=== PATIENT | female | born 1945 | race Caucasian/White ===

== ENCOUNTER 2016-04-02 12:35 | Observation (INO) | payer MEDICARE, OTHER ==
--- NOTE | 2016-04-02 14:01 | XR ---
EXAMINATION TYPE: XR chest 2V DATE OF EXAM: 04/02/2016 1:56 PM COMPARISON: 08/23/15 HISTORY: Shortness of breath TECHNIQUE: Frontal and lateral views of the chest are obtained. FINDINGS: Scattered senescent parenchymal changes noted. Hyperinflation compatible with COPD. No evidence for infiltrate. No evidence for atelectasis. Heart size is stable. Mediastinal structures are stable and grossly unremarkable. No evidence for hilar prominence. Degenerative changes dorsal spine. IMPRESSION: 1. No evidence for acute pulmonary disease.
[2016-04-02] MEDS ORDERED: ASPIRIN 325 MG TAB PO STA (14:55)
[2016-04-02] MEDS ORDERED: SODIUM CHLORIDE 0.9% 500 ML IV STA (14:55)
[2016-04-02 15:30] LABS: Basophils % (A) 1 %; CH 33.2; CHCM 34.1; Eosinophils # (A) 0.1 k/uL (0-0.7); Eosinophils % (A) 2 %; HCT 40.3 % (34.0-46.0); HDW 2.41; HGB 13.3 gm/dL (11.4-16.0); Luc # (Auto) 0.12; Luc % (Auto) 3; Lymphocytes # (A) 2.2 k/uL (1.0-4.8); Lymphocytes % (A) 43 %; MCH 32.4 pg (25.0-35.0); MCHC 33.1 g/dL (31.0-37.0); MCV 97.7 fL (80.0-100.0); Mean Platelet Volume 8.1; Monocytes # (A) 0.6 k/uL (0-1.0); Monocytes % (A) 12 %; Neutrophils % (A) 39 %; RBC 4.12 m/uL (3.80-5.40); RDW 12.6 % (11.5-15.5); WBC (Perox) 5.28
[2016-04-02 15:41] LABS: Partial Thromboplastin Time 22.7 sec (22.0-30.0); Prothrombin Time 10.1 sec (9.0-12.0)
[2016-04-02 15:42] LABS: ALT 41 U/L (9-52); AST 32 U/L (14-36); Alkaline Phosphatase 89 U/L (38-126); Anion Gap 8 mmol/L; Blood Urea Nitrogen 12 mg/dL (7-17); Calcium 9.5 mg/dL (8.4-10.2); Carbon Dioxide 31 mmol/L (22-30); Chloride 102 mmol/L (98-107); Glucose 81 mg/dL (74-99); Non-African American GFR(MDRD) >60 (>60 ml/min/1.73 sqM); Potassium 4.9 mmol/L (3.5-5.1); Sodium 141 mmol/L (137-145); Total Bilirubin 0.2 mg/dL (0.2-1.3); Total Protein 6.3 g/dL (6.3-8.2)
[2016-04-02] MEDS ORDERED: FAMOTIDINE 20 MG/2 ML VIAL IV STA (16:53)
[2016-04-02] MEDS ORDERED: MAG HYDROX/AL HYDROX/SIMETH 30 ML, HYOSCYAMINE ELIXIR 10 ML, CIMETIDINE HCL 300 MG, LID... PO STA ×4 (16:53)
[2016-04-02] MEDS ORDERED: MORPHINE SULFATE 4 MG/ML SYRINGE IV PRN (17:22)
[2016-04-02] MEDS ORDERED: NALOXONE 0.4 MG/ML 1 ML VIAL IV PRN (17:22)
[2016-04-02] MEDS ORDERED: ALBUTEROL NEBULIZED 2.5 MG/3 ML INHALATION PRN (17:26)
[2016-04-02] MEDS ORDERED: SODIUM CHLORIDE 0.9% 1,000 ML IV SCH (17:30)
--- NOTE | 2016-04-02 19:49 | ED ---
General Adult HPI - General Chief complaint: Fall Stated complaint: chest pain Time Seen by Provider: 04/02/16 12:40 Source: patient Mode of arrival: wheelchair - History of Present Illness Initial comments: 70-year-old female presenting for evaluation of right rib pain for the last 6 days. She states that 9 days ago she fell while taking a walk landing on her chest. She did not initially have chest pain but 3 days later her symptoms began. She denies any contusion or gross ecchymosis to the chest wall but there is reproducible chest pain to the right lower 6 ribs. She further admits to URI symptoms with a nonproductive cough, rhinorrhea, and congestion. She states she feels as though she has congestion in her chest but it is not expectorating. There is also left-sided chest pain that is not reproducible to palpation like the right side. - Related Data Home Medications Medication Instructions Recorded Confirmed Albuterol Sulfate [Proair Hfa] 2 puff INHALATION RT-Q6H PRN 08/23/15 04/02/16 Atenolol 50 mg PO DAILY 08/23/15 04/02/16 Baclofen 5 mg PO BID 08/23/15 04/02/16 Divalproex Sodium 500 mg PO BID 08/23/15 04/02/16 Fluticasone Nasal [place] [Flonase 1 spray EA NOSTRIL DAILY 08/23/15 04/02/16 Nasal [place]] Levothyroxine Sodium 25 mcg PO DAILY 08/23/15 04/02/16 Multivitamins, Thera [Multivitamin] 1 tab PO DAILY 08/23/15 04/02/16 Nortriptyline HCl 25 mg PO DAILY 08/23/15 04/02/16 Omeprazole [PriLOSEC] 20 mg PO AC-BID 08/23/15 04/02/16 PARoxetine HCL [Paroxetine HCl] 20 mg PO DAILY 08/23/15 04/02/16 Simvastatin 40 mg PO HS 08/23/15 04/02/16 Aspirin [Adult Low Dose Aspirin EC] 81 mg PO HS 04/02/16 04/02/16 Allergies Allergy/AdvReac Type Severity Reaction Status Date / Time acetaminophen [From [place]] Allergy Nausea Verified 04/02/16 20:41 diclofenac sodium Allergy Unknown Verified 04/02/16 20:41 [From Arthrotec] hydrocodone bitartrate Allergy Unknown Verified 04/02/16 20:41 [From [place]] itraconazole [From Sporanox] Allergy Unknown Verified 04/02/16 20:41 misoprostol [From [employer]] Allergy Unknown Verified 04/02/16 20:41 naproxen [From Naprosyn] Allergy Unknown Verified 04/02/16 20:41 Review of Systems ROS Statement: Those systems with pertinent positive or pertinent negative responses have been documented in the HPI. General: Patient denies fever, chills,nausea, or vomiting. HEENT: No visual changes. No eye pain. No nasal symptoms. No dysphagia.No odynophagia. No ENT pain. Cardiac: Left chest pain nonreproducible and right chest pain reproducible. No palpitations. Pulmonary; No dyspnea. Positive cough that sounds wet but is unable to produce sputum. GI: No abdominal pain. No diarrhea. No constipation. No bowel habit changes. No melena. No hematochezia. See general. : No dysuria.No hematuria. No hesitancy. No urgency. No renal lithiasis history. Musculoskeletal: No musculoskeletal pain. Positive reproducible right chest pain. Orthopedic: Denies fracture history. Integumentary: Denies rash. Denies pruritis. Neurologic: Denies any lateralizing weakness. Denies numbness. Denies tingling. No seizure activity. Denies TIA or CVA. ROS Other: All systems not noted in ROS Statement are negative. Past Medical History Past Medical History: Chest Pain / Angina, COPD, Dementia, GERD/Reflux, Hyperlipidemia, Hypertension, Memory Impairment, Thyroid Disorder Additional Past Medical History / Comment(s): PALPITATIONS, PT STATES SHE THINKS SHE HAS BEGINNING STAGES OF DEMENTIA (STATES FALLS, CONFUSION, AND FORGETFULNESS AT TIMES. PATIENT'S MOTHER HAD DEMENTIA), GERD, CATARACT LT EYE History of Any Multi-Drug Resistant Organisms: None Reported Past Surgical History: Back Surgery, Breast Surgery, Hysterectomy Additional Past Surgical History / Comment(s): Breast reduction four years ago, NECK FUSION, Past Anesthesia/Blood Transfusion Reactions: Previous Problems w/ Anesthesia Additional Past Anesthesia/Blood Transfusion Reaction / Comment(s): TROUBLE WAKING UP FROM ANESTHESIA Past Psychological History: Anxiety, Depression, Panic Disorder Smoking Status: Former smoker Past Alcohol Use History: Occasional Past Drug Use History: None Reported - Past Family History Brother(s) Family Medical History: Myocardial Infarction ([place]) Additional Family Medical History / Comment(s): FROM [place] Father History Unknown: Yes Family Medical History: Coronary Artery Disease (CAD), Myocardial Infarction ([place] ) Additional Family Medical History / Comment(s): FATHER PASSED FROM [place] Mother Additional Family Medical History / Comment(s): kidney failure General Exam - General Exam Comments Initial Comments: General: The patient is awake and alert, in no distress, and does not appear acutely ill. Eye: Pupils are equal, round and reactive to light, extra-ocular movements are intact; there is normal conjunctiva bilaterally. No signs of icterus. Ears, nose, mouth and throat: There are moist mucous membranes and no oral lesions. Neck: The neck is supple, there is no tenderness or JVD. Cardiovascular: There is a regular rate and rhythm. No murmur, rub or gallop is appreciated. Respiratory: Lungs are clear to auscultation, respirations are non-labored, breath sounds are equal. No wheezes, stridor, rales, or rhonchi. Gastrointestinal: Soft, non-distended, non-tender abdomen without masses or organomegaly noted. There is no rebound or guarding present. No CVA tenderness. Bowel sounds are unremarkable. Back: There is no tenderness to palpation in the midline. There is no obvious deformity. No rashes noted. Musculoskeletal: Normal ROM, no tenderness, There is no pedal edema. There is no calf tenderness or swelling. Sensation intact. Pulses equal bilaterally 2+. Neurological: CN II-XII intact, There are no obvious motor or sensory deficits. Coordination appears grossly intact. Speech is normal. Skin: Skin is warm and dry and no rashes or lesions are noted. Psychiatric: Cooperative, appropriate mood & affect, normal judgment. Course Vital Signs 04/02/16 04/02/16 04/02/16 12:36 16:53 18:45 Temperature 99.2 F 97.8 F 97.8 F Pulse Rate 68 56 L 59 L Respiratory 18 16 16 Rate Blood Pressure 122/60 155/67 140/67 O2 Sat by Pulse 100 95 96 Oximetry 04/02/16 20:11 Temperature 97.8 F Pulse Rate 60 Respiratory 16 Rate Blood Pressure 141/70 O2 Sat by Pulse 97 Oximetry EKG Findings - EKG Comments: EKG Findings:: EKG shows normal sinus rhythm with occasional PVCs, rate of 70, LEO 198, QRS 94, QT/QTC 406/438. Medical Decision Making - Medical Decision Making 70-year-old female presented for evaluation of right-sided chest pain that occurred 6 days ago which is preceded 3 days earlier by a fall from standing onto her chest. She also states some left-sided chest pain that is nonreproducible and isn't present today. Patient has multiple risk factors for ACS including hypertension, hyperlipidemia, family history, and previous smoker. Physical examination revealed reproducible right chest wall pain in the lower 6 ribs on the right. The left-sided chest pain was nonreproducible. We'll obtain labs, EKG, chest x-ray, and provide IV fluid and aspirin. Patient reevaluated and continued to have minor chest pain worse on the right compared to the left but still present. Left revealed no significant abnormalities and chest x-ray showed no acute process. Due to continued chest pain the patient was informed that she would be admitted for further care. Dr. Fischer accepted the admission with request for cardiology consult. Admission order placed in bed request submitted. - Lab Data Result diagrams: 04/02/16 15:14 04/02/16 15:14 Lab Results 04/02/16 04/02/16 04/02/16 Range/Units 15:05 15:14 15:14 WBC 5.0 (3.8-10.6) k/uL RBC 4.12 (3.80-5.40) m/uL Hgb 13.3 (11.4-16.0) gm/dL Hct 40.3 (34.0-46.0) % MCV 97.7 (80.0-100.0) fL MCH 32.4 (25.0-35.0) pg MCHC 33.1 (31.0-37.0) g/dL RDW 12.6 (11.5-15.5) % Plt Count 162 (150-450) k/uL Neutrophils % 39 % Lymphocytes % 43 % Monocytes % 12 % Eosinophils % 2 % Basophils % 1 % Neutrophils # 2.0 (1.3-7.7) k/uL Lymphocytes # 2.2 (1.0-4.8) k/uL Monocytes # 0.6 (0-1.0) k/uL Eosinophils # 0.1 (0-0.7) k/uL Basophils # 0.0 (0-0.2) k/uL PT (9.0-12.0) sec INR (<1.1) APTT (22.0-30.0) sec Sodium 141 (137-145) mmol/L Potassium 4.9 (3.5-5.1) mmol/L Chloride 102 (98-107) mmol/L Carbon Dioxide 31 H (22-30) mmol/L Anion Gap 8 mmol/L BUN 12 (7-17) mg/dL Creatinine 0.70 (0.52-1.04) mg/dL Est GFR (MDRD) Af Amer >60 (>60 ml/min/1.73 sqM) Est GFR (MDRD) Non-Af >60 (>60 ml/min/1.73 sqM) Glucose 81 (74-99) mg/dL Calcium 9.5 (8.4-10.2) mg/dL Total Bilirubin 0.2 (0.2-1.3) mg/dL AST 32 (14-36) U/L ALT 41 (9-52) U/L Alkaline Phosphatase 89 (38-126) U/L Troponin I (0.000-0.034) ng/mL NT-Pro-B Natriuret Pep pg/mL Total Protein 6.3 (6.3-8.2) g/dL Albumin 4.0 (3.5-5.0) g/dL Lipase 63 (23-300) U/L Influenza Type A RNA Not Detected (Not Detectd) Influenza Type B (PCR) Not Detected (Not Detectd) 04/02/16 04/02/16 04/02/16 Range/Units 15:14 15:14 15:14 WBC (3.8-10.6) k/uL RBC (3.80-5.40) m/uL Hgb (11.4-16.0) gm/dL Hct (34.0-46.0) % MCV (80.0-100.0) fL MCH (25.0-35.0) pg MCHC (31.0-37.0) g/dL RDW (11.5-15.5) % Plt Count (150-450) k/uL Neutrophils % % Lymphocytes % % Monocytes % % Eosinophils % % Basophils % % Neutrophils # (1.3-7.7) k/uL Lymphocytes # (1.0-4.8) k/uL Monocytes # (0-1.0) k/uL Eosinophils # (0-0.7) k/uL Basophils # (0-0.2) k/uL PT 10.1 (9.0-12.0) sec INR 1.0 (<1.1) APTT 22.7 (22.0-30.0) sec Sodium (137-145) mmol/L Potassium (3.5-5.1) mmol/L Chloride (98-107) mmol/L Carbon Dioxide (22-30) mmol/L Anion Gap mmol/L BUN (7-17) mg/dL Creatinine (0.52-1.04) mg/dL Est GFR (MDRD) Af Amer (>60 ml/min/1.73 sqM) Est GFR (MDRD) Non-Af (>60 ml/min/1.73 sqM) Glucose (74-99) mg/dL Calcium (8.4-10.2) mg/dL Total Bilirubin (0.2-1.3) mg/dL AST (14-36) U/L ALT (9-52) U/L Alkaline Phosphatase (38-126) U/L Troponin I <0.012 (0.000-0.034) ng/mL NT-Pro-B Natriuret Pep 296 pg/mL Total Protein (6.3-8.2) g/dL Albumin (3.5-5.0) g/dL Lipase (23-300) U/L Influenza Type A RNA (Not Detectd) Influenza Type B (PCR) (Not Detectd) Disposition Clinical Impression: Chest pain Disposition: ADMITTED IP TO THIS HOSP Condition: Fair Time of Disposition: 22:23 Decision to Admit Reason: Admit from EC Decision Date: 04/02/16 Decision Time: 22:23
[2016-04-02] MEDS ORDERED: MORPHINE SULFATE 2 MG/ML SYRINGE IVP PRN (20:05)
[2016-04-02] MEDS ORDERED: ONDANSETRON 4 MG/2 ML VIAL IVP STA (20:10)
[2016-04-02 20:52] VITALS: BMI 27.0
[2016-04-02] MEDS ORDERED: ATORVASTATIN 20 MG TAB PO SCH (21:00)
[2016-04-02] MEDS: BACLOFEN 10 MG TAB PO SCH (21:21)
[2016-04-02] MEDS: FAMOTIDINE 20 MG TAB PO SCH (21:21)
[2016-04-02] MEDS: DIVALPROEX 500 MG TABLET.DR PO SCH (21:21)
[2016-04-03] MEDS ORDERED: LEVOTHYROXINE 25 MCG TAB PO SCH (06:30)
[2016-04-03 07:04] LABS: Basophils % (A) 1 %; CHCM 33.3; Eosinophils # (A) 0.2 k/uL (0-0.7); Eosinophils % (A) 4 %; HCT 40.7 % (34.0-46.0); HDW 2.37; Luc # (Auto) 0.12; Luc % (Auto) 3; Lymphocytes # (A) 2.2 k/uL (1.0-4.8); Lymphocytes % (A) 47 %; MCH 31.9 pg (25.0-35.0); MCV 99.6 fL (80.0-100.0); Mean Platelet Volume 8.1; Monocytes # (A) 0.4 k/uL (0-1.0); Monocytes % (A) 9 %; Neutrophils # (A) 1.7 k/uL (1.3-7.7); Neutrophils % (A) 37 %; RBC 4.08 m/uL (3.80-5.40); RDW 12.7 % (11.5-15.5); WBC 4.6 k/uL (3.8-10.6); WBC (Perox) 4.53
[2016-04-03 07:08] LABS: INR 1.1 (<1.1); Prothrombin Time 11.1 sec (9.0-12.0)
[2016-04-03 07:28] LABS: Anion Gap 7 mmol/L; Blood Urea Nitrogen 9 mg/dL (7-17); Calcium 9.5 mg/dL (8.4-10.2); Carbon Dioxide 32 mmol/L (22-30); Chloride 102 mmol/L (98-107); Glucose 81 mg/dL (74-99); Magnesium 1.9 mg/dL (1.6-2.3); Non-African American GFR(MDRD) >60 (>60 ml/min/1.73 sqM); Potassium 4.5 mmol/L (3.5-5.1); Sodium 141 mmol/L (137-145)
--- NOTE | 2016-04-03 07:50 | XR ---
EXAMINATION TYPE: XR chest 2V DATE OF EXAM: 04/03/2016 7:06 AM COMPARISON: 04/02/2016 HISTORY: 70-year-old female with chest pain TECHNIQUE: Frontal and lateral views FINDINGS: ACDF hardware. Heart is upper limits of normal in size. Mild elongation of the thoracic aorta. Some strandy atelecta sis at the left base. There is elevation of the left hemidiaphragm. No consolidation or pleural effus ion seen. IMPRESSION: Stable exam without acute cardiopulmonary process. We note persistent elevation of the left hemidiaph ragm which has a number of possible cause, one of which is hemidiaphragmatic paralysis. Clinically co rrelate with patient's symptoms.
[2016-04-03] MEDS ORDERED: NORTRIPTYLINE 25 MG CAP PO SCH (09:00)
[2016-04-03] MEDS ORDERED: PARoxetine 20 MG TAB PO SCH (09:00)
[2016-04-03] MEDS ORDERED: ASPIRIN 81 MG CHEW PO SCH (09:00)
[2016-04-03] MEDS ORDERED: ATENOLOL 50 MG TAB PO SCH (09:00)
[2016-04-03] MEDS ORDERED: FLUTICASONE 50MCG/SPRAY NASAL 16GM EA NOSTRIL SCH (09:00)
--- NOTE | 2016-04-03 09:04 | P.CRDCN ---
History of Present Illness Consult date: 04/03/16 Chief complaint: Chest pain History of present illness: This is a pleasant 70-year-old female patient who sees Dr. Dr. Tejada as an outpatient with a past medical history significant for hypertension who presented to the hospital complaining of chest discomfort. The patient felt by the mailbox at home and she fell on her knees and on the chest. Since then she started experiencing chest discomfort, as a sharp kind of discomfort, without any radiation and located in the right lower chest. She had a cardiac workup of EKG and enzymes and all came in to be unremarkable. On physical examination she has reproducible chest discomfort. I would obtain an echocardiogram was Doppler to assess for any pericardial effusion. If the echo came in to be unremarkable the patient can be discharged home. Past Medical History Past Medical History: Chest Pain / Angina, COPD, Dementia, GERD/Reflux, Hyperlipidemia, Hypertension, Memory Impairment, Thyroid Disorder Additional Past Medical History / Comment(s): PALPITATIONS, PT STATES SHE THINKS SHE HAS BEGINNING STAGES OF DEMENTIA (STATES FALLS, CONFUSION, AND FORGETFULNESS AT TIMES. PATIENT'S MOTHER HAD DEMENTIA), GERD, CATARACT LT EYE History of Any Multi-Drug Resistant Organisms: None Reported Past Surgical History: Back Surgery, Breast Surgery, Hysterectomy Additional Past Surgical History / Comment(s): Breast reduction four years ago, NECK FUSION, Past Anesthesia/Blood Transfusion Reactions: Previous Problems w/ Anesthesia Additional Past Anesthesia/Blood Transfusion Reaction / Comment(s): TROUBLE WAKING UP FROM ANESTHESIA Past Psychological History: Anxiety, Depression, Panic Disorder Smoking Status: Former smoker Past Alcohol Use History: Occasional Past Drug Use History: None Reported - Past Family History Brother(s) Family Medical History: Myocardial Infarction ([place]) Additional Family Medical History / Comment(s): FROM [place] Father History Unknown: Yes Family Medical History: Coronary Artery Disease (CAD), Myocardial Infarction ([place] ) Additional Family Medical History / Comment(s): FATHER PASSED FROM [place] Mother Additional Family Medical History / Comment(s): kidney failure Medications and Allergies Home Medications Medication Instructions Recorded Confirmed Type Albuterol Sulfate [Proair Hfa] 2 puff INHALATION RT-Q6H PRN 08/23/15 04/02/16 History Atenolol 50 mg PO DAILY 08/23/15 04/02/16 History Baclofen 5 mg PO BID 08/23/15 04/02/16 History Divalproex Sodium 500 mg PO BID 08/23/15 04/02/16 History Fluticasone Nasal [place] [Flonase 1 spray EA NOSTRIL DAILY 08/23/15 04/02/16 History Nasal [place]] Levothyroxine Sodium 25 mcg PO DAILY 08/23/15 04/02/16 History Multivitamins, Thera [Multivitamin] 1 tab PO DAILY 08/23/15 04/02/16 History Nortriptyline HCl 25 mg PO DAILY 08/23/15 04/02/16 History Omeprazole [PriLOSEC] 20 mg PO AC-BID 08/23/15 04/02/16 History PARoxetine HCL [Paroxetine HCl] 20 mg PO DAILY 08/23/15 04/02/16 History Simvastatin 40 mg PO HS 08/23/15 04/02/16 History Aspirin [Adult Low Dose Aspirin EC] 81 mg PO HS 04/02/16 04/02/16 History Allergies Allergy/AdvReac Type Severity Reaction Status Date / Time acetaminophen [From [place]] Allergy Nausea Verified 04/02/16 20:41 diclofenac sodium Allergy Unknown Verified 04/02/16 20:41 [From [employer]] hydrocodone bitartrate Allergy Unknown Verified 04/02/16 20:41 [From [place]] itraconazole [From Sporanox] Allergy Unknown Verified 04/02/16 20:41 misoprostol [From [employer]] Allergy Unknown Verified 04/02/16 20:41 naproxen [From Naprosyn] Allergy Unknown Verified 04/02/16 20:41 Physical Exam Vitals: Vital Signs Temp Pulse Pulse Resp BP BP Pulse Ox 04/03/16 04:00 98.4 F 59 L 18 126/58 97 04/03/16 00:00 18 04/02/16 23:26 65 18 109/64 93 L 04/02/16 21:32 98.8 F 72 16 151/80 97 04/02/16 20:11 97.8 F 60 16 141/70 97 04/02/16 18:45 97.8 F 59 L 16 140/67 96 Intake and Output 04/02/16 04/03/16 04/03/16 22:59 06:59 14:59 Other: # Voids 1 Weight 67.1 kg - Constitutional General appearance: no acute distress - Respiratory Respiratory: bilateral: CTA - Cardiovascular Rhythm: regular Results 04/03/16 06:33 04/03/16 06:33 Coagulation 04/03/16 Range/Units 06:33 PT 11.1 (9.0-12.0) sec CBC 04/03/16 Range/Units 06:33 WBC 4.6 (3.8-10.6) k/uL RBC 4.08 (3.80-5.40) m/uL Hgb 13.0 (11.4-16.0) gm/dL Hct 40.7 (34.0-46.0) % Plt Count 145 L (150-450) k/uL Comprehensive Metabolic Panel 04/03/16 Range/Units 06:33 Sodium 141 (137-145) mmol/L Potassium 4.5 (3.5-5.1) mmol/L Chloride 102 (98-107) mmol/L Carbon Dioxide 32 H (22-30) mmol/L BUN 9 (7-17) mg/dL Creatinine 0.83 (0.52-1.04) mg/dL Glucose 81 (74-99) mg/dL Calcium 9.5 (8.4-10.2) mg/dL Current Medications Generic Name Dose Route Start Last Admin Trade Name Freq PRN Reason Stop Dose Admin Albuterol Sulfate 2.5 mg 04/02/16 17:26 Ventolin Nebulized INHALATION RT-Q6H PRN Shortness Of Breath Aspirin 81 mg 04/03/16 09:00 Aspirin PO QAM ANTONIO Atenolol 50 mg 04/03/16 09:00 Tenormin PO DAILY [facility] Atorvastatin Calcium 20 mg 04/02/16 21:00 04/02/16 21:21 Lipitor PO 20 mg HS ANTONIO Administration Baclofen 5 mg 04/02/16 21:00 04/02/16 21:21 Lioresal PO 5 mg BID ANTONIO Administration Divalproex Sodium 500 mg 04/02/16 21:00 04/02/16 21:21 Depakote PO 500 mg BID ANTONIO Administration Famotidine 20 mg 04/02/16 21:00 04/02/16 21:21 Pepcid PO 20 mg BID ANTONIO Administration Fluticasone Propionate 1 spray 04/03/16 09:00 Flonase Nasal [place] EA NOSTRIL DAILY ANTONIO Sodium Chloride 1,000 mls @ 20 mls/hr 04/02/16 17:30 04/02/16 21:02 Saline 0.9% IV Not Given .Q24H ANTONIO Levothyroxine Sodium 25 mcg 04/03/16 06:30 04/03/16 06:19 Synthroid PO 25 mcg DAILY@0630 ANTONIO Administration Morphine Sulfate 4 mg 04/02/16 17:22 Morphine Sulfate (Inj) IV Q4HR PRN Severe Pain Morphine Sulfate 2 mg 04/02/16 20:05 04/02/16 20:06 Morphine Sulfate (Inj) IVP 2 mg ONCE PRN Administration Pain/Discomfort Naloxone HCl 0.2 mg 04/02/16 17:22 Narcan IV Q2M PRN Opioid Reversal Nortriptyline HCl 25 mg 04/03/16 09:00 Pamelor PO DAILY ANTONIO Paroxetine HCl 20 mg 04/03/16 09:00 Paxil PO DAILY ANTONIO Intake and Output 04/02/16 04/03/16 04/03/16 22:59 06:59 14:59 Other: # Voids 1 Weight 67.1 kg 04/03/16 06:33 04/03/16 06:33 Assessment and Plan Plan: Assessment #1 status post fall #2 atypical and reproducible chest discomfort Plan #1 obtain an echocardiogram was Doppler #2 if the echo is normal the patient can be discharged home
[2016-04-03 09:14] VITALS: RESP 16
[2016-04-03] MEDS ORDERED: NAPROXEN 250 MG TAB PO SCH (11:30)
[2016-04-03 12:59] VITALS: BP 104/61; PULSE 64; TEMP 98.9
--- NOTE | 2016-04-03 13:08 | HP ---
DATE OF ADMISSION: 04/02/2016 PRESENTING COMPLAINT: Right chest wall pain. HISTORY OF PRESENTING COMPLAINT: A pleasant 70-year-old patient of Dr. Cee whose chronic stable medical conditions include COPD, hypertension, depression, osteoarthritis. The patient about 6 to 7 days ago took a fall, falling on the right arm, right knee and subsequent to that 2 days later she developed right-sided chest wall pain much worse with movement, just behind the right breast on the lateral side and decided to come in as pain was not getting controlled. Denied any precordial pain. No shortness of breath associated with the pain or dizziness. No left-sided chest pain. REVIEW OF SYSTEMS: CONSTITUTIONAL: None. HEENT: None. RESPIRATORY: Baseline short of breath from COPD. CARDIOVASCULAR: No precordial pain. GASTROINTESTINAL: None. GENITOURINARY: None. MUSCULOSKELETAL: Aches and pains in different joints including the right chest wall pain. HEMATOLOGICAL: None. LYMPHATIC: None. PSYCHIATRY: History of depression. NEUROLOGICAL: None. Past history of COPD, hypertension, depression, osteoarthritis, dementia, hypothyroid, GERD. PAST SURGICAL HISTORY: Back surgery, breast surgery, hysterectomy, breast reduction 4 years ago. Past psych history of anxiety, depression. Ex-smoker, lives by herself. FAMILY HISTORY: Myocardial infarction. HOME MEDICATIONS: 1. Simvastatin 40 mg q.h.s. 2. Paxil 20 mg daily, 3. Prilosec 20 mg p.o. b.i.d. 4. Nortriptyline 25 mg p.o. daily. 5. Multivitamin 1 tablet p.o. daily. 6. Synthroid 25 mcg p.o. daily. 7. Flonase one spray each nostril daily. 8. Depakote 500 mg p.o. b.i.d. 9. Baclofen 5 mg p.o. b.i.d. 10. Atenolol 50 mg p.o. daily. 11. Aspirin 81 mg p.o. q.h.s. 12. ProAir 2 puffs q.6 p.r.n. Allergies to NORCO, ARTHROTEC, SPORANOX, NAPROXEN, ( ) true allergy. On examination, temperature 98.4, pulse 59, respirations 18, blood pressure 126/58, pulse ox 97% on room air. GENERAL APPEARANCE: Average built, lying in bed, not in distress. EYES: Pupils equal. Conjunctivae normal. HEENT: External appearance of nose and ears normal. Oral cavity normal. NECK: JVD not raised. Mass not palpable. RESPIRATORY: Effort normal. LUNGS: Slightly decreased breath sounds. CARDIOVASCULAR: First and second sounds normal. No edema. ABDOMEN: Soft, nontender. Liver and spleen not palpable. LYMPHATIC: No lymph node palpable in neck or axillae. PSYCHIATRY: Alert and oriented x3. Mood and affect normal. NEUROLOGICAL: Pupils equal. Cranial nerves grossly intact. Power and sensation grossly intact. MUSCULOSKELETAL: Evidence of osteoarthritis multiple joints. Right chest wall reproducible pain in the anterior axillary line at the level of the breast, reproducible. INVESTIGATIONS: White count 4.6, hemoglobin 13. Potassium 4.5. Chest x-ray unremarkable. ASSESSMENT: 1. Right chest wall pain subsequent to a fall reproducible, musculoskeletal in nature. ER was concerned about a cardiac cause, hence they admitted the patient to get a cardiology opinion which I doubt is the case. 2. Essential hypertension. 3. Depression, not otherwise specified. 4. Primary osteoarthritis of multiple joints, bilateral. 5. Hypothyroidism. PLAN: Home medications are resumed. Cardiology was consulted. Will check patient's allergies to anti-inflammatory and probably give a course of that along with heating pad.
[2016-04-03] MEDS: DIVALPROEX 500 MG TABLET.DR PO SCH (13:25)
[2016-04-03] MEDS: BACLOFEN 10 MG TAB PO SCH (13:25)
[2016-04-03] MEDS: FAMOTIDINE 20 MG TAB PO SCH (13:25)
--- NOTE | 2016-04-04 07:41 | DS ---
DATE OF ADMISSION: 04/02/2016 DATE OF DISCHARGE: 04/03/2016 FINAL DIAGNOSES: 1. Right chest wall pain, musculoskeletal secondary to fall, possibly causing bruising of the ribs. 2. Essential hypertension. 3. Depression, not otherwise specified. 4. Primary osteoarthritis of multiple joints, bilateral. 5. Hypothyroidism. HOSPITAL COURSE: This patient presented with right chest wall pain secondary to a fall. Pain is reproducible. Not felt to be cardiac. On examination, reproducible right chest wall pain. CONSULTATION: Dr. Castaneda. DISCHARGE MEDICATIONS: 1. ProAir 2 puffs q.6 p.r.n. 2. Atenolol 50 mg a day. 3. Baclofen 5 mg p.o. b.i.d. 4. Depakote 500 mg p.o. b.i.d. 5. Flonase as before. 6. Levothyroxine 25 mcg a day. 7. Multivitamin 1 tablet a day. 8. Nortriptyline 25 mg p.o. daily. 9. Prilosec 20 mg p.o. b.i.d. 10. Paxil 20 mg daily. 11. Simvastatin 40 mg q.h.s. 12. Aspirin 81 mg p.o. q.h.s. 13. Naproxen 250 mg p.o. b.i.d. for 10 tablets. Heating pad to be used. Follow with Dr. Castaneda in one week; follow up with Dr. Cee in one week.
== END 2016-04-03 13:49 | disposition home or self-care (01) ==
LOC: EC 12:35 → 3OBS 17:27
PROVIDERS: ADMIT Hospitalist; ATTEND Hospitalist
DX: R07.89 Other chest pain (principal); I10 Essential (primary) hypertension; F32.9 Major depressive disorder, single episode, unspecified; M19.91 Primary osteoarthritis, unspecified site; E03.9 Hypothyroidism, unspecified; J44.9 Chronic obstructive pulmonary disease, unspecified; K21.9 Gastro-esophageal reflux disease without esophagitis; E78.5 Hyperlipidemia, unspecified; F41.9 Anxiety disorder, unspecified; Z98.1 Arthrodesis status; Z87.891 Personal history of nicotine dependence; Z79.899 Other long term (current) drug therapy; Z79.51 Long term (current) use of inhaled steroids; Z79.82 Long term (current) use of aspirin; Z88.5 Allergy status to narcotic agent; Z88.8 Allergy status to other drugs, medicaments and biological substances; Z82.49 Family history of ischemic heart disease and other diseases of the circulatory system
CPT/HCPCS: 99285 ×2; 96374 ×2; 96375 ×3; 96361; 36415; 93005; 83880; 80053; 80048; 83690; 83735; 84484; 85025 ×2; 85610 ×2; 85730; 87502; 71020 ×2; G0378 ×2; J2405; J2270

== ENCOUNTER → 2016-07-13 | Outpatient (CLI) | payer MEDICARE, OTHER ==
--- NOTE | 2016-07-15 09:53 | MM ---
Reason for exam: screening (asymptomatic). Last mammogram was performed 1 year ago. History: Patient is postmenopausal. Reductions of both breasts, March 2012. Benign excisional biopsy of the left breast. Took progesterone for 1 month. Physical Findings: A clinical breast exam by your physician is recommended on an annual basis and results should be correlated with mammographic findings. MG 3D Screening Mammo W/Cad Bilateral CC and MLO view(s) were taken. Prior study comparison: July 04, 2015, bilateral MG screening mammo w CAD. July 23, 2014, bilateral MG screening mammo w CAD. There are scattered fibroglandular densities. Stable group of calcifications in the right upper outer quadrant, 3cm from nipple. No significant changes when compared with prior studies. ASSESSMENT: Benign, BI-RAD 2 RECOMMENDATION: Routine screening mammogram of both breasts in 1 year.
== END | disposition home or self-care (01) ==
LOC: RADMAMWWP 12:55
PROVIDERS: ATTEND Family Medicine
DX: Z12.31 Encounter for screening mammogram for malignant neoplasm of breast (principal)
CPT/HCPCS: 77063; G0202

== ENCOUNTER → 2016-07-13 | Outpatient (CLI) | payer MEDICARE, OTHER ==
--- NOTE | 2016-07-14 14:07 | XR ---
EXAMINATION TYPE: XR hand complete LT DATE OF EXAM: 07/13/2016 4:19 PM COMPARISON: NONE HISTORY: Pain in left middle finger TECHNIQUE: 3 view left hand FINDINGS: No acute fractures are evident. Soft tissues appear normal. No radiopaque foreign body is e vident. IMPRESSION: 1. No acute osseous abnormality.
== END | disposition home or self-care (01) ==
LOC: RADXRMAIN 16:03
PROVIDERS: ATTEND Family Medicine
DX: M79.645 Pain in left finger(s) (principal)

== ENCOUNTER → 2016-11-25 | Outpatient (CLI) | payer MEDICARE, OTHER ==
--- NOTE | 2016-11-25 13:37 | XR ---
EXAMINATION TYPE: XR Hip Complete LT DATE OF EXAM: 11/25/2016 CLINICAL HISTORY: pain TECHNIQUE: AP and frogleg views of the left hip are obtained. COMPARISON: None. FINDINGS: There is no acute fracture/dislocation evident. The joint space appears within normal li mits. Heterotopic ossification left supra-acetabular soft tissues. IMPRESSION: 1. There is no acute fracture or dislocation.ICD 10 NO FRACTURE, INITIAL EVALUATION
== END | disposition home or self-care (01) ==
LOC: RADXRMAIN 11:58
PROVIDERS: ATTEND Family Medicine
DX: M25.552 Pain in left hip (principal)
CPT/HCPCS: 73502

== ENCOUNTER → 2017-08-30 | Outpatient (CLI) | payer MEDICARE, OTHER ==
--- NOTE | 2017-08-31 10:16 | MM ---
Reason for exam: screening (asymptomatic). Last mammogram was performed 1 year and 2 months ago. History: Patient is postmenopausal. Reductions of both breasts, March 2012. Benign excisional biopsy of the left breast. Took progesterone for 1 month. Physical Findings: A clinical breast exam by your physician is recommended on an annual basis and results should be correlated with mammographic findings. MG 3D Screening Mammo W/Cad Bilateral CC and MLO view(s) were taken. Prior study comparison: July 13, 2016, bilateral MG 3d screening mammo w/cad. July 04, 2015, bilateral MG screening mammo w CAD. There are scattered fibroglandular densities. Benign appearing bilateral calcifications. No suspicious abnormality. No significant changes when compared with prior studies. ASSESSMENT: Benign, BI-RAD 2 RECOMMENDATION: Routine screening mammogram of both breasts in 1 year.
== END | disposition home or self-care (01) ==
LOC: RADMAMWWP 10:44
PROVIDERS: ATTEND Internal Medicine
DX: Z12.31 Encounter for screening mammogram for malignant neoplasm of breast (principal)
CPT/HCPCS: 77063; 77067

== ENCOUNTER → 2018-08-31 | Outpatient (CLI) | payer MEDICARE, OTHER ==
--- NOTE | 2018-09-04 09:17 | MM ---
Reason for exam: screening (asymptomatic). Last mammogram was performed 1 year ago. History: Patient is postmenopausal. Reductions of both breasts, March 2012. Benign excisional biopsy of the left breast. Took progesterone for 1 month. Physical Findings: A clinical breast exam by your physician is recommended on an annual basis and results should be correlated with mammographic findings. MG 3D Screening Mammo W/Cad Bilateral CC and MLO view(s) were taken. Prior study comparison: August 30, 2017, bilateral MG 3d screening mammo w/cad. July 13, 2016, bilateral MG 3d screening mammo w/cad. There are scattered fibroglandular densities. Bilateral mammoplasty changes. No significant changes when compared with prior studies. ASSESSMENT: Negative, BI-RAD 1 RECOMMENDATION: Routine screening mammogram of both breasts in 1 year.
== END | disposition home or self-care (01) ==
LOC: RADMAMWWP 11:38
PROVIDERS: ATTEND Internal Medicine
DX: Z12.31 Encounter for screening mammogram for malignant neoplasm of breast (principal)
CPT/HCPCS: 77063; 77067

== ENCOUNTER → 2019-05-29 | Outpatient (CLI) | payer MEDICARE, OTHER ==
--- NOTE | 2019-05-29 11:38 | MM ---
Reason for exam: clinical finding. Last mammogram was performed 9 months ago. History: Patient is postmenopausal. Reductions of both breasts, March 2012. Benign excisional biopsy of the left breast. Took progesterone for 1 month. Physical Findings: Nurse did not find any significant physical abnormalities on exam. MG 3D Diag Mammo W/Cad MARIA D Bilateral CC and MLO view(s) were taken. Prior study comparison: August 31, 2018, bilateral MG 3d screening mammo w/cad. August 30, 2017, bilateral MG 3d screening mammo w/cad. There are scattered fibroglandular densities. Finding: There are typically benign vascular, dystrophic, round, linear calcifications in both breasts. Asymmetric breast tissue left outer, stable. There is no discrete abnormality. These results were verbally communicated with the patient and result sheet given to the patient on 05/29/19. ASSESSMENT: Benign, BI-RAD 2 RECOMMENDATION: Routine screening mammogram of both breasts in 1 year. Manage on a clinical basis with regard to bilateral pain.
== END | disposition home or self-care (01) ==
LOC: RADMAMWWP 10:41
PROVIDERS: ATTEND Internal Medicine
DX: N64.4 Mastodynia (principal)
CPT/HCPCS: 77066; G0279; 77062

== ENCOUNTER 2019-07-11 11:08 | Emergency (ER) | payer MEDICARE, OTHER ==
[2019-07-11 11:15] VITALS: RESP 18
[2019-07-11] MEDS ORDERED: SODIUM CHLORIDE 0.9% 1,000 ML IV STA (11:28)
[2019-07-11] MEDS ORDERED: ONDANSETRON 4 MG/2 ML VIAL IVP STA (11:28)
[2019-07-11] MEDS ORDERED: MORPHINE SULFATE 2 MG/ML SYRINGE IVP ONE (11:49)
[2019-07-11 12:02] LABS: Basophils # (A) 0.1 k/uL (0-0.2); Basophils % (A) 1 %; Eosinophils # (A) 0.2 k/uL (0-0.7); Eosinophils % (A) 5 %; HCT 38.6 % (34.0-46.0); HGB 13.1 gm/dL (11.4-16.0); Lymphocytes # (A) 1.6 k/uL (1.0-4.8); Lymphocytes % (A) 42 %; MCH 31.9 pg (25.0-35.0); MCHC 33.9 g/dL (31.0-37.0); MCV 93.9 fL (80.0-100.0); Mean Platelet Volume 7.7; Monocytes # (A) 0.5 k/uL (0-1.0); Monocytes % (A) 12 %; Neutrophils # (A) 1.4 k/uL (1.3-7.7); Neutrophils % (A) 37 %; Platelet Count 182 k/uL (150-450); RBC 4.11 m/uL (3.80-5.40); RDW 12.5 % (11.5-15.5); WBC 3.9 k/uL (3.8-10.6)
--- NOTE | 2019-07-11 12:08 | ED ---
Abdominal Pain HPI - General Chief Complaint: Abdominal Pain Stated Complaint: abd pain/sent by pcp Time Seen by Provider: 07/11/19 11:17 Source: patient, RN notes reviewed Mode of arrival: wheelchair Limitations: no limitations, physical limitation - History of Present Illness Initial Comments: This a 73-year-old female presents emergency Department chief complaint of abdominal pain. She states this has been ongoing but states in the last couple days that she's had worsening severe diffuse abdominal pain. Patient called her PCP who recommended to come the emergency department. Patient's had prior hysterectomy and asthma that she's had some frequent urinary tract infections. Patient denies any diarrhea or constipation she does admit to some nausea. No chest pain or shortness of breath. Denies fevers or chills. No prior abdominal infections including colitis, diverticulitis. Patient states nothing really makes her pain feel better or worse or she states that she has chronic back pain and normally gets injections but states that she has not been getting around secondary to current pandemic. - Related Data Home Medications Medication Instructions Recorded Confirmed Baclofen 5 mg PO BID 08/23/15 07/11/19 Divalproex Sodium 500 mg PO BID 08/23/15 07/11/19 Levothyroxine Sodium 25 mcg PO DAILY 08/23/15 07/11/19 Multivitamins, Thera [Multivitamin 1 tab PO DAILY 08/23/15 07/11/19 (formulary)] Nortriptyline HCl 25 mg PO DAILY 08/23/15 07/11/19 PARoxetine HCL [Paroxetine HCl] 20 mg PO DAILY 08/23/15 07/11/19 Calcium Carbonate [Calcium] 600 mg PO DAILY 07/11/19 07/11/19 Dicyclomine [Bentyl] 20 mg PO BID 07/11/19 07/11/19 Meloxicam 7.5 mg PO BID 07/11/19 07/11/19 Metoprolol Tartrate [Lopressor] 50 mg PO BID 07/11/19 07/11/19 Mirabegron [Myrbetriq] 50 mg PO DAILY 07/11/19 07/11/19 Omeprazole [PriLOSEC] 40 mg PO DAILY 07/11/19 07/11/19 Previous Rx's Medication Instructions Recorded Phenazopyridine [Pyridium] 200 mg PO TID #6 tablet 07/11/19 Allergies Allergy/AdvReac Type Severity Reaction Status Date / Time diclofenac sodium Allergy Unknown Verified 07/11/19 12:28 [From Arthrotec] hydrocodone bitartrate Allergy Unknown Verified 07/11/19 12:28 [From [place]] itraconazole [From Sporanox] Allergy Unknown Verified 07/11/19 12:28 misoprostol [From [employer]] Allergy Unknown Verified 07/11/19 12:28 naproxen [From Naprosyn] Allergy Unknown Verified 07/11/19 12:28 Review of Systems ROS Statement: Those systems with pertinent positive or pertinent negative responses have been documented in the HPI. ROS Other: All systems not noted in ROS Statement are negative. Past Medical History Past Medical History: Chest Pain / Angina, COPD, Dementia, GERD/Reflux, Hyperl ipidemia, Hypertension, Memory Impairment, Thyroid Disorder Additional Past Medical History / Comment(s): PALPITATIONS, PT STATES SHE THINKS SHE HAS BEGINNING STAGES OF DEMENTIA (STATES FALLS, CONFUSION, AND FORGETFULNESS AT TIMES. PATIENT'S MOTHER HAD DEMENTIA), GERD, CATARACT LT EYE History of Any Multi-Drug Resistant Organisms: None Reported Past Surgical History: Back Surgery, Breast Surgery, Hysterectomy Additional Past Surgical History / Comment(s): Breast reduction four years ago, NECK FUSION, Past Anesthesia/Blood Transfusion Reactions: Previous Problems w/ Anesthesia Additional Past Anesthesia/Blood Transfusion Reaction / Comment(s): TROUBLE WAKING UP FROM ANESTHESIA Past Psychological History: Anxiety, Depression, Panic Disorder Smoking Status: Former smoker Past Alcohol Use History: Occasional Past Drug Use History: None Reported - Past Family History Brother(s) Family Medical History: Myocardial Infarction ([place]) Additional Family Medical History / Comment(s): FROM [place] Father History Unknown: Yes Family Medical History: Coronary Artery Disease (CAD), Myocardial Infarction ([place]) Additional Family Medical History / Comment(s): FATHER PASSED FROM [place] Mother Additional Family Medical History / Comment(s): kidney failure General Exam Limitations: no limitations General appearance: alert, in no apparent distress Head exam: Present: atraumatic, normocephalic, normal inspection Eye exam: Present: normal appearance, PERRL, EOMI. Absent: scleral icterus, conjunctival injection, periorbital swelling ENT exam: Present: normal exam, normal oropharynx, mucous membranes moist Neck exam: Present: normal inspection, full ROM. Absent: tenderness, meningismus, lymphadenopathy Respiratory exam: Present: normal lung sounds bilaterally. Absent: respiratory distress, wheezes, rales, rhonchi, stridor Cardiovascular Exam: Present: regular rate, normal rhythm, normal heart sounds. Absent: systolic murmur, diastolic murmur, rubs, gallop, clicks GI/Abdominal exam: Present: soft, tenderness (Mild to moderate diffuse), normal bowel sounds. Absent: distended, guarding, rebound, rigid Back exam: Absent: CVA tenderness (R), CVA tenderness (L) Neurological exam: Present: alert, oriented X3, CN II-XII intact, reflexes normal. Absent: motor sensory deficit Skin exam: Present: warm, dry, intact, normal color. Absent: rash Course Vital Signs 07/11/19 11:12 Temperature 99.1 F Pulse Rate 66 Respiratory 18 Rate Blood Pressure 180/75 O2 Sat by Pulse 98 Oximetry Medical Decision Making - Medical Decision Making 73-year-old female presented for lower abdominal pain which has been ongoing. She also has chronic back pain and worsening after not receiving her ejections. CT, labs are essentially unremarkable there are no significant acute findings. Patient was provided pain relief. She does feel improved. She does complain that she has burning sensation after she urinates she'll be provided Pyridium. Return parameters discussed. - Lab Data Result diagrams: 07/11/19 11:45 07/11/19 11:45 Lab Results 07/11/19 07/11/19 07/11/19 Range/Units 11:45 11:45 11:45 WBC 3.9 (3.8-10.6) k/uL RBC 4.11 (3.80-5.40) m/uL Hgb 13.1 (11.4-16.0) gm/dL Hct 38.6 (34.0-46.0) % MCV 93.9 (80.0-100.0) fL MCH 31.9 (25.0-35.0) pg MCHC 33.9 (31.0-37.0) g/dL RDW 12.5 (11.5-15.5) % Plt Count 182 (150-450) k/uL Neutrophils % 37 % Lymphocytes % 42 % Monocytes % 12 % Eosinophils % 5 % Basophils % 1 % Neutrophils # 1.4 (1.3-7.7) k/uL Lymphocytes # 1.6 (1.0-4.8) k/uL Monocytes # 0.5 (0-1.0) k/uL Eosinophils # 0.2 (0-0.7) k/uL Basophils # 0.1 (0-0.2) k/uL Sodium 136 L (137-145) mmol/L Potassium 4.4 (3.5-5.1) mmol/L Chloride 102 (98-107) mmol/L Carbon Dioxide 31 H (22-30) mmol/L Anion Gap 3 mmol/L BUN 15 (7-17) mg/dL Creatinine 0.61 (0.52-1.04) mg/dL Est GFR (CKD-EPI)AfAm >90 (>60 ml/min/1.73 sqM) Est GFR (CKD-EPI)NonAf >90 (>60 ml/min/1.73 sqM) Glucose 77 (74-99) mg/dL Plasma Lactic Acid Chris 0.8 (0.7-2.0) mmol/L Calcium 9.3 (8.4-10.2) mg/dL Total Bilirubin 0.3 (0.2-1.3) mg/dL AST 25 (14-36) U/L ALT 17 (4-34) U/L Alkaline Phosphatase 80 (38-126) U/L Total Protein 6.6 (6.3-8.2) g/dL Albumin 4.1 (3.5-5.0) g/dL Lipase 54 (23-300) U/L Urine Color Urine Appearance (Clear) Urine pH (5.0-8.0) Ur Specific [place] (1.001-1.035) Urine Protein (Negative) Urine Glucose (UA) (Negative) Urine Ketones (Negative) Urine Blood (Negative) Urine Nitrite (Negative) Urine Bilirubin (Negative) Urine Urobilinogen (<2.0) mg/dL Ur Leukocyte Esterase (Negative) 07/11/19 Range/Units 13:43 WBC (3.8-10.6) k/uL RBC (3.80-5.40) m/uL Hgb (11.4-16.0) gm/dL Hct (34.0-46.0) % MCV (80.0-100.0) fL MCH (25.0-35.0) pg MCHC (31.0-37.0) g/dL RDW (11.5-15.5) % Plt Count (150-450) k/uL Neutrophils % % Lymphocytes % % Monocytes % % Eosinophils % % Basophils % % Neutrophils # (1.3-7.7) k/uL Lymphocytes # (1.0-4.8) k/uL Monocytes # (0-1.0) k/uL Eosinophils # (0-0.7) k/uL Basophils # (0-0.2) k/uL Sodium (137-145) mmol/L Potassium (3.5-5.1) mmol/L Chloride (98-107) mmol/L Carbon Dioxide (22-30) mmol/L Anion Gap mmol/L BUN (7-17) mg/dL Creatinine (0.52-1.04) mg/dL Est GFR (CKD-EPI)AfAm (>60 ml/min/1.73 sqM) Est GFR (CKD-EPI)NonAf (>60 ml/min/1.73 sqM) Glucose (74-99) mg/dL Plasma Lactic Acid Chris (0.7-2.0) mmol/L Calcium (8.4-10.2) mg/dL Total Bilirubin (0.2-1.3) mg/dL AST (14-36) U/L ALT (4-34) U/L Alkaline Phosphatase (38-126) U/L Total Protein (6.3-8.2) g/dL Albumin (3.5-5.0) g/dL Lipase (23-300) U/L Urine Color Light Yellow Urine Appearance Clear (Clear) Urine pH 7.5 (5.0-8.0) Ur Specific [place] 1.031 (1.001-1.035) Urine Protein Negative (Negative) Urine Glucose (UA) Negative (Negative) Urine Ketones Negative (Negative) Urine Blood Negative (Negative) Urine Nitrite Negative (Negative) Urine Bilirubin Negative (Negative) Urine Urobilinogen <2.0 (<2.0) mg/dL Ur Leukocyte Esterase Negative (Negative) Disposition Clinical Impression: Abdominal pain, Spastic dysuria Disposition: HOME SELF-CARE Condition: Stable Instructions (If sedation given, give patient instructions): Abdominal Pain (ED) Additional Instructions: Please return to the Emergency Department if symptoms worsen or any other concerns. Prescriptions: Phenazopyridine [Pyridium] 200 mg PO TID #6 tablet Is patient prescribed a controlled substance at d/c from ED?: No Referrals: Víctor Poole MD [Primary Care Provider] - 1-2 days Time of Disposition: 14:04
[2019-07-11 12:20] LABS: ALT 17 U/L (4-34); AST 25 U/L (14-36); African American GFR (CKD) >90 (>60 ml/min/1.73 sqM); Albumin 4.1 g/dL (3.5-5.0); Alkaline Phosphatase 80 U/L (38-126); Anion Gap 3 mmol/L; Blood Urea Nitrogen 15 mg/dL (7-17); Calcium 9.3 mg/dL (8.4-10.2); Carbon Dioxide 31 mmol/L (22-30); Chloride 102 mmol/L (98-107); Glucose 77 mg/dL (74-99); Non-African American GFR(CKD) >90 (>60 ml/min/1.73 sqM); Potassium 4.4 mmol/L (3.5-5.1); Sodium 136 mmol/L (137-145); Total Bilirubin 0.3 mg/dL (0.2-1.3); Total Protein 6.6 g/dL (6.3-8.2)
--- NOTE | 2019-07-11 13:01 | CT ---
EXAMINATION TYPE: CT abdomen pelvis w con DATE OF EXAM: 07/11/2019 HISTORY: generalized acute onset generalized pain with nausea CT DLP: 763.5mGycm Automated Exposure Control for Dose Reduction was Utilized. CONTRAST: CT scan of the abdomen and pelvis is performed without oral but with IV Contrast, patient injected wi th 100 mL of Isovue 300. COMPARISON: None FINDINGS: LUNG BASES: Elevated left hemidiaphragm with left basilar linear scarring and/or atelectasis. LIVER/GB: Punctate calcification periphery right hepatic lobe axial image 373. PANCREAS: No significant abnormality is seen. SPLEEN: Multiple calcifications scattered throughout the spleen presumed product of old granulomatous disease. ADRENALS: No significant abnormality is seen. KIDNEYS: Symmetric cortical medullary uptake and excretion without hydronephrosis seen bilaterally. BOWEL: Suboptimal evaluation of bowel without enteric contrast. Stomach poorly distended and thus sub optimally evaluated. No suspicious small bowel dilatation. Low-lying cecum into the anterior lower pe lvis axial image 70 for reference. Appendix seen right pelvis coronal image 59 for reference is withi n normal limits. Some fecal prominence in the cecum. A few diverticula in the sigmoid colon without C T evidence for acute diverticulitis. Poor visualization of terminal ileum. UTERUS/ADNEXA: Uterus surgically absent or markedly atrophic. LYMPH NODES: No greater than 1cm abdominal or pelvic lymph nodes are appreciated. OSSEOUS STRUCTURES: Marked underlying levoconvex scoliosis centered at L3 level. Multilevel disc spac e narrowing along with spurring and endplate sclerosis greatest right L3-L4 and L4-L5 levels. Facet a rthropathy and spondylolisthesis contributes to most prominent spinal canal stenosis L4-L5 level axia l image 44. Moderate narrowing and mild spurring of both hip joints. OTHER: Fairly moderate calcified plaque of aorta extends into branch vessels including origin of both renal arteries, significant stenosis not excluded. IMPRESSION: No significant acute finding is seen to account for patient's clinical symptoms.
[2019-07-11 14:00] LABS: Appearance,Urine Clear (Clear); Bilirubin,Urine Negative (Negative); Blood,Urine Negative (Negative); Color,Urine Light Yellow; Glucose,Urine (UA) Negative (Negative); Ketones,Urine Negative (Negative); Leukocyte Esterase,Urine Negative (Negative); Nitrite,Urine Negative (Negative); PH, Urine 7.5 (5.0-8.0); Protein,Urine Negative (Negative); Specific Gravity,Urine 1.031 (1.001-1.035); Urobilinogen,Urine <2.0 mg/dL (<2.0)
[2019-07-11 15:10] VITALS: BP 156/72; PULSE 59; TEMP 98.1
== END 2019-07-11 14:25 | disposition home or self-care (01) ==
LOC: EC 11:08
DX: G89.29 Other chronic pain (principal); R10.30 Lower abdominal pain, unspecified; R30.0 Dysuria; I25.2 Old myocardial infarction; F41.9 Anxiety disorder, unspecified; F32.9 Major depressive disorder, single episode, unspecified; F41.0 Panic disorder [episodic paroxysmal anxiety]; I10 Essential (primary) hypertension; E07.9 Disorder of thyroid, unspecified; K21.9 Gastro-esophageal reflux disease without esophagitis; Z79.899 Other long term (current) drug therapy; Z79.1 Long term (current) use of non-steroidal anti-inflammatories (NSAID); Z87.891 Personal history of nicotine dependence; Z88.5 Allergy status to narcotic agent; Z88.6 Allergy status to analgesic agent; Z88.3 Allergy status to other anti-infective agents; Z88.8 Allergy status to other drugs, medicaments and biological substances; Z90.710 Acquired absence of both cervix and uterus
CPT/HCPCS: 36415; 80053; 83605; 83690; 85025; 81003; 74177; 96374; 96375; 96361; 99284; J2405; J2270; Q9967

== ENCOUNTER → 2020-06-23 | Outpatient (CLI) | payer MEDICARE, OTHER ==
[2020-06-23 11:51] LABS: African American GFR (CKD) >90 (>60 ml/min/1.73 sqM); Anion Gap 5 mmol/L; Blood Urea Nitrogen 11 mg/dL (7-17); Calcium 9.5 mg/dL (8.4-10.2); Carbon Dioxide 32 mmol/L (22-30); Chloride 101 mmol/L (98-107); Glucose 85 mg/dL (74-99); Non-African American GFR(CKD) 88 (>60 ml/min/1.73 sqM); Potassium 3.9 mmol/L (3.5-5.1); Sodium 138 mmol/L (137-145)
[2020-06-23 11:55] LABS: Basophils # (A) 0.1 k/uL (0-0.2); Basophils % (A) 1 %; Eosinophils # (A) 0.2 k/uL (0-0.7); Eosinophils % (A) 6 %; HCT 41.1 % (34.0-46.0); Lymphocytes # (A) 1.7 k/uL (1.0-4.8); Lymphocytes % (A) 39 %; MCH 31.8 pg (25.0-35.0); MCV 93.7 fL (80.0-100.0); Mean Platelet Volume 7.7; Monocytes # (A) 0.6 k/uL (0-1.0); Monocytes % (A) 13 %; Neutrophils # (A) 1.6 k/uL (1.3-7.7); Neutrophils % (A) 38 %; Platelet Count 186 k/uL (150-450); RBC 4.39 m/uL (3.80-5.40); RDW 12.4 % (11.5-15.5); WBC 4.3 k/uL (3.8-10.6)
[2020-06-23 11:58] LABS: Partial Thromboplastin Time 23.5 sec (22.0-30.0); Prothrombin Time 10.3 sec (9.0-12.0)
[2020-06-23 14:08] LABS: Appearance,Urine Clear (Clear); Bacteria,Urine Rare /hpf; Bilirubin,Urine Negative (Negative); Blood,Urine Negative (Negative); Color,Urine Yellow; Glucose,Urine (UA) Negative (Negative); Ketones,Urine Negative (Negative); Leukocyte Esterase,Urine Negative (Negative); Mucus,Urine Many /hpf; Nitrite,Urine Negative (Negative); PH, Urine 6.5 (5.0-8.0); Protein,Urine 1+ (Negative); RBC,Urine <1 /hpf (0-5); Specific Gravity,Urine 1.025 (1.001-1.035); Squamous Epithelial Cell,Urine 2 /hpf (0-4); WBC,Urine 1 /hpf (0-5)
== END | disposition home or self-care (01) ==
LOC: LABPAT 10:09
PROVIDERS: ATTEND Orthopaedic Surgery Orthopaedic Surgery of the Spine
DX: Z01.818 Encounter for other preprocedural examination (principal); M48.061 Spinal stenosis, lumbar region without neurogenic claudication; R00.1 Bradycardia, unspecified; Z79.01 Long term (current) use of anticoagulants
CPT/HCPCS: 36415; 80048; 81001; 85025; 85610; 85730

== ENCOUNTER → 2020-06-27 | Outpatient (CLI) | payer MEDICARE, OTHER ==
--- NOTE | 2020-06-27 17:00 | XR ---
EXAMINATION TYPE: XR chest 2V DATE OF EXAM: 06/27/2020 COMPARISON: 04/03/2016 HISTORY: 74-year-old female Z0 1.818, preop for back surgery. TECHNIQUE: PA and lateral views FINDINGS: ACDF hardware. S-shaped scoliosis of the thoracolumbar spine. Heart upper limits of normal in size. M ild hyperinflation. No consolidation or pleural effusion. IMPRESSION: ACDF hardware. S-shaped scoliosis. COPD. No acute process seen.
== END | disposition home or self-care (01) ==
LOC: LABPAT 14:40
PROVIDERS: ATTEND Orthopaedic Surgery Orthopaedic Surgery of the Spine
DX: Z01.818 Encounter for other preprocedural examination (principal); J44.9 Chronic obstructive pulmonary disease, unspecified; M41.87 Other forms of scoliosis, lumbosacral region
CPT/HCPCS: 71046

== ENCOUNTER → 2020-07-23 | Outpatient (CLI) | payer MEDICARE, OTHER ==
--- NOTE | 2020-07-24 12:31 | MM ---
Reason for exam: screening (asymptomatic). Last mammogram was performed 1 year and 2 months ago. History: Patient is postmenopausal. Reductions of both breasts, March 2012. Benign excisional biopsy of the left breast. Took progesterone for 1 month. Physical Findings: A clinical breast exam by your physician is recommended on an annual basis and results should be correlated with mammographic findings. MG 3D Screening Mammo W/Cad Bilateral CC and MLO view(s) were taken. Prior study comparison: May 29, 2019, bilateral MG 3d diag mammo w/cad MARIA D. August 31, 2018, bilateral MG 3d screening mammo w/cad. There are scattered fibroglandular densities. Stable benign calcifications. There is no discrete abnormality. No significant changes when compared with prior studies. ASSESSMENT: Benign, BI-RAD 2 RECOMMENDATION: Routine screening mammogram of both breasts in 1 year.
== END | disposition home or self-care (01) ==
LOC: RADMAMWWP 10:22
PROVIDERS: ATTEND Internal Medicine
DX: Z12.31 Encounter for screening mammogram for malignant neoplasm of breast (principal); Z78.0 Asymptomatic menopausal state
CPT/HCPCS: 77063; 77067

== ENCOUNTER → 2020-08-19 | Outpatient (CLI) | payer MEDICARE, OTHER ==
[2020-08-19 14:07] LABS: Appearance,Urine Clear (Clear); Bacteria,Urine Rare /hpf; Bilirubin,Urine Negative (Negative); Blood,Urine Negative (Negative); Color,Urine Yellow; Glucose,Urine (UA) Negative (Negative); Hyaline Casts,Urine 4 /lpf (0-2); Ketones,Urine Trace (Negative); Leukocyte Esterase,Urine Small (Negative); Mucus,Urine Many /hpf; Nitrite,Urine Negative (Negative); PH, Urine 5.5 (5.0-8.0); Protein,Urine 1+ (Negative); RBC,Urine 2 /hpf (0-5); Specific Gravity,Urine 1.038 (1.001-1.035); Squamous Epithelial Cell,Urine 1 /hpf (0-4); WBC,Urine 1 /hpf (0-5)
--- NOTE | 2020-08-19 14:43 | XR ---
EXAMINATION TYPE: XR chest 2V DATE OF EXAM: 08/19/2020 COMPARISON: 06/27/2020 HISTORY: 74-year-old preop spinal surgery TECHNIQUE: Frontal and lateral views of the chest are obtained. FINDINGS: Heart size is within normal limits. Atherosclerotic aortic knob. No focal consolidation, p neumothorax or pleural effusion. Mild asymmetric elevation of the left hemidiaphragm is stable. Mild hyperinflation of lungs with flattening of the diaphragms and increased retrosternal airspace suggest hortencia of COPD. Cervical spinal hardware. Degenerative changes of the thoracic spine. IMPRESSION: 1. No acute pulmonary disease. 2. COPD. 3. Atherosclerotic aortic knob. 4. Mild asymmetric elevation of the left hemidiaphragm is stable.
[2020-08-19 15:01] LABS: Prothrombin Time 10.3 sec (9.0-12.0)
[2020-08-19 21:40] LABS: Basophils # (A) 0.04 X 10*3/uL (0.00-0.10); Basophils % (A) 0.9 %; Eosinophils # (A) 0.09 X 10*3/uL (0.04-0.35); Eosinophils % (A) 2.1 %; HCT 42.3 % (37.2-46.3); HGB 13.6 g/dL (12.0-15.0); Lymphocytes # (A) 2.25 X 10*3/uL (0.90-5.00); Lymphocytes % (A) 52.2 %; MCH 31.3 pg (27.0-32.0); MCHC 32.2 g/dL (32.0-37.0); MCV 97.5 fL (80.0-97.0); Mean Platelet Volume 11.6 fL (9.5-12.2); Monocytes % (A) 16.2 %; Neutrophils # (A) 1.23 X 10*3/uL (1.80-7.70); Neutrophils % (A) 28.6 %; Platelet Count 182 X 10*3/uL (140-440); RBC 4.34 X 10*6/uL (4.10-5.20); RDW 12.7 % (11.5-14.5); WBC 4.31 X 10*3/uL (4.50-10.00)
[2020-08-19 22:20] LABS: African American GFR (CKD) 100.3 (60.0-200.0); Albumin 4.5 g/dL (3.80-4.90); Albumin/Globulin Ratio 2.14 (1.60-3.17); Anion Gap 6.4 mmol/L (4.00-12.00); BUN/Creat Ratio 15.71 Ratio (12.00-20.00); Calcium 9.7 mg/dL (8.7-10.3); Carbon Dioxide 31.6 mmol/L (21.6-31.8); Globulin 2.1 g/dL (1.6-3.3); Non-African American GFR(CKD) 86.6 (60.0-200.0); Potassium 4.2 mmol/L (3.5-5.5); Total Bilirubin 0.3 mg/dL (0.3-1.2); Total Protein 6.6 g/dL (6.2-8.2)
== END | disposition home or self-care (01) ==
LOC: LABWHC1 12:15
PROVIDERS: ATTEND Neurological Surgery
DX: Z01.818 Encounter for other preprocedural examination (principal); J44.9 Chronic obstructive pulmonary disease, unspecified; I70.0 Atherosclerosis of aorta; M43.16 Spondylolisthesis, lumbar region; M48.062 Spinal stenosis, lumbar region with neurogenic claudication; M53.3 Sacrococcygeal disorders, not elsewhere classified; M54.16 Radiculopathy, lumbar region
CPT/HCPCS: 36415; 71046; 80053; 81001; 85025; 85610; 85730; 87070

== ENCOUNTER → 2020-08-28 | Outpatient (CLI) | payer MEDICARE, OTHER | END | disposition home or self-care (01) | LOC: LABWHC1 15:23 | PROVIDERS: ATTEND Neurological Surgery | DX: Z20.822 Contact with and (suspected) exposure to COVID-19 (principal); M43.16 Spondylolisthesis, lumbar region; M48.062 Spinal stenosis, lumbar region with neurogenic claudication; M53.3 Sacrococcygeal disorders, not elsewhere classified; M54.16 Radiculopathy, lumbar region | CPT/HCPCS: U0003; C9803; U0005 ==

== ENCOUNTER 2021-02-10 13:00 | Emergency (ER) | payer MEDICARE, OTHER ==
[2021-02-10 13:08] VITALS: BP 143/73; PULSE 60; RESP 16; TEMP 98
--- NOTE | 2021-02-10 13:35 | XR ---
EXAMINATION TYPE: XR ankle complete RT DATE OF EXAM: 02/10/2021 COMPARISON: NONE HISTORY: Pain TECHNIQUE: Frontal, lateral and oblique images of the right ankle are obtained. COMPARISON: None. FINDINGS: There is a well-corticated ossific density about the tip of the lateral malleolus which almaz ears to reflect a remote avulsion fracture. There is soft tissue swelling about the ankle greatest la terally. No acute fracture is seen with certainty at this time. IMPRESSION: As above
[2021-02-10] MEDS ORDERED: ACETAMINOPHEN TAB 325 MG TAB PO STA (14:30)
--- NOTE | 2021-02-10 14:37 | ED ---
General Adult HPI - General Chief complaint: Extremity Injury, Lower Stated complaint: Fall/Rt Ankle Injury Time Seen by Provider: 02/10/21 14:18 Source: patient, RN notes reviewed Mode of arrival: wheelchair Limitations: no limitations - History of Present Illness Initial comments: 75-year-old female with a past medical history of COPD, dementia, hyper lipidemia, hypertension presents to the emergency room for a chief complaint of right ankle pain. Patient was walking down the stairs of her porch last night when she fell and twisted the right ankle. States it has been swollen. Patient states it is painful as well. Sprained it. Patient did not hit her head. She is not on blood thinners. No other injuries.Patient has no other complaints at this time including shortness of breath, chest pain, abdominal pain, nausea or vomiting, headache, or visual changes. - Related Data Home Medications Medication Instructions Recorded Confirmed Baclofen 10 mg PO BID 08/23/15 06/26/20 Divalproex Sodium 500 mg PO BID 08/23/15 06/26/20 Levothyroxine Sodium 25 mcg PO QAM 08/23/15 06/26/20 Nortriptyline HCl 25 mg PO DAILY PRN 08/23/15 06/26/20 PARoxetine HCL [Paroxetine HCl] 20 mg PO QAM 08/23/15 06/26/20 Dicyclomine [Bentyl] 20 mg PO BID 07/11/19 06/26/20 Meloxicam 7.5 mg PO BID 07/11/19 06/26/20 Metoprolol Tartrate [Lopressor] 50 mg PO BID 07/11/19 06/26/20 Mirabegron [Myrbetriq] 50 mg PO HS 07/11/19 06/26/20 Omeprazole [PriLOSEC] 20 mg PO AC-BID 06/26/20 06/26/20 traMADol HCL 50 mg PO BID 06/26/20 06/26/20 Allergies Allergy/AdvReac Type Severity Reaction Status Date / Time diclofenac sodium Allergy Unknown Verified 02/10/21 13:08 [From [employer]] hydrocodone bitartrate Allergy Unknown Verified 02/10/21 13:08 [From [place]] itraconazole [From Sporanox] Allergy Unknown Verified 02/10/21 13:08 misoprostol [From [employer]] Allergy Unknown Verified 02/10/21 13:08 naproxen [From Naprosyn] Allergy Unknown Verified 02/10/21 13:08 Review of Systems ROS Statement: Those systems with pertinent positive or pertinent negative responses have been documented in the HPI. ROS Other: All systems not noted in ROS Statement are negative. Past Medical History Past Medical History: Chest Pain / Angina, COPD, Dementia, GERD/Reflux, Hyperlipidemia, Hypertension, Memory Impairment, Thyroid Disorder Additional Past Medical History / Comment(s): PALPITATIONS, PT STATES SHE THINKS SHE HAS BEGINNING STAGES OF DEMENTIA (STATES FALLS, CONFUSION, AND FORGETFULNESS AT TIMES. PATIENT'S MOTHER HAD DEMENTIA), GERD, CATARACT LT EYE History of Any Multi-Drug Resistant Organisms: None Reported Past Surgical History: Back Surgery, Breast Surgery, Hysterectomy Additional Past Surgical History / Comment(s): Breast reduction four years ago, NECK FUSION, Past Anesthesia/Blood Transfusion Reactions: Previous Problems w/ Anesthesia Additional Past Anesthesia/Blood Transfusion Reaction / Comment(s): TROUBLE WAKING UP FROM ANESTHESIA Past Psychological History: Anxiety, Depression, Panic Disorder Smoking Status: Never smoker Past Alcohol Use History: Occasional Past Drug Use History: None Reported - Past Family History Brother(s) Family Medical History: Myocardial Infarction ([place]) Additional Family Medical History / Comment(s): FROM [place] Father History Unknown: Yes Family Medical History: Coronary Artery Disease (CAD), Myocardial Infarction ([place]) Additional Family Medical History / Comment(s): FATHER PASSED FROM [place] Mother Additional Family Medical History / Comment(s): kidney failure General Exam Limitations: no limitations General appearance: alert, in no apparent distress Head exam: Present: atraumatic Eye exam: Present: normal appearance, PERRL, EOMI. Absent: scleral icterus, conjunctival injection ENT exam: Present: normal exam, mucous membranes moist Neck exam: Present: normal inspection, full ROM. Absent: tenderness Respiratory exam: Present: normal lung sounds bilaterally. Absent: respiratory distress, wheezes Cardiovascular Exam: Present: regular rate, normal rhythm, normal heart sounds Extremities exam: Present: tenderness (Tenderness to the lateral malleolus of the right ankle.), normal capillary refill (Capillary refill less than 2 seconds, DP pulse 2+ right lower extremity), joint swelling (Mild edema of the lateral malleolus of the right ankle), other (No swelling or ecchymosis tenderness of the foot. No tenderness of the fifth metatarsal or navicular.). Absent: full ROM (Patient has some limited plantar and dorsi flexion secondary to pain), pedal edema Course Vital Signs 02/10/21 13:05 Temperature 98.0 F Pulse Rate 60 Respiratory 16 Rate Blood Pressure 143/73 O2 Sat by Pulse 98 Oximetry Procedures - Orthopedic Splinting/Casting Injury #1 Side: right Lower Extremity Injury Location: ankle Lower Extremity Immobilizer: AirCast Medical Decision Making - Medical Decision Making Vitals are stable. HPI and physical exam as documented. X-ray does not show any acute fractures. Patient was placed in an ankle air cast. Patient will fo llow-up with orthopedics or return here for any worsening symptoms. Disposition Clinical Impression: Ankle pain, right Disposition: HOME SELF-CARE Condition: Good Instructions (If sedation given, give patient instructions): Ankle Sprain (ED) Additional Instructions: Please take Tylenol or Motrin for pain. Rest ice and elevate the right ankle. Follow-up with orthopedics. Return to the emergency room for any worsening symptoms. Is patient prescribed a controlled substance at d/c from ED?: No Referrals: Bonny Parson MD [Primary Care Provider] - 1-2 days Addy Stout DO [Doctor of Osteopathic Medicine] - 1-2 days Time of Disposition: 14:34
== END 2021-02-10 14:56 | disposition home or self-care (01) ==
LOC: EC 13:00
DX: M25.571 Pain in right ankle and joints of right foot (principal); J44.9 Chronic obstructive pulmonary disease, unspecified; I10 Essential (primary) hypertension; E07.9 Disorder of thyroid, unspecified; K21.9 Gastro-esophageal reflux disease without esophagitis; Z88.5 Allergy status to narcotic agent; Z88.6 Allergy status to analgesic agent; Z79.899 Other long term (current) drug therapy; Z79.890 Hormone replacement therapy; Z88.8 Allergy status to other drugs, medicaments and biological substances; W10.8XXA Fall (on) (from) other stairs and steps, initial encounter
CPT/HCPCS: 99283

== ENCOUNTER 2021-06-03 10:23 | Day surgery (SDC) | payer MEDICARE, OTHER ==
[2021-06-02 14:56] VITALS: BMI 25.3
[~2021-06-03 10:23] MED LIST: LACTATED RINGERS 1,000 ML IV SCH; LIDOCAINE 1% (10MG/ML) FOR IV START INTRADERMA PRN
[2021-06-03 11:13] VITALS: RESP 16; TEMP 96.7
[2021-06-03] MEDS ORDERED: PROPOFOL 10 MG/ML 20 ML VIAL IV ONE (12:24)
[2021-06-03] MEDS ORDERED: LIDOCAINE 1% INJ 10MG/ML (20 ML MDV) ONE (12:24)
--- NOTE | 2021-06-03 12:39 | P.PCN ---
Date of Procedure: 06/03/21 Procedure(s) Performed: BRIEF HISTORY: Patient is a 75-year-old, pleasant, white female scheduled for an upper endoscopy as a part of evaluation of epigastric pain, black tarry stools for the last 2 months duration. She takes occasional NSAIDs.. No prior history of peptic ulcer disease PROCEDURE PERFORMED: Esophagogastroduodenoscopy with biopsy. PREOPERATIVE DIAGNOSIS: Intermittent epigastric pain and black tarry stools. IV sedation per anesthesia. PROCEDURE: After informed consent was obtained, the patient was brought into the endoscopy unit. IV sedation was administered by Anesthesia under continuous monitoring. Initially the Olympus GIF-140 video endoscope was inserted into the mouth. Esophagus intubated without any difficulty. It was gradually advanced into the stomach and duodenum and carefully examined. The bulb and the second part of the duodenum appeared normal. The scope at this time was withdrawn to the stomach, adequately insufflated with air, and upon careful examination, mucosa of the antrum had patchy areas of erythema with biopsy. The, body, cardia and the fundus appeared normal. The scope was then withdrawn into the esophagus. The GE junction was located at 39 cm from the incisors. There were 2 superficial erosions in the distal esophagus consistent with LA grade B reflux esophagitis. Rest of esophagus appeared normal and the patient tolerated the procedure well. IMPRESSION: 1. Mild antral gastritis. 2. 2 superficial erosions at the GE junction consistent with LA grade B reflux esophagitis. RECOMMENDATIONS: The findings of this examination were discussed with the patient as well as a family. She was advised to follow with the biopsy results, continue with Protonix 40 mg daily and follow reflux measures.
[2021-06-03 13:16] VITALS: BP 153/80; PULSE 57
== END 2021-06-03 13:20 | disposition home or self-care (01) ==
LOC: ORWHC2ENDO 10:23
PROVIDERS: ATTEND Internal Medicine Gastroenterology
DX: K29.50 Unspecified chronic gastritis without bleeding (principal); K22.10 Ulcer of esophagus without bleeding; I25.10 Atherosclerotic heart disease of native coronary artery without angina pectoris; I10 Essential (primary) hypertension; E78.5 Hyperlipidemia, unspecified; J44.9 Chronic obstructive pulmonary disease, unspecified; E07.9 Disorder of thyroid, unspecified; F41.9 Anxiety disorder, unspecified; F32.A Depression, unspecified; R41.3 Other amnesia; F03.90 Unspecified dementia, unspecified severity, without behavioral disturbance, psychotic disturbance, mood disturbance, and anxiety; Z98.1 Arthrodesis status; Z97.2 Presence of dental prosthetic device (complete) (partial); Z79.899 Other long term (current) drug therapy; Z79.890 Hormone replacement therapy; Z88.5 Allergy status to narcotic agent; Z88.7 Allergy status to serum and vaccine
CPT/HCPCS: 88305; 43239; J2001; J2704

== ENCOUNTER → 2021-08-14 | Outpatient (CLI) | payer MEDICARE, OTHER ==
--- NOTE | 2021-08-18 08:17 | MM ---
Reason for Exam: Screening (asymptomatic). Last screening mammogram was performed 12 month(s) ago. Patient History: Menarche at age 15. First Full-Term at age 18. Left ovary removed at age 53. Right ovary removed at age 53. Hysterectomy at age 53. Postmenopausal. Progesterone for 1 month. Benign Excisional Biopsy on the left side. 03/2012, Bilateral Reduction. Risk Values: [place] 5 year model risk: 1.5%. NCI Lifetime model risk: 3.7%. Film Views: Bilateral CC views were taken. Bilateral MLO views were taken. Prior Study Comparison: 08/31/2018 Bilateral Screening Mammogram, [facility]. 05/29/2019 Bilateral Diagnostic Mammogram, [facility]. 07/23/2020 Bilateral Screening Mammogram, [facility]. Tissue Density: There are scattered fibroglandular densities. Findings: Analyzed By CAD. Some Scattered benign-appearing round, linear, and vascular calcifications are redemonstrated throughout the bilateral breasts. There is no suspicious group of microcalcifications or new suspicious mass in either breast. Overall Assessment: Benign, BI-RAD 2 Management: Screening Mammogram of both breasts in 1 year. A clinical breast exam by your physician is recommended on an annual basis and results should be correlated with mammographic findings. Electronically signed and approved by: Salazar Mary M.D.
== END | disposition home or self-care (01) ==
LOC: RADMAMWWP 12:52
PROVIDERS: ATTEND Student in an Organized Health Care Education/Training Program
DX: Z12.31 Encounter for screening mammogram for malignant neoplasm of breast (principal)
CPT/HCPCS: 77063; 77067

== ENCOUNTER 2021-12-02 03:14 | Inpatient (IN) | payer MEDICARE, OTHER ==
[2021-12-02] MEDS ORDERED: SODIUM CHLORIDE 0.9% 500 ML 500 ML IV STA (03:32)
[2021-12-02] MEDS ORDERED: NITROGLYCERIN SL TABS 0.4 MG TAB SUBLINGUAL STA (03:32)
[2021-12-02 03:51] LABS: Basophils % (A) 0 %; Eosinophils # (A) 0.1 k/uL (0-0.7); Eosinophils % (A) 1 %; HCT 40.3 % (34.0-46.0); HGB 13.4 gm/dL (11.4-16.0); Lymphocytes # (A) 2.4 k/uL (1.0-4.8); Lymphocytes % (A) 26 %; MCH 31.7 pg (25.0-35.0); MCHC 33.3 g/dL (31.0-37.0); MCV 95.2 fL (80.0-100.0); Monocytes # (A) 0.9 k/uL (0-1.0); Monocytes % (A) 10 %; Neutrophils # (A) 5.8 k/uL (1.3-7.7); Neutrophils % (A) 62 %; Platelet Count 162 k/uL (150-450); RBC 4.24 m/uL (3.80-5.40); RDW 12.5 % (11.5-15.5); WBC 9.3 k/uL (3.8-10.6)
--- NOTE | 2021-12-02 03:59 | ED ---
General Adult HPI - General Chief complaint: Chest Pain Stated complaint: CVA/Stroke Time Seen by Provider: 12/02/21 03:23 Source: patient, EMS, RN notes reviewed, old records reviewed Mode of arrival: EMS Limitations: no limitations - History of Present Illness Initial comments: 76-year-old female presents for evaluation of chest discomfort. Patient d eveloped chest pain just prior to arrival. She has been dealing with elevated blood pressure and has been monitoring her blood pressure closely. It has been quite hard. She is on multiple antihypertensive medications. No dyspnea. No vomiting. She has had a lot of abdominal discomfort which she relates to IBS with intermittent constipation and diarrhea. No fever. - Related Data Home Medications Medication Instructions Recorded Confirmed Baclofen 5 mg PO BID PRN 08/23/15 06/03/21 Divalproex Sodium 500 mg PO BID 08/23/15 06/03/21 Levothyroxine Sodium 25 mcg PO QAM 08/23/15 06/03/21 PARoxetine HCL [Paroxetine HCl] 20 mg PO QAM 08/23/15 06/03/21 Dicyclomine [Bentyl] 20 mg PO BID 07/11/19 06/03/21 Metoprolol Tartrate [Lopressor] 50 mg PO BID 07/11/19 06/03/21 Mirabegron [Myrbetriq] 50 mg PO HS 07/11/19 06/03/21 Cholecalciferol [Vitamin D3 (25 50 mcg PO DAILY 06/02/21 06/03/21 Mcg = 1000 Iu)] Pantoprazole Sodium 40 mg PO DAILY 06/02/21 06/03/21 methocarbamoL [Robaxin-750] 750 mg PO DAILY PRN 06/02/21 06/03/21 Allergies Allergy/AdvReac Type Severity Reaction Status Date / Time diclofenac sodium Allergy Unknown Verified 06/03/21 11:15 [From Arthrotec] hydrocodone bitartrate Allergy Unknown Verified 06/03/21 11:15 [From [place]] itraconazole [From Sporanox] Allergy pt not Verified 06/03/21 11:15 sure of alg misoprostol [From Arthrotec] Allergy Unknown Verified 06/03/21 11:15 naproxen [From Naprosyn] Allergy Unknown Verified 06/03/21 11:15 Review of Systems ROS Statement: Those systems with pertinent positive or pertinent negative responses have been documented in the HPI. ROS Other: All systems not noted in ROS Statement are negative. Past Medical History Past Medical History: Chest Pain / Angina, COPD, Dementia, GERD/Reflux, Hyperlipidemia, Hypertension, Memory Impairment, Thyroid Disorder Additional Past Medical History / Comment(s): having severe abdominal pain intermittently, PALPITATIONS, PT STATES (STATES FALLS, CONFUSION, AND FORGETFULNESS AT TIMES-no devices),UTIs History of Any Multi-Drug Resistant Organisms: None Reported Past Surgical History: Back Surgery, Breast Surgery, Hysterectomy Additional Past Surgical History / Comment(s): Breast reduction, NECK FUSION, jer cataracts Past Anesthesia/Blood Transfusion Reactions: Previous Problems w/ Anesthesia Additional Past Anesthesia/Blood Transfusion Reaction / Comment(s): TROUBLE WAKING UP FROM ANESTHESIA Past Psychological History: Anxiety, Depression, Panic Disorder Smoking Status: Former smoker - Past Family History Brother(s) Family Medical History: Coronary Artery Disease (CAD), Myocardial Infarction ([place]) Additional Family Medical History / Comment(s): FROM [place] Father History Unknown: Yes Family Medical History: Coronary Artery Disease (CAD), Myocardial Infarction ([place]) Additional Family Medical History / Comment(s): FATHER PASSED FROM [place] Mother Family Medical History: Dementia Additional Family Medical History / Comment(s): kidney failure General Exam Limitations: no limitations General appearance: alert, in no apparent distress Head exam: Present: atraumatic, normocephalic Eye exam: Present: normal appearance, PERRL ENT exam: Present: normal exam Neck exam: Present: normal inspection. Absent: tenderness, meningismus Respiratory exam: Present: normal lung sounds bilaterally. Absent: respiratory distress, wheezes Cardiovascular Exam: Present: regular rate, normal rhythm GI/Abdominal exam: Present: soft. Absent: distended, tenderness, guarding Extremities exam: Present: normal inspection, normal capillary refill. Absent: pedal edema Neurological exam: Present: alert, oriented X3, CN II-XII intact. Absent: motor sensory deficit Skin exam: Present: warm, intact Course Vital Signs 12/02/21 12/02/21 12/02/21 03:16 03:23 03:26 Temperature 98.4 F Pulse Rate 101 H 100 Pulse Rate [ 102 H [employer] ] Respiratory 18 Rate Blood Pressure 235/119 219/114 O2 Sat by Pulse 97 Oximetry 12/02/21 12/02/2112/02/22 04:03 05:00 05:07 Temperature Pulse Rate 107 H 84 77 Pulse Rate [ [employer] ] Respiratory 18 17 17 Rate Blood Pressure 214/103 199/124 156/87 O2 Sat by Pulse 93 L 92 L 93 L Oximetry EKG Findings - EKG Comments: EKG Findings:: EKG: Sinus rhythm rate of 91, QRS duration 93, PA interval 160, QTC 416, ST segments depression inferiorly and in the lateral precordial leads, no ST segment elevation. Medical Decision Making - Medical Decision Making 76-year-old female presenting with elevated blood pressure and mild chest discomfort. Initial blood pressure is significantly elevated. Patient given nitroglycerin as well as labetalol. EKG is negative for ST segment elevation but does show some depression. Chest x-ray clear, laboratory testing is unremarkable including a negative initial troponin. Given her complaint of elevated blood pressure she will be For close monitoring, serial cardiac enzymes and cardiology consultation. Case discussed with [facility] - Lab Data Result diagrams: 12/02/21 03:32 12/02/21 03:32 Lab Results 12/02/21 12/02/21 12/02/21 Range/Units 03:32 03:32 03:32 WBC 9.3 (3.8-10.6) k/uL RBC 4.24 (3.80-5.40) m/uL Hgb 13.4 (11.4-16.0) gm/dL Hct 40.3 (34.0-46.0) % MCV 95.2 (80.0-100.0) fL MCH 31.7 (25.0-35.0) pg MCHC 33.3 (31.0-37.0) g/dL RDW 12.5 (11.5-15.5) % Plt Count 162 (150-450) k/uL MPV 9.0 Neutrophils % 62 % Lymphocytes % 26 % Monocytes % 10 % Eosinophils % 1 % Basophils % 0 % Neutrophils # 5.8 (1.3-7.7) k/uL Lymphocytes # 2.4 (1.0-4.8) k/uL Monocytes # 0.9 (0-1.0) k/uL Eosinophils # 0.1 (0-0.7) k/uL Basophils # 0.0 (0-0.2) k/uL PT 9.9 (9.0-12.0) sec INR 0.9 (<1.2) APTT 21.8 L (22.0-30.0) sec Sodium 136 L (137-145) mmol/L Potassium 4.4 (3.5-5.1) mmol/L Chloride 97 L (98-107) mmol/L Carbon Dioxide 27 (22-30) mmol/L Anion Gap 12 mmol/L BUN 11 (7-17) mg/dL Creatinine 0.56 (0.52-1.04) mg/dL Est GFR (CKD-EPI)AfAm >90 (>60 ml/min/1.73 sqM) Est GFR (CKD-EPI)NonAf >90 (>60 ml/min/1.73 sqM) Glucose 113 H (74-99) mg/dL Calcium 10.0 (8.4-10.2) mg/dL Magnesium 1.8 (1.6-2.3) mg/dL Total Bilirubin 0.6 (0.2-1.3) mg/dL AST 44 H (14-36) U/L ALT 19 (4-34) U/L Alkaline Phosphatase 96 (38-126) U/L Troponin I (0.000-0.034) ng/mL NT-Pro-B Natriuret Pep pg/mL Total Protein 7.3 (6.3-8.2) g/dL Albumin 4.6 (3.5-5.0) g/dL Lipase 63 (23-300) U/L 12/02/21 12/02/21 Range/Units 03:32 03:32 WBC (3.8-10.6) k/uL RBC (3.80-5.40) m/uL Hgb (11.4-16.0) gm/dL Hct (34.0-46.0) % MCV (80.0-100.0) fL MCH (25.0-35.0) pg MCHC (31.0-37.0) g/dL RDW (11.5-15.5) % Plt Count (150-450) k/uL MPV Neutrophils % % Lymphocytes % % Monocytes % % Eosinophils % % Basophils % % Neutrophils # (1.3-7.7) k/uL Lymphocytes # (1.0-4.8) k/uL Monocytes # (0-1.0) k/uL Eosinophils # (0-0.7) k/uL Basophils # (0-0.2) k/uL PT (9.0-12.0) sec INR (<1.2) APTT (22.0-30.0) sec Sodium (137-145) mmol/L Potassium (3.5-5.1) mmol/L Chloride (98-107) mmol/L Carbon Dioxide (22-30) mmol/L Anion Gap mmol/L BUN (7-17) mg/dL Creatinine (0.52-1.04) mg/dL Est GFR (CKD-EPI)AfAm (>60 ml/min/1.73 sqM) Est GFR (CKD-EPI)NonAf (>60 ml/min/1.73 sqM) Glucose (74-99) mg/dL Calcium (8.4-10.2) mg/dL Magnesium (1.6-2.3) mg/dL Total Bilirubin (0.2-1.3) mg/dL AST (14-36) U/L ALT (4-34) U/L Alkaline Phosphatase (38-126) U/L Troponin I <0.012 (0.000-0.034) ng/mL NT-Pro-B Natriuret Pep 259 pg/mL Total Protein (6.3-8.2) g/dL Albumin (3.5-5.0) g/dL Lipase (23-300) U/L Disposition Clinical Impression: Chest pain Disposition: ADMITTED IP TO THIS HOSP Condition: Stable Is patient prescribed a controlled substance at d/c from ED?: No Referrals: None,Stated [Primary Care Provider] - 1-2 days Time of Disposition: 05:15
[2021-12-02 04:01] LABS: ALT 19 U/L (4-34); AST 44 U/L (14-36); African American GFR (CKD) >90 (>60 ml/min/1.73 sqM); Albumin 4.6 g/dL (3.5-5.0); Alkaline Phosphatase 96 U/L (38-126); Anion Gap 12 mmol/L; Blood Urea Nitrogen 11 mg/dL (7-17); Carbon Dioxide 27 mmol/L (22-30); Chloride 97 mmol/L (98-107); Glucose 113 mg/dL (74-99); Lipase 63 U/L (23-300); Magnesium 1.8 mg/dL (1.6-2.3); Non-African American GFR(CKD) >90 (>60 ml/min/1.73 sqM); Potassium 4.4 mmol/L (3.5-5.1); Sodium 136 mmol/L (137-145); Total Bilirubin 0.6 mg/dL (0.2-1.3); Total Protein 7.3 g/dL (6.3-8.2)
[2021-12-02 04:06] LABS: INR 0.9 (<1.2); Prothrombin Time 9.9 sec (9.0-12.0)
[2021-12-02] MEDS ORDERED: LABETALOL 5 MG/ML VIAL MDV IVP STA (04:40)
[2021-12-02 04:41] LABS: Partial Thromboplastin Time 21.8 sec (22.0-30.0)
--- NOTE | 2021-12-02 05:08 | XR ---
EXAMINATION TYPE: XR chest 2V DATE OF EXAM: 12/02/2021 COMPARISON: 08/19/2020 HISTORY: Chest pain TECHNIQUE: 2 views FINDINGS: There is no heart failure nor confluent pneumonic infiltrate. Costophrenic angles are clear . There are chest leads. No pleural effusion. IMPRESSION: No active cardiopulmonary disease. Normal heart. No change.
[2021-12-02] MEDS ORDERED: NALOXONE 0.4 MG/ML 1 ML VIAL IV PRN (05:12)
--- NOTE | 2021-12-02 07:12 | CT ---
EXAMINATION TYPE: CT angio chest CT DLP: 259.5 mGycm, Automated exposure control for dose reduction was used. DATE OF EXAM: 12/02/2021 6:14 AM COMPARISON: Chest radiograph from same day. CLINICAL INDICATION:Female, 76 years old with history of CP/ISMAEL; CP/ISMAEL TECHNIQUE/CONTRAST: CTA scan of the thorax is performed with IV Contrast, patient injected with 100ml mL of Isovue 370, p ulmonary embolism protocol. MIP images are created and reviewed. FINDINGS: Pulmonary Artery: There is no evidence for a filling defect within the pulmonary vasculature to sugge st acute pulmonary embolism. The pulmonary artery is of normal size. Lungs/Pleura: No evidence of focal consolidation, pleural effusion or pneumothorax. Posterior depende nt, glass opacities with thickening of interlobular septa. Airway: Large airways are patent. Heart: The heart is mildly enlarged for size. There is moderate coronary artery atherosclerosis. Vasculature: No evidence of aortic aneurysm. Mediastinum: No gross evidence of adenopathy. Musculoskeletal: No acute osseous abnormalities, scoliosis changes with multilevel disc degeneration changes are seen throughout the spine. Soft Tissues: Unremarkable. Lower neck: No significant findings. Upper Abdomen: Scattered splenic calcified granulomas are present. Scattered hepatic calcified granul omas are present. IMPRESSION: 1. No evidence of pulmonary embolism. 2. Pulmonary vascular congestion with cardiomegaly correlate with serum BNP for congestive heart fail ure.
[2021-12-02] MEDS: METOPROLOL TARTRATE 50 MG TAB PO SCH ×2 (08:57→20:27)
[2021-12-02] MEDS: lisinopriL 10 MG TAB PO SCH (09:28)
[2021-12-02] MEDS ORDERED: HEPARIN SODIUM 1,000 UN/ML (10ML VL) IV ONE (09:42)
[2021-12-02] MEDS ORDERED: HEPARIN SODIUM 1,000 UN/ML (10ML VL) IV PRN (09:42)
[2021-12-02] MEDS ORDERED: HEPARIN SOD,PORK IN 0.45% NACL 25,000 UNIT in 0.45% NACL 1 250ML.BAG IV SCH (09:45)
[2021-12-02] MEDS ORDERED: CHLORTHALIDONE 25 MG TAB PO SCH (10:15)
[2021-12-02] MEDS ORDERED: ATORVASTATIN 40 MG TAB PO SCH (10:15)
--- NOTE | 2021-12-02 11:10 | P.CRDCN ---
History of Present Illness History of present illness: HISTORY OF PRESENTING ILLNESS This is a pleasant 76-year-old female past medical history significant for nonobstructive coronary artery disease, hypertension, dyslipidemia, SVT, hypothyroidism. She follows in the office with Dr. Tejada. We have been asked to see in consultation for chest pain. Patient presents emergency department with complaints of chest discomfort, shortness of breath, elevated blood pressure. She states last night she was not feeling well. This morning she woke up at 3AM, with symptoms of headache, she states she could not get comfortable. She checked her blood pressure and SBP 200s. She states she had some left sided chest pressure, bilateral jaw pain, and some shortness of breath. She called EMS. She denies any specific aggravating or alleviating facto rs. She does state the Nitro did help in the ER. She states her PCP recently increased her lisinopril medication. She denies any history of DE, Stroke, or diabetes. She does not watch her salt. She states that she is compliant with her medication. She endorses family history of CAD with father having an DE in his 60s and father having an DE in his 50s. She denies any tobacco use. On admission patient's blood pressure is 235/119. HR 101. She was given sublingual nitro and IV labetalol with improvement in her blood pressure. DIAGNOSTICS * EKG reveals sinus rhythm, HR 91, ST depression in inferior lateral leads. Prior EKG in 06/2021, has some similar changes. * Telemetry tracings indicate sinus rhythm * CT of the chest revealed no evidence of pulmonary embolism, pulmonary vascular congestion. Cardiomegaly. * Cardiac catheterization 2008 revealed mild nonobstructive coronary artery disease * Lexiscan stress test in the office 05/2020 revealed mild fixed defect in the mid anterior wall most probably secondary to soft tissue attenuation. No reversible ischemia. * Echocardiogram 05/2020 revealed EF 55%, mild mitral regurgitation, mild tricuspid regurgitation * Laboratory reviewed, CBC unremarkable, troponin negative, repeat 0.59, proBNP 259, sodium 136, potassium 4.4, BUN 11, serum creatinine 0.5 * Current home cardiac medications include lisinopril 10 mg daily, rosuvastatin 20 mg nightly REVIEW OF SYSTEMS At the time of my exam: CONSTITUTIONAL: Denies fever or chills. CARDIOVASCULAR: Denies chest pain, shortness of breath, orthopnea, PND or palpitations. RESPIRATORY: Denies cough. GASTROINTESTINAL: Denies abdominal pain, diarrhea, constipation, nausea or vomiting. MUSCULOSKELETAL: Denies myalgias. NEUROLOGIC: Denies numbness, tingling, headacbe or weakness. ENDOCRINE: Denies fatigue, weight change, polydipsia or polyurina. GENITOURINARY: Denies burning, hematuria or urgency with micturation. HEMATOLOGIC: Denies history of anemia or bleeding. PHYSICAL EXAMINATION Blood pressure 135/82, heart rate 75, afebrile, oxygen saturation 95% on 3 L nasal cannula CONSTITUTIONAL: No apparent distress. HEENT: Head is normocephalic. Pupils are equal, round. Sclerae anicteric. Mucous membranes of the mouth are moist. No JVD. No carotid bruit. CHEST EXAMINATION: Lungs are clear to auscultation. No chest wall tenderness is noted on palpation or with deep breathing. HEART EXAMINATION: Regular rate and rhythm. S1, S2 heard. No murmurs, gallops or rub. ABDOMEN: Soft, nontender. Positive bowel sounds. EXTREMITIES: 2+ peripheral pulses, no lower extremity edema and no calf t enderness. NEUROLOGIC EXAMINATION: Patient is awake, alert and oriented x3. ASSESSMENT Hypertension Emergency Elevated troponin, related to above or possible NSTEMI History of minimal nonobstructive coronary artery disease Hypertension Dyslipidemia History of SVT Hypothyroidism PLAN IV heparin Start chlorathalidone 25mg daily Aspirin, statin Continue lisinopril and metoprolol tartrate Obtain 2D echocardiogram and doppler study to assess cardiac structure and function. Consider IV Nitro drip if chest pain re-occurs Trend troponin Repeat EKG NPO after midnight for possible cardiac catheterization tomorrow Further recommendations based on clinical course Nurse practitioner note has been reviewed by physician. Signing provider agrees with the documented findings, assessment, and plan of care. Past Medical History Past Medical History: Chest Pain / Angina, COPD, Dementia, GERD/Reflux, Hyperlipidemia, Hypertension, Memory Impairment, Thyroid Disorder Additional Past Medical History / Comment(s): having severe abdominal pain intermittently, PALPITATIONS, PT STATES (STATES FALLS, CONFUSION, AND FORGETFULNESS AT TIMES-no devices),UTIs History of Any Multi-Drug Resistant Organisms: None Reported Past Surgical History: Back Surgery, Breast Surgery, Hysterectomy Additional Past Surgical History / Comment(s): Breast reduction, NECK FUSION, bi l cataracts Past Anesthesia/Blood Transfusion Reactions: Previous Problems w/ Anesthesia Additional Past Anesthesia/Blood Transfusion Reaction / Comment(s): TROUBLE WAKING UP FROM ANESTHESIA Past Psychological History: Anxiety, Depression, Panic Disorder Smoking Status: Former smoker - Past Family History Brother(s) Family Medical History: Coronary Artery Disease (CAD), Myocardial Infarction ([place]) Additional Family Medical History / Comment(s): FROM [place] Father History Unknown: Yes Family Medical History: Coronary Artery Disease (CAD), Myocardial Infarction ([place]) Additional Family Medical History / Comment(s): FATHER PASSED FROM [place] Mother Family Medical History: Dementia Additional Family Medical History / Comment(s): kidney failure Medications and Allergies Home Medications Medication Instructions Recorded Confirmed Type Baclofen 5 mg PO BID 08/23/15 12/02/21 History Divalproex Sodium 500 mg PO BID 08/23/15 12/02/21 History Levothyroxine Sodium 25 mcg PO AC-BRKFST 08/23/15 12/02/21 History PARoxetine HCL [Paroxetine HCl] 20 mg PO DAILY 08/23/15 12/02/21 History Dicyclomine [Bentyl] 20 mg PO TID 07/11/19 12/02/21 History Mirabegron [Myrbetriq] 50 mg PO HS 07/11/19 12/02/21 History Cholecalciferol [Vitamin D3 (25 50 mcg PO DAILY 06/02/21 12/02/21 History Mcg = 1000 Iu)] Pantoprazole Sodium 40 mg PO DAILY 06/02/21 12/02/21 History Rosuvastatin [Crestor] 20 mg PO HS 12/02/21 12/02/21 History lisinopriL [Zestril] 10 mg PO DAILY 12/02/21 12/02/21 History predniSONE [Deltasone] 40 mg PO DAILY 12/02/21 12/02/21 History Allergies Allergy/AdvReac Type Severity Reaction Status Date / Time diclofenac sodium Allergy Unknown Verified 12/02/21 09:17 [From Arthrotec] hydrocodone bitartrate Allergy Unknown Verified 12/02/21 09:17 [From [place]] itraconazole [From Sporanox] Allergy pt not Verified 12/02/21 09:17 sure of alg misoprostol [From Arthrotec] Allergy Unknown Verified 12/02/21 09:17 naproxen [From Naprosyn] Allergy Unknown Verified 12/02/21 09:17 Physical Exam Vitals: Vital Signs Temp Pulse Pulse Resp BP Pulse Ox 12/02/21 07:00 82 17 137/77 94 L 12/02/21 06:23 86 16 150/80 90 L 12/02/21 06:00 84 17 167/96 91 L 12/02/21 05:07 77 17 156/87 93 L 12/02/21 05:00 84 17 199/124 92 L 12/02/21 04:03 107 H 18 214/103 93 L 12/02/21 03:26 100 219/114 12/02/21 03:23 102 H 12/02/21 03:16 98.4 F 101 H 18 235/119 97 Intake and Output 12/01/21 12/02/21 12/02/21 22:59 06:59 14:59 Other: Weight 57.606 kg Results 12/02/21 03:32 12/02/21 03:32 Cardiac Enzymes 12/02/21 12/02/21 Range/Units 03:32 03:32 AST 44 H (14-36) U/L Troponin I <0.012 (0.000-0.034) ng/mL Coagulation 12/02/21 Range/Units 03:32 PT 9.9 (9.0-12.0) sec APTT 21.8 L (22.0-30.0) sec CBC 12/02/21 Range/Units 03:32 WBC 9.3 (3.8-10.6) k/uL RBC 4.24 (3.80-5.40) m/uL Hgb 13.4 (11.4-16.0) gm/dL Hct 40.3 (34.0-46.0) % Plt Count 162 (150-450) k/uL Comprehensive Metabolic Panel 12/02/21 Range/Units 03:32 Sodium 136 L (137-145) mmol/L Potassium 4.4 (3.5-5.1) mmol/L Chloride 97 L (98-107) mmol/L Carbon Dioxide 27 (22-30) mmol/L BUN 11 (7-17) mg/dL Creatinine 0.56 (0.52-1.04) mg/dL Glucose 113 H (74-99) mg/dL Calcium 10.0 (8.4-10.2) mg/dL AST 44 H (14-36) U/L ALT 19 (4-34) U/L Alkaline Phosphatase 96 (38-126) U/L Total Protein 7.3 (6.3-8.2) g/dL Albumin 4.6 (3.5-5.0) g/dL Current Medications Generic Name Dose Route Start Last Admin Trade Name Freq PRN Reason Stop Dose Admin Metoprolol Tartrate 50 mg 12/02/21 09:00 Metoprolol Tartrate 50 Mg Tab PO BID ANTONIO Naloxone HCl 0.2 mg 12/02/21 05:12 Naloxone 0.4 Mg/Ml 1 Ml Vial IV Q2M PRN Opioid Reversal Intake and Output 12/01/21 12/02/21 12/02/21 22:59 06:59 14:59 Other: Weight 57.606 kg 12/02/21 03:32 12/02/21 03:32
[2021-12-02] MEDS ORDERED: DICYCLOMINE 20 MG TAB PO PRN (11:59)
--- NOTE | 2021-12-02 12:14 | P.HPIM ---
History of Present Illness Patient is a pleasant 76-year-old female came in with complaints of a headache, congestion cough, postnasal drip and chest pain with some pleuritic competent the chest pain does radiate to the jaw because of which cardiology was consulted EKG showed ST depression in the inferior leads but note significant change compared to her previous EKG. Facet of troponin was negative and it went up to 0.688 because of which patient was started on IV heparin, and patient did receive nitro drip after which her chest pain did have improved as per the patient. Patient denied any previous history of coronary artery disease. Patient had a CT angios the chest whichRRR embolism but did show infiltrate in bilateral lower lung elaine consistent with pulmonary edema. Patient was started on chlorthalidone by pulmonary. Patient is slightly hyponatremic with serum sodium of 136. Patient blood pressure was high at 200s on admission. Etiology is planning and cardiac catheterization tomorrow COVID-19 influenza tests are being obtained. Stress test about any ago showed mild fixed defect in the mid anterior wall. Medical decision 2019 showed mild nonobstructive coronary artery disease echo about any ago showed normal ejection fraction BNP is 259. Patient also complaining of the mild hemoptysis which resolved at this time REVIEW OF SYSTEMS: CONSTITUTIONAL: No fever, no malaise, no fatigue. HEENT: No recent visual problems or hearing problems. Denied any sore throat. CARDIOVASCULAR: No orthopnea, PND, no palpitations, no syncope. PULMONARY: No shortness of breath. GASTROINTESTINAL: No diarrhea, no nausea, no vomiting, no abdominal pain. NEUROLOGICAL: No headaches, no weakness, no numbness. HEMATOLOGICAL: Denies any bleeding or petechiae. GENITOURINARY: Denies any burning micturition, frequency, or urgency. MUSCULOSKELETAL/RHEUMATOLOGICAL: Denies any joint pain, swelling, or any muscle pain. ENDOCRINE: Denies any polyuria or polydipsia. The rest of the 14-point review of systems is negative. PHYSICAL EXAMINATION: GENERAL: The patient is alert and oriented x3, not in any acute distress. Well developed, well nourished. HEENT: Pupils are round and equally reacting to light. EOMI. No scleral icterus. No conjunctival pallor. Normocephalic, atraumatic. No pharyngeal erythema. No thyromegaly. Patient does have sinus tenderness CARDIOVASCULAR: S1 and S2 present. No murmurs, rubs, or gallops. PULMONARY: Chest is clear to auscultation, no wheezing or crackles. ABDOMEN: Soft, nontender, nondistended, normoactive bowel sounds. No palpable organomegaly. MUSCULOSKELETAL: No joint swelling or deformity. EXTREMITIES: No cyanosis, clubbing, or pedal edema. NEUROLOGICAL: Gross neurological examination did not reveal any focal deficits. SKIN: No rashes. Assessment and plan -Possible non-ST elevation microinfarction: Patient is on IV heparin patient will undergo cardiac catheterization tomorrow cardiology is following the patient -Possible hypertensive emergency: Blood pressure improved now, patient was on IV nitro-Pulmonary edema on the computed tomography scan, echo is being obtained BNP is within normal limits pulmonary edema may be related to hypertension or acute pulmonary edema from non-ST elevation MA. -Headache nasal congestion: Secondary to sinusitis can be ALLERGIC or viral ob taining: With 19, influenza PCR's. -Hypothyroidism -Dyslipidemia -Hyperlipidemia Hypothyroidism DVT prophylaxis: On IV heparin Past Medical History Past Medical History: Chest Pain / Angina, COPD, Dementia, GERD/Reflux, Hyperlipidemia, Hypertension, Memory Impairment, Thyroid Disorder Additional Past Medical History / Comment(s): having severe abdominal pain intermittently, PALPITATIONS, PT STATES (STATES FALLS, CONFUSION, AND F ORGETFULNESS AT TIMES-no devices),UTIs History of Any Multi-Drug Resistant Organisms: None Reported Past Surgical History: Back Surgery, Breast Surgery, Hysterectomy Additional Past Surgical History / Comment(s): Breast reduction, NECK FUSION, jer cataracts Past Anesthesia/Blood Transfusion Reactions: Previous Problems w/ Anesthesia Additional Past Anesthesia/Blood Transfusion Reaction / Comment(s): TROUBLE WAKING UP FROM ANESTHESIA Past Psychological History: Anxiety, Depression, Panic Disorder Smoking Status: Former smoker - Past Family History Brother(s) Family Medical History: Coronary Artery Disease (CAD), Myocardial Infarction (MA) Additional Family Medical History / Comment(s): FROM [place] Father History Unknown: Yes Family Medical History: Coronary Artery Disease (CAD), Myocardial Infarction (MA) Additional Family Medical History / Comment(s): FATHER PASSED FROM [place] Mother Family Medical History: Dementia Additional Family Medical History / Comment(s): kidney failure Medications and Allergies Home Medications Medication Instructions Recorded Confirmed Type Baclofen 5 mg PO BID 08/23/15 12/02/21 History Divalproex Sodium 500 mg PO BID 08/23/15 12/02/21 History Levothyroxine Sodium 25 mcg PO AC-BRKFST 08/23/15 12/02/21 History PARoxetine HCL [Paroxetine HCl] 20 mg PO DAILY 08/23/15 12/02/21 History Dicyclomine [Bentyl] 20 mg PO TID 07/11/19 12/02/21 History Mirabegron [Myrbetriq] 50 mg PO HS 07/11/19 12/02/21 History Cholecalciferol [Vitamin D3 (25 50 mcg PO DAILY 06/02/21 12/02/21 History Mcg = 1000 Iu)] Pantoprazole Sodium 40 mg PO DAILY 06/02/21 12/02/21 History Rosuvastatin [Crestor] 20 mg PO HS 12/02/21 12/02/21 History lisinopriL [Zestril] 10 mg PO DAILY 12/02/21 12/02/21 History predniSONE [Deltasone] 40 mg PO DAILY 12/02/21 12/02/21 History Allergies Allergy/AdvReac Type Severity Reaction Status Date / Time diclofenac sodium Allergy Unknown Verified 12/02/21 09:17 [From [facility]] hydrocodone bitartrate Allergy Unknown Verified 12/02/21 09:17 [From [place]] itraconazole [From Sporanox] Allergy pt not Verified 12/02/21 09:17 sure of alg misoprostol [From Arthrotec] Allergy Unknown Verified 12/02/21 09:17 naproxen [From Naprosyn] Allergy Unknown Verified 12/02/21 09:17 Physical Exam Vitals: Vital Signs Temp Pulse Pulse Resp BP Pulse Ox 12/02/21 11:18 65 18 140/72 95 12/02/21 08:56 75 18 135/82 95 12/02/21 07:00 82 17 137/77 94 L 12/02/21 06:23 86 16 150/80 90 L 12/02/21 06:00 84 17 167/96 91 L 12/02/21 05:07 77 17 156/87 93 L 12/02/21 05:00 84 17 199/124 92 L 12/02/21 04:03 107 H 18 214/103 93 L 12/02/21 03:26 100 219/114 12/02/21 03:23 102 H 12/02/21 03:16 98.4 F 101 H 18 235/119 97 Intake and Output 12/01/21 12/02/21 12/02/21 22:59 06:59 14:59 Other: Weight 57.606 kg Results CBC & Chem 7: 12/02/21 03:32 12/02/21 03:32 Labs: Abnormal Lab Results - Last 24 Hours (Table) 12/02/21 12/02/21 12/02/21 Range/Units 03:32 03:32 07:25 APTT 21.8 L (22.0-30.0) sec Sodium 136 L (137-145) mmol/L Chloride 97 L (98-107) mmol/L Glucose 113 H (74-99) mg/dL AST 44 H (14-36) U/L Troponin I 0.597 H* (0.000-0.034) ng/mL 12/02/21 Range/Units 10:10 APTT (22.0-30.0) sec Sodium (137-145) mmol/L Chloride (98-107) mmol/L Glucose (74-99) mg/dL AST (14-36) U/L Troponin I 0.688 H* (0.000-0.034) ng/mL
--- NOTE | 2021-12-02 14:37 | CA ---
Transthoracic Echo Report Name: Beth Lerner Age: 76 Gender: F : 1945 Exam Date: 12/02/2021 10:19 Exam Location: [facility] Ht (in): 60 Wt (lb): 127 Ordering Physician: Diana Marie Attending/Referring Phys: Photo Editor Mayra Weller RDCS Procedure CPT: Indications: chest pain, hypertension urgency Cardiac Hx: Technical Quality: Good Contrast 1: N/A Total Dose (mL): Contrast 2: Total Dose (mL): MEASUREMENTS (Male / Female) Normal Values 2D ECHO LV Diastolic Diameter PLAX 4.0 cm 4.2 - 5.9 / 3.9 - 5.3 cm LV Systolic Diameter PLAX 2.9 cm IVS Diastolic Thickness 1.1 cm 0.6 - 1.0 / 0.6 - 0.9 cm LVPW Diastolic Thickness 1.4 cm 0.6 - 1.0 / 0.6 - 0.9 cm LV Relative Wall Thickness 0.6 RV Internal Dim ED PLAX 2.8 cm LA Systolic Diameter LX 3.7 cm 3.0 - 4.0 / 2.7 - 3.8 cm LA Volume 57.6 cm??? 18 - 58 / 22 - 52 cm??? M-MODE Aortic Root Diameter MM 2.3 cm LA Systolic Diameter MM 4.7 cm LA Ao Ratio MM 2.0 MV E Point Septal Separation 2.0 cm AV Cusp Separation MM 1.4 cm DOPPLER MV Area PHT 2.8 cm??? Mitral E Point Velocity 72.9 cm/s Mitral A Point Velocity 60.5 cm/s Mitral E to A Ratio 1.2 MV Deceleration Time 269.3 ms MV E' Velocity 5.3 cm/s Mitral E to MV E' Ratio 13.7 TR Peak Velocity 241.2 cm/s TR Peak Gradient 23.3 mmHg Right Ventricular Systolic Press 28.3 mmHg FINDINGS Left Ventricle Left ventricular ejection fraction is estimated at 45-50%. Apical Septal, [place] Hypokinesis Right Ventricle Normal right ventricular size and function. Right Atrium Normal right atrial size. Left Atrium Mildly increased left atrial volume. Mitral Valve Structurally normal mitral valve. Mild mitral regurgitation. Aortic Valve Trileaflet aortic valve. Tricuspid Valve Structurally normal tricuspid valve. Mild tricuspid regurgitation. Pulmonic Valve Structurally normal pulmonic valve. Trace pulmonic regurgitation. Pericardium Normal pericardium. Aorta Normal size aortic root and proximal ascending aorta. CONCLUSIONS Left ventricular ejection fraction of about 45-50% Anteroseptal akinesis Previewed by: Dr. Storm Martin MD (Electronically Signed) Final Date: 02 December 2021 12:12
[2021-12-02] MEDS: DIVALPROEX 500 MG TABLET.DR PO SCH (17:49)
[2021-12-02] MEDS: PATIENT'S OWN (Mirabegron [Myrbetriq] 50 MG Tab.Er.24h) PO SCH (20:27)
[2021-12-02] MEDS: ATORVASTATIN 40 MG TAB PO SCH (20:27)
[2021-12-02] MEDS: BACLOFEN 10 MG TAB PO PRN (20:40)
[2021-12-02 22:28] LABS: Appearance,Urine Clear (Clear); Bilirubin,Urine Negative (Negative); Blood,Urine Negative (Negative); Color,Urine Colorless; Glucose,Urine (UA) Negative (Negative); Ketones,Urine Negative (Negative); Leukocyte Esterase,Urine Negative (Negative); Nitrite,Urine Negative (Negative); PH, Urine 6.5 (5.0-8.0); Protein,Urine Negative (Negative); Specific Gravity,Urine 1.006 (1.001-1.035); Urobilinogen,Urine <2.0 mg/dL (<2.0)
[2021-12-03] MEDS: LEVOTHYROXINE 25 MCG TAB PO SCH (05:38)
[2021-12-03] MEDS ORDERED: HEPARIN SODIUM,PORCINE 10,000 UNIT in SODIUM CHLORIDE 0.9% 1,000 ML IRRIGATION PRN (07:00)
[2021-12-03] MEDS ORDERED: ALPRAZolam 0.5 MG TAB PO PRN (07:31)
[2021-12-03] MEDS ORDERED: ASPIRIN 325 MG TAB PO STA (07:31)
[2021-12-03] MEDS ORDERED: ALPRAZolam 0.25 MG TAB PO PRN (07:31)
[2021-12-03] MEDS ORDERED: HEPARIN SODIUM,PORCINE 2,500 UNIT in SODIUM CHLORIDE 0.9% 250 ML IRRIGATION PRN (07:40)
[2021-12-03] MEDS ORDERED: SODIUM CHLORIDE 0.9% 1,000 ML in EMPTY BAG 1 BAG IV SCH (07:45)
[2021-12-03] MEDS: METOPROLOL TARTRATE 50 MG TAB PO SCH ×2 (08:17→22:50)
[2021-12-03] MEDS: ATORVASTATIN 80 MG TAB PO STA ×2 (08:17→08:18)
[2021-12-03] MEDS: PARoxetine 20 MG TAB PO SCH (08:17)
[2021-12-03] MEDS: DIVALPROEX 500 MG TABLET.DR PO SCH ×2 (08:17→22:49)
[2021-12-03] MEDS: lisinopriL 10 MG TAB PO SCH (08:18)
[2021-12-03] MEDS ORDERED: PANTOPRAZOLE SODIUM 40 MG GRANULE PKT PO SCH (09:00)
[2021-12-03] MEDS ORDERED: lisinopriL 5 MG TAB PO SCH (09:00)
[2021-12-03] MEDS ORDERED: ASPIRIN 81 MG PO SCH (09:00)
[2021-12-03] MEDS ORDERED: CHLORTHALIDONE 25 MG TAB PO SCH (09:00)
[2021-12-03 09:03] LABS: Basophils % (A) 1 %; Eosinophils # (A) 0.1 k/uL (0-0.7); Eosinophils % (A) 1 %; HGB 13.4 gm/dL (11.4-16.0); Lymphocytes # (A) 3.2 k/uL (1.0-4.8); Lymphocytes % (A) 44 %; MCH 31.8 pg (25.0-35.0); MCHC 32.7 g/dL (31.0-37.0); MCV 97.4 fL (80.0-100.0); Mean Platelet Volume 9.2; Monocytes # (A) 0.8 k/uL (0-1.0); Monocytes % (A) 12 %; Neutrophils % (A) 41 %; Platelet Count 159 k/uL (150-450); RBC 4.21 m/uL (3.80-5.40); RDW 13.1 % (11.5-15.5); WBC 7.2 k/uL (3.8-10.6)
[2021-12-03 09:16] LABS: Partial Thromboplastin Time 45.2 sec (22.0-30.0); Prothrombin Time 10.8 sec (9.0-12.0)
[2021-12-03 09:30] LABS: African American GFR (CKD) >90 (>60 ml/min/1.73 sqM); Anion Gap 8 mmol/L; Blood Urea Nitrogen 7 mg/dL (7-17); Calcium 8.8 mg/dL (8.4-10.2); Carbon Dioxide 28 mmol/L (22-30); Chloride 102 mmol/L (98-107); Glucose 72 mg/dL (74-99); Non-African American GFR(CKD) 90 (>60 ml/min/1.73 sqM); Sodium 138 mmol/L (137-145)
--- NOTE | 2021-12-03 10:15 | P.PN ---
Subjective This is a pleasant 76-year-old female past medical history significant for nonobstructive coronary artery disease, hypertension, dyslipidemia, SVT, h ypothyroidism. She follows in the office with Dr. Tejada. We have been asked to see in consultation for chest pain. Patient presents emergency department with complaints of chest discomfort, shortness of breath, elevated blood pressure. She states last night she was not feeling well. This morning she woke up at 3AM, with symptoms of headache, she states she could not get comfortable. She checked her blood pressure and SBP 200s. She states she had some left sided chest pressure, bilateral jaw pain, and some shortness of breath. She called EMS. She denies any specific aggravating or alleviating factors. She does state the Nitro did help in the ER. She states her PCP recently increased her lisinopril medication. She denies any history of NJ, Stroke, or diabetes. She does not watch her salt. She states that she is compliant with her medication. She endorses family history of CAD with father having an NJ in his 60s and father having an NJ in his 50s. She denies any tobacco use. On admission patient's blood pressure is 235/119. HR 101. She was given sublingual nitro and IV labetalol with improvement in her blood pressure. 12/03/2021 Patient seen and examined at bedside, no acute distress. She denies any chest pain or shortness of breath. Blood pressure is improved 120/74 Echocardiogram revealed EF of 4550 % apical septal, apex hypokinesis Labs: Sodium 130, potassium 4.0, BUN 7, serum creatinine 0.6, repeat troponin 0.68, 0.58. Hemoglobin 13.4 PHYSICAL EXAMINATION Vitals reviewed. CONSTITUTIONAL: No apparent distress. HEENT: Neck Supple. No JVD. No carotid bruit. CHEST EXAMINATION: Lungs are clear to auscultation. No chest wall tenderness is noted on palpation or with deep breathing. HEART EXAMINATION: Regular rate and rhythm. S1, S2 heard. No murmurs, gallops or rub. ABDOMEN: Soft, nontender. Positive bowel sounds. EXTREMITIES: 2+ peripheral pulses, no lower extremity edema and no calf tenderness. NEUROLOGIC EXAMINATION: Patient is awake, alert and oriented x3. ASSESSMENT Hypertension Emergency, improved Elevated troponin, related to above or possible NSTEMI History of minimal nonobstructive coronary artery disease Hypertension Dyslipidemia History of SVT Hypothyroidism PLAN Plan for cardiac catheterization with Dr. Castaneda today I have discussed the risks, benefits and alternative therapies for the above- mentioned procedure and for both sedation/analgesia as well as necessary blood product administration, if indicated, as they pertain to this patient. The patient has indicated understanding and acceptance of the risks and procedures discussed. Questions have been answered appropriately and she is agreeable to move forward with the above-stated procedure. Continue chlorathalidone 25mg daily Continue Aspirin, statin Continue lisinopril and metoprolol tartrate Further recommendations based on clinical course Nurse practitioner note has been reviewed by physician. Signing provider agrees with the documented findings, assessment, and plan of care. Objective - Vital Signs Vital signs: Vital Signs Temp 98.9 F 12/03/21 04:00 Pulse 59 L 12/03/21 04:00 Resp 18 12/03/21 04:00 BP 120/74 12/03/21 04:00 Pulse Ox 94 L 12/03/21 04:00 FiO2 Intake & Output 12/02/21 12/03/21 12/03/21 18:59 06:59 18:59 Intake Total 360 Output Total 400 1150 Balance 360 -400 -1150 Weight 57.606 kg Intake: Oral 360 Output: Urine 400 1150 Other: Voiding Method Toilet # Voids 1 1 - Labs CBC & Chem 7: 12/03/21 07:43 12/03/21 07:43 Labs: Abnormal Lab Results - Last 24 Hours (Table) 12/02/21 12/02/21 12/02/21 Range/Units 10:10 16:00 16:00 APTT 46.0 H (22.0-30.0) sec Glucose (74-99) mg/dL Troponin I 0.688 H* 0.586 H* (0.000-0.034) ng/mL 12/03/21 12/03/21 Range/Units 07:43 07:43 APTT 45.2 H (22.0-30.0) sec Glucose 72 L (74-99) mg/dL Troponin I (0.000-0.034) ng/mL
[2021-12-03] MEDS ORDERED: HEPARIN SODIUM 1,000 UN/ML (10ML VL) ONE (10:32)
[2021-12-03] MEDS ORDERED: VERAPAMIL 2.5 MG/ML 2 ML AMP ONE (10:32)
[2021-12-03] MEDS: MIDAZOLAM 2 MG/2 ML VIAL IV ONE ×2 (11:07→11:10)
[2021-12-03] MEDS ORDERED: SODIUM CHLORIDE 0.9% 1,000 ML IV ONE (11:08)
[2021-12-03] MEDS ORDERED: LIDOCAINE 1% INJ 10MG/ML (30 ML VIAL-PF) SQ ONE (11:09)
[2021-12-03] MEDS ORDERED: fentaNYL (PF) 50 MCG/ML 2 ML AMP ONE (11:10)
[2021-12-03] MEDS ORDERED: fentaNYL (PF) 50 MCG/ML 2 ML AMP IV ONE (11:12)
[2021-12-03] MEDS ORDERED: LIDOCAINE 2% SYG (PF) 100 MG/5 ML IV ONE (11:20)
[2021-12-03] MEDS ORDERED: RX INFO: IV CONTRAST WAS GIVEN 1 EACH MISC MISCELLANE PRN (11:36)
--- NOTE | 2021-12-03 11:42 | P.PCN ---
Date of Procedure: 12/03/21 Operative Findings: CARDIAC CATHETERIZATION PERFORMING PHYSICIAN: Landon Castaneda MD, RPVI PROCEDURE PERFORMED: 1. Selective right and left coronary angiogram 2. Left heart catheterization 3. Right common femoral artery angiogram INDICATION: This is a 76-year-old female patient with hypertension and dyslipidemia who presented to the hospital with chest discomfort and ruled in for acute coronary event. She also was diagnosed with hypertension emergency. She underwent an echo which revealed mildly impaired LV function was EF around 45% with evidence of anterior/apical hypokinesia. In the light of that a heart catheterization was advised COMPLICATION: None APPROACH: Right common femoral artery LEVEL OF SEDATION: Moderate sedation length of 25 minutes PROCEDURE DESCRIPTION: After obtaining an informed consent, the patient was brought to cardiac lab engineer. Local anesthesia was performed using lidocaine subcutaneously. Initially I attempted accessed using the right radial artery but I was unable to. At that point I decided to go from the right groin. The right common femoral artery was cannulated using Seldinger technique, the guidewire passed easily, following that we advanced a 6 [place] sheath dilator assembly, the wire and dilator were removed and sheath was flushed. Selective right and left coronary angiogram using a 6-[place] JR4 and JL ca theters. Following that we did left heart catheterization using 6-[place] pigtail catheter. The procedure was completed there was no complication. SELECTIVE CORONARY ANGIOGRAM: The right coronary artery: Intermedius caliber vessel and nondominant vessel. It has mild disease only. The disease is in the midportion. Left main: Extremely calcified. It has an eccentric lesion appeared to be in the range of 95%. The left circumflex: Large caliber vessel and dominant vessel. The proximal LCx is angiographically normal and gives rises into the first OM branch which has mild disease only. The distal left circumflex is normal and bifurcates into PDA and PLV branches both appeared to be angiographically normal The left anterior descending artery: The proximal LAD appears to have mild disease only. The mid and distal LAD appears to be angiographically normal. LAD gives rises into a small diagonal branch. HEMODYNAMICS: The LVEDP was 24 mmHg was no significant gradient across aortic valve CONCLUSION: 1. Critical disease involving the left main coronary artery with extremely calcified and extremely eccentric plaque appears to be in the range of 95% 2. Dominant left coronary system 3. Elevated left-sided filling pressure POSTPROCEDURE MANAGEMENT: Giving the above anatomy I advised that the patient to be seen by cardiothoracic surgeon for the evaluation of coronary artery that was grafting.
[2021-12-03] MEDS ORDERED: SODIUM CHLORIDE 0.9% 1,000 ML IV SCH (11:45)
--- NOTE | 2021-12-03 13:44 | P.PN ---
Subjective Progress Note Date: 12/03/21 Patient is a pleasant 76-year-old female came in with complaints of a headache, congestion cough, postnasal drip and chest pain with some pleuritic competent the chest pain does radiate to the jaw because of which cardiology was consulted EKG showed ST depression in the inferior leads but note significant change compared to her previous EKG. Facet of troponin was negative and it went up to 0.688 because of which patient was started on IV heparin, and patient did receive nitro drip after which her chest pain did have improved as per the patient. Patient denied any previous history of coronary artery disease. Patient had a CT angios the chest whichRRR embolism but did show infiltrate in bilateral lower lung elaine consistent with pulmonary edema. Patient was started on chlorthalidone by pulmonary. Patient is slightly hyponatremic with serum sodium of 136. Patient blood pressure was high at 200s on admission. Etiology is planning and cardiac catheterization tomorrow COVID-19 influenza te sts are being obtained. Stress test about any ago showed mild fixed defect in the mid anterior wall. Medical decision 2019 showed mild nonobstructive coronary artery disease echo about any ago showed normal ejection fraction BNP is 259. Patient also complaining of the mild hemoptysis which resolved at this time 12/03/2021 Patient went down for right and left cardiac catheterization today which reveals a critical left main lesion. Echocardiogram shows an EF of 45 to 50% with apical septal and apex hypokinesis. Cardiothoracic team has been consulted for further evaluation of the critical lesion. She continues on chlorthalidone. Today her blood count is unremarkable, sodium 138, potassium 4.0, BUN 7, creatinine 0.71. Urinalysis negative. She is currently denying chest pain. Blood pressure 146/63, heart rate is sinus bradycardia. 93% room air. Review of Systems Constitutional: Denied any fatigue denied any fever. Cardio vascular: denied any chest pain, palpitations Gastrointestinal: denied any nausea, vomiting, diarrhea Pulmonary: Denied any shortness of breath cough Neurologic denied any new focal deficits All inpatient medications were reviewed and appropriate changes in these medications as dictated in the interval history and assessment and plan. PHYSICAL EXAMINATION: GENERAL: The patient is alert and oriented x3, not in any acute distress. Well developed, well nourished. HEENT: Pupils are round and equally reacting to light. EOMI. No scleral icterus. No conjunctival pallor. Normocephalic, atraumatic. No pharyngeal erythema. No thyromegaly. Patient does have sinus tenderness CARDIOVASCULAR: S1 and S2 present. No murmurs, rubs, or gallops. PULMONARY: Chest is clear to auscultation, no wheezing or crackles. ABDOMEN: Soft, nontender, nondistended, normoactive bowel sounds. No palpable organomegaly. MUSCULOSKELETAL: No joint swelling or deformity. EXTREMITIES: No cyanosis, clubbing, or pedal edema. NEUROLOGICAL: Gross neurological examination did not reveal any focal deficits. SKIN: No rashes. Assessment and plan -Possible non-ST elevation myocardial infarction: Cath reveals critical disease in the left main, cardiothoracic has been consulted -Possible hypertensive emergency: Blood pressure improved now, possible acute pulmonary edema from NSTEMI -Headache nasal congestion: Secondary to sinusitis most likely allergic -Hypothyroidism -Dyslipidemia -Hyperlipidemia GI prophylaxis: Protonix DVT prophylaxis: On IV heparin The impression and plan of care has been dictated by Edwige Cardona, Nurse Practitioner as directed. Dr. Ramesh MD I have performed a history and physical examination and medical decision making of this patient, discussed the same with the dictator, and agree with the dictators assessment and plan as written, documented as a scribe. Based on total visit time, I have performed more than 50% of this visit. Objective - Vital Signs Vital signs: Vital Signs Temp 98.2 F 12/03/21 08:00 Pulse 55 L 12/03/21 08:00 Resp 16 12/03/21 12:52 BP 136/60 12/03/21 12:52 Pulse Ox 93 L 12/03/21 12:52 FiO2 Intake & Output 12/02/21 12/03/21 12/03/21 18:59 06:59 18:59 Intake Total 360 Output Total 400 1150 Balance 360 -400 -1150 Weight 57.606 kg Intake: Oral 360 Output: Urine 400 1150 Other: Voiding Method Toilet Toilet # Voids 1 1 - Labs CBC & Chem 7: 12/03/21 07:43 12/03/21 07:43 Labs: Abnormal Lab Results - Last 24 Hours (Table) 12/02/21 12/02/21 12/03/21 Range/Units 16:00 16:00 07:43 APTT 46.0 H 45.2 H (22.0-30.0) sec Glucose (74-99) mg/dL Troponin I 0.586 H* (0.000-0.034) ng/mL 12/03/21 Range/Units 07:43 APTT (22.0-30.0) sec Glucose 72 L (74-99) mg/dL Troponin I (0.000-0.034) ng/mL Assessment and Plan Time with Patient: Less than 30
[2021-12-03] MEDS ORDERED: MD COMMUNICATION TO PHARMACY 1 EACH MISC PO ONE (13:59)
--- NOTE | 2021-12-03 14:35 | US ---
EXAMINATION TYPE: US carotid duplex BILAT DATE OF EXAM: 12/03/2021 COMPARISON: NONE CLINICAL HISTORY: preop cardiac surgery. Pre op cardiac surgery. Prior smoker. Hypertension, hyperlip idemia. TECHNIQUE: Carotid duplex ultrasound examination. Indirect Doppler criteria was utilized. FINDINGS: EXAM MEASUREMENTS: RIGHT: Peak Systolic Velocity (PSV) cm/sec ----- Right CCA: 69.9 ----- Right ICA: 122.1 ----- Right ECA: 84.9 ICA/CCA ratio: 1.7 RIGHT: End Diastole cm/sec ----- Right CCA: 14.9 ----- Right ICA: 26.8 ----- Right ECA: 0.0 LEFT: Peak Systolic Velocity (PSV) cm/sec ----- Left CCA: 71.3 ----- Left ICA: 90.8 ----- Left ECA: 61.6 ICA/CCA ratio: 1.3 LEFT: End Diastole cm/sec ----- Left CCA: 12.0 ----- Left ICA: 20.4 ----- Left ECA: 0.0 VERTEBRALS (direction of flow): Right Vertebral: Antegrade Left Vertebral: Antegrade Rhythm: Normal PUNCH [employer]ESS SETTER NOTES: No elevated velocities at this time. Plaque seen within bilateral carotid arteries , bilateral bulbs, and right ICA. Moderate peripheral plaque bilateral carotid bulb level on grayscale images. No elevated velocities. IMPRESSION: Moderate atherosclerotic changes bilaterally. No hemodynamically significant stenosis is seen in either internal carotid artery. Criteria for Assigning % of Stenosis / Diameter reduction (Estimation based on the indirect measurements of the internal carotid artery velocities (ICA PSV). 1. Normal (no stenosis)=ICA PSV < 125 cm/s: ratio < 2.0: ICA EDV<40 cm/s. 2. Less than 50% stenosis=ICA PSV < 125 cm/s: ratio < 2.0: ICA EDV<40 cm/s. 3. 50 to 69% stenosis=ICA PSV of 125 to 230 cm/s: ration 2.0 ? 4.0: ICA EDV 40-100 cm/s. 4. Greater than 70% stenosis to near occlusion= ICA PSV > 230 cm/s: ratio > 4.0: ICA EDV > 100 cm/s. 5. Near occlusion= ICA PSV velocities may be low or undetectable: variable ratio and ICA EDV. 6. Total occlusion=unable to detect flow.
--- NOTE | 2021-12-03 14:51 | P.GSCN ---
History of Present Illness Consult date: 12/03/21 Reason for Consult: Left main coronary artery disease Requesting physician: Landon Castaneda History of present illness: This is a 76-year-old active female who follows on an outpatient basis with Dr. Castle for primary care. She has a previous medical history of hypertension, hyperlipidemia, hypothyroid, previous tobacco dependence, IBS, and family history of premature coronary artery disease with Brother from myocardial infarction at 56 years old and father from myocardial infarction at 66 years old. She presented to [facility] emergency room yesterday with complaints of hypertension as well as chest pain radiating to her jaw, "feeling prickly all over", and short of breath. She relates that she has had chest pain on and off for the last 2 weeks, however yesterday it was much worse and she had associated symptoms. She does endorse the chest pain at rest. Upon presentation to the emergency room she was noted to be hypertensive with blood pressures in the 200s/100s range. EKG demonstrated ST depression in the inferior lateral leads. Troponins were elevated and she was ruled in for non- STEMI. Her blood pressure was treated accordingly, she was admitted for evaluation and treatment with cardiology consult. Transthoracic echocardiogram was completed yesterday demonstrating reduced systolic function with EF 45-50%, apical hypokinesis, mild mitral and tricuspid regurgitation. She was recommended to undergo heart catheterization which was completed today and which demonstrated 95% left main stenosis with a left dominant system. Due to these findings urgent consultation was placed to cardiothoracic surgery for surgical revascularization. Review of Systems Review of systems was completed it was negative except as noted - Cardiovascular Reports as per HPI, Reports chest pain, Reports high blood pressure, Reports shortness of breath Past Medical History Past Medical History: Coronary Artery Disease (CAD), Chest Pain / Angina, COPD, Dementia, GERD/Reflux, Hyperlipidemia, Hypertension, Memory Impairment, Thyroid Disorder Additional Past Medical History / Comment(s): having severe abdominal pain intermittently-IBS, PALPITATIONS, PT STATES (STATES FALLS, CONFUSION, AND FORGETFULNESS AT TIMES-no devices),UTIs History of Any Multi-Drug Resistant Organisms: None Reported Past Surgical History: Back Surgery, Breast Surgery, Hysterectomy Additional Past Surgical History / Comment(s): Breast reduction, NECK FUSION, jer cataracts Past Anesthesia/Blood Transfusion Reactions: Previous Problems w/ Anesthesia Additional Past Anesthesia/Blood Transfusion Reaction / Comm: TROUBLE WAKING UP FROM ANESTHESIA Past Psychological History: Anxiety, Depression, Panic Disorder Smoking Status: Former smoker Past Alcohol Use History: Occasional Additional Past Alcohol Use History / Comment(s): 1 drink per week when she goes to bingo Past Drug Use History: Marijuana Additional Drug Use History / Comment(s): Previous use marijuana, no current use Additional History: Quit smoking in 1991 - Past Family History Brother(s) Family Medical History: Coronary Artery Disease (CAD), Myocardial Infarction ([place]) Additional Family Medical History / Comment(s): FROM [place] at 56 years old Father History Unknown: Yes Family Medical History: Coronary Artery Disease (CAD), Myocardial Infarction ([place]) Additional Family Medical History / Comment(s): FATHER PASSED FROM [place] at 66 years old Mother Family Medical History: Dementia Additional Family Medical History / Comment(s): kidney failure; CAD with myocardial infarction in 2 maternal uncles Medications and Allergies Home Medications Medication Instructions Recorded Confirmed Type Baclofen 5 mg PO BID 08/23/15 12/02/21 History Divalproex Sodium 500 mg PO BID 08/23/15 12/02/21 History Levothyroxine Sodium 25 mcg PO AC-BRKFST 08/23/15 12/02/21 History PARoxetine HCL [Paroxetine HCl] 20 mg PO DAILY 08/23/15 12/02/21 History Dicyclomine [Bentyl] 20 mg PO TID 07/11/19 12/02/21 History Mirabegron [Myrbetriq] 50 mg PO HS 07/11/19 12/02/21 History Cholecalciferol [Vitamin D3 (25 50 mcg PO DAILY 06/02/21 12/02/21 History Mcg = 1000 Iu)] Pantoprazole Sodium 40 mg PO DAILY 06/02/21 12/02/21 History Rosuvastatin [Crestor] 20 mg PO HS 12/02/21 12/02/21 History lisinopriL [Zestril] 10 mg PO DAILY 12/02/21 12/02/21 History predniSONE [Deltasone] 40 mg PO DAILY 12/02/21 12/02/21 History Allergies Allergy/AdvReac Type Severity Reaction Status Date / Time diclofenac sodium Allergy Unknown Verified 12/02/21 09:17 [From Arthrotec] hydrocodone bitartrate Allergy Unknown Verified 12/02/21 09:17 [From [place]] itraconazole [From Sporanox] Allergy pt not Verified 12/02/21 09:17 sure of alg misoprostol [From Arthrotec] Allergy Unknown Verified 12/02/21 09:17 naproxen [From Naprosyn] Allergy Unknown Verified 12/02/21 09:17 Surgical - Exam Vital Signs Temp Pulse Resp BP Pulse Ox 98.4 F 101 H 18 235/119 97 12/02/21 03:16 12/02/21 03:16 12/02/21 03:16 12/02/21 03:16 12/02/21 03:16 CONSTITUTIONAL: Awake and alert, appears comfortable, cooperative, well- developed, well-nourished, no pain, no acute distress EYES: Pupils equal, round, reactive to light, normal ocular movement ENT: Moist mucous membranes without oral lesions present NECK: No masses, no bruits, trachea midline RESPIRATORY: Lungs sounds clear to auscultation bilaterally. Respirations even, nonlabored. Currently on room air with oxygen saturation 98%. Strong cough. No chest wall deformities. No clubbing or cyanosis present CARDIOVASCULAR: S1, S2 present. Regular rate and rhythm, sinus rhythm to sinus bradycardia on telemetry. Palpable peripheral pulses bilaterally. No edema present. No calf pain or tenderness noted. No significant lower extremity varicosities noted. GASTROINTESTINAL: Abdomen soft, nontender, nondistended without masses or organomegaly noted. There is no rebound or guarding present. Active bowel sounds present 4 quadrants. GENITOURINARY: Deferred INTEGUMENTARY: Skin is warm and dry with evidence of good perfusion. NEUROLOGIC: Cranial nerves II through XII intact, normal coordination, no obvious motor or sensory deficits, speech is normal MUSKULOSKELETAL: Able to move all extremities, strength equal bilaterally, normal posture PSYCHIATRIC: Alert and oriented to person place and time, appropriate affect, intact judgment and insight Results - Labs 12/03/21 07:43 12/03/21 07:43 Abnormal Lab Results - Last 24 Hours (Table) 12/02/21 12/02/21 12/03/21 Range/Units 16:00 16:00 07:43 APTT 46.0 H 45.2 H (22.0-30.0) sec Glucose (74-99) mg/dL Troponin I 0.586 H* (0.000-0.034) ng/mL 12/03/21 Range/Units 07:43 APTT (22.0-30.0) sec Glucose 72 L (74-99) mg/dL Troponin I (0.000-0.034) ng/mL Diabetes panel 12/03/21 Range/Units 07:43 Sodium 138 (137-145) mmol/L Potassium 4.0 (3.5-5.1) mmol/L Chloride 102 (98-107) mmol/L Carbon Dioxide 28 (22-30) mmol/L BUN 7 (7-17) mg/dL Creatinine 0.61 (0.52-1.04) mg/dL Glucose 72 L (74-99) mg/dL Calcium 8.8 (8.4-10.2) mg/dL Calcium panel 12/03/21 Range/Units 07:43 Calcium 8.8 (8.4-10.2) mg/dL Pituitary panel 12/03/21 Range/Units 07:43 Sodium 138 (137-145) mmol/L Potassium 4.0 (3.5-5.1) mmol/L Chloride 102 (98-107) mmol/L Carbon Dioxide 28 (22-30) mmol/L BUN 7 (7-17) mg/dL Creatinine 0.61 (0.52-1.04) mg/dL Glucose 72 L (74-99) mg/dL Calcium 8.8 (8.4-10.2) mg/dL Adrenal panel 12/03/21 Range/Units 07:43 Sodium 138 (137-145) mmol/L Potassium 4.0 (3.5-5.1) mmol/L Chloride 102 (98-107) mmol/L Carbon Dioxide 28 (22-30) mmol/L BUN 7 (7-17) mg/dL Creatinine 0.61 (0.52-1.04) mg/dL Glucose 72 L (74-99) mg/dL Calcium 8.8 (8.4-10.2) mg/dL - Imaging Chest x-ray: report reviewed, image reviewed CT scan - chest: report reviewed, image reviewed EKG: image reviewed Additional studies: Cardiac catheterization films reviewed with Dr. Welsh Assessment and Plan Assessment: 1. Left main coronary artery disease with left dominant system, non-STEMI this admission 2. History of hypertension with hypertensive urgency on admission 3. Reduced left ventricular systolic function with EF 45-50%, mild MR and TR per transthoracic echo 4. Hyperlipidemia, treated 5. Hypothyroid 6. Previous tobacco dependence 7. IBS 8. Family history of premature coronary artery disease Plan: The patient was seen and examined laying in bed on the cardiac stepdown unit in no acute distress. Chart/diagnostics were reviewed in detail with Dr. Welsh. The usual perioperative course of open heart surgery was discussed in detail with the patient as well as her daughter Yolie by phone, risks and benefits reviewed, all questions were answered. The patient does consent to surgery. Preoperative testing was initiated, once completed will calculate STS risk score and discuss with the patient. 5 m walk test to be completed in the morning prior to surgery as the patient remains on bed rest at this time. Continue aspirin, statin, beta gian therapy. Our plan is for myocardial revascularization with left internal mammary artery, endoscopic vein harvest, exclusion of the left atrial appendage with Dr. Welsh tomorrow morning. This was discussed with the patient and her daughter and they are in agreement. Dr. Castaneda was notified as well and he is in agreement. Medical management of other comorbidities per primary care service. More recommendations to follow. Thank you Dr. Castaneda for this consult. I have personally seen and examined the patient, performed the documentation and the assessment and plan as written. Number of minutes spent on the visit: 30. SERGO Avalos
--- NOTE | 2021-12-03 15:22 | P.CNPUL ---
History of Present Illness Consult date: 12/03/21 Requesting physician: Lottie Harris Reason for consult: chest pain Chief complaint: Coronary artery disease. History of present illness: Pulmonary consult dated 12/03/2021. 76-year-old female with a history of hypertension, hyperlipidemia, hypothyroidism, and irritable bowel syndrome. The patient apparently presented to the emergency department, on December 02 at 3:00 in the morning, complaining of chest pain. She apparently been having chest pain and chest pressure, as well as an elevated blood pressure. The patient was evaluated in the emergency room, and admitted to the hospital. I was asked by cardiothoracic surgery to see the patient, as apparently the patient underwent cardiac catheterization, and was found to have significant coronary disease. According to the operative report, the patient had critical disease involving the left main coronary artery with extremely calcified and extremely eccentric plaque in the range of 95%. The patient had a dominant left coronary system and elevated filling pressures. The patient has no known history of lung disease. She did smoke for about 25-30 years at 1 pack a day. She quit in 1991. Currently she is resting comfortably in room 352. The patient's getting saline at 75 mL an hour. She's not requiring any supplemental oxygen. White count 7.2, hemoglobin 13.4, hematocrit 41, and platelet count 259,000. PTT is 45.2. Sodium, potassium, chloride, CO2, BUN, and creatinine were normal. Troponin was 0.597, 0.688, and 0.586. EKG showed sinus rhythm, with nonspecific ST-T wave changes. Review of Systems REVIEW OF SYSTEMS: CONSTITUTIONAL: [Negative.] NEUROLOGIC: [ Negative.] HEENT: [ Negative.] CARDIAC: Chest pressure. PULMONARY: [Negative.] GI: [Negative.] : [Negative.] RHEUMATOLOGIC: [ Negative.] IMMUNOLOGIC: [ Negative.] ENDOCRINE: [Negative. ] DERMATOLOGIC: [Negative.] Past Medical History Past Medical History: Coronary Artery Disease (CAD), Chest Pain / Angina, COPD, Dementia, GERD/Reflux, Hyperlipidemia, Hypertension, Memory Impairment, Thyroid Disorder Additional Past Medical History / Comment(s): having severe abdominal pain intermittently-IBS, PALPITATIONS, PT STATES (STATES FALLS, CONFUSION, AND FORGETFULNESS AT TIMES-no devices),UTIs History of Any Multi-Drug Resistant Organisms: None Reported Past Surgical History: Back Surgery, Breast Surgery, Hysterectomy Additional Past Surgical History / Comment(s): Breast reduction, NECK FUSION, jer cataracts Past Anesthesia/Blood Transfusion Reactions: Previous Problems w/ Anesthesia Additional Past Anesthesia/Blood Transfusion Reaction / Comment(s): TROUBLE WAKING UP FROM ANESTHESIA Past Psychological History: Anxiety, Depression, Panic Disorder Smoking Status: Former smoker Past Alcohol Use History: Occasional Additional Past Alcohol Use History / Comment(s): 1 drink per week when she goes to bingo Past Drug Use History: Marijuana Additional Drug Use History / Comment(s): Previous use marijuana, no current use - Past Family History Brother(s) Family Medical History: Coronary Artery Disease (CAD), Myocardial Infarction ([place]) Additional Family Medical History / Comment(s): FROM [place] at 56 years old Father History Unknown: Yes Family Medical History: Coronary Artery Disease (CAD), Myocardial Infarction ([place]) Additional Family Medical History / Comment(s): FATHER PASSED FROM [place] at 66 ye ars old Mother Family Medical History: Dementia Additional Family Medical History / Comment(s): kidney failure; CAD with myocardial infarction in 2 maternal uncles Medications and Allergies Home Medications Medication Instructions Recorded Confirmed Type Baclofen 5 mg PO BID 08/23/15 12/02/21 History Divalproex Sodium 500 mg PO BID 08/23/15 12/02/21 History Levothyroxine Sodium 25 mcg PO AC-BRKFST 08/23/15 12/02/21 History PARoxetine HCL [Paroxetine HCl] 20 mg PO DAILY 08/23/15 12/02/21 History Dicyclomine [Bentyl] 20 mg PO TID 07/11/19 12/02/21 History Mirabegron [Myrbetriq] 50 mg PO HS 07/11/19 12/02/21 History Cholecalciferol [Vitamin D3 (25 50 mcg PO DAILY 06/02/21 12/02/21 History Mcg = 1000 Iu)] Pantoprazole Sodium 40 mg PO DAILY 06/02/21 12/02/21 History Rosuvastatin [Crestor] 20 mg PO HS 12/02/21 12/02/21 History lisinopriL [Zestril] 10 mg PO DAILY 12/02/21 12/02/21 History predniSONE [Deltasone] 40 mg PO DAILY 12/02/21 12/02/21 History Allergies Allergy/AdvReac Type Severity Reaction Status Date / Time diclofenac sodium Allergy Unknown Verified 12/02/21 09:17 [From Arthrotec] hydrocodone bitartrate Allergy Unknown Verified 12/02/21 09:17 [From [place]] itraconazole [From Sporanox] Allergy pt not Verified 12/02/21 09:17 sure of alg misoprostol [From Arthrotec] Allergy Unknown Verified 12/02/21 09:17 naproxen [From Naprosyn] Allergy Unknown Verified 12/02/21 09:17 Physical Exam Osteopathic Statement: *. No significant issues noted on an osteopathic structural exam other than those noted in the History and Physical/Consult. Vitals: Vital Signs Temp Pulse Pulse Pulse Resp BP Pulse Ox 12/03/21 14:22 97.7 F 52 L 18 131/61 95 12/03/21 13:22 51 L 16 146/63 93 L 12/03/21 12:52 52 L 16 136/60 93 L 12/03/21 12:22 46 L 18 124/65 92 L 12/03/21 12:07 53 L 16 144/73 94 L 12/03/21 11:52 45 L 16 138/56 97 12/03/21 08:00 98.2 F 55 L 55 L 18 131/70 96 12/03/21 04:00 98.9 F 59 L 18 120/74 94 L 12/03/21 02:00 18 12/03/21 00:00 99 F 59 L 18 121/66 95 12/02/21 20:00 98.5 F 65 16 133/77 95 12/02/21 16:00 98.4 F 69 16 153/64 94 L Intake and Output 12/03/21 12/03/21 12/03/21 06:59 14:59 22:59 Output Total 1150 Balance -1150 Output: Urine 1150 Other: Voiding Method Toilet Toilet # Voids 1 No acute distress, oriented 3. Not on any supplemental oxygen. HEENT examination is grossly unremarkable. Neck supple. Full range of motion. No adenopathy thyromegaly or neck vein distention. Cardiovascular examination reveals regular rhythm rate. S1-S2 normal. No S3 or S4. No discernible murmur noted. Heart rate 52 bpm. Lungs reveal clear breath sounds. Breath sounds are equal bilaterally. No adventitious lung sounds including wheezes rhonchi or crackles. Room air saturation is 95%. Abdomen soft bowel sounds are heard. No masses or tenderness. Extremities are intact. No cyanosis clubbing or edema. Skin is without rash or lesion. Neurologic examination is brief but nonfocal. Results - Laboratory Findings CBC and BMP: 12/03/21 07:43 12/03/21 07:43 PT/INR, D-dimer PT 10.8 sec (9.0-12.0) 12/03/21 07:43 INR 1.0 (<1.2) 12/03/21 07:43 Abnormal lab findings: Abnormal Labs 12/02/21 12/02/21 12/02/21 03:32 03:32 07:25 APTT 21.8 L Sodium 136 L Chloride 97 L Glucose 113 H AST 44 H Troponin I 0.597 H* 12/02/21 12/02/21 12/02/21 10:10 16:00 16:00 APTT 46.0 H Sodium Chloride Glucose AST Troponin I 0.688 H* 0.586 H* 12/03/21 12/03/21 07:43 07:43 APTT 45.2 H Sodium Chloride Glucose 72 L AST Troponin I - Diagnostic Findings Chest x-ray: image reviewed CT scan - chest: image reviewed Assessment and Plan Assessment: Non-ST segment elevation myocardial infarction, with significant left main c oronary disease, and a left dominant system. Hypertensive urgency, resolved. No evidence of significant chronic lung disease despite 25-30 years at tobacco use. Hyperlipidemia. Hypothyroidism. Hypertension. Irritable bowel syndrome. Family history of premature coronary disease. Plan: Plan dated 12/03/2021. I introduced myself to this patient. I interviewed her and examined her. The patient does not appear to have significant underlying chronic lung disease despite smoking a pack a day for 25-30 years. She quit back in 1991. A spirometry is not yet been done. Apparently the patient is going for bypass grafting tomorrow. Labs, x-rays, and medications are all reviewed. Additional recommendations and suggestions are forthcoming. I told the patient that my role is to first get her extubated from mechanical ventilation, and then second, to follow her during her hospital stay, and keep her lungs healthy, and to avoid, lung collapse, atelectasis, pneumonia, and pleural effusion. Time with Patient: Greater than 30
[2021-12-03] MEDS ORDERED: HEPARIN SOD,PORK IN 0.45% NACL 25,000 UNIT in 0.45% NACL 1 250ML.BAG IV SCH (16:00)
[2021-12-03 19:16] LABS: Chol/HDL Ratio 2.86 Ratio; LDL Cholesterol,Calculated 77.2 mg/dL (0.0-131.0); VLDL Calculation 19.66 mg/dL (5.00-40.00)
[2021-12-03 19:24] LABS: Hepatitis A Antibody IgM Nonreactive (Nonreactive); Hepatitis B Core IgM Nonreactive (Nonreactive); Hepatitis B Surface Antigen Nonreactive (Nonreactive); Hepatitis C IgG Antibody Nonreactive (Nonreactive)
[2021-12-03] MEDS ORDERED: MUPIROCIN 2% OINT 22 GM TUBE NASAL SCH (21:00)
[2021-12-03] MEDS: ATORVASTATIN 40 MG TAB PO SCH (22:49)
[2021-12-03] MEDS: PATIENT'S OWN (Mirabegron [Myrbetriq] 50 MG Tab.Er.24h) PO SCH (22:50)
[2021-12-03] MEDS: BACLOFEN 10 MG TAB PO PRN (22:54)
[2021-12-04] MEDS ORDERED: NOREPINEPHRINE 4 MG in SODIUM CHLORIDE 0.9% 250 ML IV SCH (05:00)
[2021-12-04] MEDS ORDERED: ceFAZolin 1,000 MG in SODIUM CHLORIDE 0.9% IRRIGATIO 1,000 ML IRRIGATION ONE (05:00)
[2021-12-04] MEDS ORDERED: ELECTROLYTE-A SOLUTION 1,000 ML with POTASSIUM CHLORIDE 100 MEQ, MAGNESIUM SULFATE 16 M... IV SCH ×5 (05:00)
[2021-12-04] MEDS ORDERED: MAGNESIUM SULFATE 16.24 MEQ in EMPTY SYRINGE 1 SYR IV ONE (05:00)
[2021-12-04] MEDS ORDERED: CHLORHEXIDINE GLUCONATE 15 ML CUP MUCOUS MEM ONE (05:00)
[2021-12-04] MEDS ORDERED: ALBUMIN HUMAN 25% 50 ML in EMPTY BAG 1 BAG IVPB ONE (05:00)
[2021-12-04] MEDS ORDERED: CALCIUM CHLORIDE 100 MG/ML 10 ML SYRINGE IVP ONE (05:00)
[2021-12-04] MEDS ORDERED: TRANEXAMIC ACID 2,000 MG in SODIUM CHLORIDE 0.9% 80 ML IV ONE (05:00)
[2021-12-04] MEDS ORDERED: PHENYLEPHRINE 10 MG/ML VIAL IV ONE (05:00)
[2021-12-04] MEDS ORDERED: METOPROLOL TARTRATE 12.5 MG TAB PO ONE (05:00)
[2021-12-04] MEDS ORDERED: HEPARIN SODIUM 1,000 UN/ML (10ML VL) IV ONE (05:00)
[2021-12-04] MEDS ORDERED: ELECTROLYTE-A SOLUTION 1,000 ML with POTASSIUM CHLORIDE 40 MEQ, MAGNESIUM SULFATE 16 ME... IV SCH ×5 (05:00)
[2021-12-04] MEDS ORDERED: NITROGLYCERIN-D5W PMX 25 MG/250 ML BTL IV ONE (05:00)
[2021-12-04] MEDS ORDERED: NITROGLYCERIN-D5W PMX 50 MG in DEXTROSE/WATER 1 250ML.BAG IV SCH ×2 (05:00→13:12)
[2021-12-04] MEDS ORDERED: LACTATED RINGERS 1,000 ML IV SCH (05:00)
[2021-12-04] MEDS ORDERED: PAPAVERINE 360 MG in SODIUM CHLORIDE 0.9% 90 ML IV ONE ×2 (05:00→09:43)
[2021-12-04] MEDS ORDERED: CLEVIDIPINE BUTYRATE 25 MG in EMPTY BAG 1 BAG IV SCH (05:00)
[2021-12-04] MEDS ORDERED: PROTAMINE SULFATE 250 MG in EMPTY BAG 1 BAG IV ONE (05:00)
[2021-12-04] MEDS ORDERED: INSULIN REGULAR 100 UNIT in SODIUM CHLORIDE 0.9% 100 ML IV SCH ×2 (05:00→14:00)
[2021-12-04] MEDS ORDERED: ATORVASTATIN 10 MG TAB PO ONE (05:00)
[2021-12-04] MEDS ORDERED: DILTIAZEM 125 MG in SODIUM CHLORIDE 0.9% 100 ML IV SCH (05:00)
[2021-12-04] MEDS ORDERED: SODIUM BICARB 8.4% 50 ML SYR (1 MEQ/ML) IV ONE (05:00)
[2021-12-04] MEDS ORDERED: HEPARIN SODIUM,PORCINE 5,000 UNIT in SODIUM CHLORIDE 0.9% 500 ML 500 ML IV ONE (05:00)
[2021-12-04] MEDS ORDERED: ALBUMIN HUMAN 5% 500 ML in EMPTY BAG 1 BAG IVPB ONE ×6 (05:00)
[2021-12-04] MEDS ORDERED: MANNITOL 25% 12.5 GM/50 ML VIAL IV ONE ×2 (05:00)
[2021-12-04] MEDS ORDERED: PROTAMINE SULFATE 10 MG/ML 25 ML VIAL IV ONE ×2 (05:00→07:35)
[2021-12-04] MEDS ORDERED: PHENYLEPHRINE 40 MG in SODIUM CHLORIDE 0.9% 250 ML IV ONE (05:00)
[2021-12-04] MEDS ORDERED: ASPIRIN 325 MG TAB PO ONE (05:00)
--- NOTE | 2021-12-04 06:12 | P.PN ---
Progress Note - Text Progress Note Date: 12/04/21 5 meter walk test completed without difficulty: #1 3.52 sec #2 2.98 sec #3 3.43 sec
[2021-12-04] MEDS ORDERED: LACTATED RINGERS 1,000 ML IV ONE (06:25)
[2021-12-04] MEDS ORDERED: LIDOCAINE 1% (10MG/ML) FOR IV START INTRADERMA ONE (06:45)
[2021-12-04] MEDS ORDERED: PROPOFOL 10 MG/ML 20 ML VIAL IV ONE (07:35)
[2021-12-04] MEDS ORDERED: fentaNYL (PF) 50 MCG/ML 50 ML VIAL ONE (07:35)
[2021-12-04] MEDS ORDERED: NITROGLYCERIN-D5W PMX 50 MG/250 ML BOTTLE IV ONE (07:35)
[2021-12-04] MEDS ORDERED: WATER FOR INJECTION, STERILE 10 ML VIAL IV ONE (07:35)
[2021-12-04] MEDS ORDERED: HEPARIN SODIUM,PORCINE 10,000 UNIT/ML 1 ML VIAL ONE (07:35)
[2021-12-04] MEDS ORDERED: TRANEXAMIC ACID IN NACL,ISO-OS 1,000 MG/100 ML BAG ONE (07:35)
[2021-12-04] MEDS ORDERED: LIDOCAINE 2% SYG (PF) 100 MG/5 ML ONE (07:35)
[2021-12-04] MEDS ORDERED: ALBUMIN HUMAN 5% (25gm) 500 ML VIAL IVPB ONE (07:35)
[2021-12-04] MEDS ORDERED: SODIUM CHLORIDE 0.9% IRRIG 1,000 ML BTL IRRIGATION ONE (07:35)
[2021-12-04] MEDS ORDERED: PHENYLEPHRINE-0.9% NACL SYG 1,000 MCG/10 ML SYRINGE ONE (07:35)
[2021-12-04] MEDS ORDERED: ceFAZolin 1,000 MG VIAL ONE (07:35)
[2021-12-04] MEDS ORDERED: ELECTROLYTE-R (PH 7.4) 1,000 ML IV.SOLN IV ONE (07:35)
[2021-12-04] MEDS ORDERED: SODIUM CHLORIDE 0.9% 100 ML BAG ONE (07:35)
[2021-12-04] MEDS ORDERED: VECURONIUM 10 MG VIAL IV ONE (07:35)
[2021-12-04] MEDS ORDERED: MIDAZOLAM HCL 10 MG/10 ML VIAL ONE (07:35)
[2021-12-04] MEDS ORDERED: MAGNESIUM SULFATE 4 MEQ/ML 10ML VIAL ONE (07:35)
--- NOTE | 2021-12-04 07:43 | P.ANPRN ---
Procedure Note - Anesthesia - Invasive Line Right Central Line Time Out Performed: Yes ([id number]) Date of Procedure: 12/04/21 Time of Procedure: 07:17 Location of Patient: Phase I Preparation: Sterile Prep, Sterile Dressing Arterial Line Location: Radial (placed by SU melgar) Ultrasound Used: Yes Purpose - Visualization and Identification of Vasculature: Yes Needle Guage: 18g angio Image Stored and Saved: Yes Narrative: Central line placement per sterile protocol utilized. right neck prepped and draped. sterile protocol. +local +angio +cvp +jwire +uneventful dilation and introduction right IJ cordis. Lumen bled and flushed. without anesthetic complication
[2021-12-04] MEDS ORDERED: ASPIRIN 81 MG PO SCH (09:00)
[2021-12-04] MEDS ORDERED: SODIUM CHLORIDE 0.9% 500 ML 500 ML with HEPARIN SODIUM,PORCINE 5,000 UNIT IV ONE ×2 (09:42)
[2021-12-04] MEDS ORDERED: ceFAZolin 1,000 MG in SODIUM CHLORIDE 0.9% 1,000 ML IRRIGATION ONE (09:44)
--- NOTE | 2021-12-04 10:16 | P.PN ---
Subjective Progress Note Date: 12/04/21 Principal diagnosis: Chest pain. Pulmonary consult dated 12/03/2021. 76-year-old female with a history of hypertension, hyperlipidemia, hypothyroidism, and irritable bowel syndrome. The patient apparently presented to the emergency department, on December 02 at 3:00 in the morning, complaining of chest pain. She apparently been having chest pain and chest pressure, as well as an elevated blood pressure. The patient was evaluated in the emergency room, and admitted to the hospital. I was asked by cardiothoracic surgery to see the patient, as apparently the patient underwent cardiac catheterization, and was found to have significant coronary disease. According to the operative report, the patient had critical disease involving the left main coronary artery with extremely calcified and extremely eccentric plaque in the range of 95%. The patient had a dominant left coronary system and elevated filling pressures. The patient has no known history of lung disease. She did smoke for about 25-30 years at 1 pack a day. She quit in 1991. Currently she is resting comfortably in room 352. The patient's getting saline at 75 mL an hour. She's not requiring any supplemental oxygen. White count 7.2, hemoglobin 13.4, hematocrit 41, and platelet count 259,000. PTT is 45.2. Sodium, potassium, chloride, CO2, BUN, and creatinine were normal. Troponin was 0.597, 0.688, and 0.586. EKG showed sinus rhythm, with nonspecific ST-T wave changes. Progress note dated 12/04/2021. Patient have open heart surgery today with Dr. Welsh. I saw the patient yesterday in consultation. She has a history of hypertension, hypothyroidism, and irritable bowel syndrome. She also suffers from hyperlipidemia. I don't believe she has any significant chronic lung disease. Labs from December 03 are reviewed. Also, all x-rays and procedure notes were reviewed. Objective - Vital Signs Vital signs: Vital Signs Temp 97.3 F L 12/04/21 06:27 Pulse 57 L 12/04/21 06:27 Resp 18 12/04/21 04:00 BP 144/68 12/04/21 06:27 Pulse Ox 98 12/04/21 06:27 FiO2 Intake & Output 12/03/21 12/04/21 12/04/21 18:59 06:59 18:59 Intake Total 118 68.727 3 Output Total 1420 Balance -1302 68.727 3 Weight 57.561 kg Intake: IV 3 Intake, IV Titration 68.727 Amount Heparin Sod,Pork in 0.45% 68.727 NaCl 25,000 unit In 0.45 % NaCl 1 250ml.bag @ 12 UNITS/KG/HR 6.913 mls/hr IV .Q24H ANTONIO Rx#: [id number] Oral 118 Output: Urine 1420 Other: Voiding Method Toilet Toilet # Voids 4 # Bowel Movements 1 3 - Exam No acute distress, oriented 3. Not on any supplemental oxygen. HEENT examination is grossly unremarkable. Neck supple. Full range of motion. No adenopathy thyromegaly or neck vein distention. Cardiovascular examination reveals regular rhythm rate. S1-S2 normal. No S3 or S4. No discernible murmur noted. Heart rate 58 bpm. Lungs reveal clear breath sounds. Breath sounds are equal bilaterally. No adv entitious lung sounds including wheezes rhonchi or crackles. Room air saturation is 98 %. Abdomen soft bowel sounds are heard. No masses or tenderness. Extremities are intact. No cyanosis clubbing or edema. Skin is without rash or lesion. Neurologic examination is brief but nonfocal. - Labs CBC & Chem 7: 12/03/21 07:43 12/03/21 07:43 Labs: Abnormal Lab Results - Last 24 Hours (Table) 12/03/21 12/03/21 Range/Units 14:52 23:48 APTT 36.5 H (22.0-30.0) sec Crossmatch See Detail Microbiology - Last 24 Hours (Table) 12/03/21 15:00 Nasal Screen MRSA/MSSA - Preliminary Nasal Swab Assessment and Plan Assessment: Non-ST segment elevation myocardial infarction, with significant left main coronary disease, and a left dominant system. Patient to have bypass grafting today, 12/04/2021. Hypertensive urgency, resolved. No evidence of significant chronic lung disease despite 25-30 years at tobacco use. Hyperlipidemia. Hypothyroidism. Hypertension. Irritable bowel syndrome. Family history of premature coronary disease. Plan: Plan dated 12/03/2021. I introduced myself to this patient. I interviewed her and examined her. The patient does not appear to have significant underlying chronic lung disease despite smoking a pack a day for 25-30 years. She quit back in 1991. A spirometry is not yet been done. Apparently the patient is going for bypass grafting tomorrow. Labs, x-rays, and medications are all reviewed. Additional recommendations and suggestions are forthcoming. I told the patient that my role is to first get her extubated from mechanical ventilation, and then second, to follow her during her hospital stay, and keep her lungs healthy, and to avoid, lung collapse, atelectasis, pneumonia, and pleural effusion. Plan dated 12/04/2021. The patient was seen in consultation yesterday. The patient spirometry with the family, and I did not have an opportunity the patient likely does not have any significant chronic lung disease. She quit cigarette smoking back in 1991. She does smoke about a pack a day for 25 years or so. She denies any chronic sh ortness of breath, cough, wheezing, or phlegm production. I did explain my role in patients undergoing bypass grafting. She had questions of which I answered. Time with Patient: Less than 30
[2021-12-04] MEDS ORDERED: ALBUMIN HUMAN 5% 250 ML IVPB ONE (13:11)
[2021-12-04] MEDS ORDERED: IPRATROPIUM-ALBUTEROL 3 ML NEB INHALATION PRN (13:12)
[2021-12-04] MEDS ORDERED: AMIODARONE 450 MG in DEXTROSE 5% IN WATER 250 ML IV PRN ×2 (13:12)
[2021-12-04] MEDS ORDERED: DEXTROSE 5% IN WATER 100 ML with AMIODARONE 150 MG IV PRN (13:12)
[2021-12-04] MEDS ORDERED: Magnesium Replacement Protocol 1 EACH MISC MISCELLANE PRN (13:12)
[2021-12-04] MEDS ORDERED: METOCLOPRAMIDE 5 MG/ML 2 ML VIAL IVP PRN (13:12)
[2021-12-04] MEDS ORDERED: CALCIUM GLUCONATE IN NACL 2 GM in SALINE 1 100ML.BAG IVPB PRN (13:12)
[2021-12-04] MEDS ORDERED: AMIODARONE 360 MG in DEXTROSE 5% IN WATER 200 ML IV PRN ×2 (13:12)
[2021-12-04] MEDS ORDERED: hydrALAZINE HCL 20 MG/ML 1 ML VIAL IVP PRN (13:12)
[2021-12-04] MEDS ORDERED: Potassium Replacement Protocol 1 EACH MISC MISCELLANE PRN ×2 (13:12→14:47)
[2021-12-04] MEDS ORDERED: ONDANSETRON 4 MG/2 ML VIAL IVP PRN (13:12)
[2021-12-04] MEDS ORDERED: DEXTROSE 50% SYRINGE 50 ML IVP PRN ×2 (13:12)
[2021-12-04] MEDS ORDERED: DEXMEDETOMIDINE/0.9% NACL(PMX) 400 MCG in EMPTY BAG 1 BAG IV SCH (13:12)
[2021-12-04 13:33] LABS: Glucose,Whole Blood 83 mg/dL (70-110)
[2021-12-04 13:58] LABS: ABG Base Excess -0.4 mmol/L; ABG HCO3 25 mmol/L (21-25); ABG Hematocrit 30 % (34.0-46.0); ABG Oxygen Saturation 99.3 % (94-97); ABG PCO2 43 mmHg (35-45); ABG PH 7.37 (7.35-7.45); ABG PO2 140 mmHg (83-108); ABG TCO2 26 mmol/L (19-24); Allen Test Performed? Yes
[2021-12-04 14:05] LABS: INR 1.2 (<1.2); Partial Thromboplastin Time 31.2 sec (22.0-30.0); Prothrombin Time 12.6 sec (9.0-12.0)
[2021-12-04 14:12] LABS: Basophils % (A) 0 %; Eosinophils # (A) 0.1 k/uL (0-0.7); Eosinophils % (A) 2 %; HCT 27.2 % (34.0-46.0); Lymphocytes # (A) 0.7 k/uL (1.0-4.8); Lymphocytes % (A) 17 %; MCH 32.9 pg (25.0-35.0); MCHC 34.2 g/dL (31.0-37.0); MCV 96.1 fL (80.0-100.0); Mean Platelet Volume 9.1; Monocytes # (A) 0.3 k/uL (0-1.0); Monocytes % (A) 6 %; Neutrophils # (A) 3.3 k/uL (1.3-7.7); Neutrophils % (A) 75 %; RBC 2.83 m/uL (3.80-5.40); WBC 4.4 k/uL (3.8-10.6)
--- NOTE | 2021-12-04 14:13 | XR ---
EXAMINATION TYPE: XR chest 1V portable DATE OF EXAM: 12/04/2021 COMPARISON: 12/02/2021 HISTORY: Postcardiac surgery TECHNIQUE: Single frontal view of the chest is obtained. FINDINGS: There is an ET tube 16 mm above the nicole. The NG tube within the stomach. [place] cath eter tip of which is in the pulmonary artery. There is a left chest tube and 2 mediastinal tubes. The re are median sternotomy wires. There is no pleural effusion or pneumothorax. The heart size is normal and the vasculature is not almaz ear congested. There is no airspace consolidation. IMPRESSION: 1. ET tube 16 mm above the nicole. 2. [place] catheter, left chest tube, NG tube and mediastinal tubes. 3. No pleural effusion, pneumothorax, pulmonary vascular congestion or airspace consolidation.
[2021-12-04] MEDS: LEVOTHYROXINE 25 MCG TAB PO SCH (14:14)
[2021-12-04] MEDS: DIVALPROEX 500 MG TABLET.DR PO SCH ×2 (14:15→20:30)
[2021-12-04] MEDS: PARoxetine 20 MG TAB PO SCH (14:16)
[2021-12-04 14:17] LABS: ALT 12 U/L (4-34); AST 49 U/L (14-36); African American GFR (CKD) >90 (>60 ml/min/1.73 sqM); Albumin 3.1 g/dL (3.5-5.0); Alkaline Phosphatase 40 U/L (38-126); Anion Gap 9 mmol/L; Blood Urea Nitrogen 8 mg/dL (7-17); Calcium 8.5 mg/dL (8.4-10.2); Carbon Dioxide 24 mmol/L (22-30); Chloride 103 mmol/L (98-107); Glucose 104 mg/dL (74-99); Magnesium 2.3 mg/dL (1.6-2.3); Non-African American GFR(CKD) >90 (>60 ml/min/1.73 sqM); Potassium 3.5 mmol/L (3.5-5.1); Sodium 136 mmol/L (137-145); Total Bilirubin 0.6 mg/dL (0.2-1.3); Total Protein 4.5 g/dL (6.3-8.2)
[2021-12-04] MEDS: LACTATED RINGERS 1,000 ML IV SCH (14:17)
[2021-12-04 14:18] LABS: HGB 9.3 gm/dL (11.4-16.0)
--- NOTE | 2021-12-04 14:44 | US ---
EXAMINATION TYPE: Pre-Operative Non-Invasive Evaluation of the hand for Potential Radial Artery Ester talamantes, Measurements only DATE OF EXAM: 12/03/2021 2:14 PM CLINICAL HISTORY: measurements only. Ordered for measurements of left only. SIDE PERFORMED: Left TECHNIQUE: Radial artery is measured utilizing real time linear array sonography. Dominant hand: Right Duplex Findings: Radial Artery: Color flow seen Measurements in mm, transverse view: Left Radial: Proximal: 2.1 x 1.7 mm Mid: 2.4 x 2.4 mm Distal: 2.1 x 1.6 mm Limited visibility of left radial origin due to IV. IMPRESSION: See above
--- NOTE | 2021-12-04 14:45 | US ---
EXAMINATION TYPE: US vein mapping BILAT DATE OF EXAM: 12/03/2021 6:22 PM COMPARISON: NONE CLINICAL HISTORY: preop cardiac surgery. preop cardiac surgery SIDE PERFORMED: Bilateral TECHNIQUE: Lower extremity saphenous vein is examined and measured utilizing real time linear array sonography. DUPLEX FINDINGS: Greater Saphenous: Color flow seen Lesser Saphenous: Color flow seen Measurements in mm: Right Greater Saphenous: Groin: 5.3 x 4.1 mm High Thigh: 4.6 x 3.4 mm Mid Thigh: 4.4 x 3.3 mm Above Knee: 3.9 x 3.1 mm Knee: 2.9 x 2.4 mm Below Knee: 2.9 x 2.1 mm Mid Calf: 1.7 x 1.6 mm At Ankle: 2.7 x 2.5 mm Left Greater Saphenous: Groin: 6.6 x 5.9 mm High Thigh: 3.2 x 2.7 mm Mid Thigh: 4.0 x 3.6 mm Above Knee: 3.8 x 3.6 mm Knee: 3.8 x 2.5 mm Below Knee: 2.4 x 1.7 mm Mid Calf: 2.0 x 1.7 mm At Ankle: 1.9 x 1.6 mm IMPRESSION: 1. Bilateral GSV measurements listed above. 2. Performing surgeon to determine viability as conduit.
[2021-12-04 14:46] LABS: Platelet Count 83 k/uL (150-450); RBC Morphology Normal
[2021-12-04 15:06] LABS: Glucose,Whole Blood 118 mg/dL (70-110)
[2021-12-04] MEDS: POTASSIUM CHLORIDE 20 MEQ in WATER FOR INJECTION 1 100ML.BAG IVPB SCH ×2 (15:12→17:58)
[2021-12-04] MEDS: MILRINONE-D5W PMX 20 MG in DEXTROSE/WATER 1 100ML.BAG IV SCH (15:20)
[2021-12-04] MEDS ORDERED: IPRATROPIUM-ALBUTEROL 3 ML NEB INHALATION SCH (16:00)
[2021-12-04 16:09] LABS: Glucose,Whole Blood 135 mg/dL (70-110)
[2021-12-04] MEDS: CLEVIDIPINE BUTYRATE 25 MG in EMPTY BAG 1 BAG IV SCH (16:09)
[2021-12-04] MEDS: HEPARIN SODIUM,PORCINE/PF 5,000 UNIT/0.5 ML SYRINGE SQ SCH ×2 (16:12→23:44)
[2021-12-04 16:22] LABS: HCT 28.3 % (34.0-46.0); HGB 9.7 gm/dL (11.4-16.0); MCH 32.9 pg (25.0-35.0); MCHC 34.1 g/dL (31.0-37.0); MCV 96.6 fL (80.0-100.0); Mean Platelet Volume 9.3; RBC 2.93 m/uL (3.80-5.40); RDW 13.1 % (11.5-15.5); WBC 6.1 k/uL (3.8-10.6)
[2021-12-04 16:26] LABS: Platelet Count 96 k/uL (150-450)
[2021-12-04 16:40] LABS: Eosinophils # (M) 0.06 k/uL (0-0.7); Lymphocytes # (M) 0.79 k/uL (1.0-4.8); Monocytes # (M) 0.49 k/uL (0-1.0); Neutrophils # (M) 4.76 k/uL (1.3-7.7); Neutrophils % (M) 78 %; Nucleated Red Blood Cells 0 /100 WBC (0-0); Total Cells Counted 100
[2021-12-04 17:04] LABS: Glucose,Whole Blood 155 mg/dL (70-110)
[2021-12-04] MEDS: ACETAMINOPHEN IV (For NPO) 1,000 MG in EMPTY BAG 1 BAG IVPB SCH ×2 (17:58→23:44)
[2021-12-04 18:04] LABS: Glucose,Whole Blood 87 mg/dL (70-110)
--- NOTE | 2021-12-04 18:19 | P.PN ---
Subjective Progress Note Date: 12/04/21 Patient is a pleasant 76-year-old female came in with complaints of a headache, congestion cough, postnasal drip and chest pain with some pleuritic competent the chest pain does radiate to the jaw because of which cardiology was consulted EKG showed ST depression in the inferior leads but note significant change compared to her previous EKG. Facet of troponin was negative and it went up to 0.688 because of which patient was started on IV heparin, and patient did receive nitro drip after which her chest pain did have improved as per the patient. Patient denied any previous history of coronary artery disease. Patient had a CT angios the chest whichRRR embolism but did show infiltrate in bilateral lower lung elaine consistent with pulmonary edema. Patient was started on chlorthalidone by pulmonary. Patient is slightly hyponatremic with serum sodium of 136. Patient blood pressure was high at 200s on admission. Etiology is planning and cardiac catheterization tomorrow COVID-19 influenza te sts are being obtained. Stress test about any ago showed mild fixed defect in the mid anterior wall. Medical decision 2019 showed mild nonobstructive coronary artery disease echo about any ago showed normal ejection fraction BNP is 259. Patient also complaining of the mild hemoptysis which resolved at this time 12/03/2021 Patient went down for right and left cardiac catheterization today which reveals a critical left main lesion. Echocardiogram shows an EF of 45 to 50% with apical septal and apex hypokinesis. Cardiothoracic team has been consulted for further evaluation of the critical lesion. She continues on chlorthalidone. Today her blood count is unremarkable, sodium 138, potassium 4.0, BUN 7, creatinine 0.71. Urinalysis negative. She is currently denying chest pain. Blood pressure 146/63, heart rate is sinus bradycardia. 93% room air. 12/04/2021 No acute events overnight. Patient is going for open heart surgery today with Dr Welsh, she will be monitored postoperatively in the intensive care unit. Patient had lipid panel completed, A1C 5.8. Hepatitis panel is negative. Current vitals, room air 98%, heart rate 57, blood pressure 144/68, temp 97.3. Review of Systems Constitutional: Denied any fatigue denied any fever. Cardio vascular: denied any chest pain, palpitations Gastrointestinal: denied any nausea, vomiting, diarrhea Pulmonary: Denied any shortness of breath cough Neurologic denied any new focal deficits All inpatient medications were reviewed and appropriate changes in these medications as dictated in the interval history and assessment and plan. PHYSICAL EXAMINATION: GENERAL: The patient is alert and oriented x3, not in any acute distress. Well d eveloped, well nourished. HEENT: Pupils are round and equally reacting to light. EOMI. No scleral icterus. No conjunctival pallor. Normocephalic, atraumatic. No pharyngeal erythema. No thyromegaly. Patient does have sinus tenderness CARDIOVASCULAR: S1 and S2 present. No murmurs, rubs, or gallops. PULMONARY: Chest is clear to auscultation, no wheezing or crackles. ABDOMEN: Soft, nontender, nondistended, normoactive bowel sounds. No palpable organomegaly. MUSCULOSKELETAL: No joint swelling or deformity. EXTREMITIES: No cyanosis, clubbing, or pedal edema. NEUROLOGICAL: Gross neurological examination did not reveal any focal deficits. SKIN: No rashes. Assessment and plan -Possible non-ST elevation myocardial infarction: Cath reveals critical disease in the left main, cardiothoracic has been consulted and patient will undergo open heart surgery -Possible hypertensive emergency: Blood pressure improved now, possible acute pulmonary edema from NSTEMI -Headache nasal congestion: Secondary to sinusitis most likely allergic -Hypothyroidism -Dyslipidemia -Hyperlipidemia GI prophylaxis: Protonix DVT prophylaxis: On IV heparin The impression and plan of care has been dictated by Edwige Cardona, Nurse Practitioner as directed. Dr. Ramesh MD I have performed a history and physical examination and medical decision making of this patient, discussed the same with the dictator, and agree with the dictators assessment and plan as written, documented as a scribe. Based on total visit time, I have performed more than 50% of this visit. Objective - Vital Signs Vital signs: Vital Signs Temp 97.3 F L 12/04/21 06:27 Pulse 57 L 12/04/21 06:27 Resp 18 12/04/21 04:00 BP 144/68 12/04/21 06:27 Pulse Ox 98 12/04/21 06:27 FiO2 100 12/04/21 13:20 Intake & Output 12/03/21 12/04/21 12/04/21 18:59 06:59 18:59 Intake Total 118 68.727 3 Output Total 1420 1000 Balance -1302 68.727 -997 Weight 57.561 kg Intake: IV 3 Intake, IV Titration 68.727 Amount Heparin Sod,Pork in 0.45% 68.727 NaCl 25,000 unit In 0.45 % NaCl 1 250ml.bag @ 12 UNITS/KG/HR 6.913 mls/hr IV .Q24H ANTONIO Rx#: [id number] Oral 118 Output: Urine 1420 1000 Other: Voiding Method Toilet Toilet # Voids 4 # Bowel Movements 1 3 - Labs CBC & Chem 7: 12/04/21 16:06 12/04/21 13:52 Labs: Abnormal Lab Results - Last 24 Hours (Table) 12/03/21 12/03/21 Range/Units 14:52 23:48 APTT 36.5 H (22.0-30.0) sec Crossmatch See Detail Microbiology - Last 24 Hours (Table) 12/03/21 15:00 Nasal Screen MRSA/MSSA - Preliminary Nasal Swab Assessment and Plan Time with Patient: Less than 30
[2021-12-04] MEDS: KETOROLAC 15 MG/ML 1 ML VIAL IVP SCH ×2 (18:21→23:44)
[2021-12-04 19:00] LABS: Glucose,Whole Blood 133 mg/dL (70-110)
[2021-12-04 19:09] LABS: Basophils % (A) 0 %; Eosinophils % (A) 1 %; HCT 28.3 % (34.0-46.0); HGB 9.3 gm/dL (11.4-16.0); Lymphocytes # (A) 0.6 k/uL (1.0-4.8); Lymphocytes % (A) 8 %; MCH 31.3 pg (25.0-35.0); MCHC 32.9 g/dL (31.0-37.0); MCV 95.2 fL (80.0-100.0); Mean Platelet Volume 10.3; Monocytes # (A) 0.9 k/uL (0-1.0); Monocytes % (A) 12 %; Neutrophils # (A) 6.4 k/uL (1.3-7.7); Neutrophils % (A) 79 %; RBC 2.97 m/uL (3.80-5.40); RDW 12.6 % (11.5-15.5); WBC 8.1 k/uL (3.8-10.6)
[2021-12-04 19:12] LABS: Platelet Count 95 k/uL (150-450)
[2021-12-04] MEDS: IPRATROPIUM-ALBUTEROL 3 ML NEB INHALATION SCH (19:24)
[2021-12-04 19:55] LABS: Glucose,Whole Blood 138 mg/dL (70-110)
[2021-12-04 20:02] LABS: ABG Base Excess -1.9 mmol/L; ABG HCO3 23 mmol/L (21-25); ABG Hematocrit 28 % (34.0-46.0); ABG Oxygen Saturation 98.5 % (94-97); ABG PCO2 41 mmHg (35-45); ABG PH 7.37 (7.35-7.45); ABG PO2 110 mmHg (83-108); ABG TCO2 25 mmol/L (19-24); Allen Test Performed? Yes
[2021-12-04] MEDS: PATIENT'S OWN (Mirabegron [Myrbetriq] 50 MG Tab.Er.24h) PO SCH (20:30)
--- NOTE | 2021-12-04 20:30 | OP ---
OPERATIVE REPORT PREOPERATIVE DIAGNOSIS: Coronary artery disease. POSTOPERATIVE DIAGNOSIS: Coronary artery disease. PROCEDURES PERFORMED: 1. Coronary artery bypass grafting x 2 vessels (left internal mammary artery to left anterior descending artery, saphenous vein graft to obtuse marginal artery). 2. Endoscopic harvest of right greater saphenous vein. 3. Ligation of left atrial appendage using 35-mm AtriClip. 4. Epiaortic ultrasound. 5. Transesophageal echocardiogram. ASSISTANTS: 1. Justin Henry MD. 2. FINESSE Brooks ANESTHESIA: General. SPECIMEN: None. COMPLICATION: None. INDICATION: The patient is a 76-year-old female with a past medical history significant for hypertension, hyperlipidemia, hypothyroidism, dementia, GERD, IBS, and remote history of tobacco use, who presented to the emergency department with chest pain. Workup revealed a [id number] myocardial infarction. Cardiac catheterization revealed a tight left main coronary artery lesion. An urgent coronary artery bypass was recommended. The risks, benefits, and alternatives of this procedure were discussed with the patient. All of her questions were answered. Consent was obtained. FINDINGS: The left internal mammary artery was small in diameter, but had brisk flow. The saphenous vein was a good conduit. The left anterior descending artery measured 1.5 mm. The obtuse marginal artery measured 1.5 mm. There was no target noted off the RCA as it was a nondominant vessel. DESCRIPTION OF PROCEDURE: The patient was taken to the operating room and placed supine on the operating table. After the induction of general anesthesia, she was prepped and draped in the usual sterile fashion. Preoperative transesophageal echocardiogram confirmed an ejection fraction of about 40% to 45% with hypokinesis involving the anterior/septal region. There was no significant valvular pathology. A median sternotomy was performed. The left internal mammary artery was harvested in the standard fashion taking care to clip all branches. Intravenous heparin was administered. The vessel was transected distally revealing brisk flow. Of note, this vessel was small in diameter, but had brisk flow. Simultaneously, greater saphenous vein was harvested from the right lower extremity using endoscopic technique. All branches were tied. Both the mammary artery and saphenous vein were good conduits. A pericardial cradle was created. The ascending aorta was palpated. Calcific plaque was noted within the arch as well as at the origin of the innominate artery and distal ascending aorta. This correlated to her preoperative CAT scan of the chest. Epiaortic ultrasound was then performed on the ascending aorta. Again, calcium was noted distally; however, the main body of the ascending aorta was free of disease. There was no significant posterior plaque either. An arterial cannula was then placed carefully in an area free of disease. A venous cannula was placed through the right atrial appendage and directed into the IVC. Both antegrade and retrograde catheters were placed as well. The patient was then placed on cardiopulmonary bypass with good decompression of the heart. The aortic cross-clamp was carefully applied in an area free of calcific disease. Cold blood potassium cardioplegia was delivered in both antegrade and retrograde fashion to achieve arrest of the heart. Of note, cardioplegia was delivered every 15 to 20 minutes while the patient remained under cross-clamp. I began by identifying the left atrial appendage. A 35-mm AtriClip was placed across its base to ensure ligation. Next, attention was turned to the inferior wall. The RCA was identified, but it did not appear to be a target suitable for bypass. There were no branches off the RCA amenable for bypass either. Attention was then turned to the lateral wall. The obtuse marginal artery was identified. It was dissected free. A small arteriotomy was created. This vessel accepted a 1.5-mm probe. Using saphenous vein in reverse fashion, an end-to-side anastomosis was created. This was performed using a running 7-0 Prolene suture. The graft was hemostatic and had a great flow. The distal branches of the circumflex artery, which theoretically supplied the inferior wall were identified but were not suitable for bypass. Finally, attention was turned to the anterior wall. The left anterior descending artery was identified. It was dissected free in its midportion. A small arteriotomy was created. This vessel accepted a 1.5-mm probe. Using the left internal mammary artery, an end-to-side anastomosis was created. This was performed using a running 8-0 Prolene suture. The graft was hemostatic. The mammary pedicle was then tacked down to the anterior surface of the heart. Attention was then turned to the proximal anastomosis. This was performed in an end-to- side fashion using running 6-0 Prolene suture. 1 L of warm blood was delivered in retrograde fashion. Both lidocaine and magnesium were administered as well. The aortic cross-clamp was removed. The vein graft was de-aired in the standard fashion. The distal anastomoses were inspected and appeared to be hemostatic. Temporary atrial and ventricular pacing wires were placed and brought through the skin. The patient was then weaned off cardiopulmonary bypass. She without difficulty. Followup transesophageal cardiogram confirmed improvement in left ventricular ejection fraction including the anterior septal wall. Protamine was administered. There were no adverse reactions. The remaining cannulas were then removed. The mediastinum was copiously irrigated with warm saline solution. Again, all surgical sites were inspected and appeared to be hemostatic. Soft tissues were reapproximated over the ascending aorta as well as over the apex of the heart. Chest tubes were placed in the left pleural space and mediastinum. A small defect was noted in the medial aspect of the left upper lobe, which was likely secondary to the chest retractor. I was concerned that this would result in a prolonged air leak. For this reason, using an endoscopic stapling device with multiple 35 mm loads, this defect in the left upper lobe was wedged out. The suture line was intact and hemostatic. Attention was then turned to closure of the sternum. [place] cables were placed in a [id number] fashion. At the completion of closure, the sternum was well aligned. The remainder of the wound was closed in layers. Sterile dressing was applied. The patient appeared to tolerate the procedure well. There were no immediate complications. She returned to the ICU in critical, but stable condition. She did not receive any intraoperative blood products. NIKUNJ / RYAN: [id number] / MTDD
[2021-12-04 20:52] LABS: Glucose,Whole Blood 131 mg/dL (70-110)
[2021-12-04] MEDS: MUPIROCIN 2% OINT 22 GM TUBE NASAL SCH (21:05)
[2021-12-04] MEDS: ALBUMIN HUMAN 5% 250 ML in EMPTY BAG 1 BAG IVPB PRN (21:06)
[2021-12-04 21:59] LABS: Glucose,Whole Blood 124 mg/dL (70-110)
[2021-12-04 22:57] LABS: Glucose,Whole Blood 125 mg/dL (70-110)
[2021-12-04 23:54] LABS: Glucose,Whole Blood 123 mg/dL (70-110)
[2021-12-05 00:53] LABS: Glucose,Whole Blood 127 mg/dL (70-110)
[2021-12-05 02:04] LABS: Glucose,Whole Blood 127 mg/dL (70-110)
[2021-12-05] MEDS: CLEVIDIPINE BUTYRATE 25 MG in EMPTY BAG 1 BAG IV SCH (02:32)
[2021-12-05 02:54] LABS: Glucose,Whole Blood 123 mg/dL (70-110)
[2021-12-05 03:54] LABS: Glucose,Whole Blood 114 mg/dL (70-110)
[2021-12-05 04:02] LABS: Basophils % (A) 0 %; Eosinophils % (A) 0 %; HCT 25.8 % (34.0-46.0); HGB 8.9 gm/dL (11.4-16.0); Lymphocytes # (A) 0.9 k/uL (1.0-4.8); Lymphocytes % (A) 9 %; MCH 32.8 pg (25.0-35.0); MCHC 34.4 g/dL (31.0-37.0); MCV 95.2 fL (80.0-100.0); Mean Platelet Volume 10.5; Monocytes # (A) 1.4 k/uL (0-1.0); Monocytes % (A) 14 %; Neutrophils # (A) 7.2 k/uL (1.3-7.7); Neutrophils % (A) 75 %; RBC 2.71 m/uL (3.80-5.40); RDW 12.7 % (11.5-15.5); WBC 9.5 k/uL (3.8-10.6)
[2021-12-05 04:35] LABS: Ionized Calcium 4.7 mg/dL (4.5-5.3)
[2021-12-05 04:37] LABS: Platelet Count 97 k/uL (150-450)
[2021-12-05 05:05] LABS: Glucose,Whole Blood 147 mg/dL (70-110)
[2021-12-05 05:06] LABS: ALT 12 U/L (4-34); AST 56 U/L (14-36); African American GFR (CKD) >90 (>60 ml/min/1.73 sqM); Albumin 3.6 g/dL (3.5-5.0); Alkaline Phosphatase 37 U/L (38-126); Anion Gap 13 mmol/L; Blood Urea Nitrogen 8 mg/dL (7-17); Calcium 8.6 mg/dL (8.4-10.2); Carbon Dioxide 24 mmol/L (22-30); Chloride 97 mmol/L (98-107); Glucose 116 mg/dL (74-99); Magnesium 1.8 mg/dL (1.6-2.3); Non-African American GFR(CKD) >90 (>60 ml/min/1.73 sqM); Potassium 3.9 mmol/L (3.5-5.1); Sodium 134 mmol/L (137-145); Total Bilirubin 0.3 mg/dL (0.2-1.3); Total Protein 5.1 g/dL (6.3-8.2)
[2021-12-05] MEDS: ALBUMIN HUMAN 5% 250 ML in EMPTY BAG 1 BAG IVPB PRN ×3 (05:08→12:24)
[2021-12-05] MEDS: LEVOTHYROXINE 25 MCG TAB PO SCH (05:33)
[2021-12-05 05:55] LABS: Glucose,Whole Blood 136 mg/dL (70-110)
[2021-12-05] MEDS: KETOROLAC 15 MG/ML 1 ML VIAL IVP SCH ×4 (05:59→23:47)
[2021-12-05] MEDS ORDERED: POTASSIUM BICARBONATE/CIT AC 20 MEQ TABLET.EFF NG-TUBE SCH (06:00)
[2021-12-05] MEDS: MAGNESIUM SULFATE-D5W PMX 1 GM in DEXTROSE/WATER 1 100ML.BAG IVPB SCH ×2 (06:00→07:36)
[2021-12-05] MEDS ORDERED: ALBUMIN HUMAN 5% 250 ML in EMPTY BAG 1 BAG IVPB STA (06:35)
[2021-12-05 06:52] LABS: Glucose,Whole Blood 153 mg/dL (70-110)
[2021-12-05] MEDS ORDERED: ACETAMINOPHEN TAB 325 MG TAB PO PRN (06:52)
[2021-12-05] MEDS: METOPROLOL TARTRATE 12.5 MG TAB PO SCH ×2 (07:12→20:29)
[2021-12-05] MEDS: traMADol 50 MG TAB PO PRN ×3 (07:32→22:32)
--- NOTE | 2021-12-05 07:32 | XR ---
EXAMINATION TYPE: XR chest 1V portable DATE OF EXAM: 12/05/2021 Comparison: 12/04/2021 Clinical History: 76-year-old female Post Operative Cardiac Surgery Findings: Interval extubation and removal of NG tube. ACDF hardware. Median sternotomy wires and post-CABG clip s in the mediastinum. Mediastinal drains, epicardial pacer leads, left-sided chest tube remain in esaton ce. No appreciable pneumothorax. Right IJ [place] catheter, tip at the main pulmonary outflow tract . Heart remains mildly enlarged. Some asymmetric elevation left hemidiaphragm may be positional. Atte ntion on follow-up. Mild interstitial density remains but shows improvement from prior. Some patchy d ensity at the right base is noted. Impression: 1. Similar mild cardiomegaly. Some mild interstitial density remains though there has been some impro vement from prior. 2. Asymmetric elevation left hemidiaphragm may be positional. Attention on follow-up. 3. Some increasing patchy right basilar atelectasis versus developing infiltrate. Attention on follow -up.
[2021-12-05] MEDS: IPRATROPIUM-ALBUTEROL 3 ML NEB INHALATION SCH ×4 (07:57→19:17)
--- NOTE | 2021-12-05 07:58 | P.PN ---
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 Previous medical history of hypertension, hyperlipidemia, hypothyroid, dementia, previous tobacco dependence with mild COPD, IBS, family history of premature coronary artery disease. Vaccinated and boosted against Covid. Preoperative nasal swab positive for MSSA POD #1 coronary artery bypass grafting 2 vessels, left internal mammary artery to the left anterior descending artery, reverse saphenous vein graft to the obtuse marginal artery, endoscopic harvesting of the right greater saphenous vein, ligation of the left atrial appendage using a 35 mm AtriClip, epi-aortic ultrasound, intraoperative transesophageal echocardiogram Postoperative acute blood loss anemia and thrombocytopenia, expected given hemodilution and cardiopulmonary bypass pump The patient was seen and examined this morning with Dr. Villagomez sitting up in a recliner in the ICU in no acute distress, appears a bit sleepy. She was successfully extubated last night at 20:22. Remains in sinus rhythm without pacing support, hemodynamically stable on IV Primacor. She was on Cleviprex last night for hypertension, has been off for the last couple of hours. Denies any chest pain, does complain of some back pain, denies shortness of breath. She had a relatively uneventful evening. Currently on 4 L nasal cannula with oxygen saturation in the high 90s. Urine output stable. Right internal jugular [place]/Cordis, right radial arterial line, mediastinal/left pleural chest tubes all remaining. No other new concerns. Objective - Vital Signs Vital signs: Vital Signs Temp 98.4 F 12/05/21 04:00 Pulse 76 12/05/21 06:00 Resp 11 L 12/05/21 06:00 BP 125/57 12/05/21 06:00 Pulse Ox 99 12/05/21 06:00 FiO2 60 12/04/21 20:15 Intake & Output 12/04/21 12/05/21 12/05/21 18:59 06:59 18:59 Intake Total 791.991 842.970 Output Total 2210 1249 Balance -1418.009 -406.030 Weight 59.7 kg Intake: IV 158 799 Lactated Ringers 1,000 ml 550 @ 50 mls/hr IV .Q20H [facility] Rx#:[id number] cardiac output 110 130 pressure bag 45 119 Intake, IV Titration 633.991 43.970 Amount Albumin Human 5% 250 ml @ 250 0 mls/hr IVPB .[facility] Rx#:[id number] Clevidipine Butyrate 25 4.8 35.200 mg In Empty Bag 1 bag @ 1 MG/HR 2 mls/hr IV .Q24H [facility] Rx#:[id number] Insulin Regular 100 unit 1.389 8.770 In Sodium Chloride 0.9% 100 ml @ Per Protocol IV .Q0M [facility] Rx#:[id number] Lactated Ringers 1,000 ml 100 @ 50 mls/hr IV .Q20H [facility] Rx#:[id number] Potassium Chloride 20 meq 200 In Water For Injection 1 100ml.bag @ 50 mls/hr IVPB Q2H [facility] Rx#: [id number] ceFAZolin 2 gm In Sodium 50 Chloride 0.9% 50 ml @ 100 mls/hr IVPB Q8HR [facility] Rx# :[id number] propofoL 1,000 mg In 27.802 Empty Bag 1 bag @ Titrate IV .Q0M [facility] Rx#: [id number] Output: Chest Tube Drainage 160 274 left pleural 30 63 mediastinalx2 130 211 Urine 2050 975 Other: Voiding Method Indwelling Catheter Indwelling Catheter ABP, PAP, CO, CI - Last Documented Arterial Blood Pressure 154/46 Pulmonary Artery Pressure 19/3 Cardiac Output 3.9 Cardiac Index 2.5 - Exam CONSTITUTIONAL: Appears comfortable, cooperative, no acute distress RESPIRATORY: Lungs sounds diminished bilaterally. Respirations even, nonlabored. Currently on 4 L nasal cannula with oxygen saturation 98%. Able to achieve 1000 mL on incentive spirometry. Weak cough. CARDIOVASCULAR: S1, S2 present. Regular rate and rhythm, sinus rhythm on telemetry. Sternum stable. Palpable peripheral pulses bilaterally. Trace generalized edema present. No calf pain or tenderness noted. Heart hugger in place with patient demonstrating appropriate use. Antiembolism stockings, SCDs present. GASTROINTESTINAL: Abdomen soft, nontender, nondistended. Hypoactive bowel sounds present 4 quadrants. Tolerating minimal clear liquids. Denies flatus GENITOURINARY: Jose present draining clear, yellow urine. Output overnight 45-100 mL per hour INTEGUMENTARY: Skin is warm and dry with evidence of good perfusion. Anterior chest incision well approximated and covered with dry intact dressing. Right lower extremity EVH site well approximated without redness or drainage. NEUROLOGIC: Cranial nerves II through XII intact MUSKULOSKELETAL: Able to move all extremities, strength equal bilaterally PSYCHIATRIC: Sleepy but does arouse to voice, oriented to person place and time, appropriate affect, intact judgment and insight INVASIVE LINES AND TUBES: Mediastinal/left pleural chest tubes present and connected to wall suction, occasional tiny air leak and mediastinal tube. Me diastinal tube with 140 mL serosanguineous drainage overnight, 400 mL since surgery. Left pleural chest tube with 42 mL serosanguineous drainage overnight, 95 mL since surgery. A/V epicardial pacemaker wires present, round. Right internal jugular [place]/Cordis, right radial arterial line present. Last CO/CI 3.9/2.5, PA 23/6, CVP 13. - Allied health notes Allied health notes reviewed: nursing - Labs CBC & Chem 7: 12/05/21 03:55 12/05/21 03:55 Labs: Abnormal Lab Results - Last 24 Hours (Table) 12/03/21 12/04/21 12/04/21 Range/Units 14:52 13:52 13:52 RBC 2.83 L (3.80-5.40) m/uL Hgb 9.3 L D (11.4-16.0) gm/dL Hct 27.2 L (34.0-46.0) % Plt Count 83 L (150-450) k/uL Lymphocytes # 0.7 L (1.0-4.8) k/uL Lymphocytes # (Manual) (1.0-4.8) k/uL Monocytes # (0-1.0) k/uL PT 12.6 H (9.0-12.0) sec INR 1.2 H (<1.2) APTT 31.2 H (22.0-30.0) sec ABG pO2 (83-108) mmHg ABG Total CO2 (19-24) mmol/L ABG O2 Saturation (94-97) % ABG Hematocrit (34.0-46.0) % Hemoglobin (11.4-16.0) gm/dL Sodium (137-145) mmol/L Chloride (98-107) mmol/L Glucose (74-99) mg/dL POC Glucose (mg/dL) (70-110) mg/dL AST (14-36) U/L Alkaline Phosphatase (38-126) U/L Total Protein (6.3-8.2) g/dL Albumin (3.5-5.0) g/dL Crossmatch See Detail 12/04/21 12/04/21 12/04/21 Range/Units 13:52 13:57 15:04 RBC (3.80-5.40) m/uL Hgb (11.4-16.0) gm/dL Hct (34.0-46.0) % Plt Count (150-450) k/uL Lymphocytes # (1.0-4.8) k/uL Lymphocytes # (Manual) (1.0-4.8) k/uL Monocytes # (0-1.0) k/uL PT (9.0-12.0) sec INR (<1.2) APTT (22.0-30.0) sec ABG pO2 140 H (83-108) mmHg ABG Total CO2 26 H (19-24) mmol/L ABG O2 Saturation 99.3 H (94-97) % ABG Hematocrit 30 L (34.0-46.0) % Hemoglobin 9.7 L (11.4-16.0) gm/dL Sodium 136 L (137-145) mmol/L Chloride (98-107) mmol/L Glucose 104 H (74-99) mg/dL POC Glucose (mg/dL) 118 H (70-110) mg/dL AST 49 H (14-36) U/L Alkaline Phosphatase (38-126) U/L Total Protein 4.5 L (6.3-8.2) g/dL Albumin 3.1 L (3.5-5.0) g/dL Crossmatch 12/04/21 12/04/21 12/04/21 Range/Units 16:06 16:08 17:02 RBC 2.93 L (3.80-5.40) m/uL Hgb 9.7 L (11.4-16.0) gm/dL Hct 28.3 L (34.0-46.0) % Plt Count 96 L (150-450) k/uL Lymphocytes # (1.0-4.8) k/uL Lymphocytes # (Manual) 0.79 L (1.0-4.8) k/uL Monocytes # (0-1.0) k/uL PT (9.0-12.0) sec INR (<1.2) APTT (22.0-30.0) sec ABG pO2 (83-108) mmHg ABG Total CO2 (19-24) mmol/L ABG O2 Saturation (94-97) % ABG Hematocrit (34.0-46.0) % Hemoglobin (11.4-16.0) gm/dL Sodium (137-145) mmol/L Chloride (98-107) mmol/L Glucose (74-99) mg/dL POC Glucose (mg/dL) 135 H 155 H (70-110) mg/dL AST (14-36) U/L Alkaline Phosphatase (38-126) U/L Total Protein (6.3-8.2) g/dL Albumin (3.5-5.0) g/dL Crossmatch 12/04/21 12/04/21 12/04/21 Range/Units 18:59 19:03 19:53 RBC 2.97 L (3.80-5.40) m/uL Hgb 9.3 L (11.4-16.0) gm/dL Hct 28.3 L (34.0-46.0) % Plt Count 95 L (150-450) k/uL Lymphocytes # 0.6 L (1.0-4.8) k/uL Lymphocytes # (Manual) (1.0-4.8) k/uL Monocytes # (0-1.0) k/uL PT (9.0-12.0) sec INR (<1.2) APTT (22.0-30.0) sec ABG pO2 (83-108) mmHg ABG Total CO2 (19-24) mmol/L ABG O2 Saturation (94-97) % ABG Hematocrit (34.0-46.0) % Hemoglobin (11.4-16.0) gm/dL Sodium (137-145) mmol/L Chloride (98-107) mmol/L Glucose (74-99) mg/dL POC Glucose (mg/dL) 133 H 138 H (70-110) mg/dL AST (14-36) U/L Alkaline Phosphatase (38-126) U/L Total Protein (6.3-8.2) g/dL Albumin (3.5-5.0) g/dL Crossmatch 12/04/21 12/04/21 12/04/21 Range/Units 20:00 20:50 21:57 RBC (3.80-5.40) m/uL Hgb (11.4-16.0) gm/dL Hct (34.0-46.0) % Plt Count (150-450) k/uL Lymphocytes # (1.0-4.8) k/uL Lymphocytes # (Manual) (1.0-4.8) k/uL Monocytes # (0-1.0) k/uL PT (9.0-12.0) sec INR (<1.2) APTT (22.0-30.0) sec ABG pO2 110 H (83-108) mmHg ABG Total CO2 25 H (19-24) mmol/L ABG O2 Saturation 98.5 H (94-97) % ABG Hematocrit 28 L (34.0-46.0) % Hemoglobin 9.1 L (11.4-16.0) gm/dL Sodium (137-145) mmol/L Chloride (98-107) mmol/L Glucose (74-99) mg/dL POC Glucose (mg/dL) 131 H 124 H (70-110) mg/dL AST (14-36) U/L Alkaline Phosphatase (38-126) U/L Total Protein (6.3-8.2) g/dL Albumin (3.5-5.0) g/dL Crossmatch 12/04/21 12/04/21 12/05/21 Range/Units 22:56 23:53 00:52 RBC (3.80-5.40) m/uL Hgb (11.4-16.0) gm/dL Hct (34.0-46.0) % Plt Count (150-450) k/uL Lymphocytes # (1.0-4.8) k/uL Lymphocytes # (Manual) (1.0-4.8) k/uL Monocytes # (0-1.0) k/uL PT (9.0-12.0) sec INR (<1.2) APTT (22.0-30.0) sec ABG pO2 (83-108) mmHg ABG Total CO2 (19-24) mmol/L ABG O2 Saturation (94-97) % ABG Hematocrit (34.0-46.0) % Hemoglobin (11.4-16.0) gm/dL Sodium (137-145) mmol/L Chloride (98-107) mmol/L Glucose (74-99) mg/dL POC Glucose (mg/dL) 125 H 123 H 127 H (70-110) mg/dL AST (14-36) U/L Alkaline Phosphatase (38-126) U/L Total Protein (6.3-8.2) g/dL Albumin (3.5-5.0) g/dL Crossmatch 12/05/21 12/05/21 12/05/21 Range/Units 02:03 02:52 03:52 RBC (3.80-5.40) m/uL Hgb (11.4-16.0) gm/dL Hct (34.0-46.0) % Plt Count (150-450) k/uL Lymphocytes # (1.0-4.8) k/uL Lymphocytes # (Manual) (1.0-4.8) k/uL Monocytes # (0-1.0) k/uL PT (9.0-12.0) sec INR (<1.2) APTT (22.0-30.0) sec ABG pO2 (83-108) mmHg ABG Total CO2 (19-24) mmol/L ABG O2 Saturation (94-97) % ABG Hematocrit (34.0-46.0) % Hemoglobin (11.4-16.0) gm/dL Sodium (137-145) mmol/L Chloride (98-107) mmol/L Glucose (74-99) mg/dL POC Glucose (mg/dL) 127 H 123 H 114 H (70-110) mg/dL AST (14-36) U/L Alkaline Phosphatase (38-126) U/L Total Protein (6.3-8.2) g/dL Albumin (3.5-5.0) g/dL Crossmatch 12/05/21 12/05/21 12/05/21 Range/Units 03:55 03:55 05:04 RBC 2.71 L (3.80-5.40) m/uL Hgb 8.9 L (11.4-16.0) gm/dL Hct 25.8 L (34.0-46.0) % Plt Count 97 L (150-450) k/uL Lymphocytes # 0.9 L (1.0-4.8) k/uL Lymphocytes # (Manual) (1.0-4.8) k/uL Monocytes # 1.4 H (0-1.0) k/uL PT (9.0-12.0) sec INR (<1.2) APTT (22.0-30.0) sec ABG pO2 (83-108) mmHg ABG Total CO2 (19-24) mmol/L ABG O2 Saturation (94-97) % ABG Hematocrit (34.0-46.0) % Hemoglobin (11.4-16.0) gm/dL Sodium 134 L (137-145) mmol/L Chloride 97 L (98-107) mmol/L Glucose 116 H (74-99) mg/dL POC Glucose (mg/dL) 147 H (70-110) mg/dL AST 56 H (14-36) U/L Alkaline Phosphatase 37 L (38-126) U/L Total Protein 5.1 L (6.3-8.2) g/dL Albumin (3.5-5.0) g/dL Crossmatch 12/05/21 12/05/21 Range/Units 05:54 06:51 RBC (3.80-5.40) m/uL Hgb (11.4-16.0) gm/dL Hct (34.0-46.0) % Plt Count (150-450) k/uL Lymphocytes # (1.0-4.8) k/uL Lymphocytes # (Manual) (1.0-4.8) k/uL Monocytes # (0-1.0) k/uL PT (9.0-12.0) sec INR (<1.2) APTT (22.0-30.0) sec ABG pO2 (83-108) mmHg ABG Total CO2 (19-24) mmol/L ABG O2 Saturation (94-97) % ABG Hematocrit (34.0-46.0) % Hemoglobin (11.4-16.0) gm/dL Sodium (137-145) mmol/L Chloride (98-107) mmol/L Glucose (74-99) mg/dL POC Glucose (mg/dL) 136 H 153 H (70-110) mg/dL AST (14-36) U/L Alkaline Phosphatase (38-126) U/L Total Protein (6.3-8.2) g/dL Albumin (3.5-5.0) g/dL Crossmatch Microbiology - Last 24 Hours (Table) 12/03/21 15:00 Nasal Screen MRSA/MSSA - Final Nasal Swab Staphylococcus aureus,Not MRSA - Imaging and Cardiology Chest x-ray: report reviewed, image reviewed Assessment and Plan Assessment: 1. Left main coronary artery disease with left dominant system, non-STEMI this admission, status post 2 vessel CABG 2. History of hypertension with hypertensive urgency on admission 3. Reduced left ventricular systolic function with EF 45-50%, mild MR and TR per transthoracic echo 4. Hyperlipidemia, treated, cholesterol 149, LDL 77 5. Hypothyroid, TSH 1.17 6. Previous tobacco dependence with mild COPD, FEV1 61% of predicted 7. IBS 8. Family history of premature coronary artery disease 9. Vaccinated and boosted against Covid 10. Preoperative nasal swab positive for MSSA, treated 11. Postoperative acute blood loss anemia and thrombocytopenia, expected Plan: 1. Continue to maximize medical therapy with aspirin, statin, Plavix, beta gian therapy. Will increase beta gian as tolerated. Discontinue IV nitro 2. Will wean Primacor as tolerated 3. Wean O2 as tolerated. Encourage incentive spirometry use 10 times every hour while awake. Bronchodilators per pulmonology 4. Increase activity, ambulate as tolerated. PT/OT/cardiac rehab consulted 5. GI/DVT prophylaxis 6. Pain control is current medication regimen. Limit narcotics as much as possible 7. Insulin management per internal medicine. Patient is not diabetic, preoperative hemoglobin A1c 5.7% 8. Continue [place]/Cordis, mediastinal/left pleural chest tubes, arterial line for another 24 hours 9. Continue Jose catheter for another 24 hours for strict accurate intake and output. Daily weights 10. More recommendations to follow
[2021-12-05] MEDS: DIVALPROEX 500 MG TABLET.DR PO SCH ×2 (08:18→20:29)
[2021-12-05] MEDS: CLOPIDOGREL 75 MG TAB PO SCH (08:18)
[2021-12-05] MEDS: ATORVASTATIN 40 MG TAB PO SCH (08:18)
[2021-12-05] MEDS: HEPARIN SODIUM,PORCINE/PF 5,000 UNIT/0.5 ML SYRINGE SQ SCH ×3 (08:18→23:47)
[2021-12-05] MEDS: ASPIRIN 325 MG TAB PO SCH (08:18)
[2021-12-05] MEDS: PARoxetine 20 MG TAB PO SCH (08:18)
--- NOTE | 2021-12-05 08:19 | P.PN ---
Subjective Progress Note Date: 12/05/21 Principal diagnosis: Acute coronary syndrome This is a 76-year-old female patient with hypertension and dyslipidemia who presented to the hospital with a chest discomfort and also hypertension emergency. She ruled in for acute coronary event. She underwent a heart catheterization and that revealed critical disease involving the left main. She underwent CABG [address] LAD and SVG to LCx Syncopal 2021 The patient was seen this morning. Overall she seems to be stable from a cardiovascular standpoint overview. Her urine output is marginal. Her SVR is slightly elevated. I would advise start the patient on some blood pressure medications like an TOM inhibitor or ARB. The chest x-ray was reviewed. Overall and from a cardiovascular standpoint of view, she seems to be stable. We will continue monitor the hemoglobin and continue monitor the kidney functi on. She is on aspirin and also she is an intermediate intensity statin. Objective - Vital Signs Vital signs: Vital Signs Temp 98.4 F 12/05/21 04:00 Pulse 75 12/05/21 07:00 Resp 7 L 12/05/21 07:00 BP 116/59 12/05/21 07:00 Pulse Ox 97 12/05/21 07:00 FiO2 60 12/04/21 20:15 Intake & Output 12/04/21 12/05/21 12/05/21 18:59 06:59 18:59 Intake Total 791.991 842.970 59 Output Total 2210 1249 36 Balance -1418.009 -406.030 23 Weight 59.7 kg Intake: IV 158 799 59 Lactated Ringers 1,000 ml 550 50 @ 50 mls/hr IV .Q20H [facility] Rx#:[id number] cardiac output 110 130 pressure bag 45 119 9 Intake, IV Titration 633.991 43.970 Amount Albumin Human 5% 250 ml @ 250 0 mls/hr IVPB [facility] Rx#:[id number] Clevidipine Butyrate 25 4.8 35.200 mg In Empty Bag 1 bag @ 1 MG/HR 2 mls/hr IV .Q24H [facility] Rx#:[id number] Insulin Regular 100 unit 1.389 8.770 In Sodium Chloride 0.9% 100 ml @ Per Protocol IV .Q0M [facility] Rx#:[id number] Lactated Ringers 1,000 ml 100 @ 50 mls/hr IV .Q20H [facility] Rx#:[id number] Potassium Chloride 20 meq 200 In Water For Injection 1 100ml.bag @ 50 mls/hr IVPB Q2H [facility] Rx#: [id number] ceFAZolin 2 gm In Sodium 50 Chloride 0.9% 50 ml @ 100 mls/hr IVPB Q8HR [facility] Rx# :[id number] propofoL 1,000 mg In 27.802 Empty Bag 1 bag @ Titrate IV .Q0M [facility] Rx#: [id number] Output: Chest Tube Drainage 160 274 6 left pleural 30 63 6 mediastinalx2 130 211 0 Urine 2050 975 30 Other: Voiding Method Indwelling Catheter Indwelling Catheter ABP, PAP, CO, CI - Last Documented Arterial Blood Pressure 155/45 Pulmonary Artery Pressure 26/9 Cardiac Output 3.9 Cardiac Index 2.5 - Constitutional General appearance: Present: no acute distress - Respiratory Respiratory: bilateral: diminished - Cardiovascular Rhythm: regular - Labs CBC & Chem 7: 12/05/21 03:55 12/05/21 03:55 Labs: Abnormal Lab Results - Last 24 Hours (Table) 12/03/21 12/04/21 12/04/21 Range/Units 14:52 13:52 13:52 RBC 2.83 L (3.80-5.40) m/uL Hgb 9.3 L D (11.4-16.0) gm/dL Hct 27.2 L (34.0-46.0) % Plt Count 83 L (150-450) k/uL Lymphocytes # 0.7 L (1.0-4.8) k/uL Lymphocytes # (Manual) (1.0-4.8) k/uL Monocytes # (0-1.0) k/uL PT 12.6 H (9.0-12.0) sec INR 1.2 H (<1.2) APTT 31.2 H (22.0-30.0) sec ABG pO2 (83-108) mmHg ABG Total CO2 (19-24) mmol/L ABG O2 Saturation (94-97) % ABG Hematocrit (34.0-46.0) % Hemoglobin (11.4-16.0) gm/dL Sodium (137-145) mmol/L Chloride (98-107) mmol/L Glucose (74-99) mg/dL POC Glucose (mg/dL) (70-110) mg/dL AST (14-36) U/L Alkaline Phosphatase (38-126) U/L Total Protein (6.3-8.2) g/dL Albumin (3.5-5.0) g/dL Crossmatch See Detail 12/04/21 12/04/21 12/04/21 Range/Units 13:52 13:57 15:04 RBC (3.80-5.40) m/uL Hgb (11.4-16.0) gm/dL Hct (34.0-46.0) % Plt Count (150-450) k/uL Lymphocytes # (1.0-4.8) k/uL Lymphocytes # (Manual) (1.0-4.8) k/uL Monocytes # (0-1.0) k/uL PT (9.0-12.0) sec INR (<1.2) APTT (22.0-30.0) sec ABG pO2 140 H (83-108) mmHg ABG Total CO2 26 H (19-24) mmol/L ABG O2 Saturation 99.3 H (94-97) % ABG Hematocrit 30 L (34.0-46.0) % Hemoglobin 9.7 L (11.4-16.0) gm/dL Sodium 136 L (137-145) mmol/L Chloride (98-107) mmol/L Glucose 104 H (74-99) mg/dL POC Glucose (mg/dL) 118 H (70-110) mg/dL AST 49 H (14-36) U/L Alkaline Phosphatase (38-126) U/L Total Protein 4.5 L (6.3-8.2) g/dL Albumin 3.1 L (3.5-5.0) g/dL Crossmatch 12/04/21 12/04/21 12/04/21 Range/Units 16:06 16:08 17:02 RBC 2.93 L (3.80-5.40) m/uL Hgb 9.7 L (11.4-16.0) gm/dL Hct 28.3 L (34.0-46.0) % Plt Count 96 L (150-450) k/uL Lymphocytes # (1.0-4.8) k/uL Lymphocytes # (Manual) 0.79 L (1.0-4.8) k/uL Monocytes # (0-1.0) k/uL PT (9.0-12.0) sec INR (<1.2) APTT (22.0-30.0) sec ABG pO2 (83-108) mmHg ABG Total CO2 (19-24) mmol/L ABG O2 Saturation (94-97) % ABG Hematocrit (34.0-46.0) % Hemoglobin (11.4-16.0) gm/dL Sodium (137-145) mmol/L Chloride (98-107) mmol/L Glucose (74-99) mg/dL POC Glucose (mg/dL) 135 H 155 H (70-110) mg/dL AST (14-36) U/L Alkaline Phosphatase (38-126) U/L Total Protein (6.3-8.2) g/dL Albumin (3.5-5.0) g/dL Crossmatch 12/04/21 12/04/21 12/04/21 Range/Units 18:59 19:03 19:53 RBC 2.97 L (3.80-5.40) m/uL Hgb 9.3 L (11.4-16.0) gm/dL Hct 28.3 L (34.0-46.0) % Plt Count 95 L (150-450) k/uL Lymphocytes # 0.6 L (1.0-4.8) k/uL Lymphocytes # (Manual) (1.0-4.8) k/uL Monocytes # (0-1.0) k/uL PT (9.0-12.0) sec INR (<1.2) APTT (22.0-30.0) sec ABG pO2 (83-108) mmHg ABG Total CO2 (19-24) mmol/L ABG O2 Saturation (94-97) % ABG Hematocrit (34.0-46.0) % Hemoglobin (11.4-16.0) gm/dL Sodium (137-145) mmol/L Chloride (98-107) mmol/L Glucose (74-99) mg/dL POC Glucose (mg/dL) 133 H 138 H (70-110) mg/dL AST (14-36) U/L Alkaline Phosphatase (38-126) U/L Total Protein (6.3-8.2) g/dL Albumin (3.5-5.0) g/dL Crossmatch 12/04/21 12/04/21 12/04/21 Range/Units 20:00 20:50 21:57 RBC (3.80-5.40) m/uL Hgb (11.4-16.0) gm/dL Hct (34.0-46.0) % Plt Count (150-450) k/uL Lymphocytes # (1.0-4.8) k/uL Lymphocytes # (Manual) (1.0-4.8) k/uL Monocytes # (0-1.0) k/uL PT (9.0-12.0) sec INR (<1.2) APTT (22.0-30.0) sec ABG pO2 110 H (83-108) mmHg ABG Total CO2 25 H (19-24) mmol/L ABG O2 Saturation 98.5 H (94-97) % ABG Hematocrit 28 L (34.0-46.0) % Hemoglobin 9.1 L (11.4-16.0) gm/dL Sodium (137-145) mmol/L Chloride (98-107) mmol/L Glucose (74-99) mg/dL POC Glucose (mg/dL) 131 H 124 H (70-110) mg/dL AST (14-36) U/L Alkaline Phosphatase (38-126) U/L Total Protein (6.3-8.2) g/dL Albumin (3.5-5.0) g/dL Crossmatch 12/04/21 12/04/21 12/05/21 Range/Units 22:56 23:53 00:52 RBC (3.80-5.40) m/uL Hgb (11.4-16.0) gm/dL Hct (34.0-46.0) % Plt Count (150-450) k/uL Lymphocytes # (1.0-4.8) k/uL Lymphocytes # (Manual) (1.0-4.8) k/uL Monocytes # (0-1.0) k/uL PT (9.0-12.0) sec INR (<1.2) APTT (22.0-30.0) sec ABG pO2 (83-108) mmHg ABG Total CO2 (19-24) mmol/L ABG O2 Saturation (94-97) % ABG Hematocrit (34.0-46.0) % Hemoglobin (11.4-16.0) gm/dL Sodium (137-145) mmol/L Chloride (98-107) mmol/L Glucose (74-99) mg/dL POC Glucose (mg/dL) 125 H 123 H 127 H (70-110) mg/dL AST (14-36) U/L Alkaline Phosphatase (38-126) U/L Total Protein (6.3-8.2) g/dL Albumin (3.5-5.0) g/dL Crossmatch 12/05/21 12/05/21 12/05/21 Range/Units 02:03 02:52 03:52 RBC (3.80-5.40) m/uL Hgb (11.4-16.0) gm/dL Hct (34.0-46.0) % Plt Count (150-450) k/uL Lymphocytes # (1.0-4.8) k/uL Lymphocytes # (Manual) (1.0-4.8) k/uL Monocytes # (0-1.0) k/uL PT (9.0-12.0) sec INR (<1.2) APTT (22.0-30.0) sec ABG pO2 (83-108) mmHg ABG Total CO2 (19-24) mmol/L ABG O2 Saturation (94-97) % ABG Hematocrit (34.0-46.0) % Hemoglobin (11.4-16.0) gm/dL Sodium (137-145) mmol/L Chloride (98-107) mmol/L Glucose (74-99) mg/dL POC Glucose (mg/dL) 127 H 123 H 114 H (70-110) mg/dL AST (14-36) U/L Alkaline Phosphatase (38-126) U/L Total Protein (6.3-8.2) g/dL Albumin (3.5-5.0) g/dL Crossmatch 12/05/21 12/05/21 12/05/21 Range/Units 03:55 03:55 05:04 RBC 2.71 L (3.80-5.40) m/uL Hgb 8.9 L (11.4-16.0) gm/dL Hct 25.8 L (34.0-46.0) % Plt Count 97 L (150-450) k/uL Lymphocytes # 0.9 L (1.0-4.8) k/uL Lymphocytes # (Manual) (1.0-4.8) k/uL Monocytes # 1.4 H (0-1.0) k/uL PT (9.0-12.0) sec INR (<1.2) APTT (22.0-30.0) sec ABG pO2 (83-108) mmHg ABG Total CO2 (19-24) mmol/L ABG O2 Saturation (94-97) % ABG Hematocrit (34.0-46.0) % Hemoglobin (11.4-16.0) gm/dL Sodium 134 L (137-145) mmol/L Chloride 97 L (98-107) mmol/L Glucose 116 H (74-99) mg/dL POC Glucose (mg/dL) 147 H (70-110) mg/dL AST 56 H (14-36) U/L Alkaline Phosphatase 37 L (38-126) U/L Total Protein 5.1 L (6.3-8.2) g/dL Albumin (3.5-5.0) g/dL Crossmatch 12/05/21 12/05/21 Range/Units 05:54 06:51 RBC (3.80-5.40) m/uL Hgb (11.4-16.0) gm/dL Hct (34.0-46.0) % Plt Count (150-450) k/uL Lymphocytes # (1.0-4.8) k/uL Lymphocytes # (Manual) (1.0-4.8) k/uL Monocytes # (0-1.0) k/uL PT (9.0-12.0) sec INR (<1.2) APTT (22.0-30.0) sec ABG pO2 (83-108) mmHg ABG Total CO2 (19-24) mmol/L ABG O2 Saturation (94-97) % ABG Hematocrit (34.0-46.0) % Hemoglobin (11.4-16.0) gm/dL Sodium (137-145) mmol/L Chloride (98-107) mmol/L Glucose (74-99) mg/dL POC Glucose (mg/dL) 136 H 153 H (70-110) mg/dL AST (14-36) U/L Alkaline Phosphatase (38-126) U/L Total Protein (6.3-8.2) g/dL Albumin (3.5-5.0) g/dL Crossmatch Microbiology - Last 24 Hours (Table) 12/03/21 15:00 Nasal Screen MRSA/MSSA - Final Nasal Swab Staphylococcus aureus,Not MRSA Assessment and Plan Assessment: Assessment #1 acute coronary syndrome #2 status post CABG 2 as described above #3 hypertension #4 dyslipidemia Plan #1 continue aspirin and statin #2 consider increasing the dose of statin into high intensity statin #3 consider starting the patient on blood pressure medication like ACEI or ARB #4 follow-up with the patient
[2021-12-05] MEDS: MUPIROCIN 2% OINT 22 GM TUBE NASAL SCH ×2 (08:22→20:29)
[2021-12-05 08:32] LABS: Glucose,Whole Blood 163 mg/dL (70-110)
[2021-12-05] MEDS: MILRINONE-D5W PMX 20 MG in DEXTROSE/WATER 1 100ML.BAG IV SCH ×2 (08:43→14:43)
[2021-12-05] MEDS ORDERED: PANTOPRAZOLE 40 MG/10 ML VIAL IVP SCH (09:00)
[2021-12-05] MEDS ORDERED: bisacodyL 10 MG SUPP RECTAL PRN (09:00)
[2021-12-05] MEDS ORDERED: MAGNESIUM HYDROXIDE 2,400 MG/10 ML CUP PO PRN (09:00)
[2021-12-05] MEDS: LACTATED RINGERS 1,000 ML IV SCH (09:37)
[2021-12-05 09:45] LABS: Glucose,Whole Blood 120 mg/dL (70-110)
--- NOTE | 2021-12-05 10:53 | P.PN ---
Subjective Progress Note Date: 12/05/21 Patient is a pleasant 76-year-old female came in with complaints of a headache, congestion cough, postnasal drip and chest pain with some pleuritic competent the chest pain does radiate to the jaw because of which cardiology was consulted EKG showed ST depression in the inferior leads but note significant change compared to her previous EKG. Facet of troponin was negative and it went up to 0.688 because of which patient was started on IV heparin, and patient did receive nitro drip after which her chest pain did have improved as per the patient. Patient denied any previous history of coronary artery disease. Patient had a CT angios the chest whichRRR embolism but did show infiltrate in bilateral lower lung elaine consistent with pulmonary edema. Patient was started on chlorthalidone by pulmonary. Patient is slightly hyponatremic with serum sodium of 136. Patient blood pressure was high at 200s on admission. Etiology is planning and cardiac catheterization tomorrow COVID-19 influenza te sts are being obtained. Stress test about any ago showed mild fixed defect in the mid anterior wall. Medical decision 2019 showed mild nonobstructive coronary artery disease echo about any ago showed normal ejection fraction BNP is 259. Patient also complaining of the mild hemoptysis which resolved at this time 12/03/2021 Patient went down for right and left cardiac catheterization today which reveals a critical left main lesion. Echocardiogram shows an EF of 45 to 50% with apical septal and apex hypokinesis. Cardiothoracic team has been consulted for further evaluation of the critical lesion. She continues on chlorthalidone. Today her blood count is unremarkable, sodium 138, potassium 4.0, BUN 7, creatinine 0.71. Urinalysis negative. She is currently denying chest pain. Blood pressure 146/63, heart rate is sinus bradycardia. 93% room air. 12/04/2021 No acute events overnight. Patient is going for open heart surgery today with Dr Welsh, she will be monitored postoperatively in the intensive care unit. Patient had lipid panel completed, A1C 5.8. Hepatitis panel is negative. Current vitals, room air 98%, heart rate 57, blood pressure 144/68, temp 97.3. 12/05/2021 Patient is evaluated sitting up in chair in intensive care unit. She is postoperative day #1 coronary artery bypass grafting x 2 vessels. She reports pain mostly to her left chest tube site. She is having clear liquids for breakfast. Indwelling catheter in place. Continues with Right IJ swan/cordis, right art line, and mediastinal and left chest tubes in place. She required cleviprex gtt last night for elevated BP which is off currently and blood pressure today 117/66. Continues on primacor gtt. Received a dose of albumin this morning. Plan today is to increase activity level. Labs today showing white count 9.5, hgb 8.9, sodium 134, potassium 3.9, chloride 97, BUN 8, creatinine 0.55. Blood glucose in the 120s range. Magnesium 1.8 today. Continues on nasal cannula, encouraged patient to use incentive spirometer. Review of Systems Constitutional: Denied any fatigue denied any fever. Cardio vascular: denied any chest pain, palpitations, reports incisional pain Gastrointestinal: denied any nausea, vomiting, diarrhea Pulmonary: Denied any shortness of breath cough Neurologic denied any new focal deficits All inpatient medications were reviewed and appropriate changes in these medications as dictated in the interval history and assessment and plan. PHYSICAL EXAMINATION: GENERAL: The patient is alert and oriented x3, not in any acute distress. Well developed, well nourished. HEENT: Pupils are round and equally reacting to light. EOMI. No scleral icterus. No conjunctival pallor. Normocephalic, atraumatic. No pharyngeal erythema. No thyromegaly. Patient does have sinus tenderness CARDIOVASCULAR: S1 and S2 present. No murmurs, rubs, or gallops. PULMONARY: Chest is clear to auscultation, no wheezing or crackles. ABDOMEN: Soft, nontender, nondistended, normoactive bowel sounds. No palpable organomegaly. Left and mediastinal chest tubes present. MUSCULOSKELETAL: No joint swelling or deformity. EXTREMITIES: No cyanosis, clubbing, or pedal edema. NEUROLOGICAL: Gross neurological examination did not reveal any focal deficits. SKIN: No rashes. Post surgical dressing in tact Assessment and plan -Possible non-ST elevation myocardial infarction: Cath reveals critical disease in the left main -Postoperative day #1 coronary artery bypass grafting x 2 vessel -Possible hypertensive emergency: Blood pressure improved now, possible acute pulmonary edema from NSTEMI -Headache nasal congestion: Secondary to sinusitis most likely allergic -Hypothyroidism -Dyslipidemia -Hyperlipidemia GI prophylaxis: Protonix DVT prophylaxis: On IV heparin Full Code Plan Patient will continue to be monitored in intensive care unit. Blood sugars 120s today, will monitor closely as patient increases diet. Encouraged to use incentive spirometer. Patient continues on primacor gtt. Further recommendations from cardiothoracic team. The impression and plan of care has been dictated by Edwige Cardona, Nurse Practitioner as directed. Dr. Ramesh MD I have performed a history and physical examination and medical decision making of this patient, discussed the same with the dictator, and agree with the dictators assessment and plan as written, documented as a scribe. Based on total visit time, I have performed more than 50% of this visit. Objective - Vital Signs Vital signs: Vital Signs Temp 98.4 F 12/05/21 08:00 Pulse 67 12/05/21 10:00 Resp 14 12/05/21 10:00 BP 117/66 12/05/21 09:00 Pulse Ox 98 12/05/21 10:00 FiO2 60 12/04/21 20:15 Intake & Output 12/04/21 12/05/21 12/05/21 18:59 06:59 18:59 Intake Total 791.991 842.970 930.743 Output Total 2210 1249 246 Balance -1418.009 -406.030 684.743 Weight 59.7 kg Intake: IV 158 799 196 Lactated Ringers 1,000 ml 550 140 @ 20 mls/hr IV .Q24H [facility] Rx#:[id number] cardiac output 110 130 20 pressure bag 45 119 36 Intake, IV Titration 633.991 43.970 494.743 Amount Albumin Human 5% 250 ml @ 250 0 mls/hr IVPB .STK-MED ONE Rx#:[id number] Albumin Human 5% 250 ml 250 In Empty Bag 1 bag @ 250 mls/hr IVPB ONCE STA Rx#: [id number] Clevidipine Butyrate 25 4.8 35.200 mg In Empty Bag 1 bag @ 1 MG/HR 2 mls/hr IV .Q24H [facility] Rx#:[id number] Insulin Regular 100 unit 1.389 8.770 4.68 In Sodium Chloride 0.9% 100 ml @ Per Protocol IV .Q0M [facility] Rx#:[id number] Lactated Ringers 1,000 ml 100 @ 20 mls/hr IV .Q24H [facility] Rx#:[id number] Magnesium Sulfate-D5w Pmx 100 1 gm In Dextrose/Water 1 100ml.bag @ 100 mls/hr IVPB Q1H [facility] Rx#: [id number] Milrinone-D5w Pmx 20 mg 90.063 In Dextrose/Water 1 100ml .bag @ 0.1 MCG/KG/MIN 1. 727 mls/hr IV .Q24H [facility] Rx#:[id number] Potassium Chloride 20 meq 200 In Water For Injection 1 100ml.bag @ 50 mls/hr IVPB Q2H [facility] Rx#: [id number] ceFAZolin 2 gm In Sodium 50 50 Chloride 0.9% 50 ml @ 100 mls/hr IVPB Q8HR [facility] Rx# :[id number] propofoL 1,000 mg In 27.802 Empty Bag 1 bag @ Titrate IV .Q0M [facility] Rx#: [id number] Oral 240 Output: Chest Tube Drainage 160 274 171 left pleural 30 63 11 mediastinalx2 130 211 160 Urine 2050 975 75 Other: Voiding Method Indwelling Catheter Indwelling Catheter Indwelling Catheter ABP, PAP, CO, CI - Last Documented Arterial Blood Pressure 114/38 Pulmonary Artery Pressure 28/10 Cardiac Output 4.1 Cardiac Index 2.6 - Labs CBC & Chem 7: 12/05/21 03:55 12/05/21 03:55 Labs: Abnormal Lab Results - Last 24 Hours (Table) 12/03/21 12/04/21 12/04/21 Range/Units 14:52 13:52 13:52 RBC 2.83 L (3.80-5.40) m/uL Hgb 9.3 L D (11.4-16.0) gm/dL Hct 27.2 L (34.0-46.0) % Plt Count 83 L (150-450) k/uL Lymphocytes # 0.7 L (1.0-4.8) k/uL Lymphocytes # (Manual) (1.0-4.8) k/uL Monocytes # (0-1.0) k/uL PT 12.6 H (9.0-12.0) sec INR 1.2 H (<1.2) APTT 31.2 H (22.0-30.0) sec ABG pO2 (83-108) mmHg ABG Total CO2 (19-24) mmol/L ABG O2 Saturation (94-97) % ABG Hematocrit (34.0-46.0) % Hemoglobin (11.4-16.0) gm/dL Sodium (137-145) mmol/L Chloride (98-107) mmol/L Glucose (74-99) mg/dL POC Glucose (mg/dL) (70-110) mg/dL AST (14-36) U/L Alkaline Phosphatase (38-126) U/L Total Protein (6.3-8.2) g/dL Albumin (3.5-5.0) g/dL Crossmatch See Detail 12/04/21 12/04/21 12/04/21 Range/Units 13:52 13:57 15:04 RBC (3.80-5.40) m/uL Hgb (11.4-16.0) gm/dL Hct (34.0-46.0) % Plt Count (150-450) k/uL Lymphocytes # (1.0-4.8) k/uL Lymphocytes # (Manual) (1.0-4.8) k/uL Monocytes # (0-1.0) k/uL PT (9.0-12.0) sec INR (<1.2) APTT (22.0-30.0) sec ABG pO2 140 H (83-108) mmHg ABG Total CO2 26 H (19-24) mmol/L ABG O2 Saturation 99.3 H (94-97) % ABG Hematocrit 30 L (34.0-46.0) % Hemoglobin 9.7 L (11.4-16.0) gm/dL Sodium 136 L (137-145) mmol/L Chloride (98-107) mmol/L Glucose 104 H (74-99) mg/dL POC Glucose (mg/dL) 118 H (70-110) mg/dL AST 49 H (14-36) U/L Alkaline Phosphatase (38-126) U/L Total Protein 4.5 L (6.3-8.2) g/dL Albumin 3.1 L (3.5-5.0) g/dL Crossmatch 12/04/21 12/04/21 12/04/21 Range/Units 16:06 16:08 17:02 RBC 2.93 L (3.80-5.40) m/uL Hgb 9.7 L (11.4-16.0) gm/dL Hct 28.3 L (34.0-46.0) % Plt Count 96 L (150-450) k/uL Lymphocytes # (1.0-4.8) k/uL Lymphocytes # (Manual) 0.79 L (1.0-4.8) k/uL Monocytes # (0-1.0) k/uL PT (9.0-12.0) sec INR (<1.2) APTT (22.0-30.0) sec ABG pO2 (83-108) mmHg ABG Total CO2 (19-24) mmol/L ABG O2 Saturation (94-97) % ABG Hematocrit (34.0-46.0) % Hemoglobin (11.4-16.0) gm/dL Sodium (137-145) mmol/L Chloride (98-107) mmol/L Glucose (74-99) mg/dL POC Glucose (mg/dL) 135 H 155 H (70-110) mg/dL AST (14-36) U/L Alkaline Phosphatase (38-126) U/L Total Protein (6.3-8.2) g/dL Albumin (3.5-5.0) g/dL Crossmatch 12/04/21 12/04/21 12/04/21 Range/Units 18:59 19:03 19:53 RBC 2.97 L (3.80-5.40) m/uL Hgb 9.3 L (11.4-16.0) gm/dL Hct 28.3 L (34.0-46.0) % Plt Count 95 L (150-450) k/uL Lymphocytes # 0.6 L (1.0-4.8) k/uL Lymphocytes # (Manual) (1.0-4.8) k/uL Monocytes # (0-1.0) k/uL PT (9.0-12.0) sec INR (<1.2) APTT (22.0-30.0) sec ABG pO2 (83-108) mmHg ABG Total CO2 (19-24) mmol/L ABG O2 Saturation (94-97) % ABG Hematocrit (34.0-46.0) % Hemoglobin (11.4-16.0) gm/dL Sodium (137-145) mmol/L Chloride (98-107) mmol/L Glucose (74-99) mg/dL POC Glucose (mg/dL) 133 H 138 H (70-110) mg/dL AST (14-36) U/L Alkaline Phosphatase (38-126) U/L Total Protein (6.3-8.2) g/dL Albumin (3.5-5.0) g/dL Crossmatch 12/04/21 12/04/21 12/04/21 Range/Units 20:00 20:50 21:57 RBC (3.80-5.40) m/uL Hgb (11.4-16.0) gm/dL Hct (34.0-46.0) % Plt Count (150-450) k/uL Lymphocytes # (1.0-4.8) k/uL Lymphocytes # (Manual) (1.0-4.8) k/uL Monocytes # (0-1.0) k/uL PT (9.0-12.0) sec INR (<1.2) APTT (22.0-30.0) sec ABG pO2 110 H (83-108) mmHg ABG Total CO2 25 H (19-24) mmol/L ABG O2 Saturation 98.5 H (94-97) % ABG Hematocrit 28 L (34.0-46.0) % Hemoglobin 9.1 L (11.4-16.0) gm/dL Sodium (137-145) mmol/L Chloride (98-107) mmol/L Glucose (74-99) mg/dL POC Glucose (mg/dL) 131 H 124 H (70-110) mg/dL AST (14-36) U/L Alkaline Phosphatase (38-126) U/L Total Protein (6.3-8.2) g/dL Albumin (3.5-5.0) g/dL Crossmatch 12/04/21 12/04/21 12/05/21 Range/Units 22:56 23:53 00:52 RBC (3.80-5.40) m/uL Hgb (11.4-16.0) gm/dL Hct (34.0-46.0) % Plt Count (150-450) k/uL Lymphocytes # (1.0-4.8) k/uL Lymphocytes # (Manual) (1.0-4.8) k/uL Monocytes # (0-1.0) k/uL PT (9.0-12.0) sec INR (<1.2) APTT (22.0-30.0) sec ABG pO2 (83-108) mmHg ABG Total CO2 (19-24) mmol/L ABG O2 Saturation (94-97) % ABG Hematocrit (34.0-46.0) % Hemoglobin (11.4-16.0) gm/dL Sodium (137-145) mmol/L Chloride (98-107) mmol/L Glucose (74-99) mg/dL POC Glucose (mg/dL) 125 H 123 H 127 H (70-110) mg/dL AST (14-36) U/L Alkaline Phosphatase (38-126) U/L Total Protein (6.3-8.2) g/dL Albumin (3.5-5.0) g/dL Crossmatch 12/05/21 12/05/21 12/05/21 Range/Units 02:03 02:52 03:52 RBC (3.80-5.40) m/uL Hgb (11.4-16.0) gm/dL Hct (34.0-46.0) % Plt Count (150-450) k/uL Lymphocytes # (1.0-4.8) k/uL Lymphocytes # (Manual) (1.0-4.8) k/uL Monocytes # (0-1.0) k/uL PT (9.0-12.0) sec INR (<1.2) APTT (22.0-30.0) sec ABG pO2 (83-108) mmHg ABG Total CO2 (19-24) mmol/L ABG O2 Saturation (94-97) % ABG Hematocrit (34.0-46.0) % Hemoglobin (11.4-16.0) gm/dL Sodium (137-145) mmol/L Chloride (98-107) mmol/L Glucose (74-99) mg/dL POC Glucose (mg/dL) 127 H 123 H 114 H (70-110) mg/dL AST (14-36) U/L Alkaline Phosphatase (38-126) U/L Total Protein (6.3-8.2) g/dL Albumin (3.5-5.0) g/dL Crossmatch 12/05/21 12/05/21 12/05/21 Range/Units 03:55 03:55 05:04 RBC 2.71 L (3.80-5.40) m/uL Hgb 8.9 L (11.4-16.0) gm/dL Hct 25.8 L (34.0-46.0) % Plt Count 97 L (150-450) k/uL Lymphocytes # 0.9 L (1.0-4.8) k/uL Lymphocytes # (Manual) (1.0-4.8) k/uL Monocytes # 1.4 H (0-1.0) k/uL PT (9.0-12.0) sec INR (<1.2) APTT (22.0-30.0) sec ABG pO2 (83-108) mmHg ABG Total CO2 (19-24) mmol/L ABG O2 Saturation (94-97) % ABG Hematocrit (34.0-46.0) % Hemoglobin (11.4-16.0) gm/dL Sodium 134 L (137-145) mmol/L Chloride 97 L (98-107) mmol/L Glucose 116 H (74-99) mg/dL POC Glucose (mg/dL) 147 H (70-110) mg/dL AST 56 H (14-36) U/L Alkaline Phosphatase 37 L (38-126) U/L Total Protein 5.1 L (6.3-8.2) g/dL Albumin (3.5-5.0) g/dL Crossmatch 12/05/21 12/05/21 12/05/21 Range/Units 05:54 06:51 08:31 RBC (3.80-5.40) m/uL Hgb (11.4-16.0) gm/dL Hct (34.0-46.0) % Plt Count (150-450) k/uL Lymphocytes # (1.0-4.8) k/uL Lymphocytes # (Manual) (1.0-4.8) k/uL Monocytes # (0-1.0) k/uL PT (9.0-12.0) sec INR (<1.2) APTT (22.0-30.0) sec ABG pO2 (83-108) mmHg ABG Total CO2 (19-24) mmol/L ABG O2 Saturation (94-97) % ABG Hematocrit (34.0-46.0) % Hemoglobin (11.4-16.0) gm/dL Sodium (137-145) mmol/L Chloride (98-107) mmol/L Glucose (74-99) mg/dL POC Glucose (mg/dL) 136 H 153 H 163 H (70-110) mg/dL AST (14-36) U/L Alkaline Phosphatase (38-126) U/L Total Protein (6.3-8.2) g/dL Albumin (3.5-5.0) g/dL Crossmatch 12/05/21 Range/Units 09:43 RBC (3.80-5.40) m/uL Hgb (11.4-16.0) gm/dL Hct (34.0-46.0) % Plt Count (150-450) k/uL Lymphocytes # (1.0-4.8) k/uL Lymphocytes # (Manual) (1.0-4.8) k/uL Monocytes # (0-1.0) k/uL PT (9.0-12.0) sec INR (<1.2) APTT (22.0-30.0) sec ABG pO2 (83-108) mmHg ABG Total CO2 (19-24) mmol/L ABG O2 Saturation (94-97) % ABG Hematocrit (34.0-46.0) % Hemoglobin (11.4-16.0) gm/dL Sodium (137-145) mmol/L Chloride (98-107) mmol/L Glucose (74-99) mg/dL POC Glucose (mg/dL) 120 H (70-110) mg/dL AST (14-36) U/L Alkaline Phosphatase (38-126) U/L Total Protein (6.3-8.2) g/dL Albumin (3.5-5.0) g/dL Crossmatch Microbiology - Last 24 Hours (Table) 12/03/21 15:00 Nasal Screen MRSA/MSSA - Final Nasal Swab Staphylococcus aureus,Not MRSA Assessment and Plan Time with Patient: Less than 30
[2021-12-05 11:08] LABS: Glucose,Whole Blood 139 mg/dL (70-110)
[2021-12-05 11:31] VITALS: BMI 24.8
[2021-12-05 11:53] LABS: Glucose,Whole Blood 145 mg/dL (70-110)
--- NOTE | 2021-12-05 11:57 | P.PN ---
Subjective Progress Note Date: 12/05/21 Principal diagnosis: Chest pain. Pulmonary consult dated 12/03/2021. 76-year-old female with a history of hypertension, hyperlipidemia, hypothyroidism, and irritable bowel syndrome. The patient apparently presented to the emergency department, on December 02 at 3:00 in the morning, complaining of chest pain. She apparently been having chest pain and chest pressure, as well as an elevated blood pressure. The patient was evaluated in the emergency room, and admitted to the hospital. I was asked by cardiothoracic surgery to see the patient, as apparently the patient underwent cardiac catheterization, and was found to have significant coronary disease. According to the operative report, the patient had critical disease involving the left main coronary artery with extremely calcified and extremely eccentric plaque in the range of 95%. The patient had a dominant left coronary system and elevated filling pressures. The patient has no known history of lung disease. She did smoke for about 25-30 years at 1 pack a day. She quit in 1991. Currently she is resting comfortably in room 352. The patient's getting saline at 75 mL an hour. She's not requiring any supplemental oxygen. White count 7.2, hemoglobin 13.4, hematocrit 41, and platelet count 259,000. PTT is 45.2. Sodium, potassium, chloride, CO2, BUN, and creatinine were normal. Troponin was 0.597, 0.688, and 0.586. EKG showed sinus rhythm, with nonspecific ST-T wave changes. Progress note dated 12/04/2021. Patient have open heart surgery today with Dr. Welsh. I saw the patient yesterday in consultation. She has a history of hypertension, hypothyroidism, and irritable bowel syndrome. She also suffers from hyperlipidemia. I don't believe she has any significant chronic lung disease. Labs from December 03 are reviewed. Also, all x-rays and procedure notes were reviewed. Progress note dated 12/05/2021. This is a 76-year-old female seen in consultation 2 days ago. The patient is postop day #1, status post 2 vessel bypass grafting. The surgery was done by Dr. Welsh. The patient was extubated in a timely fashion. The patient is currently on 3 L of oxygen, lactated Ringer's at 20 mL an hour, insulin at 2.5 units per hour, and Primacor at 0.1 mcg/kg/m. The patient is a bit sleepy this morning. She is getting about 750 on her incentive spirometer. Today's labs include a white count of 9.5, hemoglobin 8.9, hematocrit 25.8, platelet count 97,000. Sodium 134, potassium 3.9, chlorides 97, CO2 24, BUN 8, creatinine 0.55. AST is 56. Urine is negative. Pro-calcitonin level is 0.03. Chest x- ray shows cardiomegaly, and left hemidiaphragm elevation. There is also some bibasilar atelectasis. Objective - Vital Signs Vital signs: Vital Signs Temp 98.4 F 12/05/21 08:00 Pulse 70 12/05/21 11:00 Resp 16 12/05/21 11:00 BP 117/66 12/05/21 09:00 Pulse Ox 97 12/05/21 11:00 FiO2 60 12/04/21 20:15 Intake & Output 12/04/21 12/05/21 12/05/21 18:59 06:59 18:59 Intake Total 791.991 842.970 982.449 Output Total 2210 1249 311 Balance -1418.009 -406.030 671.449 Weight 59.7 kg 59.7 kg Intake: IV 158 799 245 Lactated Ringers 1,000 ml 550 160 @ 20 mls/hr IV .Q24H [facility] Rx#:[id number] cardiac output 110 130 40 pressure bag 45 119 45 Intake, IV Titration 633.991 43.970 497.449 Amount Albumin Human 5% 250 ml @ 250 0 mls/hr IVPB .[facility] Rx#:[id number] Albumin Human 5% 250 ml 250 In Empty Bag 1 bag @ 250 mls/hr IVPB ONCE [facility] Rx#: [id number] Clevidipine Butyrate 25 4.8 35.200 mg In Empty Bag 1 bag @ 1 MG/HR 2 mls/hr IV .Q24H [facility] Rx#:[id number] Insulin Regular 100 unit 1.389 8.770 4.68 In Sodium Chloride 0.9% 100 ml @ Per Protocol IV .Q0M [facility] Rx#:[id number] Lactated Ringers 1,000 ml 100 @ 20 mls/hr IV .Q24H [facility] Rx#:[id number] Magnesium Sulfate-D5w Pmx 100 1 gm In Dextrose/Water 1 100ml.bag @ 100 mls/hr IVPB Q1H [facility] Rx#: [id number] Milrinone-D5w Pmx 20 mg 92.769 In Dextrose/Water 1 100ml .bag @ 0.1 MCG/KG/MIN 1. 727 mls/hr IV .Q24H [facility] Rx#:[id number] Potassium Chloride 20 meq 200 In Water For Injection 1 100ml.bag @ 50 mls/hr IVPB Q2H [facility] Rx#: [id number] ceFAZolin 2 gm In Sodium 50 50 Chloride 0.9% 50 ml @ 100 mls/hr IVPB Q8HR [facility] Rx# :[id number] propofoL 1,000 mg In 27.802 Empty Bag 1 bag @ Titrate IV .Q0M [facility] Rx#: [id number] Oral 240 Output: Chest Tube Drainage 160 274 211 left pleural 30 63 21 mediastinalx2 130 211 190 Urine 2050 975 100 Other: Voiding Method Indwelling Catheter Indwelling Catheter Indwelling Catheter ABP, PAP, CO, CI - Last Documented Arterial Blood Pressure 110/41 Pulmonary Artery Pressure 31/10 Cardiac Output 4.2 Cardiac Index 2.7 - Exam No acute distress, oriented 3. Currently on 3 L nasal cannula. No respiratory distress, or conversational dyspnea. HEENT examination is grossly unremarkable. Neck supple. Full range of motion. No adenopathy thyromegaly or neck vein distention. Cardiovascular examination reveals regular rhythm rate. S1-S2 normal. No S3 or S4. No discernible murmur noted. Heart rate 70 bpm. Lungs reveal clear breath sounds. Breath sounds are equal bilaterally. No adventitious lung sounds including wheezes rhonchi or crackles. 3 L saturation is 97%. Abdomen soft bowel sounds are heard. No masses or tenderness. Extremities are intact. No cyanosis clubbing or edema. Skin is without rash or lesion. Neurologic examination is brief but nonfocal. - Labs CBC & Chem 7: 12/05/21 03:55 12/05/21 03:55 Labs: Abnormal Lab Results - Last 24 Hours (Table) 12/03/21 12/04/21 12/04/21 Range/Units 14:52 13:52 13:52 RBC 2.83 L (3.80-5.40) m/uL Hgb 9.3 L D (11.4-16.0) gm/dL Hct 27.2 L (34.0-46.0) % Plt Count 83 L (150-450) k/uL Lymphocytes # 0.7 L (1.0-4.8) k/uL Lymphocytes # (Manual) (1.0-4.8) k/uL Monocytes # (0-1.0) k/uL PT 12.6 H (9.0-12.0) sec INR 1.2 H (<1.2) APTT 31.2 H (22.0-30.0) sec ABG pO2 (83-108) mmHg ABG Total CO2 (19-24) mmol/L ABG O2 Saturation (94-97) % ABG Hematocrit (34.0-46.0) % Hemoglobin (11.4-16.0) gm/dL Sodium (137-145) mmol/L Chloride (98-107) mmol/L Glucose (74-99) mg/dL POC Glucose (mg/dL) (70-110) mg/dL AST (14-36) U/L Alkaline Phosphatase (38-126) U/L Total Protein (6.3-8.2) g/dL Albumin (3.5-5.0) g/dL Crossmatch See Detail 12/04/21 12/04/21 12/04/21 Range/Units 13:52 13:57 15:04 RBC (3.80-5.40) m/uL Hgb (11.4-16.0) gm/dL Hct (34.0-46.0) % Plt Count (150-450) k/uL Lymphocytes # (1.0-4.8) k/uL Lymphocytes # (Manual) (1.0-4.8) k/uL Monocytes # (0-1.0) k/uL PT (9.0-12.0) sec INR (<1.2) APTT (22.0-30.0) sec ABG pO2 140 H (83-108) mmHg ABG Total CO2 26 H (19-24) mmol/L ABG O2 Saturation 99.3 H (94-97) % ABG Hematocrit 30 L (34.0-46.0) % Hemoglobin 9.7 L (11.4-16.0) gm/dL Sodium 136 L (137-145) mmol/L Chloride (98-107) mmol/L Glucose 104 H (74-99) mg/dL POC Glucose (mg/dL) 118 H (70-110) mg/dL AST 49 H (14-36) U/L Alkaline Phosphatase (38-126) U/L Total Protein 4.5 L (6.3-8.2) g/dL Albumin 3.1 L (3.5-5.0) g/dL Crossmatch 12/04/21 12/04/21 12/04/21 Range/Units 16:06 16:08 17:02 RBC 2.93 L (3.80-5.40) m/uL Hgb 9.7 L (11.4-16.0) gm/dL Hct 28.3 L (34.0-46.0) % Plt Count 96 L (150-450) k/uL Lymphocytes # (1.0-4.8) k/uL Lymphocytes # (Manual) 0.79 L (1.0-4.8) k/uL Monocytes # (0-1.0) k/uL PT (9.0-12.0) sec INR (<1.2) APTT (22.0-30.0) sec ABG pO2 (83-108) mmHg ABG Total CO2 (19-24) mmol/L ABG O2 Saturation (94-97) % ABG Hematocrit (34.0-46.0) % Hemoglobin (11.4-16.0) gm/dL Sodium (137-145) mmol/L Chloride (98-107) mmol/L Glucose (74-99) mg/dL POC Glucose (mg/dL) 135 H 155 H (70-110) mg/dL AST (14-36) U/L Alkaline Phosphatase (38-126) U/L Total Protein (6.3-8.2) g/dL Albumin (3.5-5.0) g/dL Crossmatch 12/04/21 12/04/21 12/04/21 Range/Units 18:59 19:03 19:53 RBC 2.97 L (3.80-5.40) m/uL Hgb 9.3 L (11.4-16.0) gm/dL Hct 28.3 L (34.0-46.0) % Plt Count 95 L (150-450) k/uL Lymphocytes # 0.6 L (1.0-4.8) k/uL Lymphocytes # (Manual) (1.0-4.8) k/uL Monocytes # (0-1.0) k/uL PT (9.0-12.0) sec INR (<1.2) APTT (22.0-30.0) sec ABG pO2 (83-108) mmHg ABG Total CO2 (19-24) mmol/L ABG O2 Saturation (94-97) % ABG Hematocrit (34.0-46.0) % Hemoglobin (11.4-16.0) gm/dL Sodium (137-145) mmol/L Chloride (98-107) mmol/L Glucose (74-99) mg/dL POC Glucose (mg/dL) 133 H 138 H (70-110) mg/dL AST (14-36) U/L Alkaline Phosphatase (38-126) U/L Total Protein (6.3-8.2) g/dL Albumin (3.5-5.0) g/dL Crossmatch 12/04/21 12/04/21 12/04/21 Range/Units 20:00 20:50 21:57 RBC (3.80-5.40) m/uL Hgb (11.4-16.0) gm/dL Hct (34.0-46.0) % Plt Count (150-450) k/uL Lymphocytes # (1.0-4.8) k/uL Lymphocytes # (Manual) (1.0-4.8) k/uL Monocytes # (0-1.0) k/uL PT (9.0-12.0) sec INR (<1.2) APTT (22.0-30.0) sec ABG pO2 110 H (83-108) mmHg ABG Total CO2 25 H (19-24) mmol/L ABG O2 Saturation 98.5 H (94-97) % ABG Hematocrit 28 L (34.0-46.0) % Hemoglobin 9.1 L (11.4-16.0) gm/dL Sodium (137-145) mmol/L Chloride (98-107) mmol/L Glucose (74-99) mg/dL POC Glucose (mg/dL) 131 H 124 H (70-110) mg/dL AST (14-36) U/L Alkaline Phosphatase (38-126) U/L Total Protein (6.3-8.2) g/dL Albumin (3.5-5.0) g/dL Crossmatch 12/04/21 12/04/21 12/05/21 Range/Units 22:56 23:53 00:52 RBC (3.80-5.40) m/uL Hgb (11.4-16.0) gm/dL Hct (34.0-46.0) % Plt Count (150-450) k/uL Lymphocytes # (1.0-4.8) k/uL Lymphocytes # (Manual) (1.0-4.8) k/uL Monocytes # (0-1.0) k/uL PT (9.0-12.0) sec INR (<1.2) APTT (22.0-30.0) sec ABG pO2 (83-108) mmHg ABG Total CO2 (19-24) mmol/L ABG O2 Saturation (94-97) % ABG Hematocrit (34.0-46.0) % Hemoglobin (11.4-16.0) gm/dL Sodium (137-145) mmol/L Chloride (98-107) mmol/L Glucose (74-99) mg/dL POC Glucose (mg/dL) 125 H 123 H 127 H (70-110) mg/dL AST (14-36) U/L Alkaline Phosphatase (38-126) U/L Total Protein (6.3-8.2) g/dL Albumin (3.5-5.0) g/dL Crossmatch 12/05/21 12/05/21 12/05/21 Range/Units 02:03 02:52 03:52 RBC (3.80-5.40) m/uL Hgb (11.4-16.0) gm/dL Hct (34.0-46.0) % Plt Count (150-450) k/uL Lymphocytes # (1.0-4.8) k/uL Lymphocytes # (Manual) (1.0-4.8) k/uL Monocytes # (0-1.0) k/uL PT (9.0-12.0) sec INR (<1.2) APTT (22.0-30.0) sec ABG pO2 (83-108) mmHg ABG Total CO2 (19-24) mmol/L ABG O2 Saturation (94-97) % ABG Hematocrit (34.0-46.0) % Hemoglobin (11.4-16.0) gm/dL Sodium (137-145) mmol/L Chloride (98-107) mmol/L Glucose (74-99) mg/dL POC Glucose (mg/dL) 127 H 123 H 114 H (70-110) mg/dL AST (14-36) U/L Alkaline Phosphatase (38-126) U/L Total Protein (6.3-8.2) g/dL Albumin (3.5-5.0) g/dL Crossmatch 12/05/21 12/05/21 12/05/21 Range/Units 03:55 03:55 05:04 RBC 2.71 L (3.80-5.40) m/uL Hgb 8.9 L (11.4-16.0) gm/dL Hct 25.8 L (34.0-46.0) % Plt Count 97 L (150-450) k/uL Lymphocytes # 0.9 L (1.0-4.8) k/uL Lymphocytes # (Manual) (1.0-4.8) k/uL Monocytes # 1.4 H (0-1.0) k/uL PT (9.0-12.0) sec INR (<1.2) APTT (22.0-30.0) sec ABG pO2 (83-108) mmHg ABG Total CO2 (19-24) mmol/L ABG O2 Saturation (94-97) % ABG Hematocrit (34.0-46.0) % Hemoglobin (11.4-16.0) gm/dL Sodium 134 L (137-145) mmol/L Chloride 97 L (98-107) mmol/L Glucose 116 H (74-99) mg/dL POC Glucose (mg/dL) 147 H (70-110) mg/dL AST 56 H (14-36) U/L Alkaline Phosphatase 37 L (38-126) U/L Total Protein 5.1 L (6.3-8.2) g/dL Albumin (3.5-5.0) g/dL Crossmatch 12/05/21 12/05/21 12/05/21 Range/Units 05:54 06:51 08:31 RBC (3.80-5.40) m/uL Hgb (11.4-16.0) gm/dL Hct (34.0-46.0) % Plt Count (150-450) k/uL Lymphocytes # (1.0-4.8) k/uL Lymphocytes # (Manual) (1.0-4.8) k/uL Monocytes # (0-1.0) k/uL PT (9.0-12.0) sec INR (<1.2) APTT (22.0-30.0) sec ABG pO2 (83-108) mmHg ABG Total CO2 (19-24) mmol/L ABG O2 Saturation (94-97) % ABG Hematocrit (34.0-46.0) % Hemoglobin (11.4-16.0) gm/dL Sodium (137-145) mmol/L Chloride (98-107) mmol/L Glucose (74-99) mg/dL POC Glucose (mg/dL) 136 H 153 H 163 H (70-110) mg/dL AST (14-36) U/L Alkaline Phosphatase (38-126) U/L Total Protein (6.3-8.2) g/dL Albumin (3.5-5.0) g/dL Crossmatch 12/05/21 12/05/21 Range/Units 09:43 11:03 RBC (3.80-5.40) m/uL Hgb (11.4-16.0) gm/dL Hct (34.0-46.0) % Plt Count (150-450) k/uL Lymphocytes # (1.0-4.8) k/uL Lymphocytes # (Manual) (1.0-4.8) k/uL Monocytes # (0-1.0) k/uL PT (9.0-12.0) sec INR (<1.2) APTT (22.0-30.0) sec ABG pO2 (83-108) mmHg ABG Total CO2 (19-24) mmol/L ABG O2 Saturation (94-97) % ABG Hematocrit (34.0-46.0) % Hemoglobin (11.4-16.0) gm/dL Sodium (137-145) mmol/L Chloride (98-107) mmol/L Glucose (74-99) mg/dL POC Glucose (mg/dL) 120 H 139 H (70-110) mg/dL AST (14-36) U/L Alkaline Phosphatase (38-126) U/L Total Protein (6.3-8.2) g/dL Albumin (3.5-5.0) g/dL Crossmatch Microbiology - Last 24 Hours (Table) 12/03/21 15:00 Nasal Screen MRSA/MSSA - Final Nasal Swab Staphylococcus aureus,Not MRSA Assessment and Plan Assessment: Status post two-vessel bypass grafting, ligation of left atrial appendage, and transesophageal echocardiogram for coronary artery disease, postop day #1. Routine postoperative ventilator management, with timely extubation. Non-ST segment elevation myocardial infarction, with significant left main coronary disease, and a left dominant system. Patient to have bypass grafting on 12/04/2021. Hypertensive urgency, resolved. No evidence of significant chronic lung disease despite 25-30 years at tobacco use. Hyperlipidemia. Hypothyroidism. Hypertension. Irritable bowel syndrome. Family history of premature coronary disease. Plan: Plan dated 12/03/2021. I introduced myself to this patient. I interviewed her and examined her. The patient does not appear to have significant underlying chronic lung disease despite smoking a pack a day for 25-30 years. She quit back in 1991. A spirometry is not yet been done. Apparently the patient is going for bypass grafting tomorrow. Labs, x-rays, and medications are all reviewed. Additional recommendations and suggestions are forthcoming. I told the patient that my role is to first get her extubated from mechanical ventilation, and then second, to follow her during her hospital stay, and keep her lungs healthy, and to avoid, lung collapse, atelectasis, pneumonia, and pleural effusion. Plan dated 12/04/2021. The patient was seen in consultation yesterday. The patient spirometry with the family, and I did not have an opportunity the patient likely does not have any significant chronic lung disease. She quit cigarette smoking back in 1991. She does smoke about a pack a day for 25 years or so. She denies any chronic shortness of breath, cough, wheezing, or phlegm production. I did explain my role in patients undergoing bypass grafting. She had questions of which I answered. Plan dated 12/05/2021. The patient was extubated and a relatively timely fashion. Currently, she is on 3 L. We encouraged to deep breathe, cough, and clear secretions. We also encouraged her to use the incentive spirometer every hour. Labs, x-rays, and medications are all reviewed. She does have some bibasilar atelectasis. We will continue to follow the patient and make recommendations along the way. Preoperative spirometry were reviewed. Prognosis is thought to be generally good. Time with Patient: Greater than 30
[2021-12-05 13:32] LABS: Glucose,Whole Blood 167 mg/dL (70-110)
[2021-12-05 14:49] LABS: Glucose,Whole Blood 142 mg/dL (70-110)
[2021-12-05] MEDS: BENZOCAINE/MENTHOL LOZENG 1 EACH LOZENGE MUCOUS MEM PRN ×2 (15:19→20:31)
[2021-12-05 15:55] LABS: Glucose,Whole Blood 132 mg/dL (70-110)
[2021-12-05 16:51] LABS: Glucose,Whole Blood 132 mg/dL (70-110)
[2021-12-05 18:11] LABS: Glucose,Whole Blood 145 mg/dL (70-110)
[2021-12-05 20:02] LABS: Glucose,Whole Blood 124 mg/dL (70-110)
[2021-12-05] MEDS: SENNOSIDES-DOCUSATE SODIUM 1 EACH TAB PO SCH (20:29)
[2021-12-05 20:58] LABS: Glucose,Whole Blood 114 mg/dL (70-110)
[2021-12-05] MEDS: PATIENT'S OWN (Mirabegron [Myrbetriq] 50 MG Tab.Er.24h) PO SCH (20:58)
[2021-12-05 21:59] LABS: Glucose,Whole Blood 113 mg/dL (70-110)
[2021-12-05 22:54] LABS: Glucose,Whole Blood 113 mg/dL (70-110)
[2021-12-05 23:52] LABS: Glucose,Whole Blood 114 mg/dL (70-110)
[2021-12-06 00:57] LABS: Glucose,Whole Blood 104 mg/dL (70-110)
[2021-12-06 01:53] LABS: Glucose,Whole Blood 106 mg/dL (70-110)
[2021-12-06 03:54] LABS: Glucose,Whole Blood 100 mg/dL (70-110)
[2021-12-06 04:09] LABS: Basophils % (A) 0 %; Eosinophils # (A) 0.2 k/uL (0-0.7); Eosinophils % (A) 3 %; HCT 21.3 % (34.0-46.0); Lymphocytes # (A) 1.7 k/uL (1.0-4.8); Lymphocytes % (A) 22 %; MCHC 33.6 g/dL (31.0-37.0); MCV 95.4 fL (80.0-100.0); Mean Platelet Volume 10.5; Monocytes # (A) 1.1 k/uL (0-1.0); Monocytes % (A) 14 %; Neutrophils # (A) 4.5 k/uL (1.3-7.7); Neutrophils % (A) 59 %; RBC 2.24 m/uL (3.80-5.40); WBC 7.6 k/uL (3.8-10.6)
[2021-12-06 04:23] LABS: Ionized Calcium 4.7 mg/dL (4.5-5.3)
[2021-12-06 04:29] LABS: Albumin 3.3 g/dL (3.5-5.0); Calcium 8.2 mg/dL (8.4-10.2); Magnesium 2.4 mg/dL (1.6-2.3); Potassium 3.9 mmol/L (3.5-5.1); Total Bilirubin 0.4 mg/dL (0.2-1.3); Total Protein 4.8 g/dL (6.3-8.2)
[2021-12-06 04:33] LABS: HGB 7.2 gm/dL (11.4-16.0)
[2021-12-06 04:34] LABS: Platelet Count 77 k/uL (150-450)
[2021-12-06] MEDS ORDERED: POTASSIUM BICARBONATE/CIT AC 20 MEQ TABLET.EFF NG-TUBE SCH (05:00)
[2021-12-06] MEDS: KETOROLAC 15 MG/ML 1 ML VIAL IVP SCH ×4 (05:44→23:46)
[2021-12-06 06:04] LABS: Glucose,Whole Blood 84 mg/dL (70-110)
[2021-12-06] MEDS: LEVOTHYROXINE 25 MCG TAB PO SCH (06:27)
[2021-12-06] MEDS: PANTOPRAZOLE 40 MG TABLET PO SCH (06:29)
[2021-12-06 06:54] LABS: Glucose,Whole Blood 97 mg/dL (70-110)
[2021-12-06] MEDS: IPRATROPIUM-ALBUTEROL 3 ML NEB INHALATION SCH ×4 (07:59→18:58)
--- NOTE | 2021-12-06 08:01 | XR ---
EXAMINATION TYPE: XR chest 1V portable DATE OF EXAM: 12/06/2021 Comparison: 12/05/2021 Clinical History: 76-year-old female Post Operative Cardiac Surgery Findings: Median sternotomy wires are present with postoperative clips. ACDF hardware. Right IJ [place] ter tip at the main pulmonary outflow tract. 2 mediastinal drains remain as well as epicardial pacer leads. Left chest tube remains as well. There is a subtle edge projecting at the left apex. However, this is discontinuous and atypical for a pneumothorax. Attention on follow-up. Similar asymmetric devorah vation left hemidiaphragm. Blunted right costophrenic angle suggesting trace effusion. Some mild patc hy bibasilar opacities remain similar. Impression: 1. A subtle line projecting at the left apex is discontinuous and atypical for a pneumothorax. Attent ion on follow-up. Superimposition shadow is suspected. 2. Trace right effusion and mild patchy bibasilar atelectasis remains. 3. Continued asymmetric elevation left hemidiaphragm. When patient's condition has normalized, if con cern for hemidiaphragmatic paralysis, fluoroscopic sniff test could be performed.
--- NOTE | 2021-12-06 08:09 | P.PN ---
Subjective Progress Note Date: 12/06/21 Principal diagnosis: Acute coronary syndrome This is a 76-year-old female patient with hypertension and dyslipidemia who presented to the hospital with a chest discomfort and also hypertension emergency. She ruled in for acute coronary event. She underwent a heart catheterization and that revealed critical disease involving the left main. She underwent CABG [address] LAD and SVG to LCx Syncopal 2021 The patient was seen this morning. Overall she seems to be stable from a cardiovascular standpoint overview. Her urine output is marginal. Her SVR is slightly elevated. I would advise start the patient on some blood pressure medications like an OTM inhibitor or ARB. The chest x-ray was reviewed. Overall and from a cardiovascular standpoint of view, she seems to be stable. We will continue monitor the hemoglobin and continue monitor the kidney functi on. She is on aspirin and also she is an intermediate intensity statin. December 062021 The patient was seen this morning. Overall she's stable from the cardiac standpoint and she is not on any vasopressors or inotrope. She has been maintaining normal sinus mechanism. The urine output has been marginal. Hemoglobin is 7.2. Kidney function continues to be within normal limits. Currently she is on dual antiplatelet therapy along with high intensity statin. The SVR was elevated yesterday but today seems to be improved. From a cardiac vascular standpoint overview, we will continue the current medical regimen and continue following up with the patient Objective - Vital Signs Vital signs: Vital Signs Temp 99.0 F 12/06/21 04:00 Pulse 80 12/06/21 07:59 Resp 14 12/06/21 07:00 BP 128/60 12/06/21 07:00 Pulse Ox 93 L 12/06/21 07:00 FiO2 60 12/04/21 20:15 Intake & Output 12/05/21 12/06/21 12/06/21 18:59 06:59 18:59 Intake Total 1804.446 480.384 Output Total 611 596 Balance 1193.446 -115.616 Weight 59.7 kg 64.9 kg Intake: IV 468 477 Lactated Ringers 1,000 ml 300 260 @ 20 mls/hr IV .Q24H [facility] Rx#:[id number] cardiac output 60 100 pressure bag 108 117 Intake, IV Titration 756.446 3.384 Amount Albumin Human 5% 250 ml 500 In Empty Bag 1 bag @ 250 mls/hr IVPB ONCE [facility] Rx#: [id number] Insulin Regular 100 unit 13.677 3.384 In Sodium Chloride 0.9% 100 ml @ Per Protocol IV .Q0M [facility] Rx#:[id number] Magnesium Sulfate-D5w Pmx 100 1 gm In Dextrose/Water 1 100ml.bag @ 100 mls/hr IVPB Q1H [facility] Rx#: [id number] Milrinone-D5w Pmx 20 mg 92.769 In Dextrose/Water 1 100ml .bag @ 0.1 MCG/KG/MIN 1. 727 mls/hr IV .Q24H [facility] Rx#:[id number] ceFAZolin 2 gm In Sodium 50 Chloride 0.9% 50 ml @ 100 mls/hr IVPB Q8HR [facility] Rx# :[id number] Oral 580 Output: Chest Tube Drainage 391 296 left pleural 71 106 mediastinalx2 320 190 Urine 220 300 Other: Voiding Method Indwelling Catheter Indwelling Catheter ABP, PAP, CO, CI - Last Documented Arterial Blood Pressure 132/50 Pulmonary Artery Pressure 27/13 Cardiac Output 3.8 Cardiac Index 2.3 - Constitutional General appearance: Present: no acute distress - Respiratory Respiratory: bilateral: CTA - Cardiovascular Rhythm: regular - Labs CBC & Chem 7: 12/06/21 03:55 12/06/21 03:55 Labs: Abnormal Lab Results - Last 24 Hours (Table) 12/05/21 12/05/21 12/05/21 Range/Units 08:31 09:43 11:03 RBC (3.80-5.40) m/uL Hgb (11.4-16.0) gm/dL Hct (34.0-46.0) % Plt Count (150-450) k/uL Monocytes # (0-1.0) k/uL Sodium (137-145) mmol/L Chloride (98-107) mmol/L POC Glucose (mg/dL) 163 H 120 H 139 H (70-110) mg/dL Calcium (8.4-10.2) mg/dL Magnesium (1.6-2.3) mg/dL AST (14-36) U/L Total Protein (6.3-8.2) g/dL Albumin (3.5-5.0) g/dL 12/05/21 12/05/2122 Range/Units 11:52 13:28 14:46 RBC (3.80-5.40) m/uL Hgb (11.4-16.0) gm/dL Hct (34.0-46.0) % Plt Count (150-450) k/uL Monocytes # (0-1.0) k/uL Sodium (137-145) mmol/L Chloride (98-107) mmol/L POC Glucose (mg/dL) 145 H 167 H 142 H (70-110) mg/dL Calcium (8.4-10.2) mg/dL Magnesium (1.6-2.3) mg/dL AST (14-36) U/L Total Protein (6.3-8.2) g/dL Albumin (3.5-5.0) g/dL 12/05/21 12/05/21 12/05/21 Range/Units 15:53 16:48 18:09 RBC (3.80-5.40) m/uL Hgb (11.4-16.0) gm/dL Hct (34.0-46.0) % Plt Count (150-450) k/uL Monocytes # (0-1.0) k/uL Sodium (137-145) mmol/L Chloride (98-107) mmol/L POC Glucose (mg/dL) 132 H 132 H 145 H (70-110) mg/dL Calcium (8.4-10.2) mg/dL Magnesium (1.6-2.3) mg/dL AST (14-36) U/L Total Protein (6.3-8.2) g/dL Albumin (3.5-5.0) g/dL 12/05/21 12/05/21 12/05/21 Range/Units 20:01 20:57 21:57 RBC (3.80-5.40) m/uL Hgb (11.4-16.0) gm/dL Hct (34.0-46.0) % Plt Count (150-450) k/uL Monocytes # (0-1.0) k/uL Sodium (137-145) mmol/L Chloride (98-107) mmol/L POC Glucose (mg/dL) 124 H 114 H 113 H (70-110) mg/dL Calcium (8.4-10.2) mg/dL Magnesium (1.6-2.3) mg/dL AST (14-36) U/L Total Protein (6.3-8.2) g/dL Albumin (3.5-5.0) g/dL 12/05/21 12/05/21 12/06/21 Range/Units 22:53 23:50 03:55 RBC 2.24 L (3.80-5.40) m/uL Hgb 7.2 L D (11.4-16.0) gm/dL Hct 21.3 L (34.0-46.0) % Plt Count 77 L (150-450) k/uL Monocytes # 1.1 H (0-1.0) k/uL Sodium (137-145) mmol/L Chloride (98-107) mmol/L POC Glucose (mg/dL) 113 H 114 H (70-110) mg/dL Calcium (8.4-10.2) mg/dL Magnesium (1.6-2.3) mg/dL AST (14-36) U/L Total Protein (6.3-8.2) g/dL Albumin (3.5-5.0) g/dL 12/06/21 Range/Units 03:55 RBC (3.80-5.40) m/uL Hgb (11.4-16.0) gm/dL Hct (34.0-46.0) % Plt Count (150-450) k/uL Monocytes # (0-1.0) k/uL Sodium 129 L (137-145) mmol/L Chloride 96 L (98-107) mmol/L POC Glucose (mg/dL) (70-110) mg/dL Calcium 8.2 L (8.4-10.2) mg/dL Magnesium 2.4 H (1.6-2.3) mg/dL AST 56 H (14-36) U/L Total Protein 4.8 L (6.3-8.2) g/dL Albumin 3.3 L (3.5-5.0) g/dL Assessment and Plan Assessment: Assessment #1 acute coronary syndrome #2 status post CABG 2 as described above #3 hypertension #4 dyslipidemia Plan #1 continue aspirin and statin #2 consider increasing the dose of statin into high intensity statin #3 consider increasing the dose of beta gian in the next 24-48 hours if she remains tachycardic #4 continue monitor the kidney function and electrolytes and continue monitor the hemoglobin #5 follow-up with the patient
[2021-12-06] MEDS: DIVALPROEX 500 MG TABLET.DR PO SCH ×2 (08:23→20:17)
[2021-12-06] MEDS: METOPROLOL TARTRATE 12.5 MG TAB PO SCH ×2 (08:23→20:17)
[2021-12-06] MEDS: traMADol 50 MG TAB PO PRN (08:23)
[2021-12-06] MEDS: HEPARIN SODIUM,PORCINE/PF 5,000 UNIT/0.5 ML SYRINGE SQ SCH ×3 (08:24→23:46)
[2021-12-06] MEDS: ATORVASTATIN 40 MG TAB PO SCH (08:24)
[2021-12-06] MEDS: CLOPIDOGREL 75 MG TAB PO SCH (08:24)
[2021-12-06] MEDS: ASPIRIN 325 MG TAB PO SCH (08:24)
[2021-12-06] MEDS: PARoxetine 20 MG TAB PO SCH (08:24)
[2021-12-06] MEDS: MUPIROCIN 2% OINT 22 GM TUBE NASAL SCH ×2 (08:25→20:17)
[2021-12-06] MEDS ORDERED: ALBUMIN HUMAN 25% 50 ML in EMPTY BAG 1 BAG IVPB ONE (09:24)
[2021-12-06] MEDS ORDERED: FUROSEMIDE 10 MG/ML 2 ML VIAL IV ONE (09:24)
--- NOTE | 2021-12-06 09:27 | P.PN ---
Subjective Progress Note Date: 12/06/21 Principal diagnosis: Left main coronary artery disease with left dominant system, non-STEMI this admission, hypertensive urgency on admission. Previous medical history of hypertension, hyperlipidemia, hypothyroid, dementia, previous tobacco dependence with mild COPD, IBS, family history of premature coronary artery disease. Vaccinated and boosted against Covid. Preoperative nasal swab positive for MSSA POD #2 coronary artery bypass grafting 2 vessels, left internal mammary artery to the left anterior descending artery, reverse saphenous vein graft to the obtuse marginal artery, endoscopic harvesting of the right greater saphenous vein, ligation of the left atrial appendage using a 35 mm AtriClip, epi-aortic ultrasound, intraoperative transesophageal echocardiogram Postoperative acute blood loss anemia and thrombocytopenia, expected given hemodilution and cardiopulmonary bypass pump The patient was seen and examined this morning sitting up in a recliner in the ICU in no acute distress. Remains in sinus rhythm, hemodynamically stable on low-dose IV Primacor. States post surgical pain is controlled with current medication regimen, denies shortness of breath. She had a relatively uneventful evening. Currently on 2 L nasal cannula with oxygen saturation in the high 90s. Urine output minimal. Hemoglobin 7.2 this morning, likely dilutional as patient received multiple IV boluses for low filling pressures/urine output. Right internal jugular Hospers/Cordis, right radial arterial line, mediastinal/left pleural chest tubes all remaining. No other new concerns. Objective - Vital Signs Vital signs: Vital Signs Temp 99.0 F 12/06/21 04:00 Pulse 87 12/06/21 07:00 Resp 14 12/06/21 07:00 BP 128/60 12/06/21 07:00 Pulse Ox 93 L 12/06/21 07:00 FiO2 60 12/04/21 20:15 Intake & Output 12/05/21 12/06/21 12/06/21 18:59 06:59 18:59 Intake Total 1804.446 480.384 Output Total 611 596 Balance 1193.446 -115.616 Weight 59.7 kg 64.9 kg Intake: IV 468 477 Lactated Ringers 1,000 ml 300 260 @ 20 mls/hr IV .Q24H [facility] Rx#:[id number] cardiac output 60 100 pressure bag 108 117 Intake, IV Titration 756.446 3.384 Amount Albumin Human 5% 250 ml 500 In Empty Bag 1 bag @ 250 mls/hr IVPB ONCE [facility] Rx#: [id number] Insulin Regular 100 unit 13.677 3.384 In Sodium Chloride 0.9% 100 ml @ Per Protocol IV .Q0M [facility] Rx#:[id number] Magnesium Sulfate-D5w Pmx 100 1 gm In Dextrose/Water 1 100ml.bag @ 100 mls/hr IVPB Q1H [facility] Rx#: [id number] Milrinone-D5w Pmx 20 mg 92.769 In Dextrose/Water 1 100ml .bag @ 0.1 MCG/KG/MIN 1. 727 mls/hr IV .Q24H [facility] Rx#:[id number] ceFAZolin 2 gm In Sodium 50 Chloride 0.9% 50 ml @ 100 mls/hr IVPB Q8HR [facility] Rx# :[id number] Oral 580 Output: Chest Tube Drainage 391 296 left pleural 71 106 mediastinalx2 320 190 Urine 220 300 Other: Voiding Method Indwelling Catheter Indwelling Catheter ABP, PAP, CO, CI - Last Documented Arterial Blood Pressure 132/50 Pulmonary Artery Pressure 27/13 Cardiac Output 3.8 Cardiac Index 2.3 - Exam CONSTITUTIONAL: Appears comfortable, cooperative, no acute distress RESPIRATORY: Lungs sounds diminished bilaterally with coarse breath sounds in the bases. Respirations even, nonlabored. Currently on 2 L nasal cannula with oxygen saturation 97%. Able to achieve 1000 mL on incentive spirometry. Weak cough. CARDIOVASCULAR: S1, S2 present. Regular rate and rhythm, sinus rhythm on telemetry. Sternum stable. Palpable peripheral pulses bilaterally. Trace generalized edema present. No calf pain or tenderness noted. Heart hugger in place with patient demonstrating appropriate use. Antiembolism stockings, SCDs present. GASTROINTESTINAL: Abdomen soft, nontender, nondistended. Hypoactive bowel sounds present 4 quadrants. Tolerating full liquids. Positive flatus GENITOURINARY: Jose present draining clear, yellow urine. Output overnight 15-35 mL per hour, 495 mL in the last 24 hours INTEGUMENTARY: Skin is warm and dry with evidence of good perfusion. Anterior chest incision well approximated and covered with dry intact dressing. Right l ower extremity EVH site well approximated without redness or drainage. NEUROLOGIC: Cranial nerves II through XII intact MUSKULOSKELETAL: Able to move all extremities, strength equal bilaterally PSYCHIATRIC: Alert, oriented to person place and time, appropriate affect, intact judgment and insight INVASIVE LINES AND TUBES: Mediastinal/left pleural chest tubes present and connected to wall suction, occasional tiny air leak and mediastinal tube. Mediastinal tube with 90 mL serosanguineous drainage overnight, 400 mL the last 24 hours. Left pleural chest tube with 78 mL serosanguineous drainage overnight, 150 mL the last 24 hours. A/V epicardial pacemaker wires present, grounded. Right internal jugular Hospers/Cordis, right radial arterial line present. Last CO/CI 3.8/2.3, PA 22/5, CVP 4. - Allied health notes Allied health notes reviewed: nursing - Labs CBC & Chem 7: 12/06/21 03:55 12/06/21 03:55 Labs: Abnormal Lab Results - Last 24 Hours (Table) 12/05/21 12/05/21 12/05/21 Range/Units 08:31 09:43 11:03 RBC (3.80-5.40) m/uL Hgb (11.4-16.0) gm/dL Hct (34.0-46.0) % Plt Count (150-450) k/uL Monocytes # (0-1.0) k/uL Sodium (137-145) mmol/L Chloride (98-107) mmol/L POC Glucose (mg/dL) 163 H 120 H 139 H (70-110) mg/dL Calcium (8.4-10.2) mg/dL Magnesium (1.6-2.3) mg/dL AST (14-36) U/L Total Protein (6.3-8.2) g/dL Albumin (3.5-5.0) g/dL 12/05/21 12/05/21 12/05/21 Range/Units 11:52 13:28 14:46 RBC (3.80-5.40) m/uL Hgb (11.4-16.0) gm/dL Hct (34.0-46.0) % Plt Count (150-450) k/uL Monocytes # (0-1.0) k/uL Sodium (137-145) mmol/L Chloride (98-107) mmol/L POC Glucose (mg/dL) 145 H 167 H 142 H (70-110) mg/dL Calcium (8.4-10.2) mg/dL Magnesium (1.6-2.3) mg/dL AST (14-36) U/L Total Protein (6.3-8.2) g/dL Albumin (3.5-5.0) g/dL 12/05/21 12/05/21 12/05/21 Range/Units 15:53 16:48 18:09 RBC (3.80-5.40) m/uL Hgb (11.4-16.0) gm/dL Hct (34.0-46.0) % Plt Count (150-450) k/uL Monocytes # (0-1.0) k/uL Sodium (137-145) mmol/L Chloride (98-107) mmol/L POC Glucose (mg/dL) 132 H 132 H 145 H (70-110) mg/dL Calcium (8.4-10.2) mg/dL Magnesium (1.6-2.3) mg/dL AST (14-36) U/L Total Protein (6.3-8.2) g/dL Albumin (3.5-5.0) g/dL 12/05/21 12/05/21 12/05/21 Range/Units 20:01 20:57 21:57 RBC (3.80-5.40) m/uL Hgb (11.4-16.0) gm/dL Hct (34.0-46.0) % Plt Count (150-450) k/uL Monocytes # (0-1.0) k/uL Sodium (137-145) mmol/L Chloride (98-107) mmol/L POC Glucose (mg/dL) 124 H 114 H 113 H (70-110) mg/dL Calcium (8.4-10.2) mg/dL Magnesium (1.6-2.3) mg/dL AST (14-36) U/L Total Protein (6.3-8.2) g/dL Albumin (3.5-5.0) g/dL 12/05/21 12/05/21 12/06/21 Range/Units 22:53 23:50 03:55 RBC 2.24 L (3.80-5.40) m/uL Hgb 7.2 L D (11.4-16.0) gm/dL Hct 21.3 L (34.0-46.0) % Plt Count 77 L (150-450) k/uL Monocytes # 1.1 H (0-1.0) k/uL Sodium (137-145) mmol/L Chloride (98-107) mmol/L POC Glucose (mg/dL) 113 H 114 H (70-110) mg/dL Calcium (8.4-10.2) mg/dL Magnesium (1.6-2.3) mg/dL AST (14-36) U/L Total Protein (6.3-8.2) g/dL Albumin (3.5-5.0) g/dL 12/06/21 Range/Units 03:55 RBC (3.80-5.40) m/uL Hgb (11.4-16.0) gm/dL Hct (34.0-46.0) % Plt Count (150-450) k/uL Monocytes # (0-1.0) k/uL Sodium 129 L (137-145) mmol/L Chloride 96 L (98-107) mmol/L POC Glucose (mg/dL) (70-110) mg/dL Calcium 8.2 L (8.4-10.2) mg/dL Magnesium 2.4 H (1.6-2.3) mg/dL AST 56 H (14-36) U/L Total Protein 4.8 L (6.3-8.2) g/dL Albumin 3.3 L (3.5-5.0) g/dL - Imaging and Cardiology Chest x-ray: image reviewed Assessment and Plan Assessment: 1. Left main coronary artery disease with left dominant system, non-STEMI this admission, status post 2 vessel CABG 2. History of hypertension with hypertensive urgency on admission 3. Reduced left ventricular systolic function with EF 45-50%, mild MR and TR per transthoracic echo 4. Hyperlipidemia, treated, cholesterol 149, LDL 77 5. Hypothyroid, TSH 1.17 6. Previous tobacco dependence with mild COPD, FEV1 61% of predicted 7. IBS 8. Family history of premature coronary artery disease 9. Vaccinated and boosted against Covid 10. Preoperative nasal swab positive for MSSA, treated 11. Postoperative acute blood loss anemia and thrombocytopenia, expected Plan: 1. Continue to maximize medical therapy with aspirin, statin, Plavix, beta gian therapy. Will increase beta gian as tolerated 2. Will discontinue Primacor. Discontinue Hospers, connect Cordis to continue CVP monitor 3. Wean O2 as tolerated. Encourage incentive spirometry use 10 times every hour while awake. Bronchodilators per pulmonology 4. Increase activity, ambulate as tolerated. PT/OT/cardiac rehab consulted 5. Will monitor daily labs and x-rays. Electrolyte replacement per protocol. Will give concentrated albumin followed by IV Lasix. No transfusion at this time 6. GI/DVT prophylaxis 7. Pain control with current medication regimen. Limit narcotics as much as possible 8. Insulin management per internal medicine. Patient is not diabetic, preoperative hemoglobin A1c 5.7% 9. Continue Cordis, mediastinal/left pleural chest tubes, arterial line for another 24 hours 10. Continue Jose catheter for another 24 hours for strict accurate intake and output. Daily weights 11. More recommendations to follow
[2021-12-06] MEDS: LACTATED RINGERS 1,000 ML IV SCH (09:45)
--- NOTE | 2021-12-06 10:51 | P.PN ---
Subjective Progress Note Date: 12/06/21 Principal diagnosis: Chest pain. Pulmonary consult dated 12/03/2021. 76-year-old female with a history of hypertension, hyperlipidemia, hypothyroidism, and irritable bowel syndrome. The patient apparently presented to the emergency department, on December 02 at 3:00 in the morning, complaining of chest pain. She apparently been having chest pain and chest pressure, as well as an elevated blood pressure. The patient was evaluated in the emergency room, and admitted to the hospital. I was asked by cardiothoracic surgery to see the patient, as apparently the patient underwent cardiac catheterization, and was found to have significant coronary disease. According to the operative report, the patient had critical disease involving the left main coronary artery with extremely calcified and extremely eccentric plaque in the range of 95%. The patient had a dominant left coronary system and elevated filling pressures. The patient has no known history of lung disease. She did smoke for about 25-30 years at 1 pack a day. She quit in 1991. Currently she is resting comfortably in room 352. The patient's getting saline at 75 mL an hour. She's not requiring any supplemental oxygen. White count 7.2, hemoglobin 13.4, hematocrit 41, and platelet count 259,000. PTT is 45.2. Sodium, potassium, chloride, CO2, BUN, and creatinine were normal. Troponin was 0.597, 0.688, and 0.586. EKG showed sinus rhythm, with nonspecific ST-T wave changes. Progress note dated 12/04/2021. Patient have open heart surgery today with Dr. Welsh. I saw the patient yesterday in consultation. She has a history of hypertension, hypothyroidism, and irritable bowel syndrome. She also suffers from hyperlipidemia. I don't believe she has any significant chronic lung disease. Labs from December 03 are reviewed. Also, all x-rays and procedure notes were reviewed. Progress note dated 12/05/2021. This is a 76-year-old female seen in consultation 2 days ago. The patient is postop day #1, status post 2 vessel bypass grafting. The surgery was done by Dr. Welsh. The patient was extubated in a timely fashion. The patient is currently on 3 L of oxygen, lactated Ringer's at 20 mL an hour, insulin at 2.5 units per hour, and Primacor at 0.1 mcg/kg/m. The patient is a bit sleepy this morning. She is getting about 750 on her incentive spirometer. Today's labs include a white count of 9.5, hemoglobin 8.9, hematocrit 25.8, platelet count 97,000. Sodium 134, potassium 3.9, chlorides 97, CO2 24, BUN 8, creatinine 0.55. AST is 56. Urine is negative. Pro-calcitonin level is 0.03. Chest x- ray shows cardiomegaly, and left hemidiaphragm elevation. There is also some bibasilar atelectasis. Progress note dated 12/06/2021. 76-year-old female seen today in room 267. She is postop day #2, status post 2 vessel bypass grafting. Currently, she is on room air. She's getting lactated Ringer's at 20 mL an hour. She remains on Primacor at 0.1 mcg/kg/m. The patient's doing a bit better on her incentive spirometer. Clinically, she looks well. She has no complaints today. White count 7.6, hemoglobin 7.2, hematocrit 21.3, and platelet count 77,000. Sodium 129, potassium 3.9, chlorides 96, CO2 24, BUN 16, creatinine 0.85. Albumin is 3.3. Chest x-ray shows a small left apical pneumothorax, small effusions, and some basilar atelectasis. Objective - Vital Signs Vital signs: Vital Signs Temp 99.5 F 12/06/21 08:00 Pulse 81 12/06/21 10:00 Resp 16 12/06/21 10:00 BP 104/60 12/06/21 08:00 Pulse Ox 94 L 12/06/21 10:00 FiO2 60 12/04/21 20:15 Intake & Output 12/05/21 12/06/21 12/06/21 18:59 06:59 18:59 Intake Total 1804.446 480.384 196.024 Output Total 611 596 170 Balance 1193.446 -115.616 26.024 Weight 59.7 kg 64.9 kg Intake: IV 468 477 104 Lactated Ringers 1,000 ml 300 260 60 @ 20 mls/hr IV .Q24H [facility] Rx#:[id number] cardiac output 60 100 20 pressure bag 108 117 24 Intake, IV Titration 756.446 3.384 92.024 Amount Albumin Human 25% 50 ml 50 In Empty Bag 1 bag @ 50 mls/hr IVPB ONCE [facility] Rx#: [id number] Albumin Human 5% 250 ml 500 In Empty Bag 1 bag @ 250 mls/hr IVPB ONCE [facility] Rx#: [id number] Insulin Regular 100 unit 13.677 3.384 In Sodium Chloride 0.9% 100 ml @ Per Protocol IV .Q0M [facility] Rx#:[id number] Magnesium Sulfate-D5w Pmx 100 1 gm In Dextrose/Water 1 100ml.bag @ 100 mls/hr IVPB Q1H [facility] Rx#: [id number] Milrinone-D5w Pmx 20 mg 92.769 42.024 In Dextrose/Water 1 100ml .bag @ 0.1 MCG/KG/MIN 1. 727 mls/hr IV .Q24H [facility] Rx#:[id number] ceFAZolin 2 gm In Sodium 50 Chloride 0.9% 50 ml @ 100 mls/hr IVPB Q8HR [facility] Rx# :[id number] Oral 580 Output: Chest Tube Drainage 391 296 80 left pleural 71 106 40 mediastinalx2 320 190 40 Urine 220 300 90 Other: Voiding Method Indwelling Catheter Indwelling Catheter Indwelling Catheter ABP, PAP, CO, CI - Last Documented Arterial Blood Pressure 140/54 Pulmonary Artery Pressure 24/10 Cardiac Output 4.9 Cardiac Index 3 - Exam No acute distress, oriented 3. Currently on room air. Saturations are 93%. HEENT examination is grossly unremarkable. Neck supple. Full range of motion. No adenopathy thyromegaly or neck vein distention. Cardiovascular examination reveals regular rhythm rate. S1-S2 normal. No S3 or S4. No discernible murmur noted. Heart rate 81 bpm. Lungs reveal clear breath sounds. Breath sounds are equal bilaterally. No adventitious lung sounds including wheezes rhonchi or crackles. Room air saturation is 93%. Abdomen soft bowel sounds are heard. No masses or tenderness. Extremities are intact. No cyanosis clubbing or edema. Skin is without rash or lesion. Neurologic examination is brief but nonfocal. - Labs CBC & Chem 7: 12/06/21 03:55 12/06/21 03:55 Labs: Abnormal Lab Results - Last 24 Hours (Table) 12/05/21 12/05/21 12/05/21 Range/Units 11:03 11:52 13:28 RBC (3.80-5.40) m/uL Hgb (11.4-16.0) gm/dL Hct (34.0-46.0) % Plt Count (150-450) k/uL Monocytes # (0-1.0) k/uL Sodium (137-145) mmol/L Chloride (98-107) mmol/L POC Glucose (mg/dL) 139 H 145 H 167 H (70-110) mg/dL Calcium (8.4-10.2) mg/dL Magnesium (1.6-2.3) mg/dL AST (14-36) U/L Total Protein (6.3-8.2) g/dL Albumin (3.5-5.0) g/dL 12/05/21 12/05/21 12/05/21 Range/Units 14:46 15:53 16:48 RBC (3.80-5.40) m/uL Hgb (11.4-16.0) gm/dL Hct (34.0-46.0) % Plt Count (150-450) k/uL Monocytes # (0-1.0) k/uL Sodium (137-145) mmol/L Chloride (98-107) mmol/L POC Glucose (mg/dL) 142 H 132 H 132 H (70-110) mg/dL Calcium (8.4-10.2) mg/dL Magnesium (1.6-2.3) mg/dL AST (14-36) U/L Total Protein (6.3-8.2) g/dL Albumin (3.5-5.0) g/dL 12/05/21 12/05/21 12/05/21 Range/Units 18:09 20:01 20:57 RBC (3.80-5.40) m/uL Hgb (11.4-16.0) gm/dL Hct (34.0-46.0) % Plt Count (150-450) k/uL Monocytes # (0-1.0) k/uL Sodium (137-145) mmol/L Chloride (98-107) mmol/L POC Glucose (mg/dL) 145 H 124 H 114 H (70-110) mg/dL Calcium (8.4-10.2) mg/dL Magnesium (1.6-2.3) mg/dL AST (14-36) U/L Total Protein (6.3-8.2) g/dL Albumin (3.5-5.0) g/dL 12/05/21 12/05/21 12/05/21 Range/Units 21:57 22:53 23:50 RBC (3.80-5.40) m/uL Hgb (11.4-16.0) gm/dL Hct (34.0-46.0) % Plt Count (150-450) k/uL Monocytes # (0-1.0) k/uL Sodium (137-145) mmol/L Chloride (98-107) mmol/L POC Glucose (mg/dL) 113 H 113 H 114 H (70-110) mg/dL Calcium (8.4-10.2) mg/dL Magnesium (1.6-2.3) mg/dL AST (14-36) U/L Total Protein (6.3-8.2) g/dL Albumin (3.5-5.0) g/dL 12/06/21 12/06/21 Range/Units 03:55 03:55 RBC 2.24 L (3.80-5.40) m/uL Hgb 7.2 L D (11.4-16.0) gm/dL Hct 21.3 L (34.0-46.0) % Plt Count 77 L (150-450) k/uL Monocytes # 1.1 H (0-1.0) k/uL Sodium 129 L (137-145) mmol/L Chloride 96 L (98-107) mmol/L POC Glucose (mg/dL) (70-110) mg/dL Calcium 8.2 L (8.4-10.2) mg/dL Magnesium 2.4 H (1.6-2.3) mg/dL AST 56 H (14-36) U/L Total Protein 4.8 L (6.3-8.2) g/dL Albumin 3.3 L (3.5-5.0) g/dL Assessment and Plan Assessment: Status post two-vessel bypass grafting, ligation of left atrial appendage, and transesophageal echocardiogram for coronary artery disease, postop day #2. Routine postoperative ventilator management, with timely extubation. Non-ST segment elevation myocardial infarction, with significant left main coronary disease, and a left dominant system. Patient to have bypass grafting on 12/04/2021. Hypertensive urgency, resolved. No evidence of significant chronic lung disease despite 25-30 years at tobacco use. Hyperlipidemia. Hypothyroidism. Hypertension. Irritable bowel syndrome. Family history of premature coronary disease. Plan: Plan dated 12/03/2021. I introduced myself to this patient. I interviewed her and examined her. The patient does not appear to have significant underlying chronic lung disease desp ite smoking a pack a day for 25-30 years. She quit back in 1991. A spirometry is not yet been done. Apparently the patient is going for bypass grafting tomorrow. Labs, x-rays, and medications are all reviewed. Additional recommendations and suggestions are forthcoming. I told the patient that my role is to first get her extubated from mechanical ventilation, and then second, to follow her during her hospital stay, and keep her lungs healthy, and to avoid, lung collapse, atelectasis, pneumonia, and pleural effusion. Plan dated 12/04/2021. The patient was seen in consultation yesterday. The patient spirometry with the family, and I did not have an opportunity the patient likely does not have any significant chronic lung disease. She quit cigarette smoking back in 1991. She does smoke about a pack a day for 25 years or so. She denies any chronic shortness of breath, cough, wheezing, or phlegm production. I did explain my role in patients undergoing bypass grafting. She had questions of which I answered. Plan dated 12/05/2021. The patient was extubated and a relatively timely fashion. Currently, she is on 3 L. We encouraged to deep breathe, cough, and clear secretions. We also encouraged her to use the incentive spirometer every hour. Labs, x-rays, and medications are all reviewed. She does have some bibasilar atelectasis. We will continue to follow the patient and make recommendations along the way. Preoperative spirometry were reviewed. Prognosis is thought to be generally good. Plan dated 12/06/2021. The patient appears to be doing relatively well. She's currently on room air. She is still on Primacor but that should be weaned off later today. The patient is also getting lactated Ringer's at 20 mL an hour. Labs, x-rays, and medications are reviewed. We encourage the patient to use incentive spirometer every hour while awake. We also recommend deep breathing, coughing, clearing of secretions. We will continue to follow along and make recommendations along the way. Time with Patient: Less than 30
[2021-12-06 11:54] LABS: Glucose,Whole Blood 101 mg/dL (70-110)
[2021-12-06] MEDS: INSULIN ASPART (NovoLOG) 100 UNIT/ML VIAL SQ SCH ×3 (12:12→20:03)
--- NOTE | 2021-12-06 12:17 | P.PN ---
Subjective Progress Note Date: 12/06/21 Patient is a pleasant 76-year-old female came in with complaints of a headache, congestion cough, postnasal drip and chest pain with some pleuritic competent the chest pain does radiate to the jaw because of which cardiology was consulted EKG showed ST depression in the inferior leads but note significant change compared to her previous EKG. Facet of troponin was negative and it went up to 0.688 because of which patient was started on IV heparin, and patient did receive nitro drip after which her chest pain did have improved as per the patient. Patient denied any previous history of coronary artery disease. Patient had a CT angios the chest whichRRR embolism but did show infiltrate in bilateral lower lung elaine consistent with pulmonary edema. Patient was started on chlorthalidone by pulmonary. Patient is slightly hyponatremic with serum sodium of 136. Patient blood pressure was high at 200s on admission. Etiology is planning and cardiac catheterization tomorrow COVID-19 influenza te sts are being obtained. Stress test about any ago showed mild fixed defect in the mid anterior wall. Medical decision 2019 showed mild nonobstructive coronary artery disease echo about any ago showed normal ejection fraction BNP is 259. Patient also complaining of the mild hemoptysis which resolved at this time 12/03/2021 Patient went down for right and left cardiac catheterization today which reveals a critical left main lesion. Echocardiogram shows an EF of 45 to 50% with apical septal and apex hypokinesis. Cardiothoracic team has been consulted for further evaluation of the critical lesion. She continues on chlorthalidone. Today her blood count is unremarkable, sodium 138, potassium 4.0, BUN 7, creatinine 0.71. Urinalysis negative. She is currently denying chest pain. Blood pressure 146/63, heart rate is sinus bradycardia. 93% room air. 12/04/2021 No acute events overnight. Patient is going for open heart surgery today with Dr Welsh, she will be monitored postoperatively in the intensive care unit. Patient had lipid panel completed, A1C 5.8. Hepatitis panel is negative. Current vitals, room air 98%, heart rate 57, blood pressure 144/68, temp 97.3. 12/05/2021 Patient is evaluated sitting up in chair in intensive care unit. She is postoperative day #1 coronary artery bypass grafting x 2 vessels. She reports pain mostly to her left chest tube site. She is having clear liquids for breakfast. Indwelling catheter in place. Continues with Right IJ swan/cordis, right art line, and mediastinal and left chest tubes in place. She required cleviprex gtt last night for elevated BP which is off currently and blood pressure today 117/66. Continues on primacor gtt. Received a dose of albumin this morning. Plan today is to increase activity level. Labs today showing white count 9.5, hgb 8.9, sodium 134, potassium 3.9, chloride 97, BUN 8, creatinine 0.55. Blood glucose in the 120s range. Magnesium 1.8 today. Continues on nasal cannula, encouraged patient to use incentive spirometer. 12/06/2021 Patient continues to be monitored closely in the ICU. She is postoperative day #2, 2 vessel CABG. Continues with left and mediastinal chest tubes. She continues with Cordis and art line in place. She received a dose of albumin today and also a dose of IV lasix 20 mg this morning. Primacor gtt has been discontinued. Diet is being increased and she is tolerating. Passing some gas, no BM. Blood sugars are running in the 90-100s and she has been off the insulin gtt. Accuchecks ACHS and sliding scale has been added. Labs today showing white count 7.6, hgb 7.2, sodium 129, potassium 3.9, chloride 96. Had low grade temp 99.5 today, blood pressure 104/60. She states her pain is better controlled today. Alert x 3. Urine output about 130 mls overnight. Chest xray shows asym metric elevation of left hemidiaphragm which will be monitored for now. Review of Systems Constitutional: Denied any fatigue denied any fever. Cardio vascular: denied any chest pain, palpitations, reports incisional pain Gastrointestinal: denied any nausea, vomiting, diarrhea, passing some gas, no BM. Pulmonary: Denied any shortness of breath cough Neurologic denied any new focal deficits All inpatient medications were reviewed and appropriate changes in these medications as dictated in the interval history and assessment and plan. PHYSICAL EXAMINATION: GENERAL: The patient is alert and oriented x3, not in any acute distress. Well developed, well nourished. HEENT: Pupils are round and equally reacting to light. EOMI. No scleral icterus. No conjunctival pallor. Normocephalic, atraumatic. No pharyngeal erythema. No thyromegaly. Patient does have sinus tenderness CARDIOVASCULAR: S1 and S2 present. No murmurs, rubs, or gallops. PULMONARY: Diminished bases. ABDOMEN: Soft, nontender, nondistended, normoactive bowel sounds. No palpable organomegaly. Left and mediastinal chest tubes present. MUSCULOSKELETAL: No joint swelling or deformity. EXTREMITIES: No cyanosis, clubbing, or pedal edema. NEUROLOGICAL: Gross neurological examination did not reveal any focal deficits. SKIN: No rashes. Post surgical dressing in tact Assessment and plan -Possible non-ST elevation myocardial infarction: Cath reveals critical disease in the left main -Postoperative day #2 coronary artery bypass grafting x 2 vessel -Hyponatremia -Possible hypertensive emergency: Blood pressure improved now, possible acute pulmonary edema from NSTEMI -Headache nasal congestion: Secondary to sinusitis most likely allergic -Hypothyroidism -Dyslipidemia -Hyperlipidemia -Former smoker GI prophylaxis: Protonix DVT prophylaxis: On IV heparin Full Code Plan Patient will continue to be monitored in intensive care unit. Blood sugars 100s today which will be monitored as diet increases, insulin gtt discontinued and patient will be started on sliding scale insulin. Encouraged to use incentive spirometer. Continues with cordis, art line and left/mediastinal chest tubes. Indwelling catheter in place for intake and output monitoring. Received a dose of lasix and albumin today. Labs will be repeated in the AM. Further recommendations from cardiothoracic team. The impression and plan of care has been dictated by Edwige Cardona, Nurse Practitioner as directed. Dr. Ramesh MD I have performed a history and physical examination and medical decision making of this patient, discussed the same with the dictator, and agree with the dictators assessment and plan as written, documented as a scribe. Based on total visit time, I have performed more than 50% of this visit. Objective - Vital Signs Vital signs: Vital Signs Temp 99.5 F 12/06/21 08:00 Pulse 77 12/06/21 11:00 Resp 20 12/06/21 11:00 BP 104/60 12/06/21 08:00 Pulse Ox 94 L 12/06/21 11:00 FiO2 60 12/04/21 20:15 Intake & Output 12/05/21 12/06/21 12/06/21 18:59 06:59 18:59 Intake Total 1804.446 480.384 222.024 Output Total 611 596 315 Balance 1193.446 -115.616 -92.976 Weight 59.7 kg 64.9 kg Intake: IV 468 477 130 Lactated Ringers 1,000 ml 300 260 80 @ 20 mls/hr IV .Q24H [facility] Rx#:[id number] cardiac output 60 100 20 pressure bag 108 117 30 Intake, IV Titration 756.446 3.384 92.024 Amount Albumin Human 25% 50 ml 50 In Empty Bag 1 bag @ 50 mls/hr IVPB ONCE ONE Rx#: [id number] Albumin Human 5% 250 ml 500 In Empty Bag 1 bag @ 250 mls/hr IVPB ONCE STA Rx#: [id number] Insulin Regular 100 unit 13.677 3.384 In Sodium Chloride 0.9% 100 ml @ Per Protocol IV .Q0M [facility] Rx#:[id number] Magnesium Sulfate-D5w Pmx 100 1 gm In Dextrose/Water 1 100ml.bag @ 100 mls/hr IVPB Q1H [facility] Rx#: [id number] Milrinone-D5w Pmx 20 mg 92.769 42.024 In Dextrose/Water 1 100ml .bag @ 0.1 MCG/KG/MIN 1. 727 mls/hr IV .Q24H [facility] Rx#:[id number] ceFAZolin 2 gm In Sodium 50 Chloride 0.9% 50 ml @ 100 mls/hr IVPB Q8HR [facility] Rx# :[id number] Oral 580 Output: Chest Tube Drainage 391 296 100 left pleural 71 106 40 mediastinalx2 320 190 60 Urine 220 300 215 Other: Voiding Method Indwelling Catheter Indwelling Catheter Indwelling Catheter ABP, PAP, CO, CI - Last Documented Arterial Blood Pressure 124/45 Pulmonary Artery Pressure 24/10 Cardiac Output 4.9 Cardiac Index 3 - Labs CBC & Chem 7: 12/06/21 03:55 12/06/21 03:55 Labs: Abnormal Lab Results - Last 24 Hours (Table) 12/05/21 12/05/21 12/05/21 Range/Units 13:28 14:46 15:53 RBC (3.80-5.40) m/uL Hgb (11.4-16.0) gm/dL Hct (34.0-46.0) % Plt Count (150-450) k/uL Monocytes # (0-1.0) k/uL Sodium (137-145) mmol/L Chloride (98-107) mmol/L POC Glucose (mg/dL) 167 H 142 H 132 H (70-110) mg/dL Calcium (8.4-10.2) mg/dL Magnesium (1.6-2.3) mg/dL AST (14-36) U/L Total Protein (6.3-8.2) g/dL Albumin (3.5-5.0) g/dL 12/05/21 12/05/21 12/05/21 Range/Units 16:48 18:09 20:01 RBC (3.80-5.40) m/uL Hgb (11.4-16.0) gm/dL Hct (34.0-46.0) % Plt Count (150-450) k/uL Monocytes # (0-1.0) k/uL Sodium (137-145) mmol/L Chloride (98-107) mmol/L POC Glucose (mg/dL) 132 H 145 H 124 H (70-110) mg/dL Calcium (8.4-10.2) mg/dL Magnesium (1.6-2.3) mg/dL AST (14-36) U/L Total Protein (6.3-8.2) g/dL Albumin (3.5-5.0) g/dL 12/05/21 12/05/21 12/05/21 Range/Units 20:57 21:57 22:53 RBC (3.80-5.40) m/uL Hgb (11.4-16.0) gm/dL Hct (34.0-46.0) % Plt Count (150-450) k/uL Monocytes # (0-1.0) k/uL Sodium (137-145) mmol/L Chloride (98-107) mmol/L POC Glucose (mg/dL) 114 H 113 H 113 H (70-110) mg/dL Calcium (8.4-10.2) mg/dL Magnesium (1.6-2.3) mg/dL AST (14-36) U/L Total Protein (6.3-8.2) g/dL Albumin (3.5-5.0) g/dL 12/05/21 12/06/21 12/06/21 Range/Units 23:50 03:55 03:55 RBC 2.24 L (3.80-5.40) m/uL Hgb 7.2 L D (11.4-16.0) gm/dL Hct 21.3 L (34.0-46.0) % Plt Count 77 L (150-450) k/uL Monocytes # 1.1 H (0-1.0) k/uL Sodium 129 L (137-145) mmol/L Chloride 96 L (98-107) mmol/L POC Glucose (mg/dL) 114 H (70-110) mg/dL Calcium 8.2 L (8.4-10.2) mg/dL Magnesium 2.4 H (1.6-2.3) mg/dL AST 56 H (14-36) U/L Total Protein 4.8 L (6.3-8.2) g/dL Albumin 3.3 L (3.5-5.0) g/dL Assessment and Plan Time with Patient: Less than 30
[2021-12-06 16:48] LABS: Glucose,Whole Blood 102 mg/dL (70-110)
[2021-12-06] MEDS: SENNOSIDES-DOCUSATE SODIUM 1 EACH TAB PO SCH (19:33)
[2021-12-06 20:04] LABS: Glucose,Whole Blood 135 mg/dL (70-110)
[2021-12-06] MEDS: PATIENT'S OWN (Mirabegron [Myrbetriq] 50 MG Tab.Er.24h) PO SCH (20:17)
[2021-12-07] MEDS ORDERED: MAG HYDROX/AL HYDROX/SIMETH 30 ML CUP PO PRN (02:39)
[2021-12-07 04:37] LABS: Basophils % (A) 0 %; Eosinophils # (A) 0.2 k/uL (0-0.7); Eosinophils % (A) 3 %; HCT 22.2 % (34.0-46.0); HGB 7.5 gm/dL (11.4-16.0); Lymphocytes # (A) 1.5 k/uL (1.0-4.8); Lymphocytes % (A) 20 %; MCH 32.3 pg (25.0-35.0); MCHC 33.6 g/dL (31.0-37.0); MCV 95.9 fL (80.0-100.0); Mean Platelet Volume 10.6; Monocytes % (A) 13 %; Neutrophils # (A) 4.7 k/uL (1.3-7.7); Neutrophils % (A) 62 %; Platelet Count 102 k/uL (150-450); RBC 2.31 m/uL (3.80-5.40); RDW 13.7 % (11.5-15.5); WBC 7.6 k/uL (3.8-10.6)
[2021-12-07 04:53] LABS: ALT 19 U/L (4-34); AST 56 U/L (14-36); African American GFR (CKD) >90 (>60 ml/min/1.73 sqM); Albumin 3.3 g/dL (3.5-5.0); Alkaline Phosphatase 74 U/L (38-126); Anion Gap 10 mmol/L; Blood Urea Nitrogen 19 mg/dL (7-17); Calcium 8.3 mg/dL (8.4-10.2); Carbon Dioxide 24 mmol/L (22-30); Chloride 96 mmol/L (98-107); Glucose 102 mg/dL (74-99); Non-African American GFR(CKD) 86 (>60 ml/min/1.73 sqM); Potassium 3.9 mmol/L (3.5-5.1); Sodium 130 mmol/L (137-145); Total Bilirubin 0.6 mg/dL (0.2-1.3); Total Protein 4.9 g/dL (6.3-8.2)
[2021-12-07] MEDS: KETOROLAC 15 MG/ML 1 ML VIAL IVP SCH ×3 (06:44→18:00)
[2021-12-07 06:45] LABS: Glucose,Whole Blood 101 mg/dL (70-110)
[2021-12-07] MEDS: PANTOPRAZOLE 40 MG TABLET PO SCH (06:45)
[2021-12-07] MEDS: LEVOTHYROXINE 25 MCG TAB PO SCH (06:45)
[2021-12-07] MEDS: INSULIN ASPART (NovoLOG) 100 UNIT/ML VIAL SQ SCH ×4 (06:45→20:49)
[2021-12-07] MEDS ORDERED: SENNOSIDES-DOCUSATE SODIUM 1 EACH TAB PO PRN (06:51)
[2021-12-07] MEDS ORDERED: POTASSIUM CHLORIDE ER 20 MEQ TAB.ER PO SCH (07:00)
--- NOTE | 2021-12-07 07:24 | P.PN ---
Subjective Progress Note Date: 12/07/21 Principal diagnosis: Left main coronary artery disease with left dominant system, non-STEMI this admission, hypertensive urgency on admission. Previous medical history of hypertension, hyperlipidemia, hypothyroid, dementia, previous tobacco dependence with mild COPD, IBS, family history of premature coronary artery disease. Vaccinated and boosted against Covid. Preoperative nasal swab positive for MSSA POD #3 coronary artery bypass grafting 2 vessels, left internal mammary artery to the left anterior descending artery, reverse saphenous vein graft to the obtuse marginal artery, endoscopic harvesting of the right greater saphenous vein, ligation of the left atrial appendage using a 35 mm AtriClip, epi-aortic ultrasound, intraoperative transesophageal echocardiogram Postoperative acute blood loss anemia and thrombocytopenia, expected given hemodilution and cardiopulmonary bypass pump The patient was seen and examined this morning sitting up in a recliner in the ICU in no acute distress. Remains in sinus rhythm, hemodynamically stable off IV Primacor. States post surgical pain is controlled with current medication regimen and in fact hasn't taken any narcotics in 24 hours, denies shortness of breath. Currently on room air with oxygen saturation in the mid 90s. Urine output picked up after IV albumin/lasix yesterday. Right internal jugular Cordis, right radial arterial line, mediastinal/left pleural chest tubes all remaining. CXR reviewed, all findings typical for post open heart. No other new concerns. Objective - Vital Signs Vital signs: Vital Signs Temp 98.7 F 12/07/21 04:00 Pulse 80 12/07/21 07:00 Resp 14 12/07/21 07:00 BP 140/78 12/07/21 07:00 Pulse Ox 97 12/07/21 07:00 FiO2 60 12/04/21 20:15 Intake & Output 12/06/21 12/07/21 12/07/21 18:59 06:59 18:59 Intake Total 764.024 338 Output Total 860 1140 Balance -95.976 -802 Weight 64.4 kg Intake: IV 312 338 Lactated Ringers 1,000 ml 220 260 @ 20 mls/hr IV .Q24H [facility] Rx#:[id number] cardiac output 20 pressure bag 72 78 Intake, IV Titration 92.024 Amount Albumin Human 25% 50 ml 50 In Empty Bag 1 bag @ 50 mls/hr IVPB ONCE ONE Rx#: [id number] Milrinone-D5w Pmx 20 mg 42.024 In Dextrose/Water 1 100ml .bag @ 0.1 MCG/KG/MIN 1. 727 mls/hr IV .Q24H [facility] Rx#:[id number] Oral 360 Output: Chest Tube Drainage 190 110 left pleural 80 40 mediastinalx2 110 70 Urine 670 1030 Other: Voiding Method Indwelling Catheter Indwelling Catheter # Bowel Movements 1 ABP, PAP, CO, CI - Last Documented Arterial Blood Pressure 137/61 Pulmonary Artery Pressure 24/10 Cardiac Output 4.9 Cardiac Index 3 - Exam CONSTITUTIONAL: Appears comfortable, cooperative, no acute distress RESPIRATORY: Lungs sounds diminished bilaterally. Respirations even, nonlabored. Currently on room air with oxygen saturation 94%. Able to achieve 1250 mL on incentive spirometry. Weak cough. CARDIOVASCULAR: S1, S2 present. Regular rate and rhythm, sinus rhythm on telemetry. Sternum stable. Palpable peripheral pulses bilaterally. No edema present. No calf pain or tenderness noted. Heart hugger in place with patient demonstrating appropriate use. Antiembolism stockings, SCDs present. GASTROINTESTINAL: Abdomen soft, nontender, nondistended. Active bowel sounds present 4 quadrants. Tolerating diet. Positive bowel movement GENITOURINARY: Jose present draining clear, yellow urine. Output overnight 80-125 mL per hour, 1580 mL in the last 24 hours INTEGUMENTARY: Skin is warm and dry with evidence of good perfusion. Anterior chest incision well approximated and covered with dry intact dressing. Right lower extremity EVH site well approximated without redness or drainage. NEUROLOGIC: Cranial nerves II through XII intact MUSKULOSKELETAL: Able to move all extremities, strength equal bilaterally PSYCHIATRIC: Alert, oriented to person place and time, appropriate affect, intact judgment and insight INVASIVE LINES AND TUBES: Mediastinal/left pleural chest tubes present and connected to wall suction, no airleak present. Mediastinal tube with 60 mL serosanguineous drainage overnight, 200 mL the last 24 hours. Left pleural ches t tube with 40 mL serosanguineous drainage overnight, 150 mL the last 24 hours. A/V epicardial pacemaker wires present, grounded. Right internal jugular Cordis, right radial arterial line present. - Labs CBC & Chem 7: 12/07/21 04:25 12/07/21 04:25 Labs: Abnormal Lab Results - Last 24 Hours (Table) 12/06/21 12/07/21 12/07/21 Range/Units 20:02 04:25 04:25 RBC 2.31 L (3.80-5.40) m/uL Hgb 7.5 L (11.4-16.0) gm/dL Hct 22.2 L (34.0-46.0) % Plt Count 102 L (150-450) k/uL Sodium 130 L (137-145) mmol/L Chloride 96 L (98-107) mmol/L BUN 19 H (7-17) mg/dL Glucose 102 H (74-99) mg/dL POC Glucose (mg/dL) 135 H (70-110) mg/dL Calcium 8.3 L (8.4-10.2) mg/dL AST 56 H (14-36) U/L Total Protein 4.9 L (6.3-8.2) g/dL Albumin 3.3 L (3.5-5.0) g/dL - Imaging and Cardiology Chest x-ray: image reviewed Assessment and Plan Assessment: 1. Left main coronary artery disease with left dominant system, non-STEMI this admission, status post 2 vessel CABG 2. History of hypertension with hypertensive urgency on admission 3. Reduced left ventricular systolic function with EF 45-50%, mild MR and TR per transthoracic echo 4. Hyperlipidemia, treated, cholesterol 149, LDL 77 5. Hypothyroid, TSH 1.17 6. Previous tobacco dependence with mild COPD, FEV1 61% of predicted 7. IBS 8. Family history of premature coronary artery disease 9. Vaccinated and boosted against Covid 10. Preoperative nasal swab positive for MSSA, treated 11. Postoperative acute blood loss anemia and thrombocytopenia, expected Plan: 1. Continue to maximize medical therapy with aspirin, statin, Plavix, beta gian therapy. Will increase beta gian as tolerated, increased to 25 mg BID today. Will add in low dose TOM for afterload reduction 2. Discontinue cordis, arterial line 3. Encourage incentive spirometry use 10 times every hour while awake. Bronchodilators per pulmonology 4. Increase activity, ambulate as tolerated. PT/OT/cardiac rehab consulted 5. Will monitor daily labs and x-rays. Electrolyte replacement per protocol. No transfusion at this time 6. GI/DVT prophylaxis 7. Pain control with current medication regimen 8. Insulin management per internal medicine. Patient is not diabetic, preoperative hemoglobin A1c 5.7% 9. Will discontinue chest tubes 10. Discontinue Jose catheter, may bladder scan and straight cath for >300 mL residual 11. Strict accurate intake and output. Daily weights. Shower daily starting tomorrow 12. Likely will place transfer [facility]. May transfer when bed available 13. More recommendations to follow
--- NOTE | 2021-12-07 07:34 | XR ---
EXAMINATION TYPE: XR chest 1V portable DATE OF EXAM: 12/07/2021 Comparison: 12/06/2021 Clinical History: 76-year-old female post cardiac surgery Findings: ACF hardware. Interval removal of the right IJ [place] catheter. Right IJ sheath remains in place. Median sternotomy wires with multiple CABG clips in the mediastinum. Mediastinal drains and epicardia l pacer leads remain in place. Left-sided chest tube remains in place. No definite pneumothorax. Hear t mildly enlarged. Continued asymmetric elevation left hemidiaphragm. Mild patchy bibasilar opacities remain. Trace right pleural effusion remains. Impression: 1. No appreciable pneumothorax. Left-sided chest tube remains in place. 2. Continued trace right effusion, mild cardiomegaly, and mild patchy bibasilar atelectasis/consolida tion. 3. Unchanged asymmetric elevation left hemidiaphragm.
[2021-12-07] MEDS: IPRATROPIUM-ALBUTEROL 3 ML NEB INHALATION SCH ×4 (07:59→20:42)
[2021-12-07] MEDS: ASPIRIN 325 MG TAB PO SCH (08:20)
[2021-12-07] MEDS: HEPARIN SODIUM,PORCINE/PF 5,000 UNIT/0.5 ML SYRINGE SQ SCH ×2 (08:20→16:41)
[2021-12-07] MEDS: ASCORBIC ACID 500 MG TAB PO SCH ×2 (08:20→16:41)
[2021-12-07] MEDS: CLOPIDOGREL 75 MG TAB PO SCH (08:20)
[2021-12-07] MEDS: PARoxetine 20 MG TAB PO SCH (08:20)
[2021-12-07] MEDS: ATORVASTATIN 40 MG TAB PO SCH (08:20)
[2021-12-07] MEDS: FERROUS SULFATE 325 MG TAB PO SCH ×2 (08:20→16:41)
[2021-12-07] MEDS: DIVALPROEX 500 MG TABLET.DR PO SCH ×2 (08:20→21:24)
[2021-12-07] MEDS: METOPROLOL TARTRATE 25 MG TAB PO SCH ×2 (08:20→21:24)
[2021-12-07] MEDS: MUPIROCIN 2% OINT 22 GM TUBE NASAL SCH ×2 (08:21→21:24)
--- NOTE | 2021-12-07 08:34 | P.PN ---
Subjective Progress Note Date: 12/07/21 PROGRESS NOTE The patient is a 76-year-old male who presented with acute coronary syndrome, underwent cardiac catheterization, was found to have severe CAD with severe left main disease, underwent LANE to the LAD and SVG to the OM. She is awake, alert, in sinus mechanism. She denies any chest discomfort, dizziness or palpitations. She is anxious to go home. Hemodynamically she is stable. Her baseline echocardiogram showed an ejection fraction of 45-50%. Medications: Aspirin once a day, Lipitor 40 mg daily, Plavix 75 mg daily, Lisinopril 2.5 mg daily, metoprolol 25 mg twice a day PHYSICAL EXAMINATION: Blood pressure 140/70 heart rate 80 LUNGS: Few crackles at the bases HEART: Regular rate and rhythm, S1, S2. No S3. No systolic murmur ABDOMEN: Soft, nontender, no organomegaly EXTREMETIES: No edema LAB: BUN 19, creatinine 0.68, potassium 3.9, hemoglobin 7.5 IMPRESSION: 1. Status post CABG, stable 2. Mild cardiomyopathy preoperatively 3. History of hypertension 4. History of hyperlipidemia PLAN: 1. Continue present therapy 2. Increase physical activity 3. Removed chest tube 4. Continue incentive spirometry 5. Probably transfer to telemetry Objective - Vital Signs Vital signs: Vital Signs Temp 98.7 F 12/07/21 04:00 Pulse 82 12/07/21 08:07 Resp 18 12/07/21 08:07 BP 140/78 12/07/21 07:00 Pulse Ox 94 L 12/07/21 07:59 FiO2 60 12/04/21 20:15 Intake & Output 12/06/21 12/07/21 12/07/21 18:59 06:59 18:59 Intake Total 764.024 338 Output Total 860 1140 Balance -95.976 -802 Weight 64.4 kg Intake: IV 312 338 Lactated Ringers 1,000 ml 220 260 @ 20 mls/hr IV .Q24H [facility] Rx#:[id number] cardiac output 20 pressure bag 72 78 Intake, IV Titration 92.024 Amount Albumin Human 25% 50 ml 50 In Empty Bag 1 bag @ 50 mls/hr IVPB ONCE ONE Rx#: [id number] Milrinone-D5w Pmx 20 mg 42.024 In Dextrose/Water 1 100ml .bag @ 0.1 MCG/KG/MIN 1. 727 mls/hr IV .Q24H [facility] Rx#:[id number] Oral 360 Output: Chest Tube Drainage 190 110 left pleural 80 40 mediastinalx2 110 70 Urine 670 1030 Other: Voiding Method Indwelling Catheter Indwelling Catheter # Bowel Movements 1 ABP, PAP, CO, CI - Last Documented Arterial Blood Pressure 137/61 Pulmonary Artery Pressure 24/10 Cardiac Output 4.9 Cardiac Index 3 - Labs CBC & Chem 7: 12/07/21 04:25 12/07/21 04:25 Labs: Abnormal Lab Results - Last 24 Hours (Table) 12/06/21 12/07/21 12/07/21 Range/Units 20:02 04:25 04:25 RBC 2.31 L (3.80-5.40) m/uL Hgb 7.5 L (11.4-16.0) gm/dL Hct 22.2 L (34.0-46.0) % Plt Count 102 L (150-450) k/uL Sodium 130 L (137-145) mmol/L Chloride 96 L (98-107) mmol/L BUN 19 H (7-17) mg/dL Glucose 102 H (74-99) mg/dL POC Glucose (mg/dL) 135 H (70-110) mg/dL Calcium 8.3 L (8.4-10.2) mg/dL AST 56 H (14-36) U/L Total Protein 4.9 L (6.3-8.2) g/dL Albumin 3.3 L (3.5-5.0) g/dL
--- NOTE | 2021-12-07 10:46 | P.PN ---
Subjective Progress Note Date: 12/07/21 On today's evaluation of 12/07/2021, the patient is postop day #3. This was an urgent coronary artery bypass surgery and the patient underwent LANE to LAD and SVG to OM. The patient is currently in the intensive care unit and she is resting comfortably. She is able to sit up on a recliner. Her oxygenation has improved and the patient is currently on room air oxygen. The patient is hemodynamically stable. Cardiac rhythm is sinus. The AV wires are grounded at this point in time and the patient is on a combination of metoprolol 25 mg by mouth twice a day and lives in June 20 0.5 mg by mouth daily. All of the catheters are removed. The chest tubes in the mediastinum have been removed and the patient has a left pleural chest tube. Output is minimal at this point in time and we are considering removing the chest tube today. The sodium levels of 1:30 with a chloride of 96 and a bicarb of 24 with a BUN of 19 and a creatinine of 0.6. The white cell count is 7.6 with a hemoglobin of 7.5. Her comorbid conditions include hypertension, hypothyroidism, IBS, chronic anxiety, COPD, depression, history of falls, history of dementia and acid reflux. The patient has undergone also previous cervical spine fusion. She does have COPD. The patient's preoperative FEV1 was in the order of 61% of predicted. The patient is using incentive spirometer. The patient is pulling approximately 750 on her IS Objective - Vital Signs Vital signs: Vital Signs Temp 98 F 12/07/21 08:00 Pulse 89 12/07/21 09:00 Resp 16 12/07/21 09:00 BP 126/82 12/07/21 09:00 Pulse Ox 95 12/07/21 09:00 FiO2 60 12/04/21 20:15 Intake & Output 12/06/21 12/07/21 12/07/21 18:59 06:59 18:59 Intake Total 764.024 338 266 Output Total 860 1140 295 Balance -95.976 -802 -29 Weight 64.4 kg Intake: IV 312 338 26 Lactated Ringers 1,000 ml 220 260 20 @ 20 mls/hr IV .Q24H [facility] Rx#:[id number] cardiac output 20 pressure bag 72 78 6 Intake, IV Titration 92.024 Amount Albumin Human 25% 50 ml 50 In Empty Bag 1 bag @ 50 mls/hr IVPB ONCE ONE Rx#: [id number] Milrinone-D5w Pmx 20 mg 42.024 In Dextrose/Water 1 100ml .bag @ 0.1 MCG/KG/MIN 1. 727 mls/hr IV .Q24H [facility] Rx#:[id number] Oral 360 240 Output: Chest Tube Drainage 190 110 20 left pleural 80 40 10 mediastinalx2 110 70 10 Urine 670 1030 275 Other: Voiding Method Indwelling Catheter Indwelling Catheter Indwelling Catheter # Bowel Movements 1 ABP, PAP, CO, CI - Last Documented Arterial Blood Pressure 68/61 Pulmonary Artery Pressure 24/10 Cardiac Output 4.9 Cardiac Index 3 - Exam CONSTITUTIONAL: Appears comfortable, cooperative, no acute distress RESPIRATORY: Lungs sounds diminished bilaterally. Respirations even, nonlabored. Currently on room air with oxygen saturation 94%. Able to achieve 1250 mL on incentive spirometry. Weak cough. CARDIOVASCULAR: S1, S2 present. Regular rate and rhythm, sinus rhythm on telemetry. Sternum stable. Palpable peripheral pulses bilaterally. No edema present. No calf pain or tenderness noted. Heart hugger in place with patient demonstrating appropriate use. Antiembolism stockings, SCDs present. GASTROINTESTINAL: Abdomen soft, nontender, nondistended. Active bowel sounds p resent 4 quadrants. Tolerating diet. Positive bowel movement GENITOURINARY: Jose present draining clear, yellow urine. Output overnight 80-125 mL per hour, 1580 mL in the last 24 hours INTEGUMENTARY: Skin is warm and dry with evidence of good perfusion. Anterior chest incision well approximated and covered with dry intact dressing. Right lower extremity EVH site well approximated without redness or drainage. NEUROLOGIC: Cranial nerves II through XII intact MUSKULOSKELETAL: Able to move all extremities, strength equal bilaterally PSYCHIATRIC: Alert, oriented to person place and time, appropriate affect, intact judgment and insight INVASIVE LINES AND TUBES: Mediastinal/left pleural chest tubes present and connected to wall suction, no airleak present. Mediastinal tube with 60 mL serosanguineous drainage overnight, 200 mL the last 24 hours. Left pleural chest tube with 40 mL serosanguineous drainage overnight, 150 mL the last 24 hours. A/V epicardial pacemaker wires present, grounded. Right internal jugular Cordis, right radial arterial line present. - Labs CBC & Chem 7: 12/07/21 04:25 09/19/22 04:25 Labs: Abnormal Lab Results - Last 24 Hours (Table) 12/06/21 12/07/21 12/07/21 Range/Units 20:02 04:25 04:25 RBC 2.31 L (3.80-5.40) m/uL Hgb 7.5 L (11.4-16.0) gm/dL Hct 22.2 L (34.0-46.0) % Plt Count 102 L (150-450) k/uL Sodium 130 L (137-145) mmol/L Chloride 96 L (98-107) mmol/L BUN 19 H (7-17) mg/dL Glucose 102 H (74-99) mg/dL POC Glucose (mg/dL) 135 H (70-110) mg/dL Calcium 8.3 L (8.4-10.2) mg/dL AST 56 H (14-36) U/L Total Protein 4.9 L (6.3-8.2) g/dL Albumin 3.3 L (3.5-5.0) g/dL Assessment and Plan Plan: Status post two-vessel bypass grafting, ligation of left atrial appendage, and transesophageal echocardiogram for coronary artery disease, postop day #3. The patient is hemodynamically stable and she is doing well for now. Routine postoperative ventilator management, with timely extubation. The patient is currently on room air oxygen. The patient continues to have a left pleural chest tube in place. The chest x-ray from today is showing adequate expansion of both lungs. No evidence of any pneumothorax. The chest tube is in place. The left hemidiaphragm is slightly elevated. His post thoracotomy scar and wires and the patient also has a plate in her cervical spine area. Underlying thoracic scoliosis. Non-ST segment elevation myocardial infarction, with significant left main coronary disease, and a left dominant system. Patient to have bypass grafting on 12/04/2021. Hypertensive urgency, resolved. No evidence of significant chronic lung disease despite 25-30 years at tobacco use. Hyperlipidemia. Hypothyroidism. Hypertension. Irritable bowel syndrome. Family history of premature coronary disease. COPD with a preop FEV1 of 63% of predicted Dementia, mild. Plan This was an urgent bypass surgery and the patient underwent two-vessel bypass. Patient is recovering nicely at this point in time. She is on beta blockers and the dose is being modified to 25 mg of metoprolol twice a day. Continue using incentive spirometer Possibly remove the chest tube today Continue monitoring her hemodynamics here in the ICU and possibly move her to a telemetry unit today Insulin management with sliding scale coverage. The patient has a HbA1c of 5.7. Continue aspirin and Plavix Pain is under adequate control for now Cardiac rhythm is sinus AV wires are grounded We'll continue to follow
[2021-12-07 11:36] LABS: Glucose,Whole Blood 104 mg/dL (70-110)
--- NOTE | 2021-12-07 16:16 | P.PN ---
Subjective Progress Note Date: 12/07/21 Patient is a pleasant 76-year-old female came in with complaints of a headache, congestion cough, postnasal drip and chest pain with some pleuritic competent the chest pain does radiate to the jaw because of which cardiology was consulted EKG showed ST depression in the inferior leads but note significant change compared to her previous EKG. Facet of troponin was negative and it went up to 0.688 because of which patient was started on IV heparin, and patient did receive nitro drip after which her chest pain did have improved as per the patient. Patient denied any previous history of coronary artery disease. Patient had a CT angios the chest whichRRR embolism but did show infiltrate in bilateral lower lung elaine consistent with pulmonary edema. Patient was started on chlorthalidone by pulmonary. Patient is slightly hyponatremic with serum sodium of 136. Patient blood pressure was high at 200s on admission. Etiology is planning and cardiac catheterization tomorrow COVID-19 influenza te sts are being obtained. Stress test about any ago showed mild fixed defect in the mid anterior wall. Medical decision 2019 showed mild nonobstructive coronary artery disease echo about any ago showed normal ejection fraction BNP is 259. Patient also complaining of the mild hemoptysis which resolved at this time 12/03/2021 Patient went down for right and left cardiac catheterization today which reveals a critical left main lesion. Echocardiogram shows an EF of 45 to 50% with apical septal and apex hypokinesis. Cardiothoracic team has been consulted for further evaluation of the critical lesion. She continues on chlorthalidone. Today her blood count is unremarkable, sodium 138, potassium 4.0, BUN 7, creatinine 0.71. Urinalysis negative. She is currently denying chest pain. Blood pressure 146/63, heart rate is sinus bradycardia. 93% room air. 12/04/2021 No acute events overnight. Patient is going for open heart surgery today with Dr Welsh, she will be monitored postoperatively in the intensive care unit. Patient had lipid panel completed, A1C 5.8. Hepatitis panel is negative. Current vitals, room air 98%, heart rate 57, blood pressure 144/68, temp 97.3. 12/05/2021 Patient is evaluated sitting up in chair in intensive care unit. She is postoperative day #1 coronary artery bypass grafting x 2 vessels. She reports pain mostly to her left chest tube site. She is having clear liquids for breakfast. Indwelling catheter in place. Continues with Right IJ swan/cordis, right art line, and mediastinal and left chest tubes in place. She required cleviprex gtt last night for elevated BP which is off currently and blood pressure today 117/66. Continues on primacor gtt. Received a dose of albumin this morning. Plan today is to increase activity level. Labs today showing white count 9.5, hgb 8.9, sodium 134, potassium 3.9, chloride 97, BUN 8, creatinine 0.55. Blood glucose in the 120s range. Magnesium 1.8 today. Continues on nasal cannula, encouraged patient to use incentive spirometer. 12/06/2021 Patient continues to be monitored closely in the ICU. She is postoperative day #2, 2 vessel CABG. Continues with left and mediastinal chest tubes. She continues with Cordis and art line in place. She received a dose of albumin today and also a dose of IV lasix 20 mg this morning. Primacor gtt has been discontinued. Diet is being increased and she is tolerating. Passing some gas, no BM. Blood sugars are running in the 90-100s and she has been off the insulin gtt. Accuchecks ACHS and sliding scale has been added. Labs today showing white count 7.6, hgb 7.2, sodium 129, potassium 3.9, chloride 96. Had low grade temp 99.5 today, blood pressure 104/60. She states her pain is better controlled today. Alert x 3. Urine output about 130 mls overnight. Chest xray shows asym metric elevation of left hemidiaphragm which will be monitored for now. 12/07/2021 Patient is evaluated in intensive care unit she is sitting up in the chair, post operative day #3 2 vessel bypass grafting. Her main complaint today is abdominal pain and cramping. She does have history of IBS and reports having a BM today. She is tolerating some diet, advanced to heart healthy. Consider adding protein supplement with meals. Blood sugars in the 100s continues on sliding scale with meals. Sodium is 130 today, creatinine 0.68. Hgb stable at 7.5, no white count. Blood pressure 111/52, She is maintaining sinus rhythm and pacer wires are grounded. Mediastinal chest tube has been removed today. Patient continues with left pleural chest tube. All other lines have been discontinued she is off all gtts. She is being considered for transfer out of ICU today. Review of Systems Constitutional: Denied any fatigue denied any fever. Cardio vascular: denied any chest pain, palpitations, reports incisional pain Gastrointestinal: denied any nausea, vomiting, diarrhea. Has some abdominal discomfort had BM today. Pulmonary: Denied any shortness of breath cough Neurologic denied any new focal deficits All inpatient medications were reviewed and appropriate changes in these medications as dictated in the interval history and assessment and plan. PHYSICAL EXAMINATION: GENERAL: The patient is alert and oriented x3, not in any acute distress. Well developed, well nourished. HEENT: Pupils are round and equally reacting to light. EOMI. No scleral icterus. No conjunctival pallor. Normocephalic, atraumatic. No pharyngeal erythema. No thyromegaly. Patient does have sinus tenderness CARDIOVASCULAR: S1 and S2 present. No murmurs, rubs, or gallops. PULMONARY: Diminished bases. ABDOMEN: Soft, nontender, nondistended, normoactive bowel sounds. No palpable organomegaly. Left and mediastinal chest tubes present. MUSCULOSKELETAL: No joint swelling or deformity. EXTREMITIES: No cyanosis, clubbing, or pedal edema. NEUROLOGICAL: Gross neurological examination did not reveal any focal deficits. SKIN: No rashes. Post surgical dressing in tact Assessment and plan -Possible non-ST elevation myocardial infarction: Cath reveals critical disease in the left main and patient underwent urgent bypass grafting. -Postoperative day #3 coronary artery bypass grafting x 2 vessel -Asymmetric elevation left hemidiaphragm being monitored -Hyponatremia -Possible hypertensive emergency: Blood pressure improved now, possible acute pulmonary edema from NSTEMI -Headache nasal congestion: Secondary to sinusitis most likely allergic -Hypothyroidism -Dyslipidemia -Hyperlipidemia -Former smoker GI prophylaxis: Protonix DVT prophylaxis: On IV heparin Full Code Plan Patient will continue to be monitored in intensive care unit possible downgrade to telemetry. Blood sugars 100s today which will be monitored, diet advanced to heart healthy. Encouraged to use incentive spirometer. Encourage ambulation. Patient continues with left chest tube. Labs are being repeated tomorrow. She will also have follow chest xray tomorrow. Continue to monitor. She is being considered for transfer out of ICU today. The impression and plan of care has been dictated by Nurse Nubia Hernandez as directed. Dr. Ramesh MD I have performed a history and physical examination and medical decision making of this patient, discussed the same with the dictator, and agree with the dict ators assessment and plan as written, documented as a scribe. Based on total visit time, I have performed more than 50% of this visit. Objective - Vital Signs Vital signs: Vital Signs Temp 98.2 F 12/07/21 12:00 Pulse 80 12/07/21 12:04 Resp 16 12/07/21 12:04 BP 111/52 12/07/21 12:00 Pulse Ox 97 12/07/21 12:00 FiO2 60 12/04/21 20:15 Intake & Output 12/06/21 12/07/21 12/07/21 18:59 06:59 18:59 Intake Total 764.024 338 506 Output Total 860 1140 295 Balance -95.976 -802 211 Weight 64.4 kg Intake: IV 312 338 26 Lactated Ringers 1,000 ml 220 260 20 @ 20 mls/hr IV .Q24H [facility] Rx#:[id number] cardiac output 20 pressure bag 72 78 6 Intake, IV Titration 92.024 Amount Albumin Human 25% 50 ml 50 In Empty Bag 1 bag @ 50 mls/hr IVPB ONCE ONE Rx#: [id number] Milrinone-D5w Pmx 20 mg 42.024 In Dextrose/Water 1 100ml .bag @ 0.1 MCG/KG/MIN 1. 727 mls/hr IV .Q24H [facility] Rx#:[id number] Oral 360 480 Output: Chest Tube Drainage 190 110 20 left pleural 80 40 10 mediastinalx2 110 70 10 Urine 670 1030 275 Other: Voiding Method Indwelling Catheter Indwelling Catheter Indwelling Catheter # Voids 1 # Bowel Movements 1 1 ABP, PAP, CO, CI - Last Documented Arterial Blood Pressure 68/61 Pulmonary Artery Pressure 24/10 Cardiac Output 4.9 Cardiac Index 3 - Labs CBC & Chem 7: 12/07/21 04:25 12/07/21 04:25 Labs: Abnormal Lab Results - Last 24 Hours (Table) 12/06/21 12/07/21 12/07/21 Range/Units 20:02 04:25 04:25 RBC 2.31 L (3.80-5.40) m/uL Hgb 7.5 L (11.4-16.0) gm/dL Hct 22.2 L (34.0-46.0) % Plt Count 102 L (150-450) k/uL Sodium 130 L (137-145) mmol/L Chloride 96 L (98-107) mmol/L BUN 19 H (7-17) mg/dL Glucose 102 H (74-99) mg/dL POC Glucose (mg/dL) 135 H (70-110) mg/dL Calcium 8.3 L (8.4-10.2) mg/dL AST 56 H (14-36) U/L Total Protein 4.9 L (6.3-8.2) g/dL Albumin 3.3 L (3.5-5.0) g/dL Assessment and Plan Time with Patient: Less than 30
[2021-12-07 16:36] LABS: Glucose,Whole Blood 104 mg/dL (70-110)
[2021-12-07 20:35] LABS: Glucose,Whole Blood 97 mg/dL (70-110)
[2021-12-07] MEDS: PATIENT'S OWN (Mirabegron [Myrbetriq] 50 MG Tab.Er.24h) PO SCH (21:29)
[2021-12-08] MEDS: HEPARIN SODIUM,PORCINE/PF 5,000 UNIT/0.5 ML SYRINGE SQ SCH ×2 (00:10→09:32)
[2021-12-08] MEDS: KETOROLAC 15 MG/ML 1 ML VIAL IVP SCH ×2 (00:10→06:48)
[2021-12-08 04:34] LABS: HGB 7.7 gm/dL (11.4-16.0); MCHC 33.5 g/dL (31.0-37.0); MCV 98.7 fL (80.0-100.0); Mean Platelet Volume 9.1; Platelet Count 133 k/uL (150-450); RBC 2.33 m/uL (3.80-5.40); RDW 13.7 % (11.5-15.5)
[2021-12-08 04:47] LABS: African American GFR (CKD) >90 (>60 ml/min/1.73 sqM); Anion Gap 10 mmol/L; Blood Urea Nitrogen 14 mg/dL (7-17); Calcium 8.7 mg/dL (8.4-10.2); Carbon Dioxide 27 mmol/L (22-30); Chloride 99 mmol/L (98-107); Glucose 83 mg/dL (74-99); Magnesium 2.1 mg/dL (1.6-2.3); Non-African American GFR(CKD) 86 (>60 ml/min/1.73 sqM); Potassium 4.1 mmol/L (3.5-5.1); Sodium 136 mmol/L (137-145)
[2021-12-08 06:32] LABS: Glucose,Whole Blood 68 mg/dL (70-110)
[2021-12-08 06:44] VITALS: TEMP 97.4
[2021-12-08] MEDS: INSULIN ASPART (NovoLOG) 100 UNIT/ML VIAL SQ SCH (06:48)
[2021-12-08] MEDS: FERROUS SULFATE 325 MG TAB PO SCH (06:49)
[2021-12-08] MEDS: PANTOPRAZOLE 40 MG TABLET PO SCH (06:49)
[2021-12-08] MEDS: LEVOTHYROXINE 25 MCG TAB PO SCH (06:49)
[2021-12-08] MEDS: ASCORBIC ACID 500 MG TAB PO SCH (06:49)
[2021-12-08] MEDS: IPRATROPIUM-ALBUTEROL 3 ML NEB INHALATION SCH (07:37)
--- NOTE | 2021-12-08 07:41 | XR ---
EXAMINATION TYPE: XR chest 2V DATE OF EXAM: 12/08/2021 6:22 AM COMPARISON: Chest radiographs from 12/07/2021 TECHNIQUE: XR chest 2V Frontal and lateral views of the chest. CLINICAL INDICATION:Female, 76 years old with history of post cardiac surgery; FINDINGS: Lungs/Pleura: There is no evidence of pleural effusion, focal consolidation, or pneumothorax. Pulmonary vascularity: Unremarkable. Heart/mediastinum: Cardiomediastinal silhouette is unremarkable. Left atrial appendage occlusion khanh ce is present. Musculoskeletal: Cervical fixation hardware in the spine. No acute osseous pathology. Midline sternot jori wires are noted. Scoliosis changes to the spine. Lines/Tubes: Removal of mediastinal drainage tubing.. IMPRESSION: Postsurgical changes with suspected trace bilateral pleural effusions and associated atelectasis. No pneumothorax.
--- NOTE | 2021-12-08 08:15 | P.PN ---
Subjective Progress Note Date: 12/08/21 PROGRESS NOTE The patient is a 76-year-old male who presented with acute coronary syndrome, underwent cardiac catheterization, was found to have severe CAD with severe left main disease, underwent LANE to the LAD and SVG to the OM. She is awake, alert, in sinus mechanism. She denies any chest discomfort, dizziness or palpitations. She is anxious to go home. Hemodynamically she is stable. Her baseline echocardiogram showed an ejection fraction of 45-50%. December 08: The patient is doing well this morning, she is sitting up in the chair, she denies any dizziness or palpitations. Hemodynamically she is stable, in sinus mechanism. Her chest tube has been removed. She has no evidence of ventricular ectopic activity. She has mild chest soreness. She is using incentive spirometry. Medications: Aspirin once a day, Lipitor 40 mg daily, Plavix 75 mg daily, Lisinopril 5 mg daily, metoprolol 25 mg twice a day PHYSICAL EXAMINATION: Blood pressure 127/60 heart rate 75 LUNGS: Few crackles at the bases HEART: Regular rate and rhythm, S1, S2. No S3. No systolic murmur ABDOMEN: Soft, nontender, no organomegaly EXTREMETIES: No edema LAB: BUN 14, creatinine 0.7, potassium 4.1, hemoglobin 7.7 IMPRESSION: 1. Status post CABG, stable 2. Mild cardiomyopathy preoperatively 3. History of hypertension 4. History of hyperlipidemia PLAN: 1. Continue present therapy 2. Increase physical activity 3. Probable discharge home soon and follow-up as an outpatient. Objective - Vital Signs Vital signs: Vital Signs Temp 97.4 F L 12/08/21 06:00 Pulse 76 12/08/21 06:00 Resp 21 12/08/21 06:00 BP 127/62 12/08/21 06:00 Pulse Ox 97 12/08/21 07:39 FiO2 60 12/04/21 20:15 Intake & Output 12/07/21 12/08/21 12/08/21 18:59 06:59 18:59 Intake Total 706 Output Total 295 830 Balance 411 -830 Intake: IV 26 Lactated Ringers 1,000 ml 20 @ 20 mls/hr IV .Q24H [facility] Rx#:[id number] pressure bag 6 Oral 680 Output: Chest Tube Drainage 20 left pleural 10 mediastinalx2 10 Urine 275 830 Other: Voiding Method Indwelling Catheter Toilet # Voids 1 1 # Bowel Movements 1 0 ABP, PAP, CO, CI - Last Documented Arterial Blood Pressure 68/61 Pulmonary Artery Pressure 24/10 Cardiac Output 3.8 Cardiac Index 2.3 - Labs CBC & Chem 7: 12/08/21 04:12 12/08/21 04:12 Labs: Abnormal Lab Results - Last 24 Hours (Table) 12/08/21 12/08/21 12/08/21 Range/Units 04:12 04:12 06:30 RBC 2.33 L (3.80-5.40) m/uL Hgb 7.7 L (11.4-16.0) gm/dL Hct 23.0 L (34.0-46.0) % Plt Count 133 L (150-450) k/uL Sodium 136 L (137-145) mmol/L POC Glucose (mg/dL) 68 L (70-110) mg/dL
--- NOTE | 2021-12-08 09:14 | P.PN ---
Subjective Progress Note Date: 12/08/21 On today's evaluation of 12/07/2021, the patient is postop day #3. This was an urgent coronary artery bypass surgery and the patient underwent LANE to LAD and SVG to OM. The patient is currently in the intensive care unit and she is resting comfortably. She is able to sit up on a recliner. Her oxygenation has improved and the patient is currently on room air oxygen. The patient is hemodynamically stable. Cardiac rhythm is sinus. The AV wires are grounded at this point in time and the patient is on a combination of metoprolol 25 mg by mouth twice a day and lives in June 20 0.5 mg by mouth daily. All of the catheters are removed. The chest tubes in the mediastinum have been removed and the patient has a left pleural chest tube. Output is minimal at this point in time and we are considering removing the chest tube today. The sodium levels of 1:30 with a chloride of 96 and a bicarb of 24 with a BUN of 19 and a creatinine of 0.6. The white cell count is 7.6 with a hemoglobin of 7.5. Her comorbid conditions include hypertension, hypothyroidism, IBS, chronic anxiety, COPD, depression, history of falls, history of dementia and acid reflux. The patient has undergone also previous cervical spine fusion. She does have COPD. The patient's preoperative FEV1 was in the order of 61% of predicted. The patient is using incentive spirometer. The patient is pulling approximately 750 on her IS 12/08/2021, the patient is postop day #4. The patient is currently on room air oxygen. Cardiac rhythm is sinus. Epicardial leads have been removed. The patient is using incentive spirometer and she is achieving approximately 1000 on the incentive spirometer. Her hemoglobin was stable at 7.7 with a white cell count of 6. Creatinine is at 0.7 with a BUN of 14 and the sodium level at 136. She is hemodynamically stable. Sternal wound is dry clean and intact. The left-sided pleural chest tube was removed yesterday without any complications. The follow-up chest x-ray from today shows no evidence of any pneumothorax is adequate expansion of both lungs without any other acute abnormalities identified. Sternal wires are all in place. The patient does have some limited atelectatic changes in lung bases which is expected for surgery. She is on metoprolol 25 mg by mouth twice a day. She is on aspirin. She is on Plavix. She is also on heparin subcu for DVT prophylaxis. Blood sugars under adequate control for now. There is a very tiny effusion the left lung base. There is also thoracic kyphoscoliosis and a surgical metal plate in her cervical spine. Objective - Vital Signs Vital signs: Vital Signs Temp 97.4 F L 12/08/21 06:00 Pulse 76 12/08/21 06:00 Resp 21 12/08/21 06:00 BP 127/62 12/08/21 06:00 Pulse Ox 97 12/08/21 07:39 FiO2 60 12/04/21 20:15 Intake & Output 12/07/21 12/08/21 12/08/21 18:59 06:59 18:59 Intake Total 706 Output Total 295 830 Balance 411 -830 Intake: IV 26 Lactated Ringers 1,000 ml 20 @ 20 mls/hr IV .Q24H ANTONIO Rx#:[id number] pressure bag 6 Oral 680 Output: Chest Tube Drainage 20 left pleural 10 mediastinalx2 10 Urine 275 830 Other: Voiding Method Indwelling Catheter Toilet # Voids 1 1 # Bowel Movements 1 0 ABP, PAP, CO, CI - Last Documented Arterial Blood Pressure 68/61 Pulmonary Artery Pressure 24/10 Cardiac Output 3.8 Cardiac Index 2.3 - Exam CONSTITUTIONAL: Appears comfortable, cooperative, no acute distress RESPIRATORY: Lungs sounds diminished bilaterally. Respirations even, nonlabored. Currently on room air with oxygen saturation 94%. Able to achieve 1250 mL on incentive spirometry. Weak cough. CARDIOVASCULAR: S1, S2 present. Regular rate and rhythm, sinus rhythm on telemetry. Sternum stable. Palpable peripheral pulses bilaterally. No edema present. No calf pain or tenderness noted. Heart hugger in place with patient demonstrating appropriate use. Antiembolism stockings, SCDs present. GASTROINTESTINAL: Abdomen soft, nontender, nondistended. Active bowel sounds present 4 quadrants. Tolerating diet. Positive bowel movement GENITOURINARY: Jose catheter has been removed INTEGUMENTARY: Skin is warm and dry with evidence of good perfusion. Anterior chest incision well approximated and covered with dry intact dressing. Right lower extremity EVH site well approximated without redness or drainage. NEUROLOGIC: Cranial nerves II through XII intact MUSKULOSKELETAL: Able to move all extremities, strength equal bilaterally PSYCHIATRIC: Alert, oriented to person place and time, appropriate affect, intact judgment and insight INVASIVE LINES AND TUBES: All of the tubes including the [place]-Victor Hugo catheter, Cordis and the chest tubes have been removed - Labs CBC & Chem 7: 12/08/21 04:12 12/08/21 04:12 Labs: Abnormal Lab Results - Last 24 Hours (Table) 12/08/21 12/08/21 12/08/21 Range/Units 04:12 04:12 06:30 RBC 2.33 L (3.80-5.40) m/uL Hgb 7.7 L (11.4-16.0) gm/dL Hct 23.0 L (34.0-46.0) % Plt Count 133 L (150-450) k/uL Sodium 136 L (137-145) mmol/L POC Glucose (mg/dL) 68 L (70-110) mg/dL Assessment and Plan Plan: Status post two-vessel bypass grafting, ligation of left atrial appendage, and transesophageal echocardiogram for coronary artery disease, postop day #4. The patient is hemodynamically stable and she is doing well for now. Routine postoperative ventilator management, with timely extubation. The patient is currently on room air oxygen. Chest tubes have been removed and the patient is using incentive spirometer. Small left-sided pleural effusion on today's chest x-ray. No pneumothorax. Non-ST segment elevation myocardial infarction, with significant left main coronary disease, and a left dominant system. Patient to have bypass grafting on 12/04/2021. Hypertensive urgency, resolved. No evidence of significant chronic lung disease despite 25-30 years at tobacco use. Hyperlipidemia. Hypothyroidism. Hypertension. Irritable bowel syndrome. Family history of premature coronary disease. COPD with a preop FEV1 of 63% of predicted Dementia, mild. Plan All of the chest tubes have been removed Using incentive spirometer Currently on room air oxygen Cardiac medications include aspirin, Plavix, metoprolol at a dose of 25 mg by mouth twice a day and lisinopril 5 mg by mouth daily. The patient is also on high-dose statins with Lipitor at a dose of 40 mg by mouth daily. Increased mobility AV wires have been removed All tubes and catheters of the removed She is a selective overflow
[2021-12-08] MEDS: DIVALPROEX 500 MG TABLET.DR PO SCH (09:31)
[2021-12-08] MEDS: ASPIRIN 325 MG TAB PO SCH (09:31)
[2021-12-08] MEDS: CLOPIDOGREL 75 MG TAB PO SCH (09:31)
[2021-12-08] MEDS: ATORVASTATIN 40 MG TAB PO SCH (09:31)
[2021-12-08] MEDS: PARoxetine 20 MG TAB PO SCH (09:31)
[2021-12-08] MEDS: METOPROLOL TARTRATE 25 MG TAB PO SCH (09:32)
--- NOTE | 2021-12-08 10:32 | P.PN ---
Subjective Progress Note Date: 12/08/21 Principal diagnosis: Left main coronary artery disease with left dominant system, non-STEMI this admission, hypertensive urgency on admission. Previous medical history of hypertension, hyperlipidemia, hypothyroid, dementia, previous tobacco dependence with mild COPD, IBS, family history of premature coronary artery disease. Vaccinated and boosted against Covid. Preoperative nasal swab positive for MSSA POD #4 coronary artery bypass grafting 2 vessels, left internal mammary artery to the left anterior descending artery, reverse saphenous vein graft to the obtuse marginal artery, endoscopic harvesting of the right greater saphenous vein, ligation of the left atrial appendage using a 35 mm AtriClip, epi-aortic ultrasound, intraoperative transesophageal echocardiogram Postoperative acute blood loss anemia and thrombocytopenia, expected given hemodilution and cardiopulmonary bypass pump The patient was seen and examined this morning with Dr. Villagomez sitting up in a recliner in the ICU in no acute distress. Remains in sinus rhythm, hemodynamically stable. States post surgical pain is controlled with current medication regimen, denies shortness of breath. Currently on room air with oxygen saturation in the mid 90s. Urine output stable. [facility] CXR reviewed, all findings typical for post open heart. Transfer orders were placed yesterday, no bed available on cardiac stepdown unit. No other new concerns. Objective - Vital Signs Vital signs: Vital Signs Temp 97.4 F L 12/08/21 06:00 Pulse 76 12/08/21 06:00 Resp 21 12/08/21 06:00 BP 127/62 12/08/21 06:00 Pulse Ox 97 12/08/21 07:39 FiO2 60 12/04/21 20:15 Intake & Output 12/07/21 12/08/21 12/08/21 18:59 06:59 18:59 Intake Total 706 Output Total 295 830 Balance 411 -830 Intake: IV 26 Lactated Ringers 1,000 ml 20 @ 20 mls/hr IV .Q24H ANTONIO Rx#:[id number] pressure bag 6 Oral 680 Output: Chest Tube Drainage 20 left pleural 10 mediastinalx2 10 Urine 275 830 Other: Voiding Method Indwelling Catheter Toilet Toilet # Voids 1 1 # Bowel Movements 1 0 ABP, PAP, CO, CI - Last Documented Arterial Blood Pressure 68/61 Pulmonary Artery Pressure 24/10 Cardiac Output 3.8 Cardiac Index 2.3 - Exam CONSTITUTIONAL: Appears comfortable, cooperative, no acute distress RESPIRATORY: Lungs sounds diminished bilaterally. Respirations even, nonlabored. Currently on room air with oxygen saturation 98%. Able to achieve 1000 mL on incentive spirometry. Stronger cough. CARDIOVASCULAR: S1, S2 present. Regular rate and rhythm, sinus rhythm on telemetry. Sternum stable. Palpable peripheral pulses bilaterally. No edema present. No calf pain or tenderness noted. Heart hugger in place with patient demonstrating appropriate use. Antiembolism stockings, SCDs present. GASTROINTESTINAL: Abdomen soft, nontender, nondistended. Active bowel sounds present 4 quadrants. Tolerating diet. Positive bowel movement GENITOURINARY: Jose discontinued yesterday, patient has voided INTEGUMENTARY: Skin is warm and dry with evidence of good perfusion. Anterior chest incision well approximated and covered with dry intact dressing. Right lower extremity EVH site well approximated without redness or drainage. NEUROLOGIC: Cranial nerves II through XII intact MUSKULOSKELETAL: Able to move all extremities, strength equal bilaterally PSYCHIATRIC: Alert, oriented to person place and time, appropriate affect, intact judgment and insight INVASIVE LINES AND TUBES: A/V epicardial pacemaker wires present, grounded. - Allied health notes Allied health notes reviewed: nursing - Labs CBC & Chem 7: 12/08/21 04:12 12/08/21 04:12 Labs: Abnormal Lab Results - Last 24 Hours (Table) 12/08/21 12/08/21 12/08/21 Range/Units 04:12 04:12 06:30 RBC 2.33 L (3.80-5.40) m/uL Hgb 7.7 L (11.4-16.0) gm/dL Hct 23.0 L (34.0-46.0) % Plt Count 133 L (150-450) k/uL Sodium 136 L (137-145) mmol/L POC Glucose (mg/dL) 68 L (70-110) mg/dL - Imaging and Cardiology Chest x-ray: report reviewed, image reviewed Assessment and Plan Assessment: 1. Left main coronary artery disease with left dominant system, non-STEMI this admission, status post 2 vessel CABG 2. History of hypertension with hypertensive urgency on admission 3. Reduced left ventricular systolic function with EF 45-50%, mild MR and TR per transthoracic echo 4. Hyperlipidemia, treated, cholesterol 149, LDL 77 5. Hypothyroid, TSH 1.17 6. Previous tobacco dependence with mild COPD, FEV1 61% of predicted 7. IBS 8. Family history of premature coronary artery disease 9. Vaccinated and boosted against Covid 10. Preoperative nasal swab positive for MSSA, treated 11. Postoperative acute blood loss anemia and thrombocytopenia, expected Plan: 1. Continue to maximize medical therapy with aspirin, statin, Plavix, beta gian therapy, TOM which was increased today 2. Epicardial pacer wires discontinued without incident, patient to remain on bedrest for 1 hour post removal 3. Encourage incentive spirometry use 10 times every hour while awake. Bronchodilators per pulmonology 4. Increase activity, ambulate as tolerated. PT/OT/cardiac rehab consulted 5. Will monitor daily labs and x-rays. Electrolyte replacement per protocol. No transfusion at this time 6. GI/DVT prophylaxis 7. Pain control with current medication regimen 8. Insulin management per internal medicine. Patient is not diabetic, preoperative hemoglobin A1c 5.7% 9. Strict accurate intake and output. Daily weights. Shower daily 10. Discharge planning in progress, anticipate discharge to home this afternoon
[2021-12-08] MEDS ORDERED: lisinopriL 5 MG TAB PO SCH (12:00)
[2021-12-08 12:11] LABS: Glucose,Whole Blood 91 mg/dL (70-110)
[2021-12-08 13:50] VITALS: BP 155/73; PULSE 71; RESP 12
--- NOTE | 2021-12-08 14:34 | P.DS ---
Providers Date of admission: 12/02/21 05:12 Expected date of discharge: 12/08/21 Attending physician: Toño Welsh Consults: 12/02/21 05:12 Consult Physician Routine Consulting Provider: Landon Castaneda Consult Reason/Comments: CP Do you want consulting provider notified?: Yes 12/03/21 11:42 Consult Physician Routine Consulting Provider: Dio Monique Consult Reason/Comments: evaluation for CABG Do you want consulting provider notified?: Already Contacted 12/03/21 14:00 Consult Physician Routine Consulting Provider: Amadeo Moncada Consult Reason/Comments: preop cabg Do you want consulting provider notified?: Yes Consult to Anesthesia Routine Consulting Provider: Anesthesia,Services Consult Reason/Comments: Cardiac Surgery Pre-Op 12/04/21 13:12 Consult Physician Routine Consulting Provider: Demetrio Chandler Consult Reason/Comments: med mgmt Do you want consulting provider notified?: Already Contacted Primary care physician: Stated None Hospital Course: FINAL DIAGNOSIS: 1. Left main coronary artery disease with left dominant system, non-STEMI this admission 2. Hypertension with hypertensive urgency on admission 3. Reduced left ventricular systolic function, EF 45-50%, mild MR and TR 4. Hyperlipidemia, treated, cholesterol 149, LDL 77 5. Hypothyroid, TSH 1.17 6. Previous tobacco dependence, mild COPD, FEV1 61% of predicted 7. IBS 8. Family history of premature coronary artery disease 9. Vaccinated and boosted against Covid 10. Preoperative nasal swab positive for MSSA, treated 11. Postoperative acute blood loss anemia and thrombocytopenia, expected PRINCIPAL PROCEDURE: 1. Coronary artery bypass grafting 2 vessels, left internal mammary artery to the left anterior descending artery, reverse saphenous vein graft to the obtuse marginal artery 2. Endoscopic harvesting of the right greater saphenous vein 3. Ligation of the left atrial appendage using a 35 mm AtriClip 4. Epi-aortic ultrasound 5. Intraoperative transesophageal echocardiogram HISTORY OF PRESENT ILLNESS: This is a 76-year-old active female who follows in an outpatient basis with Dr. Castle for primary care. She presented to [facility] emergency room with complaints of hypertension as well as chest pain rating to her jaw and shortness of breath. Upon presentation to the emergency room she was noted to be hypertensive with blood pressures in the 200s/100s range EKG demonstrated ST depression in the inferior lateral leads. Troponins were elevated and she was ruled in for non-STEMI. Her blood pressures treated accordingly, she was admitted for evaluation treatment with cardiology consult. Transthoracic echocardiogram was completed demonstrating reduced systolic function with EF 45-50%, apical hypokinesis, mild mitral and tricuspid regurgitation. She was recommended to undergo heart catheterization which demonstrated 95% left main stenosis with a left dominant system. Consultation was placed to cardiothoracic surgery for surgical revascularization. She was recommended to undergo urgent coronary artery bypass surgery. The usual perioperative course was discussed in detail with the patient, all risks and benefits were explained, all questions were answered, and consent was obtained to proceed with surgery. The patient was kept inpatient due to the nature of her disease process. HOSPITAL COURSE: The patient was brought to the preoperative area 12/04/21, prepared in the usual fashion, and subsequently taken to the operating room where Dr. Welsh performed 2 vessel CABG. Upon completion of surgery the patient was transferred to the cardiovascular intensive care unit where she was recovered and monitored hemodynamically. She was extubated, all lines, tubes, and drips were discontinued when appropriate, and transfer orders were placed for 3 S. cardiac stepdown unit, however there was no bed availability and the patient remained on ICU as a stepdown patient until discharge. Her oxygen was titrated down, she continued to work with physical and occupational therapy, she was tolerating oral diet, her pain was controlled, and she was ready to be discharged to home with [facility] on postoperative day #4. She received written and verbal instruction regarding her medications, activity restrictions, signs and symptoms requiring physician notification, and follow-up appointments. Patient Condition at Discharge: Stable Plan - Discharge Summary Discharge Rx Participant: No New Discharge Prescriptions: New Metoprolol Tartrate [Lopressor] 25 mg PO BID #60 tab Clopidogrel [Plavix] 75 mg PO DAILY #30 tab Sennosides-Docusate Sodium [Senokot-S] 2 each PO HS PRN tab PRN Reason: Constipation Acetaminophen Tab [Tylenol] 650 mg PO Q4HR PRN tab PRN Reason: Fever And/ Or Pain Aspirin 325 mg PO DAILY #30 tab Continue PARoxetine HCL [Paroxetine HCl] 20 mg PO DAILY Levothyroxine Sodium 25 mcg PO AC-BRKFST Divalproex Sodium 500 mg PO BID Baclofen 5 mg PO BID Mirabegron [Myrbetriq] 50 mg PO HS Dicyclomine [Bentyl] 20 mg PO TID Cholecalciferol [Vitamin D3 (25 Mcg = 1000 Iu)] 50 mcg PO DAILY Pantoprazole Sodium 40 mg PO DAILY Rosuvastatin [Crestor] 20 mg PO HS Changed lisinopriL [Zestril] 5 mg PO DAILY@1200 #0 Discontinued predniSONE [Deltasone] 40 mg PO DAILY Discharge Medication List Baclofen 5 mg PO BID 08/23/15 [History] Divalproex Sodium 500 mg PO BID 08/23/15 [History] Levothyroxine Sodium 25 mcg PO AC-BRKFST 08/23/15 [History] PARoxetine HCL [Paroxetine HCl] 20 mg PO DAILY 08/23/15 [History] Dicyclomine [Bentyl] 20 mg PO TID 07/11/19 [History] Mirabegron [Myrbetriq] 50 mg PO HS 07/11/19 [History] Cholecalciferol [Vitamin D3 (25 Mcg = 1000 Iu)] 50 mcg PO DAILY 06/02/21 [History] Pantoprazole Sodium 40 mg PO DAILY 06/02/21 [History] Rosuvastatin [Crestor] 20 mg PO HS 12/02/21 [History] Acetaminophen Tab [Tylenol] 650 mg PO Q4HR PRN tab 12/08/21 [Rx] Aspirin 325 mg PO DAILY #30 tab 12/08/21 [Rx] Clopidogrel [Plavix] 75 mg PO DAILY #30 tab 12/08/21 [Rx] Metoprolol Tartrate [Lopressor] 25 mg PO BID #60 tab 12/08/21 [Rx] Sennosides-Docusate Sodium [Senokot-S] 2 each PO HS PRN tab 12/08/21 [Rx] lisinopriL [Zestril] 5 mg PO DAILY@1200 #0 12/08/21 [Rx] Follow up Appointment(s)/Referral(s): Luh Melton, JONNA [Nurse Practitioner] - 12/15/21 12:00 pm (You will be seen in the surgeon's office behind the hospital in [facility], [address] Office phone number is ) [facility], [NON-STAFF] - 1-2 Days (To see day after discharge, then 2-3 times per week ) [facility] [NON-STAFF] - 4 Weeks (You will receive a phone call in approximately 4-6 weeks for evaluation for cardiac rehab) Landon Castaneda MD [STAFF PHYSICIAN] - 2 Weeks (Office will call with appointment) Amadeo Moncada DO [Doctor of Osteopathic Medicine] - 01/04/22 2:15 pm Toño Welsh MD [STAFF PHYSICIAN] - 01/05/22 1:00 pm Beatrice Castle [REFERRING] - 12/22/21 9:00 am Ambulatory/Diagnostic Orders: Complete Blood Count w/diff [LAB.AMB] Time Frame: 3 Days, Location: None Selected Comprehensive Metabolic Panel [LAB.AMB] Time Frame: 3 Days, Location: None Selected Patient Instructions/Handouts: DASH Eating Plan (GEN), Low-Sodium Diet (ED) Activity/Diet/Wound Care/Special Instructions: DISCHARGE INSTRUCTIONS: 1. No driving for 4 weeks, or until physician gives their ok. 2. The patient should sleep in their own bed, no medical bed needed. 3. Stairs are not an issue. If the bedroom is upstairs, it is advised that the patient go up at night and down in the morning for the first week. Go slowly, using handrail and take 1 step at a time. 4. ZINA hose are to be worn for 30 days or until physician discontinues. 5. Heart hugger is to be worn 100% of the time until physician discontinues.(except when showering) 6. No lifting, pushing, or pulling more than 10 pounds for 12 weeks. The physician will advise of any restriction changes. 7. The patient is expected to continue the prescribed walking program. 8. Continue pain control per as needed orders. 9. Continue with incentive spirometry and splinting/heart hugger until otherwise directed by the physician. 10. Must shower daily using liquid antibacterial soap and a separate white washcloth for each individual incision. 11. Routine sternal incision care. No powders, lotions, ointments on incisions. No dressings are necessary on incisions unless they are draining. Dermabond tape is to remain on sternal incision until surgeon follow-up. 12. Please call surgeon/LAY OUT MAKER for temp greater than 101 F or purulent drainage from incisions. 13. You should weigh yourself daily, record and bring log with you to follow up appointments. 14. All prescriptions given by surgeon for 30 days. Refills need to be filled through plant operations engineer/primary care physician. 15. A Red armband has been placed on the patient. It should be worn for 30 days post surgery and will be removed by the cardiac surgeons. If an ER visit is necessary, please make sure the number on the Red armband is called. 16. You have been referred to and are expected to begin Cardiac Rehab in approximately 4-6 weeks. HOME HEALTH SERVICES TO PROVIDE: RN SKILLED HOME CARE SERVICES FOR POST-OP SURGICAL PATIENTS WITH THE FOLLOWING: Coronary Artery Bypass Surgery (CABG), Mitral Valve Replacement/Repair ( MVR), Aortic Valve Replacement/Repair (AVR) RN TO CONTINUE EDUCATION FROM ``ROAD TO A HEALTH HEART PATIENT EDUCATION MANUAL (GIVEN TO PATIENT IN THE HOSPITAL) MEDICATION RECONCILIATION WITH EDUCATION NEEDED ON FIRST HOME VISIT EMPHASIZE IMPORTANCE OF WEARING BREAST SUPPORT/HEART HUGGER ENCOURAGE USE OF INCENTIVE SPIROMETER 10 X EVERY HOUR WHILE AWAKE ENCOURAGE UTILIZATION OF LOWER EXTREMITY COMPRESSION STOCKINGS/ZINA HOSE and ELEVATE LEGS ABOVE LEVEL OF HEART WHILE AT REST. ENCOURAGE AMBULATION 3-5x/day INCREASING TOLERATES, WHILE AVOIDING EXTREMES IN TEMPERATURE FREQUENCY: RN TO OPEN THE PATIENT WITHIN 24 HOURS OF DISCHARGE FROM THE HOSPITAL WITH TELEHEALTH INSTALLED AT [facility], RN TO VISIT 2-3 X A WEEK FOR 4 WEEKS ESTABLISHED BY PATIENT NEEDS. LABORATORY: CBC, CMP TO BE DRAWN ON THE THIRD DAY HOME, (RAN STAT) FAX RESULTS TO [phone]. TELEHEALTH PARAMETERS: WEIGHT: NOTIFY MD OF WEIGHT GAIN OF 2 LBS IN 24 HOURS OR 5 LBS IN ONE WEEK HR: NOTIFY MD OF HR <55 BPM OR HR>100 BPM BP: NOTIFY MD IF BP <90/55 OR BP>140/100 O2 SAT: NOTIFY MD IF PO2<93% ON ROOM AIR SEND TELEHEALTH REPORT TO UTILIZATION SUPERVISOR AND CARDIOVASCULAR SURGEON THE FIRST WEEK OF CARE AND THEN BI-WEEKLY. PLEASE ADDITIONALLY COMMUNICATE ANY ABNORMALS AND NEW FINDINGS TO THE SURGEONS OFFICE. Discharge/Stand Alone Forms: Community Resources Discharge Disposition: HOME WITH HOME HEALTH SERVICES
--- NOTE | 2021-12-08 15:18 | P.PN ---
Subjective Progress Note Date: 12/08/21 Patient is a pleasant 76-year-old female came in with complaints of a headache, congestion cough, postnasal drip and chest pain with some pleuritic competent the chest pain does radiate to the jaw because of which cardiology was consulted EKG showed ST depression in the inferior leads but note significant change compared to her previous EKG. Facet of troponin was negative and it went up to 0.688 because of which patient was started on IV heparin, and patient did receive nitro drip after which her chest pain did have improved as per the patient. Patient denied any previous history of coronary artery disease. Patient had a CT angios the chest whichRRR embolism but did show infiltrate in bilateral lower lung elaine consistent with pulmonary edema. Patient was started on chlorthalidone by pulmonary. Patient is slightly hyponatremic with serum sodium of 136. Patient blood pressure was high at 200s on admission. Etiology is planning and cardiac catheterization tomorrow COVID-19 influenza te sts are being obtained. Stress test about any ago showed mild fixed defect in the mid anterior wall. Medical decision 2019 showed mild nonobstructive coronary artery disease echo about any ago showed normal ejection fraction BNP is 259. Patient also complaining of the mild hemoptysis which resolved at this time 12/03/2021 Patient went down for right and left cardiac catheterization today which reveals a critical left main lesion. Echocardiogram shows an EF of 45 to 50% with apical septal and apex hypokinesis. Cardiothoracic team has been consulted for further evaluation of the critical lesion. She continues on chlorthalidone. Today her blood count is unremarkable, sodium 138, potassium 4.0, BUN 7, creatinine 0.71. Urinalysis negative. She is currently denying chest pain. Blood pressure 146/63, heart rate is sinus bradycardia. 93% room air. 12/04/2021 No acute events overnight. Patient is going for open heart surgery today with Dr Welsh, she will be monitored postoperatively in the intensive care unit. Patient had lipid panel completed, A1C 5.8. Hepatitis panel is negative. Current vitals, room air 98%, heart rate 57, blood pressure 144/68, temp 97.3. 12/05/2021 Patient is evaluated sitting up in chair in intensive care unit. She is postoperative day #1 coronary artery bypass grafting x 2 vessels. She reports pain mostly to her left chest tube site. She is having clear liquids for breakfast. Indwelling catheter in place. Continues with Right IJ swan/cordis, right art line, and mediastinal and left chest tubes in place. She required cleviprex gtt last night for elevated BP which is off currently and blood pressure today 117/66. Continues on primacor gtt. Received a dose of albumin this morning. Plan today is to increase activity level. Labs today showing white count 9.5, hgb 8.9, sodium 134, potassium 3.9, chloride 97, BUN 8, creatinine 0.55. Blood glucose in the 120s range. Magnesium 1.8 today. Continues on nasal cannula, encouraged patient to use incentive spirometer. 12/06/2021 Patient continues to be monitored closely in the ICU. She is postoperative day #2, 2 vessel CABG. Continues with left and mediastinal chest tubes. She continues with Cordis and art line in place. She received a dose of albumin today and also a dose of IV lasix 20 mg this morning. Primacor gtt has been discontinued. Diet is being increased and she is tolerating. Passing some gas, no BM. Blood sugars are running in the 90-100s and she has been off the insulin gtt. Accuchecks ACHS and sliding scale has been added. Labs today showing white count 7.6, hgb 7.2, sodium 129, potassium 3.9, chloride 96. Had low grade temp 99.5 today, blood pressure 104/60. She states her pain is better controlled today. Alert x 3. Urine output about 130 mls overnight. Chest xray shows asym metric elevation of left hemidiaphragm which will be monitored for now. 12/07/2021 Patient is evaluated in intensive care unit she is sitting up in the chair, post operative day #3 2 vessel bypass grafting. Her main complaint today is abdominal pain and cramping. She does have history of IBS and reports having a BM today. She is tolerating some diet, advanced to heart healthy. Consider adding protein supplement with meals. Blood sugars in the 100s continues on sliding scale with meals. Sodium is 130 today, creatinine 0.68. Hgb stable at 7.5, no white count. Blood pressure 111/52, She is maintaining sinus rhythm and pacer wires are grounded. Mediastinal chest tube has been removed today. Patient continues with left pleural chest tube. All other lines have been discontinued she is off all gtts. She is being considered for transfer out of ICU today. 12/08/2021 Patient is evaluated in the intensive care unit mid morning. Left chest tube has been removed she is resting in the chair. She reports ambulating as directed and using incentive spirometer. She denies pain currently. Overall she is feeling better and states she has been cleared by surgeon for discharge home today. White count is 6.0, hgb today is 7.7 improved. Sodium is 136 today, potassium 4.1, BUN 14, creatinine 0.70, blood glucose is normal limits in the 90s, magnesium 2.1. Review of Systems Constitutional: Denied any fatigue denied any fever. Cardio vascular: denied any chest pain, palpitations, reports incisional pain Gastrointestinal: denied any nausea, vomiting, diarrhea. Has some abdominal discomfort had BM today. Pulmonary: Denied any shortness of breath cough Neurologic denied any new focal deficits All inpatient medications were reviewed and appropriate changes in these medications as dictated in the interval history and assessment and plan. PHYSICAL EXAMINATION: GENERAL: The patient is alert and oriented x3, not in any acute distress. Well developed, well nourished. HEENT: Pupils are round and equally reacting to light. EOMI. No scleral icterus. No conjunctival pallor. Normocephalic, atraumatic. No pharyngeal erythema. No thyromegaly. Patient does have sinus tenderness CARDIOVASCULAR: S1 and S2 present. No murmurs, rubs, or gallops. PULMONARY: Diminished bases. ABDOMEN: Soft, nontender, nondistended, normoactive bowel sounds. No palpable organomegaly. Left and mediastinal chest tubes present. MUSCULOSKELETAL: No joint swelling or deformity. EXTREMITIES: No cyanosis, clubbing, or pedal edema. NEUROLOGICAL: Gross neurological examination did not reveal any focal deficits. SKIN: No rashes. Post surgical dressing in tact Assessment and plan -Possible non-ST elevation myocardial infarction: Cath reveals critical disease in the left main and patient underwent urgent bypass grafting. -Postoperative day #4 coronary artery bypass grafting x 2 vessel -Asymmetric elevation left hemidiaphragm being monitored -Hyponatremia, improved -Possible hypertensive emergency: Blood pressure improved now, possible acute pulmonary edema from NSTEMI -Headache nasal congestion: Secondary to sinusitis most likely allergic -Hypothyroidism -Dyslipidemia -Hyperlipidemia -Former smoker GI prophylaxis: Protonix DVT prophylaxis: On IV heparin Full Code Plan Patients left chest tube was discontinued this morning. Chest xray reveals trace bilateral pleural effusions and associated atelectasis. No pneumothorax. No mention of elevated left hemidiaphragm. She is hemodynamically stable. She continues on metoprolol 25 mg bid, lisinopril 5 mg daily, and also will discharge on full strength aspirin and plavix. Cardiothoracic has cleared patient for discharge home today with homecare services. Patient has not required subcutaneous insulin as blood sugars have remained within range would recommend close monitoring of this outpatient on follow up visits. The impression and plan of care has been dictated by Edwige Cardona, Nurse Practitioner as directed. Dr. Ramesh MD I have performed a history and physical examination and medical decision making of this patient, discussed the same with the dictator, and agree with the dictators assessment and plan as written, documented as a scribe. Based on total visit time, I have performed more than 50% of this visit. Objective - Vital Signs Vital signs: Vital Signs Temp 97.4 F L 12/08/21 12:00 Pulse 71 12/08/21 12:00 Resp 12 12/08/21 12:00 BP 155/73 12/08/21 12:00 Pulse Ox 96 12/08/21 12:00 FiO2 60 12/04/21 20:15 Intake & Output 12/07/21 12/08/21 12/08/21 18:59 06:59 18:59 Intake Total 706 250 Output Total 295 830 Balance 411 -830 250 Intake: IV 26 Lactated Ringers 1,000 ml 20 @ 20 mls/hr IV .Q24H [facility] Rx#:[id number] pressure bag 6 Oral 680 250 Output: Chest Tube Drainage 20 left pleural 10 mediastinalx2 10 Urine 275 830 Other: Voiding Method Indwelling Catheter Toilet Toilet # Voids 1 1 2 # Bowel Movements 1 0 ABP, PAP, CO, CI - Last Documented Arterial Blood Pressure 68/61 Pulmonary Artery Pressure 24/10 Cardiac Output 3.8 Cardiac Index 2.3 - Labs CBC & Chem 7: 12/08/21 04:12 12/08/21 04:12 Labs: Abnormal Lab Results - Last 24 Hours (Table) 12/08/21 12/08/21 12/08/21 Range/Units 04:12 04:12 06:30 RBC 2.33 L (3.80-5.40) m/uL Hgb 7.7 L (11.4-16.0) gm/dL Hct 23.0 L (34.0-46.0) % Plt Count 133 L (150-450) k/uL Sodium 136 L (137-145) mmol/L POC Glucose (mg/dL) 68 L (70-110) mg/dL Assessment and Plan Time with Patient: Less than 30
--- NOTE | 2021-12-17 12:58 | CDI ---
Documentation Clarification Form Date: 12/17/21 From: Karuna Xiao Admit Date: 12/02/2021 05:12:00 AM Patient Name: eBth Lerner Visit Number: [id number] Discharge Date: 12/08/2021 01:55:00 PM ATTENTION: The Clinical Documentation Specialists (CDI) and [facility] Coding Staff appreciate your assistance in clarifying documentation. Please respond to the clarification below the line at the bottom and electronically sign. The CDI & [facility] Coding staff will review the response and follow-up if needed. Please note: Queries are made part of the Legal Health Record. If you have any questions, please contact the author of this message via ITS. Dr. Toño Welsh, Conflicting documentation has been found in the medical record. As attending physician, please provide clarification. Per H&P by Dr Chandler states "Possible hypertensive emergency: Blood pressure improved now, patient was on IV nitro-Pulmonary edema on the computed tomography scan, echo is being obtained BNP is within normal limits pulmonary edema may be related to hypertension or acute pulmonary edema from non-ST elevation SD." Per DS by you states "Hypertension with hypertensive urgency on admission. Reduced left ventricular systolic function, EF 45-50%, mild MR and TR. History/Risk Factors: NSTEMI, hyponatremia, cardiomyopathy, hypertensive emergency, ABLA, atelectasis, thrombocytopenia, HTN, COPD, dementia Clinical Indicators: BNP-259 (12/02) 12/02 CXR: No active cardiopulmonary disease. Normal heart. No change. 12/04 CXR: No pleural effusion, pneumothorax, pulmonary vascular congestion or airspace consolidation. 12/05 CXR: Similar mild cardiomegaly. Some mild interstitial density remains though there has been some improvement from prior. 12/07 CXR: Continued trace right effusion, mild cardiomegaly, and mild patchy bibasilar atelectasis/consolidation. 12/08 CXR: Postsurgical changes with suspected trace bilateral pleural effusions and associated atelectasis. No pneumothorax. 12/02 ECHO: Left ventricular ejection fraction of about 45-50% Treatment: IV Furosemide 20 mg once (12/06) Please clarify which diagnosis is most appropriate: [x ] Acute systolic congestive heart failure [ ] Acute pulmonary edema without heart failure [ ] Other (please specify) [ ] Unable to determine MTDD
--- NOTE | 2021-12-17 13:23 | CDI ---
Documentation Clarification Form Date: 12/17/21 From: Karuna Xiao Admit Date: 12/02/2021 05:12:00 AM Patient Name: Beth Lerner Visit Number: [id number] Discharge Date: 12/08/2021 01:55:00 PM ATTENTION: The Clinical Documentation Specialists (CDI) and [facility] Coding Staff appreciate your assistance in clarifying documentation. Please respond to the clarification below the line at the bottom and electronically sign. The CDI & [facility] Coding staff will review the response and follow-up if needed. Please note: Queries are made part of the Legal Health Record. If you have any questions, please contact the author of this message via ITS. Dr. Toño Welsh, Your patient has [insert documentation or findings, with date, location]. Based on this information and the findings below, is there an additional diagnosis that is clinically appropriate for this patient? Patient history/risk factors: NSTEMI, hyponatremia, cardiomyopathy, hypertensive emergency, ABLA, atelectasis, thrombocytopenia, HTN, COPD, dementia, hx of smoking Clinical Indicators: Per H&P pulse ox 97/93/92/93/91/90/94/95/95, Pulse 101/107, RR 13, 16, 16, 13, 10, 15, 15, 12, 15, 11, ABGs: pH 7.37/7.37, oO@ 140/110, CO2 26/25 (12/04 x 2) 12/05- high 90's, on supplemental 4L NC; down to 3L 12/06 - high 90's, on 2L NC, changed to 3L 12/07-12/08 - on room air Treatment: oxygen NC Is there an additional diagnosis that is clinically appropriate for this patient? [ x] Acute hypoxic respiratory failure [ ] Other, please specify [ ] Unable to determine MTDD
== END 2021-12-08 13:55 | disposition home health service (06) | DRG 233 ==
LOC: EC 03:14 → 3SCARD 05:12 → 2SICU 12-04 07:05
PROVIDERS: ADMIT Surgery; ATTEND Surgery
PROC: B2111ZZ Fluoroscopy of Multiple Coronary Arteries using Low Osmolar Contrast (ICD-10-PCS; 2021-12-03)
PROC: B41F1ZZ Fluoroscopy of Right Lower Extremity Arteries using Low Osmolar Contrast (ICD-10-PCS; 2021-12-03)
PROC: 4A023N7 Measurement of Cardiac Sampling and Pressure, Left Heart, Percutaneous Approach (ICD-10-PCS; 2021-12-03)
PROC: 02L70CK Occlusion of Left Atrial Appendage with Extraluminal Device, Open Approach (ICD-10-PCS; principal; 2021-12-04 09:35)
PROC: 02100Z9 Bypass Coronary Artery, One Artery from Left Internal Mammary, Open Approach (ICD-10-PCS; principal; 2021-12-04 09:35)
PROC: 5A1221Z Performance of Cardiac Output, Continuous (ICD-10-PCS; principal; 2021-12-04 09:35)
PROC: B24BZZ4 Ultrasonography of Heart with Aorta, Transesophageal (ICD-10-PCS; principal; 2021-12-04 09:35)
PROC: 021009W Bypass Coronary Artery, One Artery from Aorta with Autologous Venous Tissue, Open Approach (ICD-10-PCS; principal; 2021-12-04 09:35)
PROC: 06BP4ZZ Excision of Right Saphenous Vein, Percutaneous Endoscopic Approach (ICD-10-PCS; principal; 2021-12-04 09:35)
DX: I21.4 Non-ST elevation (NSTEMI) myocardial infarction (principal); I50.21 Acute systolic (congestive) heart failure; J96.01 Acute respiratory failure with hypoxia; E87.1 Hypo-osmolality and hyponatremia; I42.9 Cardiomyopathy, unspecified; I50.1 Left ventricular failure, unspecified; I16.1 Hypertensive emergency; D62 Acute posthemorrhagic anemia; J98.11 Atelectasis; D69.6 Thrombocytopenia, unspecified; I11.0 Hypertensive heart disease with heart failure; M41.34 Thoracogenic scoliosis, thoracic region; F03.90 Unspecified dementia, unspecified severity, without behavioral disturbance, psychotic disturbance, mood disturbance, and anxiety; J44.9 Chronic obstructive pulmonary disease, unspecified; Z20.822 Contact with and (suspected) exposure to COVID-19; I25.10 Atherosclerotic heart disease of native coronary artery without angina pectoris; I25.84 Coronary atherosclerosis due to calcified coronary lesion; R00.1 Bradycardia, unspecified; I08.1 Rheumatic disorders of both mitral and tricuspid valves; E78.00 Pure hypercholesterolemia, unspecified; E03.9 Hypothyroidism, unspecified; K21.9 Gastro-esophageal reflux disease without esophagitis; K58.2 Mixed irritable bowel syndrome; F32.A Depression, unspecified; F41.0 Panic disorder [episodic paroxysmal anxiety]; J32.9 Chronic sinusitis, unspecified; Z79.890 Hormone replacement therapy; Z79.899 Other long term (current) drug therapy; Z22.321 Carrier or suspected carrier of Methicillin susceptible Staphylococcus aureus; Z86.79 Personal history of other diseases of the circulatory system; Z87.891 Personal history of nicotine dependence; Z87.440 Personal history of urinary (tract) infections; Z98.1 Arthrodesis status; Z91.81 History of falling; Z88.6 Allergy status to analgesic agent; Z88.5 Allergy status to narcotic agent; Z88.8 Allergy status to other drugs, medicaments and biological substances; Z82.49 Family history of ischemic heart disease and other diseases of the circulatory system
CPT/HCPCS: 36415; 71045; 71046; 71275; 80048; 80053; 80061; 80074; 81003; 82330; 82805; 83036; 83690; 83735; 83880; 84145; 84443; 84484; 85025; 85027; 85610; 85730; 86850; 86891; 86900; 86901; 86920; 87070; 87502; 87635; 93005; 93306; 93458; 93880; 93970; 94002; 94150; 94640; 96361; 96365; 96366; 96375; 99285

== ENCOUNTER 2022-03-23 12:47 | Observation (INO) | payer MEDICARE, OTHER ==
[2022-03-23] MEDS ORDERED: NITROGLYCERIN SL TABS 0.4 MG TAB SUBLINGUAL STA ×2 (12:56)
[2022-03-23] MEDS ORDERED: ACETAMINOPHEN TAB 500 MG TAB PO STA (12:56)
--- NOTE | 2022-03-23 13:00 | ED ---
General Adult HPI - General Stated complaint: Chest pain Time Seen by Provider: 03/23/22 12:47 Source: patient, RN notes reviewed, old records reviewed - History of Present Illness Initial comments: This is a 76 year female presents emergency Department complaining of chest pain for the last 3 days. Patient states that last between 10 and 15 minutes at a time. Patient states in December of this year had bypass surgery. Patient states when she has the pain she has shortness of breath and some diaphoresis and a lot of nausea. Patient states currently her pain is 4-10 it was a 6 out of 10 prior to get her nitroglycerin in the ambulance. Patient also took a full aspirin prior to coming today. Patient denies any lightheadedness dizziness. Patient states she has headache only after she got the nitroglycerin. Patient d enies any abdominal pain unless palpated. Patient states she's had diarrhea for the last 6 days. Patient states she's had some dysuria as well. Patient denies any lightheadedness or dizziness. Patient has a swelling to the legs or calf tenderness. - Related Data Home Medications Medication Instructions Recorded Confirmed Baclofen 5 mg PO BID 08/23/15 03/23/22 Divalproex Sodium 500 mg PO BID 08/23/15 03/23/22 Levothyroxine Sodium 25 mcg PO AC-BRKFST 08/23/15 03/23/22 PARoxetine HCL [Paroxetine HCl] 20 mg PO DAILY 08/23/15 03/23/22 Dicyclomine [Bentyl] 20 mg PO TID 07/11/19 03/23/22 Mirabegron [Myrbetriq] 50 mg PO HS 07/11/19 03/23/22 Cholecalciferol [Vitamin D3 (25 50 mcg PO DAILY 06/02/21 03/23/22 Mcg = 1000 Iu)] Pantoprazole Sodium 40 mg PO DAILY 06/02/21 03/23/22 Rosuvastatin [Crestor] 20 mg PO HS 12/02/21 03/23/22 Aspirin EC [Ecotrin] 325 mg PO DAILY 03/23/22 03/23/22 lisinopriL [Zestril] 5 mg PO BID 03/23/22 03/23/22 Previous Rx's Medication Instructions Recorded Clopidogrel [Plavix] 75 mg PO DAILY #30 tab 12/08/21 Metoprolol Tartrate [Lopressor] 25 mg PO BID #60 tab 12/08/21 Allergies Allergy/AdvReac Type Severity Reaction Status Date / Time diclofenac sodium Allergy Unknown Verified 03/23/22 14:27 [From Arthrotec] hydrocodone bitartrate Allergy Unknown Verified 03/23/22 14:27 [From [place]] itraconazole [From Sporanox] Allergy pt not Verified 03/23/22 14:27 sure of alg misoprostol [From [employer]] Allergy Unknown Verified 03/23/22 14:27 naproxen [From Naprosyn] Allergy Unknown Verified 03/23/22 14:27 Review of Systems ROS Statement: Those systems with pertinent positive or pertinent negative responses have been documented in the HPI. ROS Other: All systems not noted in ROS Statement are negative. Past Medical History Past Medical History: Coronary Artery Disease (CAD), Chest Pain / Angina, COPD, Dementia, GERD/Reflux, Hyperlipidemia, Hypertension, Memory Impairment, Thyroid Disorder Additional Past Medical History / Comment(s): having severe abdominal pain int ermittently-IBS, PALPITATIONS, PT STATES (STATES FALLS, CONFUSION, AND FORGETFULNESS AT TIMES-no devices),UTIs History of Any Multi-Drug Resistant Organisms: None Reported Past Surgical History: Back Surgery, Breast Surgery, Hysterectomy Additional Past Surgical History / Comment(s): Breast reduction, NECK FUSION, jer cataracts Past Anesthesia/Blood Transfusion Reactions: Previous Problems w/ Anesthesia Additional Past Anesthesia/Blood Transfusion Reaction / Comment(s): TROUBLE WAKING UP FROM ANESTHESIA Past Psychological History: Anxiety, Depression, Panic Disorder Smoking Status: Former smoker Past Alcohol Use History: Occasional Additional Past Alcohol Use History / Comment(s): 1 drink per week when she goes to [employer] Past Drug Use History: Marijuana Additional Drug Use History / Comment(s): Previous use marijuana, no current use - Past Family History Brother(s) Family Medical History: Coronary Artery Disease (CAD), Myocardial Infarction ([place]) Additional Family Medical History / Comment(s): FROM [place] at 56 years old Father History Unknown: Yes Family Medical History: Coronary Artery Disease (CAD), Myocardial Infarction ([place]) Additional Family Medical History / Comment(s): FATHER PASSED FROM [place] at 66 years old Mother Family Medical History: Dementia Additional Family Medical History / Comment(s): kidney failure; CAD with myocardial infarction in 2 maternal uncles General Exam - General Exam Comments Initial Comments: GENERAL: Patient is well-developed and well-nourished. Patient is nontoxic and well-hydrated and is in mild distress. ENT: Neck is soft and supple. No significant lymphadenopathy is noted. Oropharynx is clear. Moist mucous membranes. Neck has full range of motion without eliciting any pain. EYES: The sclera were anicteric and conjunctiva were pink and moist. Extraocular movements were intact and pupils were equal round and reactive to light. Eyelids were unremarkable. PULMONARY: Unlabored respirations. Good breath sounds bilaterally. No audible rales rhonchi or wheezing was noted. CARDIOVASCULAR: There is a regular rate and rhythm without any murmurs gallops or rubs. ABDOMEN: Abdomen is diffusely tender no rebound is noted SKIN: Skin is clear with no lesions or rashes and otherwise unremarkable. NEUROLOGIC: Patient is alert and oriented x3. Cranial nerves II through XII are grossly intact. Motor and sensory are also intact. Normal speech, volume and content. Symmetrical smile. MUSCULOSKELETAL: Normal extremities with adequate strength and full range of motion. No lower extremity swelling or edema. No calf tenderness. LYMPHATICS: No significant lymphadenopathy is noted PSYCHIATRIC: Normal psychiatric evaluation. Course Vital Signs 03/23/22 03/23/22 03/23/22 12:50 13:30 13:35 Temperature 97.8 F Pulse Rate 89 88 Pulse Rate [ 92 [employer] ] Respiratory 18 18 Rate Blood Pressure 169/118 125/73 O2 Sat by Pulse 98 99 Oximetry Medical Decision Making - Medical Decision Making EKG was interpreted by myself EKG shows sinus rhythm at 79 bpm [place] interval is 170 QRS is 85 Q-T intervals 32 QTC is 417. Patient's EKG shows no ST segment elevation. Was pt. sent in by a medical professional or institution? @ -No Did you speak to anyone other than the patient for history? @ -EMS gave me a history Did you review nursing and triage notes? @ -Agree with the nursing triage notes Were old charts reviewed? @ -I reviewed previous EKGs and compared to the current. Differential Diagnosis? @ -Differential Chest Pain: Stable Angina, Unstable Angina, STEMI, NSTEMI Aortic Dissection, Pneumothorax, Musculoskeletal, Esophageal Spasm GERD, Cholecystitis, Pancreatitis, Zoster, this is not meant to be an all-inclusive list. EKG interpreted by me (3pts min.)? @ -As above X-rays interpreted by me (1pt min.)? @ -I interpret chest x-ray chest x-ray showed no acute abnormality. CT interpreted by me (1pt min.)? @ -CT of the abdomen pelvis was interpreted by myself. I saw no acute abnormalities U/S interpreted by me (1pt. min.)? @ -None What testing was considered but not performed? (CT, X-rays, U/S, labs)? Why? @ -None What meds were considered but not given? Why? @ -None Did you discuss the management of the patient with other professionals? @ -I discussed the case with [facility] and they agreed to accept the patient admitted the patient Did you reconcile home meds? @ -None Was smoking cessation discussed for >3mins.? @ -None Was critical care preformed (if so, how long)? @ -None Were there social determinants of health that impacted care today? How? (Homelessness, low income, unemployed, alcoholism, drug addiction, transportation, low edu. Level, literacy, decrease access to med. care, intermediate, rehab)? @ -No Was there de-escalation of care discussed even if they declined? (Discuss DNR or withdrawal of care, Hospice)? @ -No What co-morbidities impacted this encounter? (DM, HTN, Smoking, COPD, CAD, Cancer, CVA, Hep., AIDS, mental health diagnosis, sleep apnea, morbid obesity)? @ -CAD. Patient recently had bypass surgery and is concerning that this may be the cause of her chest pain Was patient admitted / discharged? @ -Chest pain Undiagnosed new problem with uncertain prognosis? @ -None Drug Therapy requiring intensive monitoring for toxicity (Heparin, Nitro, Insulin, Cardizem)? @ -No Were any procedures done? @ -No Diagnosis/symptom? @ -Chest pain Acute, or Chronic, or Acute on Chronic? @ -Acute Uncomplicated (without systemic symptoms) or Complicated (systemic symptoms)? @ -Complicated patient had shortness of breath diaphoresis and nausea associated with chest pain Side effects of treatment? @ -None Exacerbation, Progression, or Severe Exacerbation] @ -Exacerbation Poses a threat to life or bodily function? @ -Yes potentially patient has severe stenosis of a coronary artery can lead to significant heart dysfunction - Lab Data Result diagrams: 03/23/22 13:00 03/23/22 13:00 Lab Results 03/23/22 03/23/22 03/23/22 Range/Units 13:00 13:00 13:00 WBC 3.7 L (3.8-10.6) k/uL RBC 4.39 (3.80-5.40) m/uL Hgb 12.6 (11.4-16.0) gm/dL Hct 37.9 (34.0-46.0) % MCV 86.3 (80.0-100.0) fL MCH 28.6 (25.0-35.0) pg MCHC 33.2 (31.0-37.0) g/dL RDW 15.1 (11.5-15.5) % Plt Count 157 (150-450) k/uL MPV 8.3 Neutrophils % 38 % Lymphocytes % 41 % Monocytes % 15 % Eosinophils % 3 % Basophils % 1 % Neutrophils # 1.4 (1.3-7.7) k/uL Lymphocytes # 1.5 (1.0-4.8) k/uL Monocytes # 0.6 (0-1.0) k/uL Eosinophils # 0.1 (0-0.7) k/uL Basophils # 0.0 (0-0.2) k/uL Hypochromasia Slight PT 10.1 (9.0-12.0) sec INR 0.9 (<1.2) APTT 20.4 L (22.0-30.0) sec Sodium 142 (137-145) mmol/L Potassium 4.0 (3.5-5.1) mmol/L Chloride 106 (98-107) mmol/L Carbon Dioxide 29 (22-30) mmol/L Anion Gap 7 mmol/L BUN 13 (7-17) mg/dL Creatinine 0.83 (0.52-1.04) mg/dL Est GFR (CKD-EPI)AfAm 81 (>60 ml/min/1.73 sqM) Est GFR (CKD-EPI)NonAf 70 (>60 ml/min/1.73 sqM) Glucose 85 (74-99) mg/dL Calcium 8.9 (8.4-10.2) mg/dL Magnesium 1.8 (1.6-2.3) mg/dL Total Bilirubin 0.3 (0.2-1.3) mg/dL AST 28 (14-36) U/L ALT 14 (4-34) U/L Alkaline Phosphatase 86 (38-126) U/L Troponin I (0.000-0.034) ng/mL Total Protein 6.3 (6.3-8.2) g/dL Albumin 3.7 (3.5-5.0) g/dL Urine Color Urine Appearance (Clear) Urine pH (5.0-8.0) Ur Specific [place] (1.001-1.035) Urine Protein (Negative) Urine Glucose (UA) (Negative) Urine Ketones (Negative) Urine Blood (Negative) Urine Nitrite (Negative) Urine Bilirubin (Negative) Urine Urobilinogen (<2.0) mg/dL Ur Leukocyte Esterase (Negative) 03/23/22 03/23/22 Range/Units 13:00 13:52 WBC (3.8-10.6) k/uL RBC (3.80-5.40) m/uL Hgb (11.4-16.0) gm/dL Hct (34.0-46.0) % MCV (80.0-100.0) fL MCH (25.0-35.0) pg MCHC (31.0-37.0) g/dL RDW (11.5-15.5) % Plt Count (150-450) k/uL MPV Neutrophils % % Lymphocytes % % Monocytes % % Eosinophils % % Basophils % % Neutrophils # (1.3-7.7) k/uL Lymphocytes # (1.0-4.8) k/uL Monocytes # (0-1.0) k/uL Eosinophils # (0-0.7) k/uL Basophils # (0-0.2) k/uL Hypochromasia PT (9.0-12.0) sec INR (<1.2) APTT (22.0-30.0) sec Sodium (137-145) mmol/L Potassium (3.5-5.1) mmol/L Chloride (98-107) mmol/L Carbon Dioxide (22-30) mmol/L Anion Gap mmol/L BUN (7-17) mg/dL Creatinine (0.52-1.04) mg/dL Est GFR (CKD-EPI)AfAm (>60 ml/min/1.73 sqM) Est GFR (CKD-EPI)NonAf (>60 ml/min/1.73 sqM) Glucose (74-99) mg/dL Calcium (8.4-10.2) mg/dL Magnesium (1.6-2.3) mg/dL Total Bilirubin (0.2-1.3) mg/dL AST (14-36) U/L ALT (4-34) U/L Alkaline Phosphatase (38-126) U/L Troponin I <0.012 (0.000-0.034) ng/mL Total Protein (6.3-8.2) g/dL Albumin (3.5-5.0) g/dL Urine Color Yellow Urine Appearance Clear (Clear) Urine pH 7.0 (5.0-8.0) Ur Specific [place] 1.018 (1.001-1.035) Urine Protein Trace H (Negative) Urine Glucose (UA) Negative (Negative) Urine Ketones Negative (Negative) Urine Blood Negative (Negative) Urine Nitrite Negative (Negative) Urine Bilirubin Negative (Negative) Urine Urobilinogen <2.0 (<2.0) mg/dL Ur Leukocyte Esterase Negative (Negative) Disposition Clinical Impression: Chest pain, Abdominal pain Disposition: ADMITTED IP TO THIS HOSP Referrals: Beatrice Castle [Primary Care Provider] - 1-2 days Time of Disposition: 16:03
[2022-03-23] MEDS: NITROGLYCERIN OINT 1 INCH/GM PACKET TOPICAL STA ×2 (13:11→13:37)
[2022-03-23 13:13] LABS: Basophils % (A) 1 %; Eosinophils # (A) 0.1 k/uL (0-0.7); Eosinophils % (A) 3 %; HCT 37.9 % (34.0-46.0); HGB 12.6 gm/dL (11.4-16.0); Hypochromasia Slight; Lymphocytes # (A) 1.5 k/uL (1.0-4.8); Lymphocytes % (A) 41 %; MCH 28.6 pg (25.0-35.0); MCHC 33.2 g/dL (31.0-37.0); MCV 86.3 fL (80.0-100.0); Mean Platelet Volume 8.3; Monocytes # (A) 0.6 k/uL (0-1.0); Monocytes % (A) 15 %; Neutrophils # (A) 1.4 k/uL (1.3-7.7); Neutrophils % (A) 38 %; Platelet Count 157 k/uL (150-450); RBC 4.39 m/uL (3.80-5.40); RDW 15.1 % (11.5-15.5); WBC 3.7 k/uL (3.8-10.6)
[2022-03-23 13:30] LABS: INR 0.9 (<1.2); Partial Thromboplastin Time 20.4 sec (22.0-30.0); Prothrombin Time 10.1 sec (9.0-12.0)
[2022-03-23 13:31] LABS: Albumin 3.7 g/dL (3.5-5.0); Calcium 8.9 mg/dL (8.4-10.2); Magnesium 1.8 mg/dL (1.6-2.3); Total Bilirubin 0.3 mg/dL (0.2-1.3); Total Protein 6.3 g/dL (6.3-8.2)
[2022-03-23 14:05] LABS: Appearance,Urine Clear (Clear); Bilirubin,Urine Negative (Negative); Blood,Urine Negative (Negative); Color,Urine Yellow; Glucose,Urine (UA) Negative (Negative); Ketones,Urine Negative (Negative); Leukocyte Esterase,Urine Negative (Negative); Nitrite,Urine Negative (Negative); Protein,Urine Trace (Negative); Specific Gravity,Urine 1.018 (1.001-1.035); Urobilinogen,Urine <2.0 mg/dL (<2.0)
--- NOTE | 2022-03-23 14:11 | XR ---
EXAMINATION TYPE: XR chest 2V DATE OF EXAM: 03/23/2022 COMPARISON: Chest x-ray December 08, 2021 HISTORY: Chest pain. TECHNIQUE: Frontal and lateral views of the chest are obtained. FINDINGS: Overlying Sternal wires and mediastinal clips along with left atrial appendage clip are al l redemonstrated. Underlying scoliosis again seen. Partial visualization of surgical change in the ce rvical spine. Stable cardiomegaly. No suspicious focal airspace opacity, pleural effusion, or pneumot horax seen on current study. IMPRESSION: Cardiomegaly without acute pulmonary process.
--- NOTE | 2022-03-23 15:07 | CT ---
EXAMINATION TYPE: CT abdomen pelvis w con DATE OF EXAM: 03/23/2022 HISTORY: Abdominal pain not further specified. CT DLP: 652.5mGycm Automated Exposure Control for Dose Reduction was Utilized. CONTRAST: CT scan of the abdomen and pelvis is performed without oral but with IV Contrast, patient injected wi th 100 mL of Isovue 300. COMPARISON: CT abdomen and pelvis July 11, 2019 FINDINGS: LUNG BASES: Left atrial appendage clipping overlying sternal wires noted on localizer. LIVER/GB: Punctate calcification periphery right hepatic lobe axial image 25 is redemonstrated. New p unctate calcification near gallbladder fossa axial image 19 incidentally noted PANCREAS: Possible 7 mm hypodense lesion in the distal body axial image 13 warrants nonemergent follo w-up corresponding to coronal image 36. Cannot exclude subtle pancreatic lesion versus volume averagi ng from surrounding fat. Advise pancreatic protocol MRI/MRCP nonemergent follow-up to further evaluat e. SPLEEN: Multiple calcifications scattered throughout the spleen presumed product of old granulomatous disease are redemonstrated. ADRENALS: No significant abnormality is seen. KIDNEYS: Symmetric cortical medullary uptake and excretion without hydronephrosis seen bilaterally. P oorly distended bladder redemonstrated. BOWEL: Suboptimal evaluation of bowel without enteric contrast. Stomach poorly distended and thus sub optimally evaluated. No suspicious small bowel dilatation. Low-lying cecum into the anterior lower pe lvis is redemonstrated. Appendix likely within normal limits ascending from cecum in the right pelvis . . A few diverticula in the sigmoid colon without CT evidence for acute diverticulitis. Poor visuali zation of terminal ileum similar to prior. UTERUS/ADNEXA: Uterus surgically absent similar to prior. LYMPH NODES: No new greater than 1cm abdominal or pelvic lymph nodes are appreciated. OSSEOUS STRUCTURES: Underlying levoconvex scoliosis centered at L3 level is redemonstrated. Multileve l disc space narrowing along with spurring and endplate sclerosis greatest right L3-L4 and left L5-S1 levels redemonstrated. Interval surgery with metallic disc material laterally and posterior pedicula r rods and screws transfixing L4-L5 levels bilaterally. Moderate narrowing and mild spurring of both hip joints. OTHER: Fairly moderate calcified plaque of aorta extends into branch vessels including origin of both renal arteries, significant stenosis not excluded at this level or the proximal celiac artery and SM A on sagittal images. IMPRESSION: No significant new or acute finding is seen to account for patient's clinical symptoms of nonspecified abdominal pain.
[2022-03-23] MEDS ORDERED: NITROGLYCERIN SL TABS 0.4 MG TAB SUBLINGUAL PRN (16:05)
[2022-03-23] MEDS ORDERED: traMADol 50 MG TAB PO PRN (17:38)
--- NOTE | 2022-03-23 17:44 | P.HPIM ---
History of Present Illness H&P Date: 03/23/22 This is a pleasant 76-year-old female who presents to [facility] with sudden onset chest pain for the last 3 days. Patient states the chest pain comes and goes and would last about 15 minutes. Pain was improved with aspirin and nitro. Patient does admit to some shortness of breath, nausea and diaphoresis when the chest pain came on. To had recent bypass surgery December 2021. Patient saw her mobile equipment servicer about 2 weeks ago. Patient also notes increased abdominal pain in the suprapubic region. Patient has had diarrhea for the past 6 days and now complains of urinary frequency and urgency. However, you UA was negative for any indication of a UTI. CT of the abdomen and pelvis did reveal a possible 7 mm hypodense lesion in the distal body of the pancreas. CT of the abdomen and pelvis did not reveal any sign of inflammatory process in the GI tract. At time of interview, patient denied chest pain or shortness of breath stating it has since resolved once treated in the emergency department. Unfortunately, patient continued to complain of abdominal pain described as an ache and at times sharp mostly located in the lower quadrants. Patient was concerned she had another urinary tract infection. Again, UA was negative only showing protein. Review of Systems A 14 point review systems was assessed patient was only positive for those p ertinent in HPI Past Medical History Past Medical History: Coronary Artery Disease (CAD), Chest Pain / Angina, COPD, Dementia, GERD/Reflux, Hyperlipidemia, Hypertension, Memory Impairment, Thyroid Disorder Additional Past Medical History / Comment(s): having severe abdominal pain intermittently-IBS, PALPITATIONS, PT STATES (STATES FALLS, CONFUSION, AND FORGETFULNESS AT TIMES-no devices),UTIs History of Any Multi-Drug Resistant Organisms: None Reported Past Surgical History: Back Surgery, Breast Surgery, Hysterectomy Additional Past Surgical History / Comment(s): Breast reduction, NECK FUSION, jer cataracts Past Anesthesia/Blood Transfusion Reactions: Previous Problems w/ Anesthesia Additional Past Anesthesia/Blood Transfusion Reaction / Comment(s): TROUBLE WAKING UP FROM ANESTHESIA Past Psychological History: Anxiety, Depression, Panic Disorder Smoking Status: Former smoker Past Alcohol Use History: Occasional Additional Past Alcohol Use History / Comment(s): 1 drink per week when she goes to [employer] Past Drug Use History: Marijuana Additional Drug Use History / Comment(s): Previous use marijuana, no current use - Past Family History Brother(s) Family Medical History: Coronary Artery Disease (CAD), Myocardial Infarction ([place]) Additional Family Medical History / Comment(s): FROM [place] at 56 years old Father History Unknown: Yes Family Medical History: Coronary Artery Disease (CAD), Myocardial Infarction ([place]) Additional Family Medical History / Comment(s): FATHER PASSED FROM [place] at 66 years old Mother Family Medical History: Dementia Additional Family Medical History / Comment(s): kidney failure; CAD with myocard ial infarction in 2 maternal uncles Medications and Allergies Home Medications Medication Instructions Recorded Confirmed Type Baclofen 5 mg PO BID 08/23/15 03/23/22 History Divalproex Sodium 500 mg PO BID 08/23/15 03/23/22 History Levothyroxine Sodium 25 mcg PO AC-BRKFST 08/23/15 03/23/22 History PARoxetine HCL [Paroxetine HCl] 20 mg PO DAILY 08/23/15 03/23/22 History Dicyclomine [Bentyl] 20 mg PO TID 07/11/19 03/23/22 History Mirabegron [Myrbetriq] 50 mg PO HS 07/11/19 03/23/22 History Cholecalciferol [Vitamin D3 (25 50 mcg PO DAILY 06/02/21 03/23/22 History Mcg = 1000 Iu)] Pantoprazole Sodium 40 mg PO DAILY 06/02/21 03/23/22 History Rosuvastatin [Crestor] 20 mg PO HS 12/02/21 03/23/22 History Clopidogrel [Plavix] 75 mg PO DAILY #30 tab 12/08/21 03/23/22 Rx Metoprolol Tartrate [Lopressor] 25 mg PO BID #60 tab 12/08/21 03/23/22 Rx Aspirin EC [Ecotrin] 325 mg PO DAILY 03/23/22 03/23/22 History lisinopriL [Zestril] 5 mg PO BID 03/23/22 03/23/22 History Allergies Allergy/AdvReac Type Severity Reaction Status Date / Time diclofenac sodium Allergy Unknown Verified 03/23/22 14:27 [From Arthrotec] hydrocodone bitartrate Allergy Unknown Verified 03/23/22 14:27 [From [place]] itraconazole [From Sporanox] Allergy pt not Verified 03/23/22 14:27 sure of alg misoprostol [From [employer]] Allergy Unknown Verified 03/23/22 14:27 naproxen [From Naprosyn] Allergy Unknown Verified 03/23/22 14:27 Physical Exam Osteopathic Statement: *. No significant issues noted on an osteopathic structural exam other than those noted in the History and Physical/Consult. Vitals: Vital Signs Temp Pulse Pulse Resp BP Pulse Ox 03/23/22 13:35 88 18 125/73 99 03/23/22 13:30 92 03/23/22 12:50 97.8 F 89 18 169/118 98 Intake and Output 03/23/22 03/23/22 03/23/22 06:59 14:59 22:59 Other: Weight 63.503 kg General: [non toxic], [no distress], [appears at stated age] Derm: [warm], [dry] Head: [atraumatic], [normocephalic], [symmetric] Eyes: [EOMI], [no lid lag], [anicteric sclera] Mouth: [no lip lesion], [mucus membranes moist] Cardiovascular: [S1S2 reg], [no murmur], [positive posterior tibial pulse bilateral], Lungs: [CTA bilateral], [no rhonchi, no rales] , [no accessory muscle use] Abdominal: [soft], [diffuse tenderness with palpation no rebound, [no guarding], [no appreciable organomegaly] Ext: [no gross muscle atrophy], [no edema], [no contractures] Neuro: [ CN II-XI grossly intact], [no focal neuro deficits] Psych: [Alert], [oriented], [appropriate affect] Results CBC & Chem 7: 03/23/22 13:00 03/23/22 13:00 Labs: Abnormal Lab Results - Last 24 Hours (Table) 03/23/22 03/23/22 03/23/22 Range/Units 13:00 13:00 13:52 WBC 3.7 L (3.8-10.6) k/uL APTT 20.4 L (22.0-30.0) sec Urine Protein Trace H (Negative) Thrombosis Risk Factor Assmnt - DVT/VTE Prophylaxis DVT/VTE Prophylaxis: Pharmacologic Prophylaxis ordered Assessment and Plan Assessment: 1. Chest pain rule out ACS Consult cardiology trend troponins telemetry 2. Abdominal pain with pancreatic lesion CA-19-9 Consult GI Check lactic acid tramadol prn pain check urine culture 3. History of coronary artery disease status post CABG Resume home medications Continue telemetry 4. History of hypertension Resume lisinopril and metoprolol 5. History of GERD Resume Protonix 6. History of anxiety disorder depression Resume Paxil 7. History of overactive bladder Resume Myrbetriq 8. History of hypothyroid Resume Synthroid Check TSH 9. GI DVT prophylaxis 10. A.m. labs Disposition: Patient will need greater than hospital 2 midnight stays Patient is full code PCP Dr. Castle Greater than 40 minutes spent coordinating care, documenting, and counseling patient Time with Patient: Greater than 30
[2022-03-23 18:00] LABS: Amylase 49 U/L (30-110); Lipase 77 U/L (23-300)
[2022-03-23] MEDS: DIVALPROEX 500 MG TABLET.DR PO SCH (20:20)
[2022-03-23] MEDS: ATORVASTATIN 40 MG TAB PO SCH (20:20)
[2022-03-23] MEDS: HEPARIN SODIUM,PORCINE/PF 5,000 UNIT/0.5 ML SYRINGE SQ SCH (20:20)
[2022-03-23] MEDS: DICYCLOMINE 20 MG TAB PO SCH (20:21)
[2022-03-23] MEDS: METOPROLOL TARTRATE 25 MG TAB PO SCH (20:21)
[2022-03-23] MEDS: NITROGLYCERIN OINT 1 INCH/GM PACKET TOPICAL SCH (20:22)
[2022-03-23] MEDS: SODIUM CHLORIDE 0.9% 1,000 ML IV SCH (20:28)
[2022-03-23] MEDS: NON FORMULARY DRUG (Mirabegron [Myrbetriq] 50 MG Tab.Er.24h) PO SCH (22:53)
[2022-03-23] MEDS: lisinopriL 5 MG TAB PO SCH (23:10)
[2022-03-24] MEDS: NITROGLYCERIN OINT 1 INCH/GM PACKET TOPICAL SCH ×2 (04:41→16:00)
[2022-03-24] MEDS: DIVALPROEX 500 MG TABLET.DR PO SCH ×2 (08:29→20:16)
[2022-03-24] MEDS: DICYCLOMINE 20 MG TAB PO SCH ×3 (08:29→20:15)
[2022-03-24] MEDS: PANTOPRAZOLE SODIUM 40 MG GRANULE PKT PO SCH (08:31)
[2022-03-24] MEDS: PARoxetine 20 MG TAB PO SCH (08:31)
[2022-03-24 08:46] LABS: Basophils # (A) 0.03 X 10*3/uL (0.00-0.10); Basophils % (A) 0.7 %; Eosinophils % (A) 2.4 %; HCT 37.6 % (37.2-46.3); HGB 12.1 g/dL (12.0-15.0); Immature Grans, Automated 0.2 %; Lymphocytes # (A) 1.96 X 10*3/uL (0.90-5.00); Lymphocytes % (A) 47.9 %; MCH 26.9 pg (27.0-32.0); MCHC 32.2 g/dL (32.0-37.0); MCV 83.7 fL (80.0-97.0); Mean Platelet Volume 10.7 fL (9.5-12.2); Monocytes # (A) 0.62 X 10*3/uL (0.20-1.00); Monocytes % (A) 15.2 %; NRBC Per 100 WBC 0 /100 WBCS (0.0-0.0); Neutrophils # (A) 1.37 X 10*3/uL (1.80-7.70); Neutrophils % (A) 33.6 %; Platelet Count 172 X 10*3/uL (140-440); RBC 4.49 X 10*6/uL (4.10-5.20); RDW 16.2 % (11.5-14.5); WBC 4.09 X 10*3/uL (4.50-10.00)
[2022-03-24] MEDS: METOPROLOL TARTRATE 25 MG TAB PO SCH ×2 (08:47→20:15)
[2022-03-24] MEDS: CLOPIDOGREL 75 MG TAB PO SCH (08:47)
[2022-03-24 08:56] LABS: ALT 11 U/L (8-44); AST 26 U/L (13-35); African American GFR (CKD) 84.2 (60.0-200.0); Albumin 4.1 g/dL (3.8-4.9); Albumin/Globulin Ratio 1.71 (1.60-3.17); Alkaline Phosphatase 76 U/L (41-126); BUN/Creat Ratio 13.38 Ratio (12.00-20.00); Blood Urea Nitrogen 10.7 mg/dL (9.0-27.0); Calcium 9.7 mg/dL (8.7-10.3); Carbon Dioxide 27.3 mmol/L (20.0-27.5); Chloride 103 mmol/L (96-109); Chol/HDL Ratio 3.38 Ratio; Globulin 2.4 g/dL (1.6-3.3); Glucose 87 mg/dL (70-110); LDL Cholesterol,Calculated 95.4 mg/dL (0.0-131.0); Magnesium 1.8 mg/dL (1.5-2.4); Non-African American GFR(CKD) 72.6 (60.0-200.0); Potassium 4.3 mmol/L (3.5-5.5); Sodium 139 mmol/L (135-145); Total Protein 6.5 g/dL (6.2-8.2)
[2022-03-24] MEDS ORDERED: NON FORMULARY DRUG (Aspirin Ec 325 MG Tab) PO SCH (09:00)
[2022-03-24] MEDS ORDERED: ASPIRIN 325 MG TAB PO SCH (09:00)
[2022-03-24] MEDS ORDERED: ASPIRIN 81 MG PO SCH (09:00)
[2022-03-24] MEDS: lisinopriL 5 MG TAB PO SCH ×2 (09:05→20:16)
[2022-03-24] MEDS: LEVOTHYROXINE 25 MCG TAB PO SCH (09:05)
[2022-03-24] MEDS: CHOLECALCIFEROL 25 MCG (1000 IU) TABLET PO SCH (09:05)
--- NOTE | 2022-03-24 10:20 | P.CRDCN ---
History of Present Illness History of present illness: HISTORY OF PRESENT ILLNESS: This is a 76-year-old female with a past medical history significant for coronary artery disease with previous 2 vessel CABG in November [address] to the LAD and SVG to OM, carotid atherosclerosis, hypertension, hyperlipidemia, and irritable bowel syndrome. Patient follows in the office with Dr. Castaneda. We have been asked to see the patient in consultation for chest pain. Patient examined at the bedside. Patient states she has been having generalized abdominal pain for the past few weeks. She states the pain gets so bad that it keeps her awake at night. She states the pain also goes into her chest at times. She also reports having back pain. She states that she thought she had a UTI and took Azo from her local pharmacy. She states she has been getting shooting pains from her vagina that goes into her abdomen. She denies having any fever or chills. She reports that she has not had an appetite recently and has been getting full very fast. She states has been going on for the past few months. She does not report any pain with eating. * EKG reveals sinus mechanism with no signs of acute ischemia * Chest xray cardiomegaly without acute pulmonary process * Laboratory data: WBC 4.09. Hemoglobin 12.1. Platelet count 172. Sodium 139. Potassium 4.3. BUN 10.7. Creatinine 0.8. Troponin negative 3 * Current home cardiac medications include aspirin 325 mg daily, Crestor 20 mg at night, clopidogrel 75 mg daily, metoprolol tartrate 25 mg twice a day, lisinopril 5 mg twice a day * Most recent echocardiogram obtained in November 2021 revealed ejection fraction 45-50% with anterior septal akinesis REVIEW OF SYSTEMS: At the time of my exam: CONSTITUTIONAL: Denies fever or chills. HEENT: Denies blurred vision, vision changes, or eye pain. Denies hemoptysis CARDIOVASCULAR: Denies chest pain. Denies orthopnea. Denies PND. Denies palpitations RESPIRATORY: Denies shortness of breath. GASTROINTESTINAL: Denies abdominal pain. Denies nausea or vomiting. HEMATOLOGIC: Denies bleeding disorders. GENITOURINARY: Denies any blood in urine. SKIN: Denies pruitis. Denies rash. PHYSICAL EXAM: VITAL SIGNS: Reviewed. GENERAL: Well-developed in no acute distress. HEENT: Head is normocephalic. Pupils are equal, round. Sclerae anicteric. Mucous membranes of the mouth are moist. Neck supple. No JVD or thyromegaly LUNGS: Respirations even and unlabored. Lungs essentially clear to auscultation bilaterally. HEART: Regular rate and rhythm. S1 and S2 heard. ABDOMEN: Soft. Nondistended. Nontender. EXTREMITIES: Normal range of motion. No clubbing or cyanosis. Peripheral pulses intact. No lower extremity edema NEUROLOGIC: Awake and alert. Oriented x 3. ASSESSMENT: Chest pain, atypical, troponin negative 3 Abdominal pain Possible recent UTI, outpatient, per patient Coronary artery disease with previous 2 vessel CABG in November 2021 Hypertension Hyperlipidemia Carotid atherosclerosis Irritable bowel syndrome PLAN: An acute coronary event has been ruled out Resume home cardiac medications Obtain limited 2-D echo to assess LV function No further inpatient recommendations from a cardiac standpoint Patient to follow up outpatient with Dr. Castaneda Nurse practitioner note has been reviewed by physician. Signing provider agrees with the documented findings, assessment, and plan of care. Past Medical History Past Medical History: Coronary Artery Disease (CAD), Chest Pain / Angina, COPD, Dementia, GERD/Reflux, Hyperlipidemia, Hypertension, Memory Impairment, Thyroid Disorder Additional Past Medical History / Comment(s): having severe abdominal pain intermittently-IBS, PALPITATIONS, PT STATES (STATES FALLS, CONFUSION, AND FORGETFULNESS AT TIMES-no devices),UTIs History of Any Multi-Drug Resistant Organisms: None Reported Past Surgical History: Back Surgery, Breast Surgery, Hysterectomy Additional Past Surgical History / Comment(s): Breast reduction, NECK FUSION, jer cataracts Past Anesthesia/Blood Transfusion Reactions: Previous Problems w/ Anesthesia Additional Past Anesthesia/Blood Transfusion Reaction / Comment(s): TROUBLE WAKING UP FROM ANESTHESIA Past Psychological History: Anxiety, Depression, Panic Disorder Smoking Status: Former smoker Past Alcohol Use History: Occasional Additional Past Alcohol Use History / Comment(s): 1 drink per week when she goes to bingo Past Drug Use History: Marijuana Additional Drug Use History / Comment(s): Previous use marijuana, no current use - Past Family History Brother(s) Family Medical History: Coronary Artery Disease (CAD), Myocardial Infarction ([place]) Additional Family Medical History / Comment(s): FROM [place] at 56 years old Father History Unknown: Yes Family Medical History: Coronary Artery Disease (CAD), Myocardial Infarction ( [place]) Additional Family Medical History / Comment(s): FATHER PASSED FROM [place] at 66 years old Mother Family Medical History: Dementia Additional Family Medical History / Comment(s): kidney failure; CAD with myocardial infarction in 2 maternal uncles Medications and Allergies Home Medications Medication Instructions Recorded Confirmed Type Baclofen 5 mg PO BID 08/23/15 03/23/22 History Divalproex Sodium 500 mg PO BID 08/23/15 03/23/22 History Levothyroxine Sodium 25 mcg PO AC-BRKFST 08/23/15 03/23/22 History PARoxetine HCL [Paroxetine HCl] 20 mg PO DAILY 08/23/15 03/23/22 History Dicyclomine [Bentyl] 20 mg PO TID 07/11/19 03/23/22 History Mirabegron [Myrbetriq] 50 mg PO HS 07/11/19 03/23/22 History Cholecalciferol [Vitamin D3 (25 50 mcg PO DAILY 06/02/21 03/23/22 History Mcg = 1000 Iu)] Pantoprazole Sodium 40 mg PO DAILY 06/02/21 03/23/22 History Rosuvastatin [Crestor] 20 mg PO HS 12/02/21 03/23/22 History Clopidogrel [Plavix] 75 mg PO DAILY #30 tab 12/08/21 03/23/22 Rx Metoprolol Tartrate [Lopressor] 25 mg PO BID #60 tab 12/08/21 03/23/22 Rx Aspirin EC [Ecotrin] 325 mg PO DAILY 03/23/22 03/23/22 History lisinopriL [Zestril] 5 mg PO BID 03/23/22 03/23/22 History Allergies Allergy/AdvReac Type Severity Reaction Status Date / Time diclofenac sodium Allergy Unknown Verified 03/23/22 14:27 [From [employer]] hydrocodone bitartrate Allergy Unknown Verified 03/23/22 14:27 [From [facility]] itraconazole [From Sporanox] Allergy pt not Verified 03/23/22 14:27 sure of alg misoprostol [From [employer]] Allergy Unknown Verified 03/23/22 14:27 naproxen [From Naprosyn] Allergy Unknown Verified 03/23/22 14:27 Physical Exam Vitals: Vital Signs Temp Pulse Pulse Resp BP BP Pulse Ox 03/24/22 06:45 74 16 157/80 96 03/24/22 01:12 60 18 143/57 100 03/23/22 22:38 66 16 65 L 03/23/22 21:26 65 18 95 03/23/22 20:20 98.3 F 03/23/22 20:10 63 18 165/82 96 03/23/22 18:06 71 18 167/95 99 03/23/22 13:35 88 18 125/73 99 03/23/22 13:30 92 03/23/22 12:50 97.8 F 89 18 169/118 98 Results 03/24/22 06:03 03/24/22 06:03 Cardiac Enzymes 03/23/22 03/23/22 03/23/22 Range/Units 13:00 13:00 17:29 AST 28 (14-36) U/L Troponin I <0.012 <0.012 (0.000-0.034) ng/mL 03/23/22 Range/Units 20:05 AST (14-36) U/L Troponin I <0.012 (0.000-0.034) ng/mL Coagulation 03/23/22 Range/Units 13:00 PT 10.1 (9.0-12.0) sec APTT 20.4 L (22.0-30.0) sec CBC 03/23/22 Range/Units 13:00 WBC 3.7 L (3.8-10.6) k/uL RBC 4.39 (3.80-5.40) m/uL Hgb 12.6 (11.4-16.0) gm/dL Hct 37.9 (34.0-46.0) % Plt Count 157 (150-450) k/uL Comprehensive Metabolic Panel 03/23/22 Range/Units 13:00 Sodium 142 (137-145) mmol/L Potassium 4.0 (3.5-5.1) mmol/L Chloride 106 (98-107) mmol/L Carbon Dioxide 29 (22-30) mmol/L BUN 13 (7-17) mg/dL Creatinine 0.83 (0.52-1.04) mg/dL Glucose 85 (74-99) mg/dL Calcium 8.9 (8.4-10.2) mg/dL AST 28 (14-36) U/L ALT 14 (4-34) U/L Alkaline Phosphatase 86 (38-126) U/L Total Protein 6.3 (6.3-8.2) g/dL Albumin 3.7 (3.5-5.0) g/dL Current Medications Generic Name Dose Route Start Last Admin Trade Name Freq PRN Reason Stop Dose Admin Aspirin 325 mg 03/24/22 09:00 Aspirin 325 Mg Tab PO DAILY [facility] Atorvastatin Calcium 40 mg 03/23/22 21:00 03/23/22 20:20 Atorvastatin 40 Mg Tab PO 40 mg HS [facility] Administration Cholecalciferol 50 mcg 03/24/22 09:00 Cholecalciferol 25 Mcg (1000 Iu) Tablet PO DAILY [facility] Clopidogrel Bisulfate 75 mg 03/24/22 09:00 Clopidogrel 75 Mg Tab PO DAILY [facility] Dicyclomine HCl 20 mg 03/23/22 22:00 03/23/22 20:21 Dicyclomine 20 Mg Tab PO 20 mg TID [facility] Administration Divalproex Sodium 500 mg 03/23/22 21:00 03/23/22 20:20 Divalproex 500 Mg Tablet.Dr PO 500 mg BID [facility] Administration Heparin Sodium (Porcine) 5,000 unit 03/23/22 21:00 03/23/22 20:20 Heparin Sodium,Porcine/Pf 5,000 Unit/0.5 Ml Syringe SQ Not Given Q12HR [facility] Sodium Chloride 1,000 mls @ 75 mls/hr 03/23/22 17:30 03/23/22 20:28 Saline 0.9% IV 75 mls/hr .[id number] [facility] Administration Levothyroxine Sodium 25 mcg 03/24/22 07:30 Levothyroxine 25 Mcg Tab PO AC-BRKFST [facility] Lisinopril 5 mg 03/23/22 21:00 03/23/22 23:10 Lisinopril 5 Mg Tab PO 5 mg BID [facility] Administration Metoprolol Tartrate 25 mg 03/23/22 21:00 03/23/22 20:21 Metoprolol Tartrate 25 Mg Tab PO 25 mg BID [facility] Administration Nitroglycerin 0.4 mg 03/23/22 16:05 Nitroglycerin Sl Tabs 0.4 Mg Tab SUBLINGUAL Q5M PRN Chest Pain Nitroglycerin 1 inch 03/23/22 18:00 03/24/22 04:41 Nitroglycerin Oint 1 Inch/Gm Packet TOPICAL Not Given Q6HR [facility] Non-Formulary Medication 50 mg 03/23/22 21:00 03/23/22 22:53 Mirabegron [Myrbetriq] PO Not Given HS [facility] Pantoprazole Sodium 40 mg 03/24/22 09:00 Pantoprazole Sodium 40 Mg Granule Pkt PO DAILY [facility] Paroxetine HCl 20 mg 03/24/22 09:00 Paroxetine 20 Mg Tab PO DAILY [facility] Tramadol HCl 50 mg 03/23/22 17:38 Tramadol 50 Mg Tab PO TID PRN Pain 03/23/22 13:00 03/23/22 13:00
--- NOTE | 2022-03-24 11:02 | P.CONS ---
History of Present Illness - Reason for Consult Consult date: 03/24/22 Abdominal pain with pancreatic lesion Requesting physician: Chelita Arias - Chief Complaint Chest pain, back pain, abdominal pain - History of Present Illness This is a pleasant 76-year-old female who presented to the emergency department with complaints of chest pain back pain and abdominal pain. Patient believed that she was having a heart attack and came to the emergency department for further evaluation. She states she was having chest pain in her chest that wo uld come and go states it was improving with aspirin and nitro. She also was having some shortness of breath and pain into her back. She had recent two- vessel CABG in November of this year, has a history of hypertension, hyperlipidemia carotid stenosis and irritable bowel syndrome. She states she's had abdominal discomfort with mixed diarrhea and constipation over the last couple weeks duration. She was post-appointment with Dr. Nolan on 1225 but she missed her appointment. She now has appointment scheduled in April of this year. States that she's had decreased appetite, she is currently on dicyclomine however states she still having quite a bit of upset stomach. Denies any nausea or vomiting at this time. Last bowel movement was yesterday which she states was small hard john. She states she did take some MiraLAX for the constipation. She also states she's been having sharp vaginal pain for the last 3 or 4 days and thought she had a urinary tract infection, took some Azo however she stopped them pain did recur. She is currently sitting up in a chair appears in no acute distress, denies any current symptoms at this time. Urology has seen patient and ruled out acute coronary event. Ordered a 2-D echo and patient is to follow-up outpatient with Dr. Castaneda. CT of the abdomen and pelvis: No significant new or acute finding is seen to account for patient's clinical symptoms of nonspecified abdominal pain. Pancreas reported a possible 7 mm hypodense lesion in the distal body Rikki nonemergent follow-up. Cannot exclude subtle pancreatic lesion versus volume averaging from surrounding fat. If I's pancreatic protocol MRI MRCP nonemergent follow-up for further evaluation. Labs WBC 4 hemoglobin 12 hematocrit 37 platelet count 172,000 sodium 139 potassium 4.3 BUN 10.7 creatinine 0.8 total bilirubin 0.3 AST 26 ALT 11 alkaline phosphatase 76 amylase 49 lipase 77 CA-19-9 8.9 Review of Systems REVIEW OF SYSTEMS: CARDIOPULMONARY: Chest pain shortness of breath. Gastrointestina: Abdominal pain and cramping. No nausea or vomiting. Decreased appetite. No melena or rectal bleeding. No hematemesis. Intermittent constipation mixed with diarrhea. History IBS GENITOURINARY: No dysuria or hematuria. vaginal/pelvic pain. MUSCULOSKELETAL: Reports normal range of [place] complaints of back pain. Skin: No rashes. No jaundice. ENDOCRINE: No chills, fevers. No excessive weight gain or loss. No polydipsia or polyuria. PSYCHIATRIC: Unremarkable. NEUROLOGY: No change in mental status. Denies dizziness, headache. ENT: Vision unremarkable. CONSTITUTIONAL: No recent weight loss. No fever, chills, night sweats. Past Medical History Past Medical History: Coronary Artery Disease (CAD), Chest Pain / Angina, COPD, Dementia, GERD/Reflux, Hyperlipidemia, Hypertension, Memory Impairment, Thyroid Disorder Additional Past Medical History / Comment(s): having severe abdominal pain intermittently-IBS, PALPITATIONS, PT STATES (STATES FALLS, CONFUSION, AND FOR GETFULNESS AT TIMES-no devices),UTIs History of Any Multi-Drug Resistant Organisms: None Reported Past Surgical History: Back Surgery, Breast Surgery, Hysterectomy Additional Past Surgical History / Comment(s): Breast reduction, NECK FUSION, jer cataracts Past Anesthesia/Blood Transfusion Reactions: Previous Problems w/ Anesthesia Additional Past Anesthesia/Blood Transfusion Reaction / Comm: TROUBLE WAKING UP FROM ANESTHESIA Past Psychological History: Anxiety, Depression, Panic Disorder Smoking Status: Former smoker Past Alcohol Use History: Occasional Additional Past Alcohol Use History / Comment(s): 1 drink per week when she goes to [employer] Past Drug Use History: Marijuana Additional Drug Use History / Comment(s): Previous use marijuana, no current use - Past Family History Brother(s) Family Medical History: Coronary Artery Disease (CAD), Myocardial Infarction ([place]) Additional Family Medical History / Comment(s): FROM [place] at 56 years old Father History Unknown: Yes Family Medical History: Coronary Artery Disease (CAD), Myocardial Infarction ([place]) Additional Family Medical History / Comment(s): FATHER PASSED FROM [place] at 66 years old Mother Family Medical History: Dementia Additional Family Medical History / Comment(s): kidney failure; CAD with myocardial infarction in 2 maternal uncles Medications and Allergies Home Medications Medication Instructions Recorded Confirmed Type Baclofen 5 mg PO BID 08/23/15 03/23/22 History Divalproex Sodium 500 mg PO BID 08/23/15 03/23/22 History Levothyroxine Sodium 25 mcg PO AC-BRKFST 08/23/15 03/23/22 History PARoxetine HCL [Paroxetine HCl] 20 mg PO DAILY 08/23/15 03/23/22 History Dicyclomine [Bentyl] 20 mg PO TID 07/11/19 03/23/22 History Mirabegron [Myrbetriq] 50 mg PO HS 07/11/19 03/23/22 History Cholecalciferol [Vitamin D3 (25 50 mcg PO DAILY 06/02/21 03/23/22 History Mcg = 1000 Iu)] Pantoprazole Sodium 40 mg PO DAILY 06/02/21 03/23/22 History Rosuvastatin [Crestor] 20 mg PO HS 12/02/21 03/23/22 History Clopidogrel [Plavix] 75 mg PO DAILY #30 tab 12/08/21 03/23/22 Rx Metoprolol Tartrate [Lopressor] 25 mg PO BID #60 tab 12/08/21 03/23/22 Rx Aspirin EC [Ecotrin] 325 mg PO DAILY 03/23/22 03/23/22 History lisinopriL [Zestril] 5 mg PO BID 03/23/22 03/23/22 History Allergies Allergy/AdvReac Type Severity Reaction Status Date / Time diclofenac sodium Allergy Unknown Verified 03/23/22 14:27 [From [employer]] hydrocodone bitartrate Allergy Unknown Verified 03/23/22 14:27 [From [place]] itraconazole [From Sporanox] Allergy pt not Verified 03/23/22 14:27 sure of alg misoprostol [From [employer]] Allergy Unknown Verified 03/23/22 14:27 naproxen [From Naprosyn] Allergy Unknown Verified 03/23/22 14:27 Physical Exam Vitals: Vital Signs Temp Pulse Pulse Resp BP BP Pulse Ox 03/24/22 08:06 72 16 173/76 98 03/24/22 06:45 74 16 157/80 96 03/24/22 01:12 60 18 143/57 100 03/23/22 22:38 66 16 65 L 03/23/22 21:26 65 18 95 03/23/22 20:20 98.3 F 03/23/22 20:10 63 18 165/82 96 03/23/22 18:06 71 18 167/95 99 03/23/22 13:35 88 18 125/73 99 03/23/22 13:30 92 03/23/22 12:50 97.8 F 89 18 169/118 98 General appearance: The patient is alert, oriented, appears in no acute distress. HET: Head is normocephalic and atraumatic. Conjunctiva pink. Sclera anicteric. Neck: Supple without lymphadenopathy. Trachea midline. Heart: S1 S2. Regular rate and rhythm. Lungs: Clear to auscultation. Abdomen: Soft, mild diffuse tenderness to palpation, nondistended with bowel sounds. No guarding or rigidity. Skin: No rashes. No jaundice. Extremities: Normal skin color and turgor. No pedal edema. Neurological: No focal deficits. Alert and oriented x3. Results CBC & Chem 7: 03/24/22 06:03 03/24/22 06:03 Labs: Abnormal Lab Results - Last 24 Hours (Table) 03/23/22 03/23/22 03/23/22 Range/Units 13:00 13:00 13:52 WBC 3.7 L (3.8-10.6) k/uL MCH (27.0-32.0) pg RDW (11.5-14.5) % Neutrophils # (1.80-7.70) X 10*3/uL APTT 20.4 L (22.0-30.0) sec Anion Gap (10.00-18.00) mmol/L Urine Protein Trace H (Negative) 03/24/22 03/24/22 Range/Units 06:03 06:03 WBC 4.09 L (3.8-10.6) k/uL MCH 26.9 L (27.0-32.0) pg RDW 16.2 H (11.5-14.5) % Neutrophils # 1.37 L (1.80-7.70) X 10*3/uL APTT (22.0-30.0) sec Anion Gap 8.70 L (10.00-18.00) mmol/L Urine Protein (Negative) Microbiology - Last 24 Hours (Table) 03/23/22 18:07 Urine Culture - Preliminary Urine,Voided CT scan - abdomen: report reviewed (See HPI for details) Assessment and Plan (1) Abdominal pain Narrative/Plan: 76-year-old female with a long-standing history of IBS came in with complaints of chest pain shortness of breath back pain and abdominal pain. She's had abdominal discomfort for the last several weeks she had an appointment with Dr. Allen for her IBS however she missed that appointment in February. Next scheduled appointment is for April. She does take dicyclomine, she has a mix between diarrhea and constipation. She's had constipation over the last 2-3 days duration. She is taking MiraLAX take-[id number] at home. No nausea or vomiting. No blood in her stool. Also complaining of vaginal pain that has been intermittent and thought that she had a urinary tract infection. Acute coronary event has been ruled out. She had a CT of the abdomen and pelvis with an incidental finding of a 7 mm pancreatic lesion. Patient to follow-up as scheduled with Dr. Allen in outpatient setting and will do a repeat CT or MRI in 6 months. No plans on endoscopic evaluation during this hospitalization. Last colonoscopy approximately [address] Stewart with 2 colon polyps. She's also states she had an EGD done at that time as well. Current Visit: Yes Status: Acute Code(s): R10.9 - UNSPECIFIED ABDOMINAL PAIN SNOMED Code(s): 56336003 (2) IBS (irritable colon syndrome) Current Visit: Yes Status: Acute Code(s): K58.9 - IRRITABLE BOWEL SYNDROME WITHOUT DIARRHEA SNOMED Code(s): 73978584 (3) Chest pain Current Visit: Yes Status: Acute Code(s): R07.9 - CHEST PAIN, UNSPECIFIED SNOMED Code(s): 18255193 (4) Coronary artery disease Current Visit: No Status: Acute Code(s): I25.10 - ATHSCL HEART DISEASE OF [place] CORONARY ARTERY W/O ANG PCTRS SNOMED Code(s): 06442418 Plan: 1. Continue symptomatic and supportive care 2. Diet as tolerated 3. Continue medical management 4. Continue cardiology workup 5. Incidental finding on CT of the abdomen and pelvis of pancreatic lesion, follow-up in [address] Nolan for outpatient imaging 6. Follow-up is scheduled with Dr. Allen for IBS, no plans on endoscopic evaluation. Thank you for this consultation, patient is clear from gastroenterology for discharge. We will sign off at this time. Dr. Scooter Nolan I agree with the dictator's note, documented as a scribe by Sunitha Barraza.
--- NOTE | 2022-03-24 13:03 | CA ---
Transthoracic Echo Report Name: Beth Lerner Age: 76 Gender: F : 1945 Exam Date: 03/24/2022 10:49 Exam Location: [facility] Ht (in): 61 Wt (lb): 119 Ordering Physician: Kylie Messer Attending/Referring Phys: [id number], Ayde [employer] Dianne Wilson RDCS Procedure CPT: Indications: LV function Cardiac Hx: Technical Quality: Technically difficult study Contrast 1: Lumason Total Dose (mL): 4 Contrast 2: Total Dose (mL): MEASUREMENTS (Male / Female) Normal Values 2D ECHO LV Diastolic Diameter PLAX 3.0 cm 4.2 - 5.9 / 3.9 - 5.3 cm LV Systolic Diameter PLAX 1.8 cm IVS Diastolic Thickness 1.4 cm 0.6 - 1.0 / 0.6 - 0.9 cm LVPW Diastolic Thickness 1.4 cm 0.6 - 1.0 / 0.6 - 0.9 cm LV Relative Wall Thickness 0.9 LA Volume 53.7 cm??? 18 - 58 / 22 - 52 cm??? M-MODE Aortic Root Diameter MM 2.9 cm LA Systolic Diameter MM 3.9 cm LA Ao Ratio MM 1.4 AV Cusp Separation MM 1.7 cm DOPPLER AV Peak Velocity 85.5 cm/s AV Peak Gradient 2.9 mmHg LVOT Peak Velocity 70.6 cm/s LVOT Peak Gradient 2.0 mmHg MV Area PHT 3.4 cm??? Mitral E Point Velocity 42.4 cm/s Mitral A Point Velocity 67.2 cm/s Mitral E to A Ratio 0.6 MV Deceleration Time 222.5 ms MV E' Velocity 6.0 cm/s Mitral E to MV E' Ratio 7.1 FINDINGS Left Ventricle Moderately increased septal wall thickness. Moderately increased posterior wall thickness. Abnormal (paradoxical) septal motion consistent with postoperative state. Left ventricular ejection fraction is estimated at 50-55 %. Right Ventricle Normal right ventricular size and function. Right Atrium Right atrium not well visualized. Left Atrium Mildly increased left atrial volume. Mitral Valve Structurally normal mitral valve. No mitral stenosis, regurgitation or prolapse. Mild mitral annular calcification. Aortic Valve No aortic valve stenosis or regurgitation. Tricuspid Valve Mild tricuspid regurgitation. Pulmonic Valve Trace pulmonic regurgitation. Pericardium No pericardial effusion. Aorta Normal size aortic root and proximal ascending aorta. CONCLUSIONS Moderate increased left ventricular wall thickness Left ventricular ejection fraction 50-55% Mild mitral annular calcification Mild tricuspid regurgitation No pericardial effusion Previewed by: Dr. Edmund Lamar DO (Electronically Signed) Final Date: 24 March 2022 13:02
--- NOTE | 2022-03-24 15:23 | P.PN ---
Subjective Progress Note Date: 03/24/22 Patient seen and examined at bedside. Patient denies chest pain shortness of breath. Patient continues to have intermittent abdominal pain. Chest pain persists this is likely due to her postsurgical pain status post CABG Objective - Vital Signs Vital signs: Vital Signs Temp 98.3 F 03/23/22 20:20 Pulse 66 03/24/22 14:04 Resp 16 03/24/22 14:04 BP 166/76 03/24/22 14:04 Pulse Ox 98 03/24/22 14:04 FiO2 Intake & Output 03/23/22 03/24/22 03/24/22 18:59 06:59 18:59 Weight 63.503 kg Other: # Voids 2 - Exam General: [non toxic], [no distress], [appears at stated age] Derm: [warm], [dry] Head: [atraumatic], [normocephalic], [symmetric] Eyes: [EOMI], [no lid lag], [anicteric sclera] Mouth: [no lip lesion], [mucus membranes moist] Cardiovascular: [S1S2 reg], [no murmur], [positive posterior tibial pulse bilateral], Lungs: [CTA bilateral], [no rhonchi, no rales] , [no accessory muscle use] Abdominal: [soft], [ diffuse tender to palpation], [no guarding], [no appreciable organomegaly] Ext: [no gross muscle atrophy], [no edema], [no contractures] Neuro: [ CN II-XI grossly intact], [no focal neuro deficits] Psych: [Alert], [oriented], [appropriate affect] - Labs CBC & Chem 7: 03/24/22 06:03 03/24/22 06:03 Labs: Abnormal Lab Results - Last 24 Hours (Table) 03/24/22 03/24/22 Range/Units 06:03 06:03 WBC 4.09 L (4.50-10.00) X 10*3/uL MCH 26.9 L (27.0-32.0) pg RDW 16.2 H (11.5-14.5) % Neutrophils # 1.37 L (1.80-7.70) X 10*3/uL Anion Gap 8.70 L (10.00-18.00) mmol/L Microbiology - Last 24 Hours (Table) 03/23/22 18:07 Urine Culture - Preliminary Urine,Voided Assessment and Plan Assessment: 1. Chest pain likely due to to postsurgical pain status post CABG Cardiology following telemetry 2. Abdominal pain with pancreatic lesion CA-19-9 normal at 8.9 Outpatient follow-up with GI for pancreatic lesion and IBS Check lactic acid tramadol prn pain check urine culture 3. History of coronary artery disease status post CABG Resume home medications Continue telemetry 4. History of hypertension Resume lisinopril and metoprolol 5. History of GERD Resume Protonix 6. History of anxiety disorder depression Resume Paxil 7. History of overactive bladder Resume Myrbetriq 8. History of hypothyroid Resume Synthroid Check TSH 9. GI DVT prophylaxis 10. A.m. labs Disposition: DC home with home care tomorrow Patient is full code PCP Dr. Castle
[2022-03-24] MEDS: HEPARIN SODIUM,PORCINE/PF 5,000 UNIT/0.5 ML SYRINGE SQ SCH ×2 (15:47→20:16)
[2022-03-24] MEDS: SODIUM CHLORIDE 0.9% 1,000 ML IV SCH ×2 (15:47→20:14)
[2022-03-24] MEDS: NON FORMULARY DRUG (Mirabegron [Myrbetriq] 50 MG Tab.Er.24h) PO SCH (20:16)
[2022-03-24] MEDS: ATORVASTATIN 40 MG TAB PO SCH (20:16)
[2022-03-24] MEDS ORDERED: MORPHINE SULFATE 2 MG/ML SYRINGE IVP STA (21:24)
[2022-03-25] MEDS: LEVOTHYROXINE 25 MCG TAB PO SCH (06:24)
[2022-03-25] MEDS ORDERED: CAFFEINE CITRATE 60 MG/3 ML VIAL IV PRN (08:08)
[2022-03-25] MEDS ORDERED: REGADENOSON 0.4 MG/5 ML SYRINGE IV PRN (08:08)
[2022-03-25] MEDS ORDERED: AMINOPHYLLINE 500 MG/20 ML VIAL IV PRN (08:08)
[2022-03-25] MEDS: METOPROLOL TARTRATE 25 MG TAB PO SCH ×2 (08:18→20:29)
[2022-03-25] MEDS: DICYCLOMINE 20 MG TAB PO SCH ×3 (08:18→20:28)
[2022-03-25] MEDS: HEPARIN SODIUM,PORCINE/PF 5,000 UNIT/0.5 ML SYRINGE SQ SCH ×2 (08:18→20:27)
[2022-03-25] MEDS: DIVALPROEX 500 MG TABLET.DR PO SCH ×2 (08:18→20:28)
[2022-03-25] MEDS: lisinopriL 10 MG TAB PO SCH ×2 (08:18→20:28)
[2022-03-25] MEDS ORDERED: ISOSORBIDE MONONITRATE ER 30 MG TAB.ER.24H PO SCH (09:00)
--- NOTE | 2022-03-25 10:27 | P.PN ---
Subjective Progress Note Date: 03/25/22 HISTORY OF PRESENT ILLNESS: This is a 76-year-old female with a past medical history significant for coronary artery disease with previous 2 vessel CABG in November [address] to the LAD and SVG to OM, carotid atherosclerosis, hypertension, hyperlipidemia, and irritable bowel syndrome. Patient follows in the office with Dr. Castaneda. We have been asked to see the patient in consultation for chest pain. Patient examined at the bedside. Patient states she has been having generalized abdominal pain for the past few weeks. She states the pain gets so bad that it keeps her awake at night. She states the pain also goes into her chest at times. She also reports having back pain. She states that she thought she had a UTI and took Azo from her local pharmacy. She states she has been getting shooting pains from her vagina that goes into her abdomen. She denies having any fever or chills. She reports that she has not had an appetite recently and has been getting full very fast. She states has been going on for the past few months. She does not report any pain with eating. * EKG reveals sinus mechanism with no signs of acute ischemia * Chest xray cardiomegaly without acute pulmonary process * Laboratory data: WBC 4.09. Hemoglobin 12.1. Platelet count 172. Sodium 139. Potassium 4.3. BUN 10.7. Creatinine 0.8. Troponin negative 3 * Current home cardiac medications include aspirin 325 mg daily, Crestor 20 mg at night, clopidogrel 75 mg daily, metoprolol tartrate 25 mg twice a day, lisinopril 5 mg twice a day * Most recent echocardiogram obtained in November 2021 revealed ejection fraction 45-50% with anterior septal akinesis 03/25/2022 Patient examined this morning at the bedside. Patient denies chest pain or pressure. Reports improvement in her nausea. She reports having shortness of breath this morning while walking to the bathroom which is new from yesterday. She does not appear to be fluid overloaded. Blood pressure this morning is elevated with a SBP in the 170s. Echocardiogram completed revealing ejection fraction 50-55% with mild TR. PHYSICAL EXAM: VITAL SIGNS: Reviewed. GENERAL: Well-developed in no acute distress. HEENT: Head is normocephalic. Pupils are equal, round. Sclerae anicteric. Mucous membranes of the mouth are moist. Neck supple. No JVD or thyromegaly LUNGS: Respirations even and unlabored. Lungs essentially clear to auscultation bilaterally. HEART: Regular rate and rhythm. S1 and S2 heard. ABDOMEN: Soft. Nondistended. Nontender. EXTREMITIES: Normal range of motion. No clubbing or cyanosis. Peripheral pulses intact. No lower extremity edema NEUROLOGIC: Awake and alert. Oriented x 3. ASSESSMENT: Chest pain, atypical, troponin negative 3 Shortness of breath with exertion Abdominal pain Possible recent UTI, outpatient, per patient Coronary artery disease with previous 2 vessel CABG in November 2021 Hypertension Hyperlipidemia Carotid atherosclerosis Irritable bowel syndrome PLAN: Continue current cardiac medications Increase lisinopril for optimal blood pressure control Patient to undergo Lexiscan stress test today Further recommendations pending patient course Nurse practitioner note has been reviewed by physician. Signing provider agrees with the documented findings, assessment, and plan of care. Objective - Vital Signs Vital signs: Vital Signs Temp 97.2 F L 03/25/22 07:15 Pulse 57 L 03/25/22 07:15 Resp 16 03/25/22 07:15 BP 179/83 03/25/22 07:15 Pulse Ox 98 03/25/22 07:15 FiO2 Intake & Output 03/24/22 03/25/22 03/25/22 18:59 06:59 18:59 Intake Total 750 Balance 750 Weight 63.503 kg Intake: Intake, IV Titration 500 Amount Sodium Chloride 0.9% 1, 500 000 ml @ 75 mls/hr IV . [id number] [facility] Rx#:[id number] Oral 250 Other: Voiding Method Toilet # Voids 1 2 # Bowel Movements 1 - Labs CBC & Chem 7: 03/24/22 06:03 03/24/22 06:03 Labs: Microbiology - Last 24 Hours (Table) 03/23/22 18:07 Urine Culture - Final Urine,Voided
[2022-03-25] MEDS: CHOLECALCIFEROL 25 MCG (1000 IU) TABLET PO SCH (11:15)
[2022-03-25] MEDS: PANTOPRAZOLE SODIUM 40 MG GRANULE PKT PO SCH (11:15)
[2022-03-25] MEDS: ASPIRIN 325 MG TAB PO SCH (11:15)
[2022-03-25] MEDS: CLOPIDOGREL 75 MG TAB PO SCH (11:16)
[2022-03-25] MEDS: PARoxetine 20 MG TAB PO SCH (11:16)
[2022-03-25] MEDS: SODIUM CHLORIDE 0.9% 1,000 ML IV SCH ×2 (11:16→20:30)
--- NOTE | 2022-03-25 12:54 | CA ---
Lexiscan Nuclear Stress Test Report Name: Beth Lerner Exam Date: 03/25/2022 09:35 Exam Location: [facility] Stress Ht (in): 63 Wt (lb): 140 BSA: 1.66 Ordering Phys: Kylie Messer Referring Phys: DIANA, Technologist: Sarmad Valladares Age: 76 Gender: F : 1945 Procedure CPT: Indications: Reflex order-Stress test ICD-10 Codes: Patient History: Cheset pain, shortness of breath and palpitations Medications: Meds past 24 hrs: Pretest Chest Pain: STRESS TEST Lexiscan Protocol Exercise Duration (min:sec): 02:[address] Depressions (mm): Angina Score: Rivera Score: Resting HR (bpm): 56 Peak HR (bpm): 82 Resting BP (mmHg): 183 / 85 Peak BP (mmHg): 171 / 89 MPHR: 146 Target HR: 124 % MPHR: 56 METS: 1.0 Total Dose: Peak Dose: Atropine: Double Product: 96720 BP Response: Stress Termination: Infusion complete Stress Symptoms: No chest pain or symptoms Stress Summary: ECG ANALYSIS Resting ECG: Stress ECG: CONCLUSIONS At baseline EKG showed normal sinus rhythm, normal axis, minimal upsloping ST depressions in inferior lateral leads. Patient recieved IV infusion of Lexiscan 0.4mg and at peak infusion EKG showed no significant change from baseline. Conclusions: 1. Nonspecific stress EKG portion secondary baseline EKG abnormalities. 2. Nuclear imaging to be reported separately. Dr. Edmund Lamar DO (Electronically Signed) Final Date: 25 March 2022 12:53
--- NOTE | 2022-03-25 12:58 | NM ---
EXAMINATION TYPE: NM stress lexiscan cardiolite DATE OF EXAM: 03/25/2022 COMPARISON: NONE HISTORY: 76 year-old female shortness of breath TECHNIQUE: After the intravenous administration of 9.72 mCi Tc 99m Sestamibi - Cardiolite resting SP ECT images acquired 45 minutes post injection. The patient received 0.4mg Lexiscan, 25.1 mCi Tc 99m Sestamibi - Stress images obtained [address] injection FINDINGS: Review of stress and rest SPECT images demonstrates moderate-sized area of reversibility involving th e mid to apical anteroseptal wall. However, this is not corroborated on the polar maps. Gated analysi s shows partial augmentation along the anteroseptal wall. Otherwise, normal wall motion with an estim ated left ventricular ejection fraction of 57 %. TID is increased at 1.22. IMPRESSION: Moderate-sized area of reversibility along the mid to apical anteroseptal wall. While thi s is not corroborated on the polar maps, it remains suspicious for possible inducible ischemia. In ad dition, TID is also increased at 1.22. This can be seen in the setting of multivessel, global inducib le ischemia. Consider further evaluation.
--- NOTE | 2022-03-25 14:20 | P.PN ---
Subjective Patient seen and examined at bedside. Patient continues to have intermittent chest pressure. Stress test was ordered this morning. Marilou scan did reveal a moderate-sized area of reversibility along the mild apical anteroseptal wall. Further recommendations by cardiology pending. Objective - Vital Signs Vital signs: Vital Signs Temp 97.2 F L 03/25/22 07:15 Pulse 65 03/25/22 14:00 Resp 16 03/25/22 14:00 BP 179/83 03/25/22 07:15 Pulse Ox 94 L 03/25/22 12:29 FiO2 Intake & Output 03/24/22 03/25/22 03/25/22 18:59 06:59 18:59 Intake Total 750 Balance 750 Weight 63.503 kg Intake: Intake, IV Titration 500 Amount Sodium Chloride 0.9% 1, 500 000 ml @ 75 mls/hr IV . [id number] [facility] Rx#:[id number] Oral 250 Other: Voiding Method Toilet Toilet # Voids 1 3 # Bowel Movements 1 - Exam General: [non toxic], [no distress], [appears at stated age] Derm: [warm], [dry] Head: [atraumatic], [normocephalic], [symmetric] Eyes: [EOMI], [no lid lag], [anicteric sclera] Mouth: [no lip lesion], [mucus membranes moist] Cardiovascular: [S1S2 reg], [no murmur], [positive posterior tibial pulse bilateral], Lungs: [CTA bilateral], [no rhonchi, no rales] , [no accessory muscle use] Abdominal: [soft], [tender to palpation], [no guarding], [no appreciable organomegaly] Ext: [no gross muscle atrophy], [no edema], [no contractures] Neuro: [ CN II-XI grossly intact], [no focal neuro deficits] Psych: [Alert], [oriented], [appropriate affect] - Labs CBC & Chem 7: 03/24/22 06:03 03/24/22 06:03 Labs: Microbiology - Last 24 Hours (Table) 03/23/22 18:07 Urine Culture - Final Urine,Voided Assessment and Plan Assessment: 1. Chest pain likely due to to postsurgical pain status post CABG Cardiology following Marilou scan did reveal moderate-sized area for stability along the mid to apical anteroseptal wall. It is suspicious for possible inducible ischemia. This can be seen in setting of multivessel global-induced ischemia Further evaluation recommended Cardiology recs appreciated 2. Abdominal pain with pancreatic lesion CA-19-9 normal at 8.9 Outpatient follow-up with GI for pancreatic lesion and IBS Check lactic acid tramadol prn pain check urine culture 3. History of coronary artery disease status post CABG Resume home medications Continue telemetry Cardiology recommendations appreciated 4. History of hypertension Resume lisinopril and metoprolol 5. History of GERD Resume Protonix 6. History of anxiety disorder depression Resume Paxil 7. History of overactive bladder Resume Myrbetriq 8. History of hypothyroid Resume Synthroid Check TSH 9. GI DVT prophylaxis 10. A.m. labs Disposition: Pending clinical course Patient is full code PCP Dr. Castle
[2022-03-25] MEDS: NON FORMULARY DRUG (Mirabegron [Myrbetriq] 50 MG Tab.Er.24h) PO SCH (20:27)
[2022-03-25] MEDS: ATORVASTATIN 40 MG TAB PO SCH (20:29)
[2022-03-26] MEDS: LEVOTHYROXINE 25 MCG TAB PO SCH (06:13)
[2022-03-26 07:39] LABS: Basophils % (A) 1 %; Eosinophils # (A) 0.1 k/uL (0-0.7); Eosinophils % (A) 2 %; HCT 38.3 % (34.0-46.0); HGB 12.4 gm/dL (11.4-16.0); Hypochromasia Slight; Lymphocytes % (A) 48 %; MCH 27.8 pg (25.0-35.0); MCHC 32.5 g/dL (31.0-37.0); MCV 85.6 fL (80.0-100.0); Mean Platelet Volume 8.5; Monocytes # (A) 0.5 k/uL (0-1.0); Monocytes % (A) 12 %; Neutrophils # (A) 1.4 k/uL (1.3-7.7); Neutrophils % (A) 33 %; Platelet Count 159 k/uL (150-450); RBC 4.47 m/uL (3.80-5.40); RDW 15.5 % (11.5-15.5); WBC 4.1 k/uL (3.8-10.6)
[2022-03-26 07:58] LABS: ALT 15 U/L (4-34); AST 34 U/L (14-36); African American GFR (CKD) 76 (>60 ml/min/1.73 sqM); Albumin 3.7 g/dL (3.5-5.0); Albumin/Globulin Ratio 1.4; Alkaline Phosphatase 68 U/L (38-126); Anion Gap 2 mmol/L; Blood Urea Nitrogen 14 mg/dL (7-17); Calcium 9.4 mg/dL (8.4-10.2); Carbon Dioxide 33 mmol/L (22-30); Chloride 103 mmol/L (98-107); Globulin 2.6 g/dL; Glucose 82 mg/dL (74-99); Non-African American GFR(CKD) 66 (>60 ml/min/1.73 sqM); Potassium 4.2 mmol/L (3.5-5.1); Sodium 138 mmol/L (137-145); Total Bilirubin 0.4 mg/dL (0.2-1.3); Total Protein 6.3 g/dL (6.3-8.2)
[2022-03-26 08:50] VITALS: BP 146/70; RESP 16; TEMP 98.2
[2022-03-26] MEDS: CLOPIDOGREL 75 MG TAB PO SCH (08:51)
[2022-03-26] MEDS: DICYCLOMINE 20 MG TAB PO SCH (08:51)
[2022-03-26] MEDS: CHOLECALCIFEROL 25 MCG (1000 IU) TABLET PO SCH (08:52)
[2022-03-26] MEDS: METOPROLOL TARTRATE 25 MG TAB PO SCH (08:52)
[2022-03-26] MEDS: ASPIRIN 325 MG TAB PO SCH (08:52)
[2022-03-26] MEDS: PARoxetine 20 MG TAB PO SCH (08:52)
[2022-03-26] MEDS: DIVALPROEX 500 MG TABLET.DR PO SCH (08:52)
[2022-03-26] MEDS: PANTOPRAZOLE SODIUM 40 MG GRANULE PKT PO SCH (08:52)
[2022-03-26] MEDS: lisinopriL 10 MG TAB PO SCH (08:53)
[2022-03-26] MEDS: HEPARIN SODIUM,PORCINE/PF 5,000 UNIT/0.5 ML SYRINGE SQ SCH ×2 (08:53→08:56)
--- NOTE | 2022-03-26 11:10 | P.PN ---
Subjective Progress Note Date: 03/26/22 HISTORY OF PRESENT ILLNESS: This is a 76-year-old female with a past medical history significant for coronary artery disease with previous 2 vessel CABG in November [address] to the LAD and SVG to OM, carotid atherosclerosis, hypertension, hyperlipidemia, and irritable bowel syndrome. Patient follows in the office with Dr. Castaneda. We have been asked to see the patient in consultation for chest pain. Patient examined at the bedside. Patient states she has been having generalized abdominal pain for the past few weeks. She states the pain gets so bad that it keeps her awake at night. She states the pain also goes into her chest at times. She also reports having back pain. She states that she thought she had a UTI and took Azo from her local pharmacy. She states she has been getting shooting pains from her vagina that goes into her abdomen. She denies having any fever or chills. She reports that she has not had an appetite recently and has been getting full very fast. She states has been going on for the past few months. She does not report any pain with eating. * EKG reveals sinus mechanism with no signs of acute ischemia * Chest xray cardiomegaly without acute pulmonary process * Laboratory data: WBC 4.09. Hemoglobin 12.1. Platelet count 172. Sodium 139. Potassium 4.3. BUN 10.7. Creatinine 0.8. Troponin negative 3 * Current home cardiac medications include aspirin 325 mg daily, Crestor 20 mg at night, clopidogrel 75 mg daily, metoprolol tartrate 25 mg twice a day, lisinopril 5 mg twice a day * Most recent echocardiogram obtained in November 2021 revealed ejection fraction 45-50% with anterior septal akinesis 03/25/2022 Patient examined this morning at the bedside. Patient denies chest pain or pressure. Reports improvement in her nausea. She reports having shortness of breath this morning while walking to the bathroom which is new from yesterday. She does not appear to be fluid overloaded. Blood pressure this morning is elevated with a SBP in the 170s. Echocardiogram completed revealing ejection fraction 50-55% with mild TR. 03/26/2022 Patient examined this morning at the bedside. Patient denies chest pain or pressure. She currently denies shortness of breath. Blood pressures have improved since yesterday. PHYSICAL EXAM: VITAL SIGNS: Reviewed. GENERAL: Well-developed in no acute distress. HEENT: Head is normocephalic. Pupils are equal, round. Sclerae anicteric. Mucous membranes of the mouth are moist. Neck supple. No JVD or thyromegaly LUNGS: Respirations even and unlabored. Lungs essentially clear to auscultation bilaterally. HEART: Regular rate and rhythm. S1 and S2 heard. ABDOMEN: Soft. Nondistended. Nontender. EXTREMITIES: Normal range of motion. No clubbing or cyanosis. Peripheral pulses intact. No lower extremity edema NEUROLOGIC: Awake and alert. Oriented x 3. ASSESSMENT: Chest pain, atypical, troponin negative 3 Shortness of breath with exertion Abdominal pain Possible recent UTI, outpatient, per patient Coronary artery disease with previous 2 vessel CABG in November 2021 Hypertension Hyperlipidemia Carotid atherosclerosis Irritable bowel syndrome PLAN: Dr. Lamar reviewed Marilou scan images. There is a possible very small area of ischemia which could relate to diagonal branch. We will continue with medical management at this time per Dr. Lamar. Patient may be discharged home today and follow up on an outpatient basis. Nurse practitioner note has been reviewed by physician. Signing provider agrees with the documented findings, assessment, and plan of care. Objective - Vital Signs Vital signs: Vital Signs Temp 98.2 F 03/26/22 07:40 Pulse 59 L 03/26/22 07:40 Resp 16 03/26/22 07:40 BP 146/70 03/26/22 07:40 Pulse Ox 98 03/26/22 07:40 FiO2 Intake & Output 03/25/22 03/26/22 03/26/22 18:59 06:59 18:59 Intake Total 240 750 Balance 240 750 Intake: Oral 240 750 Other: Voiding Method Toilet Toilet # Voids 3 # Bowel Movements 1 - Labs CBC & Chem 7: 03/26/22 06:46 03/26/22 06:46 Labs: Abnormal Lab Results - Last 24 Hours (Table) 03/26/22 Range/Units 06:46 Carbon Dioxide 33 H (22-30) mmol/L
--- NOTE | 2022-03-26 13:40 | P.DS ---
Providers Date of admission: 03/23/22 16:06 Attending physician: Chelita Arias DO Primary care physician: [facility] Course: Admitting diagnoses; Atypical chest pain Abdominal pain with pancreatic lesion CAD with CABG Hypertension IBS GERD Anxiety and depression Hypothyroid Discharge diagnoses: Atypical chest pain Abdominal pain with pancreatic lesion CAD with CABG Hypertension IBS GERD Anxiety and depression Hypothyroid This is a pleasant 76-year-old female who presents to [facility] with sudden onset chest pain for the last 3 days. Patient states the chest pain comes and goes and would last about 15 minutes. Pain was improved with aspirin and nitro. Patient does admit to some shortness of breath, nausea and diaphoresis when the chest pain came on. To had recent bypass surgery December 2021. Patient saw her test driller about 2 weeks ago. Patient also notes increased abdominal pain in the suprapubic region. Patient has had diarrhea for the past 6 days and now complains of urinary frequency and urgency. However, you UA was negative for any indication of a UTI. CT of the abdomen and pelvis did reveal a possible 7 mm hypodense lesion in the distal body of the pancreas. CT of the abdomen and pelvis did not reveal any sign of inflammatory process in the GI tract. At time of interview, patient denied chest pain or shortness of breath stating it has since resolved once treated in the emergency department. Unfortunately, patient continued to complain of abdominal pain described as an ache and at times sharp mostly located in the lower quadrants. Patient was concerned she had another urinary tract infection. Again, UA was negative only showing protein. Physical exam: General: [non toxic], [no distress], [appears at stated age] Derm: [warm], [dry] Head: [atraumatic], [normocephalic], [symmetric] Eyes: [EOMI], [no lid lag], [anicteric sclera] Mouth: [no lip lesion], [mucus membranes moist] Cardiovascular: [S1S2 reg], [no murmur], [positive posterior tibial pulse bilateral], Lungs: [CTA bilateral], [no rhonchi, no rales] , [no accessory muscle use] Abdominal: [soft], [ nontender to palpation], [no guarding], [no appreciable organomegaly] Ext: [no gross muscle atrophy], [no edema], [no contractures] Neuro: [ CN II-XI grossly intact], [no focal neuro deficits] Psych: [Alert], [oriented], [appropriate affect] Assessment and plan: 1. Chest pain likely due to to postsurgical pain status post CABG Cardiology following Marilou scan did reveal moderate-sized area for stability along the mid to apical anteroseptal wall. It is suspicious for possible inducible ischemia. This can be seen in setting of multivessel global-induced ischemia. Cardiology reviewed: There is a possibly very small area of ischemia which could relate to the diagonal branch. Patient will be discharged home today with continued medical management 2. Abdominal pain with pancreatic lesion CA-19-9 normal at 8.9 Outpatient follow-up with GI for pancreatic lesion and IBS 3. History of coronary artery disease status post CABG Resume home medications 4. History of hypertension Resume lisinopril and metoprolol 5. History of GERD Resume Protonix 6. History of anxiety disorder depression Resume Paxil 7. History of overactive bladder Resume Myrbetriq 8. History of hypothyroid Resume Synthroid Check TSH Disposition: Home with home care Activity: Activity as tolerated Diet: Cardiac Condition: Fair Follow-up with PCP in 2-7 days Follow-up with GI in 1-2 weeks Follow-up with cardiology in 1-2 weeks Patient Condition at Discharge: Fair Plan - Discharge Summary Discharge Rx Participant: Yes New Discharge Prescriptions: New lisinopriL [Zestril] 10 mg PO BID #60 tab Continue PARoxetine HCL [Paroxetine HCl] 20 mg PO DAILY Levothyroxine Sodium 25 mcg PO AC-BRKFST Divalproex Sodium 500 mg PO BID Baclofen 5 mg PO BID Mirabegron [Myrbetriq] 50 mg PO HS Dicyclomine [Bentyl] 20 mg PO TID Cholecalciferol [Vitamin D3 (25 Mcg = 1000 Iu)] 50 mcg PO DAILY Metoprolol Tartrate [Lopressor] 25 mg PO BID #60 tab Clopidogrel [Plavix] 75 mg PO DAILY #30 tab Aspirin EC [Ecotrin] 325 mg PO DAILY Pantoprazole Sodium 40 mg PO DAILY Rosuvastatin [Crestor] 20 mg PO HS Discontinued lisinopriL [Zestril] 5 mg PO BID Discharge Medication List Baclofen 5 mg PO BID 08/23/15 [History] Divalproex Sodium 500 mg PO BID 08/23/15 [History] Levothyroxine Sodium 25 mcg PO AC-BRKFST 08/23/15 [History] PARoxetine HCL [Paroxetine HCl] 20 mg PO DAILY 08/23/15 [History] Dicyclomine [Bentyl] 20 mg PO TID 07/11/19 [History] Mirabegron [Myrbetriq] 50 mg PO HS 07/11/19 [History] Cholecalciferol [Vitamin D3 (25 Mcg = 1000 Iu)] 50 mcg PO DAILY 06/02/21 [History] Pantoprazole Sodium 40 mg PO DAILY 06/02/21 [History] Rosuvastatin [Crestor] 20 mg PO HS 12/02/21 [History] Clopidogrel [Plavix] 75 mg PO DAILY #30 tab 12/08/21 [Rx] Metoprolol Tartrate [Lopressor] 25 mg PO BID #60 tab 12/08/21 [Rx] Aspirin EC [Ecotrin] 325 mg PO DAILY 03/23/22 [History] lisinopriL [Zestril] 10 mg PO BID #60 tab 03/26/22 [Rx] Follow up Appointment(s)/Referral(s): Zoya Nolan MD [STAFF PHYSICIAN] - 04/08/22 1:00 pm Beatrice Castle [Primary Care Provider] - 1-2 days Discharge Disposition: HOME WITH HOME HEALTH SERVICES
[2022-03-26 14:29] VITALS: PULSE 58
== END 2022-03-26 15:29 | disposition home health service (06) ==
LOC: EC 12:47 → 6NMEDSUR 16:06 → 2CATHESU 03-24 07:22 → 6NMEDSUR 03-24 14:01
PROVIDERS: ADMIT Internal Medicine; ATTEND Internal Medicine
DX: R07.89 Other chest pain (principal); I25.10 Atherosclerotic heart disease of native coronary artery without angina pectoris; I11.9 Hypertensive heart disease without heart failure; I65.29 Occlusion and stenosis of unspecified carotid artery; J44.9 Chronic obstructive pulmonary disease, unspecified; N32.81 Overactive bladder; E78.5 Hyperlipidemia, unspecified; K86.89 Other specified diseases of pancreas; R61 Generalized hyperhidrosis; R11.0 Nausea; K58.2 Mixed irritable bowel syndrome; R10.84 Generalized abdominal pain; R10.2 Pelvic and perineal pain; M54.9 Dorsalgia, unspecified; K21.9 Gastro-esophageal reflux disease without esophagitis; E03.9 Hypothyroidism, unspecified; F03.94 Unspecified dementia, unspecified severity, with anxiety; F41.0 Panic disorder [episodic paroxysmal anxiety]; G44.40 Drug-induced headache, not elsewhere classified, not intractable; T46.3X5A Adverse effect of coronary vasodilators, initial encounter; Z79.82 Long term (current) use of aspirin; Z79.02 Long term (current) use of antithrombotics/antiplatelets; Z79.890 Hormone replacement therapy; Z79.899 Other long term (current) drug therapy; Z88.3 Allergy status to other anti-infective agents; Z88.5 Allergy status to narcotic agent; Z88.6 Allergy status to analgesic agent; Z87.440 Personal history of urinary (tract) infections; Z95.1 Presence of aortocoronary bypass graft; Z90.710 Acquired absence of both cervix and uterus; Z86.010 Personal history of colon polyps; Z98.1 Arthrodesis status; Z98.42 Cataract extraction status, left eye; Z98.41 Cataract extraction status, right eye; Z98.890 Other specified postprocedural states; Z82.49 Family history of ischemic heart disease and other diseases of the circulatory system; Z84.1 Family history of disorders of kidney and ureter; Z82.0 Family history of epilepsy and other diseases of the nervous system
CPT/HCPCS: 96360; 96361 ×2; 99285; 36415; 94760 ×2; 93005; 93017; 97162; 97165; 80061; 80053 ×3; 84443; 82150; 83605; 83690; 83735 ×2; 84484; 85025 ×3; 85610; 85730; 81003; 86301; 87086; 71046; 74177; 78452; G0378 ×4; C8929; A9500; J2785; Q9950; Q9967; 93306

== ENCOUNTER → 2022-04-20 | Outpatient (CLI) | payer MEDICARE, OTHER ==
[2022-04-20 18:41] LABS: Basophils # (A) 0.03 X 10*3/uL (0.00-0.10); Basophils % (A) 0.8 %; Eosinophils # (A) 0.11 X 10*3/uL (0.04-0.35); HCT 39.1 % (37.2-46.3); HGB 12.3 g/dL (12.0-15.0); Immature Grans, Automated 0 %; Lymphocytes # (A) 1.63 X 10*3/uL (0.90-5.00); Lymphocytes % (A) 44.9 %; MCH 28.1 pg (27.0-32.0); MCHC 31.5 g/dL (32.0-37.0); MCV 89.3 fL (80.0-97.0); Monocytes # (A) 0.63 X 10*3/uL (0.20-1.00); Monocytes % (A) 17.4 %; NRBC Per 100 WBC 0 /100 WBCS (0.0-0.0); Neutrophils # (A) 1.23 X 10*3/uL (1.80-7.70); Neutrophils % (A) 33.9 %; Platelet Count 149 X 10*3/uL (140-440); RBC 4.38 X 10*6/uL (4.10-5.20); RDW 18.4 % (11.5-14.5); WBC 3.63 X 10*3/uL (4.50-10.00)
[2022-04-20 19:17] LABS: ALT 11 U/L (8-44); AST 23 U/L (13-35); African American GFR (CKD) 90.7 (60.0-200.0); Albumin 4.1 g/dL (3.8-4.9); Albumin/Globulin Ratio 1.82 (1.60-3.17); Alkaline Phosphatase 90 U/L (41-126); BUN/Creat Ratio 13.56 Ratio (12.00-20.00); Blood Urea Nitrogen 10.2 mg/dL (9.0-27.0); Calcium 9.7 mg/dL (8.7-10.3); Carbon Dioxide 28.4 mmol/L (20.0-27.5); Chloride 105 mmol/L (96-109); Chol/HDL Ratio 3.11 Ratio; Globulin 2.3 g/dL (1.6-3.3); Glucose 88 mg/dL (70-110); Non-African American GFR(CKD) 78.3 (60.0-200.0); Sodium 142 mmol/L (135-145); Total Protein 6.4 g/dL (6.2-8.2)
[2022-04-20 19:31] LABS: Erythrocyte Sedimentation Rate 2 mm/Hr (0-30)
== END | disposition home or self-care (01) ==
LOC: LABWHC1 12:07
PROVIDERS: ATTEND Student in an Organized Health Care Education/Training Program
DX: Z79.899 Other long term (current) drug therapy (principal)
CPT/HCPCS: 36415; 80053; 80061; 82306; 83036; 84439; 84443; 85025; 85652

== ENCOUNTER → 2022-08-17 | Outpatient (CLI) | payer MEDICARE, OTHER ==
--- NOTE | 2022-08-18 19:13 | MM ---
Reason for Exam: Screening (asymptomatic). Last screening mammogram was performed 12 month(s) ago. Patient History: Menarche at age 15. First Full-Term at age 18. Left ovary removed at age 53. Right ovary removed at age 53. Hysterectomy at age 53. Postmenopausal. Progesterone for 1 month. Benign Excisional Biopsy on the left side. 03/2012, Bilateral Reduction. Risk Values: Chelly 5 year model risk: 1.5%. NCI Lifetime model risk: 3.5%. Prior Study Comparison: 05/29/2019 Bilateral Diagnostic Mammogram, [facility]. 07/23/2020 Bilateral Screening Mammogram, [facility]. 08/14/2021 Bilateral MG 3D screening mammo w/cad, [facility]. Tissue Density: There are scattered fibroglandular densities. Findings: Analyzed By CAD. Benign bilateral vascular and oil cyst calcifications. There is no suspicious group of microcalcifications or new suspicious mass in either breast. Overall Assessment: Benign, BI-RAD 2 Management: Screening Mammogram of both breasts in 1 year. . Patient should continue monthly self-breast exams. A clinical breast exam by your physician is recommended on an annual basis. This exam should not preclude additional follow-up of suspicious palpable abnormalities. Note on Chelly scores and lifetime risk: 1. A Chelly score greater than 3% is considered moderate risk. If this is the case, consider specialist referral to assess eligibility for a risk reducing agent. 2. If overall lifetime risk for the development of breast cancer is 20% or higher, the patient may qualify for future screening with alternating mammogram and breast MRI. Electronically signed and approved by: Janessa Peng M.D. Radiologist
== END | disposition home or self-care (01) ==
LOC: RADMAMWWP 09:55
PROVIDERS: ATTEND Student in an Organized Health Care Education/Training Program
DX: Z12.31 Encounter for screening mammogram for malignant neoplasm of breast (principal); Z78.0 Asymptomatic menopausal state
CPT/HCPCS: 77063; 77067

== ENCOUNTER 2022-11-04 14:16 | Emergency (ER) | payer MEDICARE, OTHER ==
--- NOTE | 2022-11-04 14:51 | ED ---
General Adult HPI - General Source: patient, RN notes reviewed Mode of arrival: ambulatory Limitations: no limitations <Addy Santiago - Last Filed: 11/04/22 14:50> - History of Present Illness -: unknown Radiation: non-radiation Severity scale (1-10): 0 Consistency: constant Improves with: none Worsens with: none Associated Symptoms: denies other symptoms Treatments Prior to Arrival: none <Arnulfo Andrew - Last Filed: 11/07/22 18:08> - General Stated complaint: mental health Time Seen by Provider: 11/04/22 14:50 - History of Present Illness Initial comments: 76-year-old female presents emergency department for psychiatric evaluation. Patient states that she verbalized suicidal thoughts at Dr. Tenorio's office in which police arrived at her home advise her that she needed to come the [facility] room for evaluation. She states that she did state this stating that she wishes she would be because her abdomen hurts so much. Patient states that she would overdose on pills. (Addy Santiago) This is a 76-year-old female to the emergency department today for psychiatric evaluation brought in by PD. Patient was in primary care's office and did make statements of suicidal intent this was secondary to chronic abdominal pain with intent overdose (Arnulfo Andrew) - Related Data Home Medications Medication Instructions Recorded Confirmed Baclofen 5 mg PO BID 08/23/15 11/04/22 Divalproex Sodium 500 mg PO BID 08/23/15 11/04/22 Levothyroxine Sodium 25 mcg PO DAILY 08/23/15 11/04/22 PARoxetine HCL [Paroxetine HCl] 20 mg PO DIRECTED 08/23/15 11/04/22 Mirabegron [Myrbetriq] 50 mg PO DAILY 07/11/19 11/04/22 Cholecalciferol [Vitamin D3 (25 50 mcg PO DAILY 06/02/21 11/04/22 Mcg = 1000 Iu)] Pantoprazole Sodium 40 mg PO DAILY 06/02/21 11/04/22 Rosuvastatin [Crestor] 20 mg PO HS 12/02/21 11/04/22 Multivitamins, Thera [Multivitamin 1 tab PO DAILY 11/04/22 11/04/22 (formulary)] lisinopriL [Zestril] 10 mg PO DAILY 11/04/22 11/04/22 Previous Rx's Medication Instructions Recorded Clopidogrel [Plavix] 75 mg PO DAILY #30 tab 12/08/21 Metoprolol Tartrate [Lopressor] 25 mg PO BID #60 tab 12/08/21 Allergies Allergy/AdvReac Type Severity Reaction Status Date / Time diclofenac sodium Allergy Unknown Verified 11/04/22 19:55 [From Arthrotec] hydrocodone bitartrate Allergy Unknown Verified 11/04/22 19:55 [From [place]] itraconazole [From Sporanox] Allergy pt not Verified 11/04/22 19:55 sure of alg misoprostol [From Arthrotec] Allergy Unknown Verified 11/04/22 19:55 naproxen [From Naprosyn] Allergy Unknown Verified 11/04/22 19:55 Review of Systems ROS Other: All systems not noted in ROS Statement are negative. <dAdy Santiago - Last Filed: 11/04/22 14:50> ROS Other: All systems not noted in ROS Statement are negative. <Arnulfo Andrew - Last Filed: 11/07/22 18:08> ROS Statement: Those systems with pertinent positive or pertinent negative responses have been documented in the HPI. Past Medical History Past Medical History: Coronary Artery Disease (CAD), Chest Pain / Angina, COPD, Dementia, GERD/Reflux, Hyperlipidemia, Hypertension, Memory Impairment, Thyroid Disorder Additional Past Medical History / Comment(s): having severe abdominal pain intermittently-IBS, PALPITATIONS, PT STATES (STATES FALLS, CONFUSION, AND FORGETFULNESS AT TIMES-no devices),UTIs History of Any Multi-Drug Resistant Organisms: None Reported Past Surgical History: Back Surgery, Breast Surgery, Hysterectomy Additional Past Surgical History / Comment(s): Breast reduction, NECK FUSION, jer cataracts cabg in Dec 2021 Past Anesthesia/Blood Transfusion Reactions: Previous Problems w/ Anesthesia Additional Past Anesthesia/Blood Transfusion Reaction / Comment(s): TROUBLE WAKING UP FROM ANESTHESIA Past Psychological History: Anxiety, Depression, Panic Disorder Smoking Status: Former smoker Past Alcohol Use History: Occasional Past Drug Use History: Marijuana - Past Family History Brother(s) Family Medical History: Coronary Artery Disease (CAD), Myocardial Infarction ([place]) Additional Family Medical History / Comment(s): FROM [place] at 56 years old Father History Unknown: Yes Family Medical History: Coronary Artery Disease (CAD), Myocardial Infarction ([place]) Additional Family Medical History / Comment(s): FATHER PASSED FROM [place] at 66 years old Mother Family Medical History: Dementia Additional Family Medical History / Comment(s): kidney failure; CAD with myocardial infarction in 2 maternal uncles <Addy Santiago - Last Filed: 11/04/22 14:50> General Exam <Addy Santiago - Last Filed: 11/04/22 14:50> General appearance: alert, in no apparent distress Head exam: Present: atraumatic, normocephalic, normal inspection Eye exam: Present: normal appearance, PERRL, EOMI. Absent: scleral icterus, conjunctival injection, periorbital swelling ENT exam: Present: normal exam, mucous membranes moist Neck exam: Present: normal inspection. Absent: tenderness, meningismus, lymphadenopathy Respiratory exam: Present: normal lung sounds bilaterally. Absent: respiratory distress, wheezes, rales, rhonchi, stridor Cardiovascular Exam: Present: regular rate, normal rhythm, normal heart sounds. Absent: systolic murmur, diastolic murmur, rubs, gallop, clicks GI/Abdominal exam: Present: soft, normal bowel sounds. Absent: distended, tenderness, guarding, rebound, rigid Extremities exam: Present: normal inspection, full ROM, normal capillary refill. Absent: tenderness, pedal edema, joint swelling, calf tenderness Back exam: Present: normal inspection Neurological exam: Present: alert, oriented X3, CN II-XII intact Psychiatric exam: Present: normal affect, normal mood Skin exam: Present: warm, dry, intact, normal color. Absent: rash <Arnulfo Andrew - Last Filed: 11/07/22 18:08> - General Exam Comments Initial Comments: Visual Physical Exam Vital signs reviewed General: Well-appearing, nontoxic, no acute distress. Head: Normocephalic, atraumatic Eyes: PERRLA, EOMI ENT: Airway patent Chest: Nonlabored breathing Skin: No visual rash, normal skin tone Neuro: Alert and oriented 3 Musculoskeletal: No gross abnormalities (Addy Santiago) Course <Arnulfo Andrew - Last Filed: 11/07/22 18:08> Vital Signs 11/04/22 11/04/22 14:46 21:36 Temperature 97.9 F Pulse Rate 96 78 Respiratory 18 16 Rate Blood Pressure 160/76 174/77 O2 Sat by Pulse 100 97 Oximetry - Reevaluation(s) Reevaluation #1: 11/04/22 21:24 Medical records reviewed (Arnulfo Andrew) Reevaluation #2: 11/04/22 21:24 Medical clear for psychiatric evaluation (Arnulfo Andrew) Medical Decision Making <Addy Santiago - Last Filed: 11/04/22 14:50> - Lab Data Result diagrams: 11/04/22 19:23 11/04/22 19:23 <Arnulfo Andrew - Last Filed: 11/07/22 18:08> - Medical Decision Making I performed a quick note portion of this chart signed Addy Santiago PA-c (Addy Santiago) 76 female to the emergency department for evaluation. Patient was seen and evaluated by psychiatry here in the ER and she can be discharged home (Arnulfo Andrew) - Lab Data Lab Results 11/04/22 11/04/22 Range/Units 19:23 19:23 WBC 5.6 (3.8-10.6) k/uL RBC 4.19 (3.80-5.40) m/uL Hgb 13.8 (11.4-16.0) gm/dL Hct 40.4 (34.0-46.0) % MCV 96.6 (80.0-100.0) fL MCH 32.9 (25.0-35.0) pg MCHC 34.1 (31.0-37.0) g/dL RDW 12.5 (11.5-15.5) % Plt Count 107 L (150-450) k/uL MPV 8.8 Neutrophils % 44 % Lymphocytes % 36 % Monocytes % 16 % Eosinophils % 2 % Basophils % 0 % Neutrophils # 2.5 (1.3-7.7) k/uL Lymphocytes # 2.0 (1.0-4.8) k/uL Monocytes # 0.9 (0-1.0) k/uL Eosinophils # 0.1 (0-0.7) k/uL Basophils # 0.0 (0-0.2) k/uL Sodium 140 (137-145) mmol/L Potassium 3.4 L (3.5-5.1) mmol/L Chloride 100 (98-107) mmol/L Carbon Dioxide 30 (22-30) mmol/L Anion Gap 10 mmol/L BUN 13 (7-17) mg/dL Creatinine 0.73 (0.52-1.04) mg/dL Est GFR (CKD-EPI)AfAm >90 (>60 ml/min/1.73 sqM) Est GFR (CKD-EPI)NonAf 82 (>60 ml/min/1.73 sqM) Glucose 110 H (74-99) mg/dL Calcium 9.8 (8.4-10.2) mg/dL Total Bilirubin 0.4 (0.2-1.3) mg/dL AST 37 H (14-36) U/L ALT 19 (4-34) U/L Alkaline Phosphatase 99 (38-126) U/L Total Protein 7.0 (6.3-8.2) g/dL Albumin 4.1 (3.5-5.0) g/dL Salicylates <1.0 mg/dL Acetaminophen <10.0 ug/mL Serum Alcohol <10 mg/dL Disposition <Addy Santiago M - Last Filed: 11/04/22 14:50> Is patient prescribed a controlled substance at d/c from ED?: No <Arnulfo Andrew - Last Filed: 11/07/22 18:08> Clinical Impression: Abdominal pain, Depression Disposition: HOME SELF-CARE Condition: Good Instructions (If sedation given, give patient instructions): Depression (ED), Abdominal Pain (ED) Referrals: Beatrice Castle [Primary Care Provider] - 1-2 days
[2022-11-04 14:54] VITALS: TEMP 97.9
[2022-11-04 19:40] LABS: Basophils % (A) 0 %; Eosinophils # (A) 0.1 k/uL (0-0.7); Eosinophils % (A) 2 %; HCT 40.4 % (34.0-46.0); HGB 13.8 gm/dL (11.4-16.0); Lymphocytes % (A) 36 %; MCH 32.9 pg (25.0-35.0); MCHC 34.1 g/dL (31.0-37.0); MCV 96.6 fL (80.0-100.0); Mean Platelet Volume 8.8; Monocytes # (A) 0.9 k/uL (0-1.0); Monocytes % (A) 16 %; Neutrophils # (A) 2.5 k/uL (1.3-7.7); Neutrophils % (A) 44 %; Platelet Count 107 k/uL (150-450); RBC 4.19 m/uL (3.80-5.40); RDW 12.5 % (11.5-15.5); WBC 5.6 k/uL (3.8-10.6)
[2022-11-04 20:22] LABS: ALT 19 U/L (4-34); AST 37 U/L (14-36); Acetaminophen <10.0 ug/mL; African American GFR (CKD) >90 (>60 ml/min/1.73 sqM); Albumin 4.1 g/dL (3.5-5.0); Alcohol <10 mg/dL; Alkaline Phosphatase 99 U/L (38-126); Anion Gap 10 mmol/L; Blood Urea Nitrogen 13 mg/dL (7-17); Calcium 9.8 mg/dL (8.4-10.2); Carbon Dioxide 30 mmol/L (22-30); Chloride 100 mmol/L (98-107); Glucose 110 mg/dL (74-99); Non-African American GFR(CKD) 82 (>60 ml/min/1.73 sqM); Potassium 3.4 mmol/L (3.5-5.1); Salicylate <1.0 mg/dL; Sodium 140 mmol/L (137-145); Total Bilirubin 0.4 mg/dL (0.2-1.3)
[2022-11-04 21:38] VITALS: BP 174/77; PULSE 78; RESP 16
== END 2022-11-04 21:45 | disposition home or self-care (01) ==
LOC: EC 14:16
DX: F32.A Depression, unspecified (principal); R10.9 Unspecified abdominal pain; I10 Essential (primary) hypertension; J44.9 Chronic obstructive pulmonary disease, unspecified; E78.5 Hyperlipidemia, unspecified; K21.9 Gastro-esophageal reflux disease without esophagitis; I25.10 Atherosclerotic heart disease of native coronary artery without angina pectoris; E07.9 Disorder of thyroid, unspecified; F41.9 Anxiety disorder, unspecified; F12.90 Cannabis use, unspecified, uncomplicated; Z79.890 Hormone replacement therapy; Z79.899 Other long term (current) drug therapy; Z95.1 Presence of aortocoronary bypass graft; Z88.5 Allergy status to narcotic agent; Z88.3 Allergy status to other anti-infective agents; Z88.6 Allergy status to analgesic agent; Z87.891 Personal history of nicotine dependence
CPT/HCPCS: 99284; 82075; 36415; 80053; 85025; 80143; 80179; G0480; 80320

== ENCOUNTER 2023-04-22 15:19 | Emergency (ER) | payer MEDICARE, OTHER ==
[2023-04-22 15:36] VITALS: RESP 18
[2023-04-22 15:40] LABS: Glucose,Whole Blood 95 mg/dL (70-110)
--- NOTE | 2023-04-22 16:15 | ED ---
Dizziness HPI - General Chief Complaint: Dizziness Stated Complaint: Dizziness Time Seen by Provider: 04/22/23 15:24 Source: EMS, RN notes reviewed, old records reviewed Mode of arrival: EMS Limitations: no limitations - History of Present Illness Initial Comments: This is a 77-year-old female to the ER today for evaluation. 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 This occurred after getting her eye dilated. She felt weak and dizzy and admits to some abdominal pain has history abdominal pain does not think that abdominal pain is new. She is curr ently getting treated for urinary tract infection MD Complaint: dizziness, lightheadedness, near syncope -: hour(s) Timing: gradual onset History of Same: Yes History of Trauma: Yes Severity: mild Improves With: nothing Worsens With: movement Associated Symptoms: denies other symptoms - Related Data Home Medications Medication Instructions Recorded Confirmed Baclofen 5 mg PO BID 08/23/15 11/04/22 Divalproex Sodium 500 mg PO BID 08/23/15 11/04/22 Levothyroxine Sodium 25 mcg PO DAILY 08/23/15 11/04/22 PARoxetine HCL [Paroxetine HCl] 20 mg PO DIRECTED 08/23/15 11/04/22 Mirabegron [Myrbetriq] 50 mg PO DAILY 07/11/19 11/04/22 Cholecalciferol [Vitamin D3 (25 50 mcg PO DAILY 06/02/21 11/04/22 Mcg = 1000 Iu)] Pantoprazole Sodium 40 mg PO DAILY 06/02/21 11/04/22 Rosuvastatin [Crestor] 20 mg PO HS 12/02/21 11/04/22 Multivitamins, Thera [Multivitamin 1 tab PO DAILY 11/04/22 11/04/22 (formulary)] lisinopriL [Zestril] 10 mg PO DAILY 11/04/22 11/04/22 Previous Rx's Medication Instructions Recorded Clopidogrel [Plavix] 75 mg PO DAILY #30 tab 12/08/21 Metoprolol Tartrate [Lopressor] 25 mg PO BID #60 tab 12/08/21 Allergies Allergy/AdvReac Type Severity Reaction Status Date / Time diclofenac sodium Allergy Unknown Verified 04/22/23 15:29 [From Arthrotec] hydrocodone bitartrate Allergy Unknown Verified 04/22/23 15:29 [From [place]] itraconazole [From Sporanox] Allergy pt not Verified 04/22/23 15:29 sure of alg misoprostol [From Arthrotec] Allergy Unknown Verified 04/22/23 15:29 naproxen [From Naprosyn] Allergy Unknown Verified 04/22/23 15:29 Review of Systems ROS Statement: Those systems with pertinent positive or pertinent negative responses have been documented in the HPI. ROS Other: All systems not noted in ROS Statement are negative. Past Medical History Past Medical History: Coronary Artery Disease (CAD), Chest Pain / Angina, COPD, Dementia, GERD/Reflux, Hyperlipidemia, Hypertension, Memory Impairment, Thyroid Disorder Additional Past Medical History / Comment(s): having severe abdominal pain intermittently-IBS, PALPITATIONS, PT STATES (STATES FALLS, CONFUSION, AND FORGETFULNESS AT TIMES-no devices),UTIs History of Any Multi-Drug Resistant Organisms: None Reported Past Surgical History: Back Surgery, Breast Surgery, Hysterectomy Additional Past Surgical History / Comment(s): Breast reduction, NECK FUSION, jer cataracts cabg in Dec 2021 Past Anesthesia/Blood Transfusion Reactions: Previous Problems w/ Anesthesia Additional Past Anesthesia/Blood Transfusion Reaction / Comment(s): TROUBLE WAKING UP FROM ANESTHESIA Past Psychological History: Anxiety, Depression, Panic Disorder Smoking Status: Former smoker Past Alcohol Use History: Occasional Past Drug Use History: Marijuana - Past Family History Brother(s) Family Medical History: Coronary Artery Disease (CAD), Myocardial Infarction ([place]) Additional Family Medical History / Comment(s): [place] 56 years old Father History Unknown: Yes Family Medical History: Coronary Artery Disease (CAD), [place]ocardial Infarction ([place]) Additional Family Medical History / Comment(s): FATHER [place] 66 years old Mother Family Medical History: Dementia Additional Family Medical History / Comment(s): kidney failure; CAD with myocardial infarction in 2 maternal uncles General Exam Limitations: no limitations General appearance: alert, in no apparent distress, anxious Head exam: Present: atraumatic, normocephalic, normal inspection Eye exam: Present: normal appearance, PERRL, EOMI. Absent: scleral icterus, conjunctival injection, periorbital swelling ENT exam: Present: normal exam, mucous membranes moist Neck exam: Present: normal inspection. Absent: tenderness, meningismus, lymphadenopathy Respiratory exam: Present: normal lung sounds bilaterally. Absent: respiratory distress, wheezes, rales, rhonchi, stridor Cardiovascular Exam: Present: regular rate, normal rhythm, normal heart sounds. Absent: systolic murmur, diastolic murmur, rubs, gallop, clicks GI/Abdominal exam: Present: soft, normal bowel sounds. Absent: distended, tenderness, guarding, rebound, rigid Extremities exam: Present: normal inspection, full ROM, normal capillary refill. Absent: tenderness, pedal edema, joint swelling, calf tenderness Back exam: Present: normal inspection Neurological exam: Present: alert, oriented X3, CN II-XII intact Psychiatric exam: Present: normal affect, normal mood Skin exam: Present: warm, dry, intact, normal color. Absent: rash Course Vital Signs 04/22/23 04/22/23 04/22/23 15:22 17:09 18:58 Pulse Rate 62 67 68 Respiratory 18 18 18 Rate Blood Pressure 130/64 112/64 114/74 O2 Sat by Pulse 97 97 97 Oximetry - Reevaluation(s) Reevaluation #1: 04/22/23 17:33 Medical record is reviewed Reevaluation #2: 04/22/23 17:33 Patient's symptoms are relatively unchanged Reevaluation #3: 04/22/23 17:33 Patient informed of results and questions are answered Reevaluation #4: 04/22/23 17:33 Was pt. sent in by a medical professional or institution (, PA, MACHINE SHOP HELPER, urgent care, hospital, or detention...) When possible be specific @ -no Did you speak to anyone other than the patient for history (EMS, parent, family, police, friend...)? What history was obtained from this source @ -no Did you review nursing and triage notes (agree or disagree)? Why? @ -agree Are old charts reviewed (outside hosp., previous admission, EMS record, old EKG, old radiological studies, urgent care reports/EKG's, detention records)? Report findings @ -yes Differential Diagnosis (chest pain, altered mental status, abdominal pain women, abdominal pain men, vaginal bleeding, weakness, fever, dyspnea, syncope, headache, dizziness, GI bleed, back pain, seizure, CVA, palpatations, mental health, musculoskeletal)? @ -prior EKG interpreted by me (3pts min.). @ -yes X-rays interpreted by me (1pt min.). @ -yes negative for acute disease CT interpreted by me (1pt min.). @ -no U/S interpreted by me (1pt. min.). @ -no What testing was considered but not performed or refused? (CT, X-rays, U/S, labs)? Why? @ -none What meds were considered but not given or refused? Why? @ -none Did you discuss the management of the patient with other professionals (professionals i.e. DrTanya, PA, MACHINE SHOP HELPER, lab, RT, psych nurse, social work program coordinator, gelatin powder mixer, teacher, medical officer psychiatry, case checker)? Give summary @ -no Was smoking cessation discussed for >3mins.? @ -no Was critical care preformed (if so, how long)? @ -no Were there social determinants of health that impacted care today? How? (Homelessness, low income, unemployed, alcoholism, drug addiction, transportation, low edu. Level, literacy, decrease access to med. care, alf, rehab)? @ -none Was there de-escalation of care discussed even if they declined (Discuss DNR or withdrawal of care, Hospice)? DNR status @ -no What co-morbidities impacted this encounter? (DM, HTN, Smoking, COPD, CAD, Cancer, CVA, ARF, Chemo, Hep., AIDS, mental health diagnosis, sleep apnea, morbid obesity)? @ -none Was patient admitted / discharged? Hospital course, mention meds given and route, prescriptions, significant lab abnormalities, going to OR and other pertinent info. @ - 77 female to ER for evaluation of dizziness, vertiginous symptoms. Patient is in no acute distress able to answer without difficulty and can be discharged home Discharge Undiagnosed new problem with uncertain prognosis? @ -no Drug Therapy requiring intensive monitoring for toxicity (Heparin, Nitro, Insulin, Cardizem)? @ -no Were any procedures done? @ -no Diagnosis/symptom? @ -Dizziness, vertigo Acute, or Chronic, or Acute on Chronic? @ -Acute Uncomplicated (without systemic symptoms) or Complicated (systemic symptoms)? @ -Complicated Side effects of treatment? @ -no Exacerbation, Progression, or Severe Exacerbation? @ -exacerbation Poses a threat to life or bodily function? How? (Chest pain, [place], [place], pneumonia, PE, COPD, DKA, ARF, appy, cholecystitis, CVA, Diverticulitis, Homicidal, Suicidal, threat to staff... and all critical care pts) @ -yes extremes of age Reevaluation #5: 04/22/23 17:33 Differential Dizziness: Benign paroxysmal positional Vertigo, Menieres disease, otitis media, acoustic neuroma, vertebrobasilar insufficiency, cerebellar stroke, encephalitis, hypovolemic, arrhythmia, coronary artery syndrome, anemia, this is not meant to be an all-inclusive list EKG Findings - EKG Comments: EKG Findings:: EKG is sinus 62 TX 157 QRS 87 QTc 416 - EKG Results: EKG: interpreted by PAOLA Medical Decision Making - Medical Decision Making 77 female to ER for evaluation of dizziness, vertiginous symptoms. Patient is in no acute distress able to answer without difficulty and can be discharged home - Lab Data Result diagrams: 04/22/23 16:15 04/22/23 16:15 Lab Results 04/22/23 04/22/23 04/22/23 Range/Units 15:39 16:15 16:15 WBC 5.8 (3.8-10.6) k/uL RBC 4.10 (3.80-5.40) m/uL Hgb 13.4 (11.4-16.0) gm/dL Hct 39.7 (34.0-46.0) % MCV 96.7 (80.0-100.0) fL MCH 32.8 (25.0-35.0) pg MCHC 33.9 (31.0-37.0) g/dL RDW 13.0 (11.5-15.5) % Plt Count 131 L (150-450) k/uL MPV 9.0 Neutrophils % 51 % Lymphocytes % 24 % Monocytes % 19 % Eosinophils % 2 % Basophils % 1 % Neutrophils # 2.9 (1.3-7.7) k/uL Lymphocytes # 1.4 (1.0-4.8) k/uL Monocytes # 1.1 H (0-1.0) k/uL Eosinophils # 0.1 (0-0.7) k/uL Basophils # 0.0 (0-0.2) k/uL PT 10.6 (10.0-12.5) sec INR 1.0 (<1.2) APTT 24.3 (22.0-30.0) sec Sodium (137-145) mmol/L Potassium (3.5-5.1) mmol/L Chloride (98-107) mmol/L Carbon Dioxide (22-30) mmol/L Anion Gap mmol/L BUN (7-17) mg/dL Creatinine (0.52-1.04) mg/dL Est GFR (CKD-EPI)AfAm (>60 ml/min/1.73 sqM) Est GFR (CKD-EPI)NonAf (>60 ml/min/1.73 sqM) Glucose (74-99) mg/dL POC Glucose (mg/dL) 95 (70-110) mg/dL POC Glu Commercial Truck Driver ID Trudy, Matthew Plasma Lactic Acid Chris (0.7-2.0) mmol/L Calcium (8.4-10.2) mg/dL Phosphorus (2.5-4.5) mg/dL Magnesium (1.6-2.3) mg/dL Total Bilirubin (0.2-1.3) mg/dL AST (14-36) U/L ALT (4-34) U/L Alkaline Phosphatase (38-126) U/L Troponin I (0.000-0.034) ng/mL NT-Pro-B Natriuret Pep pg/mL Total Protein (6.3-8.2) g/dL Albumin (3.5-5.0) g/dL Urine Color Urine Appearance (Clear) Urine pH (5.0-8.0) Ur Specific [place] (1.001-1.035) Urine Protein (Negative) Urine Glucose (UA) (Negative) Urine Ketones (Negative) Urine Blood (Negative) Urine Nitrite (Negative) Urine Bilirubin (Negative) Urine Urobilinogen (<2.0) mg/dL Ur Leukocyte Esterase (Negative) 04/22/23 04/22/23 04/22/23 Range/Units 16:15 16:15 16:15 WBC (3.8-10.6) k/uL RBC (3.80-5.40) m/uL Hgb (11.4-16.0) gm/dL Hct (34.0-46.0) % MCV (80.0-100.0) fL MCH (25.0-35.0) pg MCHC (31.0-37.0) g/dL RDW (11.5-15.5) % Plt Count (150-450) k/uL MPV Neutrophils % % Lymphocytes % % Monocytes % % Eosinophils % % Basophils % % Neutrophils # (1.3-7.7) k/uL Lymphocytes # (1.0-4.8) k/uL Monocytes # (0-1.0) k/uL Eosinophils # (0-0.7) k/uL Basophils # (0-0.2) k/uL PT (10.0-12.5) sec INR (<1.2) APTT (22.0-30.0) sec Sodium 138 (137-145) mmol/L Potassium 4.1 (3.5-5.1) mmol/L Chloride 106 (98-107) mmol/L Carbon Dioxide 25 (22-30) mmol/L Anion Gap 7 mmol/L BUN 19 H (7-17) mg/dL Creatinine 1.02 (0.52-1.04) mg/dL Est GFR (CKD-EPI)AfAm 63 (>60 ml/min/1.73 sqM) Est GFR (CKD-EPI)NonAf 54 (>60 ml/min/1.73 sqM) Glucose 92 (74-99) mg/dL POC Glucose (mg/dL) (70-110) mg/dL POC Glu Commercial Truck Driver ID Plasma Lactic Acid Chris 1.3 (0.7-2.0) mmol/L Calcium 9.1 (8.4-10.2) mg/dL Phosphorus 4.3 (2.5-4.5) mg/dL Magnesium 1.9 (1.6-2.3) mg/dL Total Bilirubin 0.5 (0.2-1.3) mg/dL AST 36 (14-36) U/L ALT 17 (4-34) U/L Alkaline Phosphatase 87 (38-126) U/L Troponin I (0.000-0.034) ng/mL NT-Pro-B Natriuret Pep 638 pg/mL Total Protein 6.5 (6.3-8.2) g/dL Albumin 4.0 (3.5-5.0) g/dL Urine Color Yellow Urine Appearance Clear (Clear) Urine pH 5.5 (5.0-8.0) Ur Specific [place] 1.027 (1.001-1.035) Urine Protein Trace H (Negative) Urine Glucose (UA) Negative (Negative) Urine Ketones Negative (Negative) Urine Blood Negative (Negative) Urine Nitrite Negative (Negative) Urine Bilirubin Negative (Negative) Urine Urobilinogen 3.0 (<2.0) mg/dL Ur Leukocyte Esterase Negative (Negative) 04/22/23 Range/Units 16:15 WBC (3.8-10.6) k/uL RBC (3.80-5.40) m/uL Hgb (11.4-16.0) gm/dL Hct (34.0-46.0) % MCV (80.0-100.0) fL MCH (25.0-35.0) pg MCHC (31.0-37.0) g/dL RDW (11.5-15.5) % Plt Count (150-450) k/uL MPV Neutrophils % % Lymphocytes % % Monocytes % % Eosinophils % % Basophils % % Neutrophils # (1.3-7.7) k/uL Lymphocytes # (1.0-4.8) k/uL Monocytes # (0-1.0) k/uL Eosinophils # (0-0.7) k/uL Basophils # (0-0.2) k/uL PT (10.0-12.5) sec INR (<1.2) APTT (22.0-30.0) sec Sodium (137-145) mmol/L Potassium (3.5-5.1) mmol/L Chloride (98-107) mmol/L Carbon Dioxide (22-30) mmol/L Anion Gap mmol/L BUN (7-17) mg/dL Creatinine (0.52-1.04) mg/dL Est GFR (CKD-EPI)AfAm (>60 ml/min/1.73 sqM) Est GFR (CKD-EPI)NonAf (>60 ml/min/1.73 sqM) Glucose (74-99) mg/dL POC Glucose (mg/dL) (70-110) mg/dL POC Glu Commercial Truck Driver ID Plasma Lactic Acid Chris (0.7-2.0) mmol/L Calcium (8.4-10.2) mg/dL Phosphorus (2.5-4.5) mg/dL Magnesium (1.6-2.3) mg/dL Total Bilirubin (0.2-1.3) mg/dL AST (14-36) U/L ALT (4-34) U/L Alkaline Phosphatase (38-126) U/L Troponin I <0.012 (0.000-0.034) ng/mL NT-Pro-B Natriuret Pep pg/mL Total Protein (6.3-8.2) g/dL Albumin (3.5-5.0) g/dL Urine Color Urine Appearance (Clear) Urine pH (5.0-8.0) Ur Specific [place] (1.001-1.035) Urine Protein (Negative) Urine Glucose (UA) (Negative) Urine Ketones (Negative) Urine Blood (Negative) Urine Nitrite (Negative) Urine Bilirubin (Negative) Urine Urobilinogen (<2.0) mg/dL Ur Leukocyte Esterase (Negative) - EKG Data -: EKG Interpreted by Nh - Radiology Data Radiology results: report reviewed (Chest x-ray is negative for acute disease), image reviewed Disposition Clinical Impression: Palpitations, Chest pain, Dizziness, Vertigo Disposition: HOME SELF-CARE Condition: Fair Instructions (If sedation given, give patient instructions): Dizziness (ED) Is patient prescribed a controlled substance at d/c from ED?: No Referrals: Beatrice Castle [Primary Care Provider] - 1-2 days Time of Disposition: 18:30
[2023-04-22] MEDS: SODIUM CHLORIDE 0.9% 1,000 ML IV STA (16:38)
[2023-04-22 16:39] LABS: Basophils % (A) 1 %; Eosinophils # (A) 0.1 k/uL (0-0.7); Eosinophils % (A) 2 %; HCT 39.7 % (34.0-46.0); HGB 13.4 gm/dL (11.4-16.0); Lymphocytes # (A) 1.4 k/uL (1.0-4.8); Lymphocytes % (A) 24 %; MCH 32.8 pg (25.0-35.0); MCHC 33.9 g/dL (31.0-37.0); MCV 96.7 fL (80.0-100.0); Monocytes # (A) 1.1 k/uL (0-1.0); Monocytes % (A) 19 %; Neutrophils # (A) 2.9 k/uL (1.3-7.7); Neutrophils % (A) 51 %; Platelet Count 131 k/uL (150-450); WBC 5.8 k/uL (3.8-10.6)
[2023-04-22 16:55] LABS: Partial Thromboplastin Time 24.3 sec (22.0-30.0); Prothrombin Time 10.6 sec (10.0-12.5)
[2023-04-22 16:58] LABS: ALT 17 U/L (4-34); AST 36 U/L (14-36); African American GFR (CKD) 63 (>60 ml/min/1.73 sqM); Alkaline Phosphatase 87 U/L (38-126); Anion Gap 7 mmol/L; Blood Urea Nitrogen 19 mg/dL (7-17); Calcium 9.1 mg/dL (8.4-10.2); Carbon Dioxide 25 mmol/L (22-30); Chloride 106 mmol/L (98-107); Glucose 92 mg/dL (74-99); Magnesium 1.9 mg/dL (1.6-2.3); Non-African American GFR(CKD) 54 (>60 ml/min/1.73 sqM); Phosphorus 4.3 mg/dL (2.5-4.5); Potassium 4.1 mmol/L (3.5-5.1); Sodium 138 mmol/L (137-145); Total Bilirubin 0.5 mg/dL (0.2-1.3); Total Protein 6.5 g/dL (6.3-8.2)
[2023-04-22 17:05] LABS: NT-Pro-B-Type Natriuretic Pept 638 pg/mL
--- NOTE | 2023-04-22 17:05 | XR ---
EXAMINATION TYPE: XR chest 1V portable DATE OF EXAM: 04/22/2023 HISTORY: Shortness of breath. COMPARISON: 03/23/2021 TECHNIQUE: Single view of the chest is submitted. FINDINGS: Demonstrated are scattered senescent parenchymal change. There is no evidence for focal infiltrate. The heart is stable. Hilar and mediastinal structures are within normal limits. Degenerative changes are seen of the dorsal spine. IMPRESSION: 1. Chronic changes without evidence for acute pulmonary disease.
[2023-04-22 17:14] LABS: Appearance,Urine Clear (Clear); Bilirubin,Urine Negative (Negative); Blood,Urine Negative (Negative); Color,Urine Yellow; Glucose,Urine (UA) Negative (Negative); Ketones,Urine Negative (Negative); Leukocyte Esterase,Urine Negative (Negative); Nitrite,Urine Negative (Negative); PH, Urine 5.5 (5.0-8.0); Protein,Urine Trace (Negative); Specific Gravity,Urine 1.027 (1.001-1.035)
[2023-04-22 19:10] VITALS: BP 114/74; PULSE 68
== END 2023-04-22 18:59 | disposition home or self-care (01) ==
LOC: EC 15:19
DX: R00.2 Palpitations (principal); R42 Dizziness and giddiness; R07.9 Chest pain, unspecified; I25.10 Atherosclerotic heart disease of native coronary artery without angina pectoris; J44.9 Chronic obstructive pulmonary disease, unspecified; K21.9 Gastro-esophageal reflux disease without esophagitis; E78.5 Hyperlipidemia, unspecified; I10 Essential (primary) hypertension; E07.9 Disorder of thyroid, unspecified; F41.9 Anxiety disorder, unspecified; F32.A Depression, unspecified; Z79.899 Other long term (current) drug therapy; Z79.890 Hormone replacement therapy; Z88.5 Allergy status to narcotic agent; Z88.8 Allergy status to other drugs, medicaments and biological substances; Z88.6 Allergy status to analgesic agent; Z88.3 Allergy status to other anti-infective agents
CPT/HCPCS: 36415; 71045; 80053; 81003; 83605; 83735; 83880; 84100; 84484; 85025; 85610; 85730; 93005; 96360; 96361; 99285

== ENCOUNTER 2023-07-06 13:03 | Emergency (ER) | payer MEDICARE, OTHER ==
--- NOTE | 2023-07-06 13:29 | ED ---
Lower Extremity Injury HPI - General Chief Complaint: Extremity Injury, Lower Stated Complaint: L Leg Pain Time Seen by Provider: 07/06/23 13:27 Source: patient, RN notes reviewed Mode of arrival: ambulatory Limitations: no limitations - History of Present Illness Initial Comments: 77-year-old female presenting to the ER with a chief complaint of left foot and calf tenderness and swelling. She states for the past 3 days she has noticed an increase in pain especially when going to the bathroom in the middle the night and when waking up in the morning. She states that she has been using a heat pack, elevation and compression without relief. She denies any known injuries or traumas. No history of blood clots. Takes baby aspirin daily. No recent fevers, chest pain, shortness of breath. No recent travel. - Related Data Home Medications Medication Instructions Recorded Confirmed Baclofen 5 mg PO BID 08/23/15 11/04/22 Divalproex Sodium 500 mg PO BID 08/23/15 11/04/22 Levothyroxine Sodium 25 mcg PO DAILY 08/23/15 11/04/22 PARoxetine HCL [Paroxetine HCl] 20 mg PO DIRECTED 08/23/15 11/04/22 Mirabegron [Myrbetriq] 50 mg PO DAILY 07/11/19 11/04/22 Cholecalciferol [Vitamin D3 (25 50 mcg PO DAILY 06/02/21 11/04/22 Mcg = 1000 Iu)] Pantoprazole Sodium 40 mg PO DAILY 06/02/21 11/04/22 Rosuvastatin [Crestor] 20 mg PO HS 12/02/21 11/04/22 Multivitamins, Thera [Multivitamin 1 tab PO DAILY 11/04/22 11/04/22 (formulary)] lisinopriL [Zestril] 10 mg PO DAILY 11/04/22 11/04/22 Previous Rx's Medication Instructions Recorded Clopidogrel [Plavix] 75 mg PO DAILY #30 tab 12/08/21 Metoprolol Tartrate [Lopressor] 25 mg PO BID #60 tab 12/08/21 Allergies Allergy/AdvReac Type Severity Reaction Status Date / Time diclofenac sodium Allergy Unknown Verified 07/06/23 13:13 [From Arthrotec] hydrocodone bitartrate Allergy Unknown Verified 07/06/23 13:13 [From [place]] itraconazole [From Sporanox] Allergy pt not Verified 07/06/23 13:13 sure of alg misoprostol [From Arthrotec] Allergy Unknown Verified 07/06/23 13:13 naproxen [From Naprosyn] Allergy Unknown Verified 07/06/23 13:13 Review of Systems ROS Statement: Those systems with pertinent positive or pertinent negative responses have been documented in the HPI. ROS Other: All systems not noted in ROS Statement are negative. Past Medical History Past Medical History: Coronary Artery Disease (CAD), Chest Pain / Angina, COPD, Dementia, GERD/Reflux, Hyperlipidemia, Hypertension, Memory Impairment, Thyroid Disorder Additional Past Medical History / Comment(s): having severe abdominal pain intermittently-IBS, PALPITATIONS, PT STATES (STATES FALLS, CONFUSION, AND FORGETFULNESS AT TIMES-no devices),UTIs History of Any Multi-Drug Resistant Organisms: None Reported Past Surgical History: Back Surgery, Breast Surgery, Hysterectomy Additional Past Surgical History / Comment(s): Breast reduction, NECK FUSION, jer cataracts cabg in Dec 2021 Past Anesthesia/Blood Transfusion Reactions: Previous Problems w/ Anesthesia Additional Past Anesthesia/Blood Transfusion Reaction / Comment(s): TROUBLE WAKING UP FROM ANESTHESIA Past Psychological History: Anxiety, Depression, Panic Disorder Smoking Status: Former smoker Past Alcohol Use History: Occasional Past Drug Use History: None Reported - Past Family History Brother(s) Family Medical History: Coronary Artery Disease (CAD), Myocardial Infarction ([place]) Additional Family Medical History / Comment(s): FROM [place] at 56 years old Father History Unknown: Yes Family Medical History: Coronary Artery Disease (CAD), Myocardial Infarction ([place]) Additional Family Medical History / Comment(s): FATHER PASSED FROM [place] at 66 years old Mother Family Medical History: Dementia Additional Family Medical History / Comment(s): kidney failure; CAD with myocardial infarction in 2 maternal uncles General Exam Limitations: no limitations General appearance: alert, in no apparent distress Respiratory exam: Present: normal lung sounds bilaterally. Absent: respiratory distress, wheezes, rales, rhonchi, stridor Cardiovascular Exam: Present: regular rate, normal rhythm, normal heart sounds. Absent: systolic murmur, diastolic murmur, rubs, gallop, clicks Extremities exam: Present: calf tenderness (left), other (2+ bilateral dorsalis pedis pulse. Sensation intact. Patient has full active range of motion. edema to ankle. healing contusion to left farias. No edema to right leg) Neurological exam: Present: alert, oriented X3, CN II-XII intact Skin exam: Present: warm, dry, intact, normal color. Absent: rash Course Vital Signs 07/06/23 07/06/23 13:10 14:59 Temperature 97.9 F 98.8 F Pulse Rate 68 90 Respiratory 18 12 Rate Blood Pressure 135/71 132/70 O2 Sat by Pulse 98 98 Oximetry - Reevaluation(s) Reevaluation #1: 07/06/23 14:51 Patient reevaluated and ambulated. Patient able to ambulate with minor assistance for balance. Medical Decision Making - Medical Decision Making Was pt. sent in by a medical professional or institution (, PA, SALES PROMOTION COORDINATOR, urgent care, hospital, or retirement...) When possible be specific @ -No Did you speak to anyone other than the patient for history (EMS, parent, family, police, friend...)? What history was obtained from this source @ -No Did you review nursing and triage notes (agree or disagree)? Why? @ -I reviewed and agree with nursing and triage notes Were old charts reviewed (outside hosp., previous admission, EMS record, old EKG, old radiological studies, urgent care reports/EKG's, retirement records)? Report findings @ -No old charts were reviewed Differential Diagnosis (chest pain, altered mental status, abdominal pain women, abdominal pain men, vaginal bleeding, weakness, fever, dyspnea, syncope, headache, dizziness, GI bleed, back pain, seizure, CVA, palpatations, mental health, musculoskeletal)? @ -Differential Musculoskeletal Muscular strain, contusion, ligament sprain, fracture, arthritis, septic arthritis, bursitis, cellulitis, muscle spasm, nerve compression, DVT, arterial occlusion, herpes zoster, electrolyte abnormality, tumor.... This is not meant to be in all inclusive list EKG interpreted by me (3pts min.). @ -None X-rays interpreted by me (1pt min.). @ -Left tib-fib and left ankle x-rays interpreted by me negative for acute process. CT interpreted by me (1pt min.). @ -None done U/S interpreted by me (1pt. min.). @ -Ultrasound venous Doppler of left lower extremity negative for acute DVT. What testing was considered but not performed or refused? (CT, X-rays, U/S, labs)? Why? @ -None What meds were considered but not given or refused? Why? @ -Analgesic medication refused by patient. Did you discuss the management of the patient with other professionals ( professionals i.e. , PA, SALES PROMOTION COORDINATOR, lab, RT, psych nurse, director of social media marketing, shipfitter, teacher, motor equipment commanding officer, rn case mgr)? Give summary @ -No Was smoking cessation discussed for >3mins.? @ -No Was critical care preformed (if so, how long)? @ -No Were there social determinants of health that impacted care today? How? (Homelessness, low income, unemployed, alcoholism, drug addiction, transportation, low edu. Level, literacy, decrease access to med. care, custodial, rehab)? @ -No Was there de-escalation of care discussed even if they declined (Discuss DNR or withdrawal of care, Hospice)? DNR status @ -No What co-morbidities impacted this encounter? (DM, HTN, Smoking, COPD, CAD, Cancer, CVA, ARF, Chemo, Hep., AIDS, mental health diagnosis, sleep apnea, morbid obesity)? @ -None Was patient admitted / discharged? Hospital course, mention meds given and route, prescriptions, significant lab abnormalities, going to OR and other pertinent info. @ -Discharge. 77 year old female presenting to the ER with a chief complaint of left ankle/calf pain. History and physical exam completed. Vitals stable. Patient in no signs of acute distress and nontoxic-appearing. Bilateral lower extremity neurovascular intact. Left tenderness to calf. Ultrasound venous Doppler negative for acute DVT. X-rays obtained negative for acute process. Patient refused analgesic medication. Results discussed with patient, all questions answered. Upon reevaluation, patient ambulated with minor assistance for balance. Patient states she has a walker at home she can use for balance. Ankle stirrup placed. I advised follow-up with orthopedics, referral given. Return parameters discussed. Patient discharged in stable condition with follow-up to orthopedics/PCP. Patient verbally expressed understanding and agreement with care plan. Case discussed with ED attending, Dr. Ivy. Undiagnosed new problem with uncertain prognosis? @ -No Drug Therapy requiring intensive monitoring for toxicity (Heparin, Nitro, Insulin, Cardizem)? @ -No Were any procedures done? @ -No Diagnosis/symptom? @ -Ankle pain Acute, or Chronic, or Acute on Chronic? @ -Acute Uncomplicated (without systemic symptoms) or Complicated (systemic symptoms)? @ -Uncomplicated Side effects of treatment? @ -No Exacerbation, Progression, or Severe Exacerbation? @ -No Poses a threat to life or bodily function? How? (Chest pain, [place], [place], pneumonia, PE, COPD, DKA, ARF, appy, cholecystitis, CVA, Diverticulitis, Homicidal, Suicidal, threat to staff... and all critical care pts) @ -No - Radiology Data Radiology results: report reviewed, image reviewed Disposition Clinical Impression: Ankle pain Disposition: HOME SELF-CARE Condition: Stable Instructions (If sedation given, give patient instructions): Plantar Fasciitis (ED), Plantar Fasciitis Exercises (ED) Additional Instructions: Follow-up with PCP/orthopedics. Use walker to ambulate. Return to the ER for any new or worsening concerns. Is patient prescribed a controlled substance at d/c from ED?: No Referrals: Beatrice Castle [Primary Care Provider] - 1-2 days Norberto Coleman DO [Doctor of Osteopathic Medicine] - 1-2 days Time of Disposition: 14:37
--- NOTE | 2023-07-06 14:11 | US ---
EXAMINATION TYPE: US venous doppler duplex LE LT DATE OF EXAM: 07/06/2023 2:01 PM COMPARISON: NONE CLINICAL INDICATION: Female, 77 years old with history of pain and swelling; Patient left leg pain. N o hx of DVT. Patient on aspirin. SIDE PERFORMED: Left TECHNIQUE: The lower extremity deep venous system is examined utilizing real time linear array sonog kim with graded compression, doppler sonography and color-flow sonography. VESSELS IMAGED: Common Femoral Vein Deep Femoral Vein Greater Saphenous Vein * Femoral Vein Popliteal Vein Small Saphenous Vein * Proximal Calf Veins (* superficial vessels) Left Leg: Negative for DVT IMPRESSION: 1. Left lower extremity ultrasound negative for deep venous thrombosis.
--- NOTE | 2023-07-06 14:26 | XR ---
EXAMINATION TYPE: XR ankle complete LT DATE OF EXAM: 07/06/2023 COMPARISON: None HISTORY: Pain TECHNIQUE: 3 view left ankle FINDINGS: No acute fracture or dislocation is evident. Soft tissues are normal. Ankle mortise is inta ct. Follow up exams can be 10 days from acute trauma for continued pain. IMPRESSION: 1. No acute osseous abnormality left ankle.
--- NOTE | 2023-07-06 14:27 | XR ---
EXAMINATION TYPE: XR tibia fibula LT DATE OF EXAM: 07/06/2023 COMPARISON: None HISTORY: Pain TECHNIQUE: 2 view left tibia and fibula. FINDINGS: No acute fracture or dislocation evident. Joint spaces are preserved. Soft tissues are norm al. Follow up exams can be performed 7-10 days from acute trauma for continued pain. IMPRESSION: 1. No acute osseous abnormality left tibia and fibula
[2023-07-06 15:32] VITALS: BP 132/70; PULSE 90; RESP 12; TEMP 98.8
== END 2023-07-06 15:24 | disposition home or self-care (01) ==
LOC: EC 13:03
DX: S80.12XA Contusion of left lower leg, initial encounter (principal); Z87.891 Personal history of nicotine dependence; Z88.6 Allergy status to analgesic agent; Z88.8 Allergy status to other drugs, medicaments and biological substances; X58.XXXA Exposure to other specified factors, initial encounter
CPT/HCPCS: 99284; 73590; 73610; 93971; 29515; L4350

== ENCOUNTER 2023-08-08 18:36 | Emergency (ER) | payer MEDICARE, OTHER ==
--- NOTE | 2023-08-08 18:58 | ED ---
Eye Problem HPI - General Source: patient, RN notes reviewed Mode of arrival: ambulatory Limitations: no limitations <Sadie Us - Last Filed: 08/08/23 18:57> - General Source: patient, RN notes reviewed Mode of arrival: ambulatory Limitations: no limitations - History of Present Illness MD chief complaint: eye redness -: unknown Location: left eye Place: home If Injury: none Severity: mild Consistency: constant Associated Symptoms: none Treatments Prior to Arrival: none <Arnulfo Andrew - Last Filed: 08/16/23 16:33> - General Chief complaint: Eye Problems Stated complaint: Throbbing, bleeding left eye Time Seen by Provider: 08/08/23 18:57 - History of Present Illness Initial comments: Quick note: 77-year-old female presented to the ER with a chief complaint of left eye redness. Patient states she noticed this earlier today as she was going to put eyedrops in her eye. She denies any injuries or trauma. She does report mild blurry vision. Denies any fevers, chills, cough, congestion or other complaints. (Sadie Us) This is a 77 female who did notice that she has hemorrhage in her left eye no blood thinners no trauma. Patient became very nervous with the amount of redness in the left eye and comes to the ER for evaluation (Arnulfo Andrew) - Related Data Home Medications Medication Instructions Recorded Confirmed Baclofen 5 mg PO BID 08/23/15 11/04/22 Divalproex Sodium 500 mg PO BID 08/23/15 11/04/22 Levothyroxine Sodium 25 mcg PO DAILY 08/23/15 11/04/22 PARoxetine HCL [Paroxetine HCl] 20 mg PO DIRECTED 08/23/15 11/04/22 Mirabegron [Myrbetriq] 50 mg PO DAILY 07/11/19 11/04/22 Cholecalciferol [Vitamin D3 (25 50 mcg PO DAILY 06/02/21 11/04/22 Mcg = 1000 Iu)] Pantoprazole Sodium 40 mg PO DAILY 06/02/21 11/04/22 Rosuvastatin [Crestor] 20 mg PO HS 12/02/21 11/04/22 Multivitamins, Thera [Multivitamin 1 tab PO DAILY 11/04/22 11/04/22 (formulary)] lisinopriL [Zestril] 10 mg PO DAILY 11/04/22 11/04/22 Previous Rx's Medication Instructions Recorded Clopidogrel [Plavix] 75 mg PO DAILY #30 tab 12/08/21 Metoprolol Tartrate [Lopressor] 25 mg PO BID #60 tab 12/08/21 Allergies Allergy/AdvReac Type Severity Reaction Status Date / Time diclofenac sodium Allergy Unknown Verified 08/08/23 18:51 [From Arthrotec] hydrocodone bitartrate Allergy Unknown Verified 08/08/23 18:51 [From [place]] itraconazole [From Sporanox] Allergy pt not Verified 08/08/23 18:51 sure of alg misoprostol [From Arthrotec] Allergy Unknown Verified 08/08/23 18:51 naproxen [From Naprosyn] Allergy Unknown Verified 08/08/23 18:51 Review of Systems ROS Other: All systems not noted in ROS Statement are negative. <Sadie Us - Last Filed: 08/08/23 18:57> ROS Other: All systems not noted in ROS Statement are negative. <Arnlufo Andrew - Last Filed: 08/16/23 16:33> ROS Statement: Those systems with pertinent positive or pertinent negative responses have been documented in the HPI. Past Medical History Past Medical History: Coronary Artery Disease (CAD), Chest Pain / Angina, COPD, Dementia, GERD/Reflux, Hyperlipidemia, Hypertension, Memory Impairment, Thyroid Disorder Additional Past Medical History / Comment(s): having severe abdominal pain intermittently-IBS, PALPITATIONS, PT STATES (STATES FALLS, CONFUSION, AND FORGETFULNESS AT TIMES-no devices),UTIs History of Any Multi-Drug Resistant Organisms: None Reported Past Surgical History: Back Surgery, Breast Surgery, Hysterectomy Additional Past Surgical History / Comment(s): Breast reduction, NECK FUSION, jer cataracts cabg in Dec 2021 Past Anesthesia/Blood Transfusion Reactions: Previous Problems w/ Anesthesia Additional Past Anesthesia/Blood Transfusion Reaction / Comment(s): TROUBLE WAKING UP FROM ANESTHESIA Past Psychological History: Anxiety, Depression, Panic Disorder Smoking Status: Former smoker Past Alcohol Use History: Occasional Past Drug Use History: None Reported - Past Family History Brother(s) Family Medical History: Coronary Artery Disease (CAD), Myocardial Infarction ([place]) Additional Family Medical History / Comment(s): FROM [place] at 56 years old Father History Unknown: Yes Family Medical History: Coronary Artery Disease (CAD), Myocardial Infarction ([place]) Additional Family Medical History / Comment(s): FATHER PASSED FROM [place] at 66 years old Mother Family Medical History: Dementia Additional Family Medical History / Comment(s): kidney failure; CAD with myocardial infarction in 2 maternal uncles <Sadie Us - Last Filed: 08/08/23 18:57> General Exam Limitations: no limitations <Sadie Us - Last Filed: 08/08/23 18:57> General appearance: alert, in no apparent distress Head exam: Present: atraumatic, normocephalic, normal inspection Eye exam: Present: normal appearance, PERRL, EOMI. Absent: scleral icterus, conjunctival injection, periorbital swelling ENT exam: Present: normal exam, mucous membranes moist Neck exam: Present: normal inspection. Absent: tenderness, meningismus, lymphadenopathy Respiratory exam: Present: normal lung sounds bilaterally. Absent: respiratory distress, wheezes, rales, rhonchi, stridor Cardiovascular Exam: Present: regular rate, normal rhythm, normal heart sounds. Absent: systolic murmur, diastolic murmur, rubs, gallop, clicks GI/Abdominal exam: Present: soft, normal bowel sounds. Absent: distended, tenderness, guarding, rebound, rigid Extremities exam: Present: normal inspection, full ROM, normal capillary refill. Absent: tenderness, pedal edema, joint swelling, calf tenderness Back exam: Present: normal inspection Neurological exam: Present: alert, oriented X3, CN II-XII intact Psychiatric exam: Present: normal affect, normal mood Skin exam: Present: warm, dry, intact, normal color. Absent: rash <Arnulfo Andrew - Last Filed: 08/16/23 16:33> - General Exam Comments Initial Comments: Visual Physical Exam Vital signs reviewed General: Well-appearing, nontoxic, no acute distress. Head: Normocephalic, atraumatic Eyes: PERRLA, EOMI, subconjunctival hemorrhage left eye ENT: Airway patent Chest: Nonlabored breathing Skin: No visual rash, normal skin tone Neuro: Alert and oriented 3 Musculoskeletal: No gross abnormalities (Sadie Us) Course <Arnulfo Andrew - Last Filed: 08/16/23 16:33> Vital Signs 08/08/23 08/08/23 18:46 22:34 Temperature 98.5 F Pulse Rate 77 66 Respiratory 18 16 Rate Blood Pressure 206/79 199/83 O2 Sat by Pulse 98 98 Oximetry - Reevaluation(s) Reevaluation #1: Medical records reviewed (Arnulfo Andrew) Reevaluation #2: Patient symptoms improved (Arnulfo Andrew) Reevaluation #3: Patient informed of results questions answered (Arnulfo Andrew) Reevaluation #4: Was pt. sent in by a medical professional or institution (, [facility], CAR AUDIO INSTALLER, urgent care, hospital, or [facility]...) When possible be specific @ -no Did you speak to anyone other than the patient for history (EMS, parent, family, police, friend...)? What history was obtained from this source @ -no Did you review nursing and triage notes (agree or disagree)? Why? @ -agree Are old charts reviewed (outside hosp., previous admission, EMS record, old EKG, old radiological studies, urgent care reports/EKG's, [facility] records)? Report findings @ -yes Differential Diagnosis (chest pain, altered mental status, abdominal pain women, abdominal pain men, vaginal bleeding, weakness, fever, dyspnea, syncope, headache, dizziness, GI bleed, back pain, seizure, CVA, palpatations, mental health, musculoskeletal)? @ -prior EKG interpreted by me (3pts min.). @ -no X-rays interpreted by me (1pt min.). @ -no CT interpreted by me (1pt min.). @ -yes negative for acute disease U/S interpreted by me (1pt. min.). @ -no What testing was considered but not performed or refused? (CT, X-rays, U/S, labs)? Why? @ -none What meds were considered but not given or refused? Why? @ -none Did you discuss the management of the patient with other professionals (professionals i.e. DUGLAS Grossman, CAR AUDIO INSTALLER, lab, RT, psych nurse, social media senior associate, parliamentary counsel, teacher, safety instruction police officer, case monitor)? Give summary @ -no Was smoking cessation discussed for >3mins.? @ -no Was critical care preformed (if so, how long)? @ -no Were there social determinants of health that impacted care today? How? (Homelessness, low income, unemployed, alcoholism, drug addiction, transportation, low edu. Level, literacy, decrease access to med. care, custodial, rehab)? @ -none Was there de-escalation of care discussed even if they declined (Discuss DNR or withdrawal of care, Hospice)? DNR status @ -no What co-morbidities impacted this encounter? (DM, HTN, Smoking, COPD, CAD, Cancer, CVA, ARF, Chemo, Hep., AIDS, mental health diagnosis, sleep apnea, morbid obesity)? @ -none Was patient admitted / discharged? Hospital course, mention meds given and route, prescriptions, significant lab abnormalities, going to OR and other pertinent info. @ - 77 female to the ER for evaluation of left eye bleeding which she noticed, patient concern for redness around the eye complaining of eye pain but has no eye pain currently. Discharge Undiagnosed new problem with uncertain prognosis? @ -no Drug Therapy requiring intensive monitoring for toxicity (Heparin, Nitro, Insulin, Cardizem)? @ -no Were any procedures done? @ -no Diagnosis/symptom? @ -Left eye subconjunctival hemorrhage Acute, or Chronic, or Acute on Chronic? @ -Acute Uncomplicated (without systemic symptoms) or Complicated (systemic symptoms)? @ -Complicated Side effects of treatment? @ -no Exacerbation, Progression, or Severe Exacerbation? @ -exacerbation Poses a threat to life or bodily function? How? (Chest pain, [place], [place], pneumonia, PE, COPD, DKA, ARF, appy, cholecystitis, CVA, Diverticulitis, Homicidal, Suicidal, threat to staff... and all critical care pts) @ -no (Arnulfo Andrew) Medical Decision Making <Sadie Us - Last Filed: 08/08/23 18:57> - Radiology Data Radiology results: report reviewed (CT orbits negative for acute disease), image reviewed <Arnulfo Andrew - Last Filed: 08/16/23 16:33> - Medical Decision Making I performed the quick note portion of this chart. Electronically signed by Sadie Us PA-C (Sadie Us) 77 female to the ER for evaluation of left eye bleeding which she noticed, patient concern for redness around the eye complaining of eye pain but has no eye pain currently. (Arnulfo Andrew) Disposition <Sadie Us - Last Filed: 08/08/23 18:57> Is patient prescribed a controlled substance at d/c from ED?: No Time of Disposition: 22:30 <Arnulfo Andrew - Last Filed: 08/16/23 16:33> Clinical Impression: Left eye pain, Subconjunctival hemorrhage Disposition: HOME SELF-CARE Condition: Good Instructions (If sedation given, give patient instructions): Subconjunctival Hemorrhage (ED) Referrals: Beatrice Castle [Primary Care Provider] - 1-2 days
[2023-08-08 19:28] VITALS: TEMP 98.5
--- NOTE | 2023-08-08 22:06 | CT ---
EXAMINATION TYPE: CT orbits wo con CT DLP: 276 mGycm, Automated exposure control for dose reduction was used. DATE OF EXAM: 08/08/2023 9:03 PM COMPARISON: . CLINICAL INDICATION:Female, 77 years old with history of left eye pain; PHH, Possible seizure, loc... left eye redness. TECHNIQUE: Orbits: Axial CT with coronal and sagittal reformats through the orbits. No IV or oral contrast was u tilized. Findings: Orbital Contents: * Globes: Appear intact with evidence of prior ophthalmologic surgery bilaterally * Preseptal Tissues: Normal. * Intraconal Structures: Normal. * Extraconal Structures and Lacrimal Glands: Normal. * Orbital [place]: Normal. Sella Turcica and Cavernous Sinuses: The sella turcica and cavernous sinus regions are intact and sym metric. Moderate calcification of the carotid siphons. Visualized Brain Parenchyma: Atrophy without evidence of acute abnormality Paranasal Sinuses and Surrounding Structures: The paranasal sinuses are intact. The mastoid air cells and skull base is intact. Other: Soft tissues are within normal limits. No radiopaque foreign body is seen. IMPRESSION: No evidence of an acute orbital abnormality.
[2023-08-08 23:26] VITALS: BP 199/83; PULSE 66; RESP 16
== END 2023-08-08 22:34 | disposition home or self-care (01) ==
LOC: EC 18:36
DX: H11.32 Conjunctival hemorrhage, left eye (principal); H57.12 Ocular pain, left eye; Z87.891 Personal history of nicotine dependence; Z88.5 Allergy status to narcotic agent; Z88.6 Allergy status to analgesic agent; Z88.8 Allergy status to other drugs, medicaments and biological substances; Z88.3 Allergy status to other anti-infective agents; Z95.1 Presence of aortocoronary bypass graft
CPT/HCPCS: 70480; 99283

== ENCOUNTER → 2023-08-24 | Outpatient (CLI) | payer MEDICARE, OTHER ==
--- NOTE | 2023-08-25 21:03 | MM ---
Reason for Exam: Screening (asymptomatic). Last mammogram was performed 1 year(s) and 1 month(s) ago. Patient History: Menarche at age 15. First Full-Term at age 18. Left ovary removed at age 53. Right ovary removed at age 53. Hysterectomy at age 53. Postmenopausal. Progesterone for 1 month. Benign Excisional Biopsy on the left side. 03/2012, Bilateral Reduction. Risk Values: Chelly 5 year model risk: 1.5%. NCI Lifetime model risk: 3.3%. Prior Study Comparison: 07/23/2020 Bilateral Screening Mammogram, [facility]. 08/14/2021 Bilateral MG 3D screening mammo w/cad, [facility]. 08/17/2022 Bilateral MG 3D screening mammo w/cad, [facility]. Tissue Density: There are scattered areas of fibroglandular density. Findings: Analyzed By CAD. Benign vascular and a oil cyst calcifications redemonstrated. There is no suspicious group of microcalcifications or new suspicious mass in either breast. Overall Assessment: Benign, BI-RAD 2 Management: Screening Mammogram of both breasts in 1 year. . Patient should continue monthly self-breast exams. A clinical breast exam by your physician is recommended on an annual basis. This exam should not preclude additional follow-up of suspicious palpable abnormalities. Note on Chelly scores and lifetime risk: 1. A Chelly score greater than 3% is considered moderate risk. If this is the case, consider specialist referral to assess eligibility for a risk reducing agent. 2. If overall lifetime risk for the development of breast cancer is 20% or higher, the patient may qualify for future screening with alternating mammogram and breast MRI. Electronically signed and approved by: Janessa Peng M.D. Radiologist
== END | disposition home or self-care (01) ==
LOC: RADMAMWWP 14:08
PROVIDERS: ATTEND Student in an Organized Health Care Education/Training Program
DX: Z12.31 Encounter for screening mammogram for malignant neoplasm of breast (principal); Z78.0 Asymptomatic menopausal state
CPT/HCPCS: 77063; 77067

== ENCOUNTER → 2024-01-27 | Outpatient (CLI) | payer MEDICARE, OTHER ==
[2024-01-27 18:11] LABS: Basophils # (A) 0.01 X 10*3/uL (0.00-0.10); Basophils % (A) 0.3 %; Eosinophils # (A) 0.03 X 10*3/uL (0.04-0.35); Eosinophils % (A) 0.8 %; HCT 37.2 % (37.2-46.3); HGB 12.1 g/dL (12.0-15.0); Immature Grans, Automated 0 %; Lymphocytes # (A) 1.49 X 10*3/uL (0.90-5.00); Lymphocytes % (A) 40.5 %; MCH 31.7 pg (27.0-32.0); MCHC 32.5 g/dL (32.0-37.0); MCV 97.4 FL (80.0-97.0); Mean Platelet Volume 10.5 FL (9.5-12.2); Monocytes # (A) 0.82 X 10*3/uL (0.20-1.00); Monocytes % (A) 22.3 %; NRBC Per 100 WBC 0 X 10*3/uL (0.00-0.01); Neutrophils # (A) 1.33 X 10*3/uL (1.80-7.70); Neutrophils % (A) 36.1 %; Platelet Count 114 X 10*3/uL (140-440); RBC 3.82 X 10*6/uL (4.10-5.20); RDW 14.3 % (11.5-14.5); WBC 3.68 X 10*3/uL (4.50-10.00)
[2024-01-27 19:26] LABS: % Iron Saturation 36.31 (12.00-45.00); ALT 11 U/L (8-44); AST 25 U/L (13-35); Alkaline Phosphatase 75 U/L (41-126); Blood Urea Nitrogen 12.8 mg/dL (9.0-27.0); Calcium 9.8 mg/dL (8.7-10.3); Carbon Dioxide 27.3 mmol/L (21.6-31.8); Chloride 105 mmol/L (96-109); Chol/HDL Ratio 3.07 Ratio; Glucose 83 mg/dL (70-110); Iron 130 UG/DL (50-170); LDL Cholesterol,Calculated 77.2 mg/dL (0.0-131.0); Potassium 4.3 mmol/L (3.5-5.5); Sodium 142 mmol/L (135-145); Total Bilirubin 0.5 mg/dL (0.3-1.2); Total Iron Binding Capacity 358 UG/DL (228-460)
[2024-01-27 19:45] LABS: Amorphous Sediment,Urine Present (None Seen); Appearance,Urine Turbid (Clear); Bacteria,Urine None Seen (None Seen); Bilirubin,Urine Small (Negative); Blood,Urine Negative (Negative); Color,Urine Red (Yellow); Ketones,Urine Not Performed (Negative); Nitrite,Urine Positive (Negative); PH, Urine 5.5; Specific Gravity,Urine 1.012 (1.001-1.030); Urobilinogen,Urine 0.2
== END | disposition home or self-care (01) ==
LOC: LABWHC1 11:48
PROVIDERS: ATTEND Nurse Practitioner Family
DX: I25.9 Chronic ischemic heart disease, unspecified (principal); Z00.00 Encounter for general adult medical examination without abnormal findings; Z79.899 Other long term (current) drug therapy; F45.8 Other somatoform disorders
CPT/HCPCS: 36415; 80053; 80061; 81001; 83540; 83550; 84443; 85025; 87086; 93005

== ENCOUNTER → 2024-06-14 | Outpatient (CLI) | payer MEDICARE, OTHER ==
--- NOTE | 2024-06-14 17:29 | MR ---
INDICATION: Patient age:Female; 78 years old; Reason for study: R41.89 OTH SYMPTOMS AND SIGNS W COGNITIVE FUNCTIO; PHH. COMPARISON: CT orbits 08/08/2023, CT brain 05/16/2015, MRI brain 08/02/2013, 05/11/2011. TECHNIQUE: Multi planar, multi sequence imaging was performed through the brain without the administr ation of intravenous contrast. FINDINGS: The victoria-white junctions, ventricular system, basal cisterns appear unremarkable. Age-appropriate cer ebral parenchymal volume. Diffusion-weighted imaging shows no evidence of restricted diffusion to sug gest acute/subacute infarct. Intracranial arterial flow voids are maintained. Midline structures show no abnormality. Patchy areas of high T2/FLAIR signal intensity are seen within the supratentorial pe riventricular and subcortical white matter. The susceptibility weighted images couple of scattered fo ci of blooming artifact consistent with hemosiderin deposition within the bilateral frontal lobes. The bone marrow signal is within normal limits. Cervical fusion hardware demonstrated. The paranasal sinuses are unremarkable. Bilateral aphakia. IMPRESSION: 1. No evidence of intracranial mass or acute/subacute infarct. 2. Nonspecific mild white matter changes have minimally progressed from prior MRI, likely related to small vessel ischemic disease. [facility], , 06/14/2024 5:27 PM
== END | disposition home or self-care (01) ==
LOC: RADMRIMAIN 15:58
PROVIDERS: ATTEND Family Medicine
DX: R90.82 White matter disease, unspecified (principal); R41.89 Other symptoms and signs involving cognitive functions and awareness; R25.1 Tremor, unspecified
CPT/HCPCS: 70551

== ENCOUNTER → 2024-08-29 | Outpatient (CLI) | payer MEDICARE, OTHER | END | disposition home or self-care (01) | LOC: RADMAMWWP 09:38 | PROVIDERS: ATTEND Family Medicine | DX: Z53.9 Procedure and treatment not carried out, unspecified reason (principal) ==

== ENCOUNTER 2024-09-28 11:28 | Emergency (ER) | payer MEDICARE, OTHER ==
[2024-09-28 11:55] VITALS: RESP 18; TEMP 98.1
--- NOTE | 2024-09-28 12:42 | ED ---
General Adult HPI - General Chief complaint: Psychiatric Symptoms Stated complaint: Fall/Head injury Time Seen by Provider: 09/28/24 11:57 Source: patient, RN notes reviewed, old records reviewed Mode of arrival: ambulatory Limitations: no limitations - History of Present Illness Initial comments: 78-year-old female presenting for evaluation of fall which occurred yesterday. Patient states there was several children playing in the area and she was either struck by a ball or tripped falling backwards striking her head. She did also injure her mid and low back. This occurred yesterday evening. She is presenting at approximately noon for evaluation. Denies loss conscious. Denies vomiting. Patient also states that she is depressed and having suicidal thoughts. She denies a suicidal plan. - Related Data Home Medications Medication Instructions Recorded Confirmed Pantoprazole Sodium 40 mg PO DAILY 06/02/21 09/28/24 Rosuvastatin [Crestor] 20 mg PO DAILY 12/02/21 09/28/24 Baclofen 2.5 mg PO HS 09/28/24 09/28/24 Baclofen 5 mg PO DAILY 09/28/24 09/28/24 Dicyclomine [Bentyl] 10 mg PO TID PRN 09/28/24 09/28/24 Divalproex Sodium [Depakote] 500 mg PO BID 09/28/24 09/28/24 Metoprolol Succinate (ER) [Toprol 25 mg PO DAILY 09/28/24 09/28/24 Xl] Mirabegron [Myrbetriq] 25 mg PO DAILY 09/28/24 09/28/24 QUEtiapine FUMARATE [SEROquel] 25 mg PO HS 09/28/24 09/28/24 Previous Rx's Medication Instructions Recorded Clopidogrel [Plavix] 75 mg PO DAILY #30 tab 12/08/21 Allergies Allergy/AdvReac Type Severity Reaction Status Date / Time diclofenac sodium Allergy Unknown Verified 09/28/24 18:08 [From [employer]throtec] hydrocodone bitartrate Allergy Unknown Verified 09/28/24 18:08 [From [place]] itraconazole [From Sporanox] Allergy pt not Verified 09/28/24 18:08 sure of alg misoprostol [From Arthrotec] Allergy Unknown Verified 09/28/24 18:08 naproxen [From Naprosyn] Allergy Unknown Verified 09/28/24 18:08 Review of Systems ROS Statement: Those systems with pertinent positive or pertinent negative responses have been documented in the HPI. ROS Other: All systems not noted in ROS Statement are negative. Past Medical History Past Medical History: Coronary Artery Disease (CAD), Chest Pain / Angina, COPD, Dementia, GERD/Reflux, Hyperlipidemia, Hypertension, Memory Impairment, Thyroid Disorder Additional Past Medical History / Comment(s): having severe abdominal pain intermittently-IBS, PALPITATIONS, PT STATES (STATES FALLS, CONFUSION, AND FORGETFULNESS AT TIMES-no devices),UTIs History of Any Multi-Drug Resistant Organisms: None Reported Past Surgical History: Back Surgery, Breast Surgery, Hysterectomy Additional Past Surgical History / Comment(s): Breast reduction, NECK FUSION, jer cataracts cabg in Dec 2021 Past Anesthesia/Blood Transfusion Reactions: Previous Problems w/ Anesthesia Additional Past Anesthesia/Blood Transfusion Reaction / Comment(s): TROUBLE WAKING UP FROM ANESTHESIA Past Psychological History: Anxiety, Depression, Panic Disorder Smoking Status: Former smoker Past Alcohol Use History: Occasional Past Drug Use History: None Reported - Past Family History Brother(s) Family Medical History: Coronary Artery Disease (CAD), Myocardial Infarction (M I) Additional Family Medical History / Comment(s): FROM [place] at 56 years old Father History Unknown: Yes Family Medical History: Coronary Artery Disease (CAD), Myocardial Infarction ([place]) Additional Family Medical History / Comment(s): FATHER PASSED FROM [place] at 66 years old Mother Family Medical History: Dementia Additional Family Medical History / Comment(s): kidney failure; CAD with myocardial infarction in 2 maternal uncles General Exam Limitations: no limitations General appearance: alert, in no apparent distress Head exam: Present: atraumatic, normocephalic Eye exam: Present: normal appearance, PERRL ENT exam: Present: normal exam Neck exam: Present: normal inspection. Absent: tenderness, meningismus Respiratory exam: Present: normal lung sounds bilaterally. Absent: respiratory distress, wheezes Cardiovascular Exam: Present: regular rate, normal rhythm GI/Abdominal exam: Present: soft. Absent: distended, tenderness, guarding Extremities exam: Present: normal inspection Back exam: Present: paraspinal tenderness (Thoracic lumbar) Neurological exam: Present: alert, oriented X3, CN II-XII intact. Absent: motor sensory deficit Psychiatric exam: Present: depressed, suicidal ideation Skin exam: Present: warm, dry, intact Course Vital Signs 09/28/24 09/28/24 11:47 15:14 Temperature 98.1 F Pulse Rate 66 57 L Respiratory 18 18 Rate Blood Pressure 139/77 172/67 O2 Sat by Pulse 98 95 Oximetry Medical Decision Making - Medical Decision Making Was pt. sent in by a medical professional or institution (DUGLAS Grossman, TRACK MACHINE OPERATOR REPAIRER, urgent care, hospital, or prison...) When possible be specific @ -No Did you speak to anyone other than the patient for history (EMS, parent, family, police, friend...)? What history was obtained from this source @ -No Did you review nursing and triage notes (agree or disagree)? Why? @ -I reviewed and agree with nursing and triage notes Were old charts reviewed (outside hosp., previous admission, EMS record, old EKG, old radiological studies, urgent care reports/EKG's, prison records)? Report findings @ -No old charts were reviewed Differential Musculoskeletal Muscular strain, contusion, ligament sprain, fracture, arthritis, septic arthritis, bursitis, cellulitis, muscle spasm, nerve compression, DVT, arterial occlusion, herpes zoster, electrolyte abnormality, tumor.... This is not meant to be in all inclusive list Differential Mental Health Depression, anxiety, bipolar, psychosis, schizophrenia, borderline personality, situational depression, adjustment disorder, behavioral disorder, brain tumor, malingering, substance abuse, encephalopathy, medication reaction, dementia, hypothyroidism, degenerative neurologic disorder, lupus.... This is not meant to be all-inclusive list EKG interpreted by me (3pts min.). @ -As above X-rays interpreted by me (1pt min.). @ -X-rays of the thoracic and lumbar spine are negative for displaced fracture, degenerative change and scoliosis present. CT interpreted by me (1pt min.). @ -CT brain and cervical spine negative for traumatic injury, no intracranial hemorrhage. U/S interpreted by me (1pt. min.). @ -None done What testing was considered but not performed or refused? (CT, X-rays, U/S, labs)? Why? @ -None What meds were considered but not given or refused? Why? @ -None Did you discuss the management of the patient with other professionals (professionals i.e. DUGLAS Grossman, TRACK MACHINE OPERATOR REPAIRER, lab, RT, psych nurse, psychiatric social worker supervisor, teenage babysitter, teacher, fire prevention officer, case managers)? Give summary @ -No Was smoking cessation discussed for >3mins.? @ -No Was critical care preformed (if so, how long)? @ -No Were there social determinants of health that impacted care today? How? (Homelessness, low income, unemployed, alcoholism, drug addiction, transportation, low edu. Level, literacy, decrease access to med. care, mcc, rehab)? @ -No Was there de-escalation of care discussed even if they declined (Discuss DNR or withdrawal of care, Hospice)? DNR status @ -No What co-morbidities impacted this encounter? (DM, HTN, Smoking, COPD, CAD, Cancer, CVA, ARF, Chemo, Hep., AIDS, mental health diagnosis, sleep apnea, morbid obesity)? @ -Depression Was patient admitted / discharged? Hospital course, mention meds given and route, prescriptions, significant lab abnormalities, going to OR and other pertinent info. @ -78-year-old female presenting for fall with head injury which occurred yesterday. CT brain and CT of cervical spine is performed which is negative for traumatic injury. X-rays of the thoracic and lumbar spine are performed which are negative for traumatic injury. Patient is medically cleared and second complaint of depression and suicidal ideation will be addressed by EPS. EPS has evaluated the patient and felt to be safe for discharge. Undiagnosed new problem with uncertain prognosis? @ -No Drug Therapy requiring intensive monitoring for toxicity (Heparin, Nitro, Insulin, Cardizem)? @ -No Were any procedures done? @ -No Diagnosis/symptom? @Fall, depression Acute, or Chronic, or Acute on Chronic? @Acute Uncomplicated (without systemic symptoms) or Complicated (systemic symptoms)? @ -Default Side effects of treatment? @ -No Exacerbation, Progression, or Severe Exacerbation? @ -No Poses a threat to life or bodily function? How? (Chest pain, [place], [place], pneumonia, PE, COPD, DKA, ARF, appy, cholecystitis, CVA, Diverticulitis, Homicidal, Suicidal, threat to staff... and all critical care pts) @ -No - Lab Data Lab Results 09/28/24 Range/Units 14:35 Urine Color Colorless Urine Appearance Clear (Clear) Urine pH 7.5 (5.0-8.0) Ur Specific [place] 1.009 (1.001-1.035) Urine Protein Negative (Negative) Urine Glucose (UA) Negative (Negative) Urine Ketones Negative (Negative) Urine Blood Negative (Negative) Urine Nitrite Negative (Negative) Urine Bilirubin Negative (Negative) Urine Urobilinogen <2.0 (<2.0) mg/dL Ur Leukocyte Esterase Negative (Negative) Urine Opiates Screen Not Detected (NotDetected) Ur Oxycodone Screen Not Detected (NotDetected) Urine Methadone Screen Not Detected (NotDetected) Ur Barbiturates Screen Not Detected (NotDetected) U Tricyclic Antidepress Not Detected (NotDetected) Ur Phencyclidine Scrn Not Detected (NotDetected) Ur Amphetamines Screen Not Detected (NotDetected) U Methamphetamines Scrn Not Detected (NotDetected) U Benzodiazepines Scrn Not Detected (NotDetected) Urine Cocaine Screen Not Detected (NotDetected) U Marijuana (THC) Screen Not Detected (NotDetected) Disposition Clinical Impression: Depression Disposition: HOME SELF-CARE Condition: Fair Instructions (If sedation given, give patient instructions): Fall Prevention for Older Adults (ED), Depression (ED) Is patient prescribed a controlled substance at d/c from ED?: No Referrals: Alycia Ivy DO [Primary Care Provider] - 1-2 days Time of Disposition: 18:33
--- NOTE | 2024-09-28 13:11 | CT ---
EXAMINATION TYPE: CT brain cspine wo con DATE OF EXAM: 09/28/2024 12:49 PM COMPARISON: None. CLINICAL INDICATION: Female, 78 years old with history of fall; Fall, head injury, pain TECHNIQUE: Brain: Multiple axial CT images of the brain were obtained without IV contrast. Cspine: Axial CT images from the skull base to the inferior aspect of T2 we obtained without intraven ous contrast. Coronal and sagittal reformatted images were also reviewed. . CT DLP: 1339.4 mGycm, Automated exposure control for dose reduction was used. FINDINGS: Brain: Extra-axial spaces: No abnormal extra-axial fluid collections. Ventricular system: Dilatation in proportion to cerebral atrophy. Cerebral parenchyma: Cerebral atrophy. No acute intraparenchymal hemorrhage or mass effect. The victoria -white junction is well differentiated. Scattered hypoattenuating areas are seen within the white mat ter. Cerebellum: Unremarkable. Mass effect: No evidence of midline shift. Intracranial vasculature: Atherosclerotic calcifications of the intracranial vessels. Soft tissues: Normal. Calvarium/osseous structures: No depressed skull fracture. Paranasal sinuses and mastoid air cells: Clear. Visualized orbits: Bilateral aphakia Cervical spine: Fracture: None. Osseous structures: Multilevel degenerative disc disease changes with endplate spurring and disc oste ophyte complex's. Anterior fixation at C4 C5 C6. There is osseous fusion at C4-C5. No osseous lesion definitively visualized C-spine C6. There is grade 1 anterolisthesis of C7 on T1. 1 anterolisthesis o f T1 on T2 and T2 on T3. Vertebral alignment: Within normal limits. Spinal canal/Neural Foramina: No evidence of significant spinal canal narrowing. No evidence for sign ificant neural foraminal stenosis. Neck soft tissues: Prevertebral soft tissues are within normal limits. Other: The airway is patent. Moderate severe atherosclerosis of the carotid bifurcations. Partially c alcified lymph nodes are seen throughout the mediastinum. IMPRESSION: 1. No acute intracranial process. 2. Nonspecific white matter changes, likely secondary to chronic small vessel ischemic disease. 3. No evidence of cervical spine fracture. 4. Moderate to severe multilevel degenerative disc disease. 5. Anterior fixation at C4 C5 C6. There is osseous fusion at C4-C5. No osseous lesion definitively v isualized C-spine C6. 6. Grade 1 anterolisthesis of C7 on T1 7. Grade 1 1 anterolisthesis of T1 on T2 and T2 on T3. [facility], , 09/28/2024 1:09 PM
--- NOTE | 2024-09-28 13:51 | XR ---
EXAMINATION TYPE: XR lumbar spine 2 or 3V DATE OF EXAM: 09/28/2024 1:06 PM COMPARISON: 05/04/2022. CLINICAL INDICATION: Female, 78 years old with history of pain after fall; PHH, pain TECHNIQUE: XR lumbar spine 2 or 3V - Frontal, lateral and coned in L5-S1 lateral views of the spine. FINDINGS: Fixation hardware in the spine appears intact. L4-L5 discectomy and hardware at L4 and L5. No evidence of any acute osseous pathology. No evidence of loss of vertebral body height is seen. Th ere is normal alignment of the lumbar vertebral bodies. Scattered disc space narrowing. Multilevel ma rginal osteophyte formation throughout the visualized spine. There is facet joint arthropathy through out the spine. Scattered at least mild neural foraminal stenosis. IMPRESSION: 1. No acute fracture. 2. Moderate to severe multilevel disc degeneration. 3. Postsurgical changes of the spine with hardware intact. 4. Scoliosis changes. 5. Severe atherosclerosis of the arterial vasculature. [facility], , 09/28/2024 1:49 PM
--- NOTE | 2024-09-28 13:52 | XR ---
EXAMINATION TYPE: XR thoracic spine complete DATE OF EXAM: 09/28/2024 1:05 PM COMPARISON: None CLINICAL INDICATION: Female, 78 years old with history of pain after fall; PHH, pain TECHNIQUE: XR thoracic spine complete views of the spine in Frontal, swimmers and lateral projections . FINDINGS: No evidence of acute fracture. There is scattered multilevel disk space narrowing without loss of ve rtebral body height. There is normal alignment of the thoracic vertebral bodies. Scattered osteophyte formation along the anterior and lateral aspects of the vertebral bodies. Neural foramen are patent given limitations of this exam. Spinal canal appears patent. Sternotomy changes are present. Scoliosi s changes. Left atrial appendage occlusion device. Fixation hardware in the cervical spine appears in tact. One screw at the middle fixation hardware appears missing. IMPRESSION: 1. No acute osseous pathology. 2. [id number] multilevel degeneration changes of the spine with scoliosis changes. [facility], , 09/28/2024 1:50 PM
[2024-09-28 14:41] LABS: Bilirubin,Urine Negative (Negative); Blood,Urine Negative (Negative); Color,Urine Colorless; Glucose,Urine (UA) Negative (Negative); Ketones,Urine Negative (Negative); Leukocyte Esterase,Urine Negative (Negative); Nitrite,Urine Negative (Negative); PH, Urine 7.5 (5.0-8.0); Protein,Urine Negative (Negative); Specific Gravity,Urine 1.009 (1.001-1.035); Urobilinogen,Urine <2.0 mg/dL (<2.0)
[2024-09-28 14:53] LABS: Barbiturate Screen,Urine Not Detected (NotDetected); Benzodiazepines Screen,Urine Not Detected (NotDetected); Opiate Screen,Urine Not Detected (NotDetected); Phencyclidine Screen,Urine Not Detected (NotDetected); Tricyclic Antidepressant,Urine Not Detected (NotDetected); Urn Cannabinoid Scrn Not Detected (NotDetected)
[2024-09-28 14:54] LABS: Oxycodone Screen, Urine Not Detected (NotDetected)
[2024-09-28 15:18] VITALS: BP 172/67; PULSE 57
== END 2024-09-28 19:09 | disposition home or self-care (01) ==
LOC: EC 11:28
DX: F32.A Depression, unspecified (principal); Z87.891 Personal history of nicotine dependence; Z88.5 Allergy status to narcotic agent; Z88.6 Allergy status to analgesic agent; Z88.8 Allergy status to other drugs, medicaments and biological substances; W01.198A Fall on same level from slipping, tripping and stumbling with subsequent striking against other object, initial encounter
CPT/HCPCS: 70450; 72072; 72100; 72125; 80306; 81003; 99284

== ENCOUNTER → 2024-10-09 | Outpatient (CLI) | payer MEDICARE, OTHER ==
[2024-10-09 12:22] LABS: African American GFR (CKD) >90 (>60 ml/min/1.73 sqM); Albumin 3.9 g/dL (3.5-5.0); Anion Gap 7 mmol/L; Blood Urea Nitrogen 15 mg/dL (7-17); Calcium 9.9 mg/dL (8.4-10.2); Carbon Dioxide 30 mmol/L (22-30); Chloride 103 mmol/L (98-107); Glucose 83 mg/dL (74-99); Non-African American GFR(CKD) 83 (>60 ml/min/1.73 sqM); Potassium 3.9 mmol/L (3.5-5.1); Sodium 140 mmol/L (137-145)
--- NOTE | 2024-10-09 13:41 | CT ---
EXAMINATION TYPE: CT abdomen pelvis wo/w con CT DLP: 1022 mGycm, Automated exposure control for dose reduction was used. DATE OF EXAM: 10/09/2024 1:23 PM COMPARISON: CT abdomen pelvis 03/23/2022, 07/11/2019 CLINICAL INDICATION:Female, 78 years old with history of R63.4 ABN WEIGHT LOSS; Abnormal weight loss TECHNIQUE: Standard CT of the abdomen and pelvis before and after the uneventful administration 100 cc of Isovue-300 intravenously. Oral contrast was administered. Coronal and sagittal reformats were performed. FINDINGS: LOWER CHEST: Elevation of the left hemidiaphragm. The visualized lung bases are clear. Sternotomy cricket nges. Mild cardiomegaly. Coronary artery calcifications. No pericardial effusion. ABDOMEN LIVER: Scattered punctate calcified granulomas. No suspicious lesion. GALLBLADDER AND BILE DUCTS: Unremarkable. PANCREAS: Unremarkable. SPLEEN: Scattered calcified granulomas. ADRENAL GLANDS: Unremarkable. KIDNEYS AND URETERS: No evidence of hydronephrosis or renal calculus. The kidneys enhance symmetrical ly. Contrast is demonstrated within both collecting systems and proximal ureters on the delayed phase . PELVIS BLADDER: Underdistended but grossly unremarkable. REPRODUCTIVE: The uterus is surgically absent. ABDOMEN & PELVIS STOMACH AND BOWEL: Stomach and duodenum are unremarkable. Enteric contrast reaches the cecum. Cecum i s located within the anterior pelvis. Sigmoid diverticulosis without evidence for acute diverticuliti s. The appendix is within normal limits. No evidence of bowel obstruction. PERITONEUM: No evidence of pneumoperitoneum or free fluid. VASCULATURE: Moderate atherosclerotic calcifications are present throughout the abdominal aorta and i ts branches. No evidence of aortic aneurysm. At least moderate stenosis of the origin of the celiac a ccess and SMA. Moderate to severe stenosis suggested within the bilateral proximal renal arteries. MUSCULOSKELETAL: No acute osseous abnormalities. No aggressive osseous lesion. S-shaped scoliotic cur vature of the thoracolumbar spine with levocurvature of the lumbar portion. Postsurgical changes with bilateral pedicular screws and rods with intervertebral disc hardware at L4-L5. Moderate multilevel degenerative disc disease and facet arthropathy. Bilateral hip osteoarthritic changes. LYMPH NODES: No evidence for lymphadenopathy. SOFT TISSUE/ABDOMINAL WALL: Left gluteal subcutaneous tissue calcification. IMPRESSION: 1. No CT evidence for acute abdominal/pelvic process. No evidence to explain patient's symptomatolog y. 2. Sigmoid diverticulosis without evidence for acute diverticulitis. 3. Sequelae of prior granulomatous disease. [facility], , 10/09/2024 1:39 PM
== END | disposition home or self-care (01) ==
LOC: RADCTMAIN 11:08
PROVIDERS: ATTEND Internal Medicine Gastroenterology
DX: K57.30 Diverticulosis of large intestine without perforation or abscess without bleeding (principal); R63.4 Abnormal weight loss
CPT/HCPCS: 80069; 74178; 36415; Q9967